=== PATIENT | male | born 1930 | race Caucasian/White ===

== ENCOUNTER 2016-10-10 22:24 | Emergency (ER) | payer BC ==
[2016-10-10 22:34] VITALS: BP 125/85; PULSE 98; TEMP 98; BMI 40.3
--- NOTE | 2016-10-10 23:05 | PDOC ---
History of Present Illness - General Chief Complaint: Edema Stated Complaint: RT HAND SWELLING Time Seen by Provider: 10/10/16 22:34 History Source: Patient Exam Limitations: No Limitations - History of Present Illness Initial Comments: 10/10/16 23:10 This is an 86-year-old male who comes in complaining of several days of right upper extremity swelling. Patient states not take any medication and says he is otherwise healthy. Patient has had over the last several months some bilateral lower extremity swelling which for G saw his primary care doctor and have some tests done but does not know the test results. Patient denies any fevers or chills. Patient denies any history of similar symptoms in the past. Patient denies any trauma or injury. Patient is complaining of some mild pain in the area of the swelling as well. PAST MEDICAL HISTORY: no significant history PAST SURGICAL HISTORY: no significant history FAMILY HISTORY: no pertinant history SOCIAL HISTORY: Pt lives with family and is retired MEDICATIONS: reviewed ALLERGIES: As per nursing notes Review of Systems General: No fevers or chills, no weakness, no weight loss HEENT: No change in vision. No sore throat,. No ear pain CardioVascular: No chest pain or shortness of breath Respiratory:No cough, or wheezing. Gastrointestinal: no nausea, vomitting, diarrhea or constipation, No rectal bleeding Genitourinary: No dysuria, hematuria, or frequency Musculoskeletal: Right hand and arm swelling as per history of present illness Neurologic: No headache, vertigo, dizziness or loss of consciousness Psychiatric: nor depression Skin: No rashes or easy bruising Endocrine: no increased thirst or abnormal weight change Allergic: no skin or latex allergy All other systems reviewed and normal GENERAL: The patient is awake, alert, and fully oriented, in no acute distress. HEAD: Normal with no signs of trauma. EYES: Pupils equal, round and reactive to light, extraocular movements intact, sclera anicteric, conjunctiva clear. EXTREMITIES: Right upper extremity there is moderate pitting edema of the right hand extending to proximally mid forearm. There is no increase in warmth but there is some questionable mild erythema. Neurovascular is intact. NEUROLOGICAL: Normal speech, normal gait. PSYCH: Normal mood, normal affect. SKIN: Warm, Dry, normal turgor, no rashes or lesions noted. 10/11/16 00:01 Doppler ultrasound negative for DVT Assessment and plan: This is an 86-year-old male who comes in complaining of right upper extremity swelling. There is no fever and minimal tenderness. There is a moderate amount of edema with some questionable mild erythema. There is no ascending lymphangitis. Patient had a white count that was negative there is no left shift. I think it is unlikely that this is infectious in nature however given the fact that patient is 86 years old I am going to cover him with Bactrim DS. Patient does have a primary care doctor he can follow-up with early next week or sooner if needed Past History - Past Medical History Allergies/Adverse Reactions: Allergies Allergy/AdvReac Type Severity Reaction Status Date / Time No Known Allergies Allergy Unverified 10/10/16 22:32 Home Medications: Ambulatory Orders Sulfamethoxazole/Trimethoprim [Bactrim DS -] 1 tab PO BID #14 tablet 10/11/16 Other medical history: DENIES - Psycho/Social/Smoking Cessation Hx Anxiety: No Suicidal Ideation: No Smoking History: Former smoker Have you smoked in the past 12 months: No Information on smoking cessation initiated: No *Physical Exam - Vital Signs Last Vital Signs Temp Pulse Resp BP Pulse Ox 98 F 98 H 20 125/85 98 10/10/16 22:32 10/10/16 22:32 10/10/16 22:32 10/10/16 22:32 10/10/16 22:32 ED Treatment Course - LABORATORY CBC & Chemistry Diagram: 10/10/16 23:05 10/10/16 23:05 *DC/Admit/Observation/Transfer Diagnosis at time of Disposition: Edema of hand - Discharge Dispostion Disposition: HOME Condition at time of disposition: Stable Admit: No - Prescriptions Prescriptions: Sulfamethoxazole/Trimethoprim [Bactrim DS -] 1 tab PO BID #14 tablet - Patient Instructions Additional Instructions: Take Bactrim 1 tablet twice a day for 7 days to prevent or treat any early infection. Tylenol as needed for pain. Try to elevate the hand as much as possible. Return to the emergency department immediately with ANY new, persistent or worsening symptoms. Continue any medications as previously prescribed by your physician. You should follow up with your primary doctor as soon as possible regarding today's emergency department visit. . Please make sure your doctor reviews the results of your emergency evaluation. Thank you for coming to the Emergency Department today for your care. It was a pleasure to see you today. Please note that your evaluation is INCOMPLETE until you follow-up with your doctor.
[2016-10-10 23:24] LABS: MCH 30.3 pg (25.7-33.7); MCHC 34.4 g/dl (32.0-35.9); MEAN CELL VOLUME 88.2 fl (80-96); MEAN PLT VOLUME 7.7 fl (7.5-11.1); PLATELET COUNT 231 K/MM3 (134-434); RDW 14.3 % (11.9-15.9); WHITE BLOOD COUNT 7.8 K/mm3 (4.0-10.0)
[2016-10-10 23:28] LABS: ANION GAP 10 (8-16); CALCIUM 8.6 mg/dl (8.4-10.2); CO2 28 mmol/L (22-28); CREATININE 1.3 mg/dl (0.6-1.3); GLUCOSE,RANDOM 121 mg/dl (74-106)
[2016-10-10 23:49] LABS: PLATELET ESTIMATE ADEQUATE (NORMAL)
[2016-10-11] MEDS ORDERED: SULFAMETHOXAZOLE/TRIMETHOPRIM 800MG/160MG D.S. TABLET ONE (00:04)
[2016-10-11] MEDS: SULFAMETHOXAZOLE/TRIMETHOPRIM 800MG/160MG D.S. TABLET PO ONE (00:06)
== END 2016-10-11 00:09 | disposition home or self-care (01) ==
LOC: FER 22:24
DX: R60.0 Localized edema (principal)
CPT/HCPCS: 36415; 80048; 85025; 93971; 99281-25

== ENCOUNTER 2017-07-01 13:28 | Inpatient (IN) | payer BC, OTHER ==
--- NOTE | 2017-07-01 13:37 | PDOC ---
History of Present Illness <TaylorMerlin - Last Filed: 07/01/17 15:48> - General History Source: Patient, Friend Exam Limitations: No Limitations - History of Present Illness Initial Comments: 07/01/17 14:40 The patient is an 86 year old male, with a significant past medical history of Hodgkin's lymphoma, who presents to the emergency department with generalized weakness. The patient lives with a friend who reports that he has been getting progressively weaker over the past couple of weeks. She reports that the patient fell 4 days ago. She states that she found the patient on the floor on his right side. She initiated EMS but the patient did not want to go to the hospital at that time. Over the past 4 days, the patient has been reporting right shoulder pain so he was brought to the ED for further evaluation. The patient denies fever, chills, headache, nausea or vomiting. The patient denies shortness of breath or chest pain. Allergies: None reported. Past Surgical History: None reported. Social History: Non-smoker. Denies alcohol or drug use. PCP: Dr. Reece <Rosalva Ayala - Last Filed: 07/01/17 16:47> - General Chief Complaint: Weakness Stated Complaint: generalized weakness Time Seen by Provider: 07/01/17 13:33 Past History - Past Medical History Cancer: Yes (Hodgkin's on chemo may be due next week per pt's .) COPD: No - Suicide/Smoking/Psychosocial Hx Smoking History: Never smoked Have you smoked in the past 12 months: No Information on smoking cessation initiated: No Hx Alcohol Use: No Drug/Substance Use Hx: No Substance Use Type: None <Merlin Vazquez - Last Filed: 07/01/17 15:48> <Rosalva Ayala - Last Filed: 07/01/17 16:47> - Past Medical History Allergies/Adverse Reactions: Allergies Allergy/AdvReac Type Severity Reaction Status Date / Time No Known Allergies Allergy Verified 07/01/17 13:34 Home Medications: Ambulatory Orders NK [No Known Home Medication] 07/01/17 Review of Systems - Review of Systems Able to Perform ROS?: Yes Comments:: 07/01/17 14:15 A complete review of 10 out of 10 review of systems is taken and is negative apart from what is previously mentioned below and in the HPI. <Rosalva Ayala - Last Filed: 07/01/17 16:47> *Physical Exam - Vital Signs Last Vital Signs Temp Pulse Resp BP Pulse Ox 97.6 F 85 16 138/74 99 07/01/17 13:30 07/01/17 13:30 07/01/17 13:30 07/01/17 13:30 07/01/17 13:30 <Merlin Vazquez - Last Filed: 07/01/17 15:48> - Vital Signs Last Vital Signs Temp Pulse Resp BP Pulse Ox 97.6 F 85 16 138/74 99 07/01/17 13:30 07/01/17 13:30 07/01/17 13:30 07/01/17 13:30 07/01/17 13:30 - Physical Exam Comments: 07/01/17 14:31 Vitals: Triage Vital signs reviewed. General Appearance: No acute distress, well nourished, well developed. Head: Atraumatic, normocephalic. Eyes: Pupils equal round reactive, extraocular movements intact. Neck: Supple. No nuchal rigidity. Chest Wall: Nontender. Cardiac: Regular rate and rhythm. No murmurs, no rubs, no gallops. Lungs: Clear to auscultation bilaterally, good air movement bilaterally. Abdomen: Soft, nondistended, normal bowel sounds, nontender to palpation. Rectal Exam: Guaiac positive, brown stool. Extremities: Right shoulder, decreased range of motion. Full range of motion to all other extremities, no cyanosis or clubbing. 2+ pitting edema of the bilateral lower extremities. Chronic venous stasis changes of the bilateral lower extremities. Skin: Abrasion of the head extending to the nose. Fungal rash to the groin. Warm and dry, no lesions, no petechiae. Neuro: AOX3. Cranial Nerves 2-12 grossly intact. Strength intact to all extremities. Sensation intact to all extremities. Psych: Normal mood, normal affect. <Rosalva Ayala - Last Filed: 07/01/17 16:47> Heart Score/ECG Review #1 ECG reviewed & interpreted by me at: 14:44 (EKG performed at 14:44 demonstrates rate of 73 bpm, normal sinus rhythm, left axis deviation. Right bundle branch block. Inferior infarct, age undetermined. No T wave inversions, no ST elevations.) <Rosalva Ayala - Last Filed: 07/01/17 16:47> ED Treatment Course - LABORATORY CBC & Chemistry Diagram: 07/01/17 13:45 07/01/17 13:47 <Merlin Vazquez - Last Filed: 07/01/17 15:48> - LABORATORY CBC & Chemistry Diagram: 07/01/17 13:45 07/01/17 13:47 - ADDITIONAL ORDERS Additional order review: 07/01/17 13:45 RBC 3.22 L D MCV 87.7 MCHC 31.9 L RDW 16.2 H D MPV 6.9 L D Neutrophils % 72.1 Lymphocytes % 16.3 Monocytes % 8.4 D Eosinophils % 3.0 Basophils % 0.2 <Rosalva Ayala - Last Filed: 07/01/17 16:47> Medical Decision Making - Medical Decision Making 07/01/17 14:51 EXAM: RAD/CHEST X-RAY PORTABLE Reviewed By: Dr. Monique Bourne IMPRESSION: No priors available for comparison. The cardiac silhouette is within normal limits in size allowing for magnification with mild to moderate unfolding of the aortic arch. The lung is clear. Mediastinum is osseous structures appear intact. A right subclavian central venous catheter is present with its tip in the superior vena cava. No pneumothorax is identified. No acute cardiopulmonary disease is present. EXAM: CT/HEAD CT WITHOUT CONTRAST Reviewed By: Dr. Monique Bourne IMPRESSION: There is mild to moderate volume loss and ventricular dilatation. Minimal periventricular chronic microvascular ischemic changes are present. No mass lesion, gross acute infarct or intracranial hemorrhage are identified. There is no shift of the midline structures. Visualized nasal sinuses and mastoid air cells are the calvarium is intact. Calcification of the cavernous carotid arteries are present. Mild to moderate volume loss without evidence of acute intracranial pathology. Call placed to Dr. Reece at 15:48, 16:15, 16:47. Case discussed with Dr. Reece at 16:47. <Rosalva Ayala - Last Filed: 07/01/17 16:47> *DC/Admit/Observation/Transfer - Discharge Dispostion Admit: Yes <Merlin Vazquez - Last Filed: 07/01/17 15:48> - Attestations Scribe Attestion: 07/01/17 14:15 Documentation prepared by Rosalva Ayala, acting as medical i d sales for Merlin Vazquez MD. <Rosalva Ayala - Last Filed: 07/01/17 16:47> Diagnosis at time of Disposition: Weakness Anemia Qualifiers: Anemia type: unspecified type Qualified Code(s): D64.9 - Anemia, unspecified - Discharge Dispostion Condition at time of disposition: Fair
[2017-07-01 14:01] LABS: BASO % 0.2 % (0-2.0); HEMATOCRIT 28.3 % (35.4-49); LYMPH % 16.3 % (8-40); MCHC 31.9 g/dl (32.0-35.9); MEAN CELL VOLUME 87.7 fl (80-96); MEAN PLT VOLUME 6.9 fl (7.5-11.1); MONO % 8.4 % (3.8-10.2); NEUT % 72.1 % (42.8-82.8); PLATELET COUNT 221 K/MM3 (134-434); RBC 3.22 M/mm3 (4.00-5.60); RDW 16.2 % (11.9-15.9)
[2017-07-01 14:16] LABS: ALK PHOS 64 U/L (32-92); ANION GAP 8 (8-16); BILIRUBIN,TOTAL 0.8 mg/dl (0.2-1.0); BLOOD UREA NITROGEN 53 mg/dl (7-18); CALCIUM 8.9 mg/dl (8.4-10.2); CHLORIDE 107 mmol/L (98-107); CO2 25 mmol/L (22-28); CREATININE 1.1 mg/dl (0.6-1.3); GLUCOSE,RANDOM 97 mg/dl (74-106); LIPASE 15 U/L (22-51); POTASSIUM 4.1 mmol/L (3.5-5.1); SGOT/AST 20 U/L (10-42); SGPT/ALT 11 U/L (10-40); SODIUM 140 mmol/L (136-145); TOT PROT 6.4 g/dl (6.4-8.3)
--- NOTE | 2017-07-01 14:54 | EKG ---
Test Reason : Blood Pressure : / mmHG Vent. Rate : 073 BPM Atrial Rate : 073 BPM P-R Int : 198 ms QRS Dur : 150 ms QT Int : 452 ms P-R-T Axes : 014 -34 012 degrees QTc Int : 497 ms NORMAL SINUS RHYTHM LEFT AXIS DEVIATION RIGHT BUNDLE BRANCH BLOCK CANNOT RULE OUT INFERIOR INFARCT , AGE UNDETERMINED ABNORMAL ECG NO PREVIOUS ECGS AVAILABLE Confirmed by GREGORIO HULL MD ([id number]) on 07/01/2017 2:54:13 PM Referred By: DR SUAREZ Confirmed By:GREGORIO HULL MD
[2017-07-01 16:34] LABS: URINE APPEARANCE Cloudy; URINE BILIRUBIN Negative (NEGATIVE); URINE GLUCOSE (UA) Negative (NEGATIVE); URINE KETONE Negative (NEGATIVE); URINE NITRITE Negative (NEGATIVE); URINE UROBILINOGEN 0.2 (0.2-1.0)
[2017-07-01 16:35] LABS: URINE BLOOD 3+ (NEGATIVE); URINE COLOR BROWN; URINE PROTEIN 2+ (NEGATIVE)
[2017-07-01 16:42] LABS: ACTIVATED PTT 28.7 SECONDS (24.0-38.9)
[2017-07-01 16:45] LABS: URINE BACTERIA MANY /hpf (NEGATIVE); URINE RBC MANY /hpf (0-3)
[2017-07-01 16:46] LABS: INR 1.15 (0.82-1.09); PROTHROMBIN TIME (PATIENT) 12.8 SEC (10.2-13.0)
[2017-07-01] MEDS ORDERED: CEFTRIAXONE 1 GM in DEXTROSE 5%-WATER - 50 ML IVPB ONE (17:15)
[2017-07-01] MEDS ORDERED: cefTRIAXone SODIUM 1 GM VIAL ONE (17:35)
[2017-07-01] MEDS ORDERED: NYSTATIN 100000 UNIT/GM TOPICAL OINTMENT 15 GM TUBE TP ONE (18:05)
[2017-07-01 18:56] VITALS: BMI 38.7
[2017-07-01] MEDS ORDERED: DEXTROSE 5%-0.45% SALINE 1,000 ML IV SCH (19:30)
--- NOTE | 2017-07-01 19:39 | HP ---
Admitting History and Physical - Admission Chief Complaint: s/p fall at a friend's house and weakness for approximately 1 week History of Present Illness: 86 yo male with PMH of Hodgkin's lymphoma was brought to my office by his friend for weakness with inability to ambulate. The patient fell approximately 1 week ago on his right shoulder but refused to see a doctor until now. He says that he was walking and tried to turn, being too weak, he lost his balance and fell on his right shoulder. At that time the patient had diarrhea. Currently the patient denies any diarrhea. He has diagnosis of Hodgkin's Lymphoma and will restart chemotherapy for acute relapse of Hodgkin's next week. Overall the patient is in poor physical condition and has difficulty taking care of himself. History Source: Patient, Caregiver Limitations to Obtaining History: Poor Historian - Past Medical History Cardiovascular: Yes: Murmur (systolic) Gastrointestinal: Yes: Other (diarrhea recrently) Renal/: Yes: BPH Heme/Onc: Yes: Other (Hodkin's Lymphoma) - Smoking History Smoking history: Never smoked Have you smoked in the past 12 months: No - Alcohol/Substance Use Hx Alcohol Use: No - Social History Usual Living Arrangement: Yes: With Significant Other History of Recent Travel: No Home Medications - Allergies Allergies/Adverse Reactions: Allergies Allergy/AdvReac Type Severity Reaction Status Date / Time No Known Allergies Allergy Verified 07/01/17 13:34 - Home Medications Home Medications: Ambulatory Orders NK [No Known Home Medication] 07/01/17 Review of Systems - Review of Systems Constitutional: reports: Weakness Eyes: reports: No Symptoms HENT: reports: No Symptoms Neck: reports: No Symptoms Cardiovascular: reports: Edema. denies: Palpitations, Shortness of Breath Respiratory: reports: No Symptoms Gastrointestinal: reports: Diarrhea (recently) Genitourinary: reports: Frequency, Incontinence, Urgency Breasts: reports: No Symptoms Reported Musculoskeletal: reports: Other (poor balance and lower back pain) Integumentary: reports: Erythema, Rash (located in the right submammary area) Psychiatric: reports: No Symptoms Physical Examination Vital Signs: Vital Signs Temperature 97.7 F 07/01/17 18:20 Pulse Rate 82 07/01/17 18:20 Respiratory Rate 16 07/01/17 18:20 Blood Pressure 130/71 07/01/17 18:20 O2 Sat by Pulse Oximetry (%) 99 07/01/17 18:20 Constitutional: Yes: No Distress, Calm Eyes: Yes: Conjunctiva Clear, EOM Intact HENT: Yes: Other (frontal area excoriation) Neck: Yes: Supple Cardiovascular: Yes: Regular Rate and Rhythm, S1, S2 Respiratory: Yes: Regular, CTA Bilaterally Gastrointestinal: Yes: Normal Bowel Sounds, Soft, Abdomen, Obese. No: Hepatomegaly, Splenomegaly Breast(s): Yes: WNL Extremities: No: Calf Tenderness Edema: No Peripheral Pulses WNL: Yes Neurological: Yes: Alert, Oriented Psychiatric: Yes: Alert, Oriented Labs: CBC, BMP 07/01/17 13:45 07/01/17 13:47 Imaging - Results Chest X-ray: Other (read ny me no pleural effusin and no infiltrate, no cardiomegaly) Cat Scan: Other (Ct scan of [facility] head : no acute intracranial pathology) Other: Other (right shoulder x ray read by me : possible fracture of the scapulla) Problem List - Problems (1) Traumatic arthropathy of right shoulder Assessment/Plan: Tylenol for pain Code(s): M12.511 - TRAUMATIC ARTHROPATHY, RIGHT SHOULDER (2) Fall as cause of accidental injury in home as place of occurrence Assessment/Plan: pt evluation rehab discharge as soon as possible Code(s): W19.XXXA - UNSPECIFIED FALL, INITIAL ENCOUNTER; Y92.009 - UNSP PLACE IN [facility] (3) Acute prerenal azotemia Assessment/Plan: hydration d5W at 42 cc/hr Code(s): R79.89 - OTHER SPECIFIED ABNORMAL FINDINGS OF BLOOD CHEMISTRY (4) Anemia Assessment/Plan: monitor CBC Code(s): D64.9 - ANEMIA, UNSPECIFIED Qualifiers: Anemia type: unspecified type Qualified Code(s): D64.9 - Anemia, unspecified (5) Hodgkins lymphoma Assessment/Plan: due for chemotherapy next week Code(s): C81.90 - HODGKIN LYMPHOMA, UNSPECIFIED, UNSPECIFIED SITE
[2017-07-02 08:43] LABS: BASO % 0.1 % (0-2.0); EOS % 5.2 % (0-4.5); HEMATOCRIT 23.3 % (35.4-49); HEMOGLOBIN 7.8 GM/dl (11.7-16.9); MCH 29.6 pg (25.7-33.7); MCHC 33.6 g/dl (32.0-35.9); MEAN CELL VOLUME 87.9 fl (80-96); MEAN PLT VOLUME 7.5 fl (7.5-11.1); MONO % 9.1 % (3.8-10.2); NEUT % 67.6 % (42.8-82.8); PLATELET COUNT 176 K/MM3 (134-434); RBC 2.65 M/mm3 (4.00-5.60); RDW 15.8 % (11.9-15.9); WHITE BLOOD COUNT 5.6 K/mm3 (4.0-10.8)
[2017-07-02 09:13] LABS: ALBUMIN 2.5 g/dl (3.5-5.0); ALK PHOS 53 U/L (32-92); ANION GAP 6 (8-16); BILIRUBIN,TOTAL 0.6 mg/dl (0.2-1.0); BLOOD UREA NITROGEN 45 mg/dl (7-18); CALCIUM 8.3 mg/dl (8.4-10.2); CHLORIDE 109 mmol/L (98-107); CO2 26 mmol/L (22-28); GLUCOSE,RANDOM 102 mg/dl (74-106); POTASSIUM 3.8 mmol/L (3.5-5.1); SGOT/AST 15 U/L (10-42); SGPT/ALT 11 U/L (10-40); SODIUM 141 mmol/L (136-145); TOT PROT 5.4 g/dl (6.4-8.3)
[2017-07-02] MEDS: CEFTRIAXONE 1 G/50 ML PREMIX 50 ML IVPB SCH (09:24)
[2017-07-02] MEDS: NYSTATIN/TRIAMCINOLONE TOPICAL CREAM 15 GM TUBE TP SCH ×2 (10:15→21:44)
--- NOTE | 2017-07-02 10:35 | PN ---
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, Physician Chief Complaint: 86 yo patient admitted for weakness, fall due to weakness and inability to care for himself.The patient has history of Hodgkin's lymphoma which relapsed recently and for which chemotherapy was scheduled next week. Currently he denies any pain, dyspnea or constipation. addendum :late in the evening the patient developed black tarry stools. History of Present Illness: PAtient admitted for deconditioning and fall at home. - Current Medication List Current Medications: Active Medications CEFTRIAXONE 1 G/50 ML PREMIX (Ceftriaxone 1 Gm-D5w Bag) 50 mls @ 100 mls/hr IVPB DAILY [facility] Last Admin: 07/02/17 09:24 Dose: 100 mls/hr Nystatin/Triamcinolone Acetonide (Mycolog Ii Cream -) 1 applic TP BID [facility] - Objective Vital Signs: Vital Signs Temperature 98.0 F 07/02/17 05:47 Pulse Rate 79 07/02/17 05:47 Respiratory Rate 18 07/02/17 05:47 Blood Pressure 118/68 07/02/17 05:47 O2 Sat by Pulse Oximetry (%) 99 07/02/17 08:31 Constitutional: Yes: No Distress, Calm Eyes: Yes: Conjunctiva Clear, EOM Intact HENT: Yes: Atraumatic, Normocephalic Neck: Yes: Supple, Trachea Midline Cardiovascular: Yes: Regular Rate and Rhythm, S1, S2 Respiratory: Yes: CTA Bilaterally Gastrointestinal: Yes: Normal Bowel Sounds, Soft, Abdomen, Obese. No: Hepatomegaly, Splenomegaly Extremities: Yes: Erythema. No: Calf Tenderness Edema: No (while in bed) Peripheral Pulses WNL: Yes Integumentary: Yes: Other (stasis dermatitis) Neurological: Yes: Alert, Oriented Psychiatric: Yes: Alert, Oriented Labs: CBC, BMP 07/02/17 08:00 07/02/17 08:00 INR, PTT INR 1.15 (0.82-1.09) 07/01/17 16:25 Problem List - Problems (1) Anemia Assessment/Plan: associated with black stools, most likely due to Gastro intestinal source monitor CBC retic count, Ferritin, transferrin, TIBC. Fe hold transfusion for now LDH repeat CBC in am Protonix iv serial CBC type and cross match Code(s): D64.9 - ANEMIA, UNSPECIFIED Qualifiers: Anemia type: unspecified type Qualified Code(s): D64.9 - Anemia, unspecified (2) Hodgkins lymphoma Assessment/Plan: due for chemotherapy next week with picture of acute anemia of unsure etiology will contact the Oncologist of the patient, Dr. DAN repeat CBC in am Code(s): C81.90 - HODGKIN LYMPHOMA, UNSPECIFIED, UNSPECIFIED SITE (3) Traumatic arthropathy of right shoulder Assessment/Plan: Tylenol for pain Code(s): M12.511 - TRAUMATIC ARTHROPATHY, RIGHT SHOULDER (4) Acute prerenal azotemia Assessment/Plan: hydration d5W at 42 cc/hr was completed Code(s): R79.89 - OTHER SPECIFIED ABNORMAL FINDINGS OF BLOOD CHEMISTRY (5) UTI (urinary tract infection) Assessment/Plan: awaiting for the urine cultures Ceftriaxone iv Code(s): N39.0 - URINARY TRACT INFECTION, SITE NOT SPECIFIED (6) BPH (benign prostatic hyperplasia) Assessment/Plan: continue Flomax Code(s): N40.0 - BENIGN PROSTATIC HYPERPLASIA WITHOUT LOWER URINRY TRACT SYMP
[2017-07-02] MEDS: PANTOPRAZOLE SODIUM 40 MG VIAL IVPUSH SCH (21:43)
[2017-07-02 22:26] LABS: BASO % 0.4 % (0-2.0); EOS % 3.1 % (0-4.5); HEMATOCRIT 25.2 % (35.4-49); HEMOGLOBIN 8.2 GM/dl (11.7-16.9); LYMPH % 17.6 % (8-40); MCH 28.7 pg (25.7-33.7); MCHC 32.6 g/dl (32.0-35.9); MEAN PLT VOLUME 7.9 fl (7.5-11.1); MONO % 8.1 % (3.8-10.2); NEUT % 70.8 % (42.8-82.8); PLATELET COUNT 197 K/MM3 (134-434); RBC 2.86 M/mm3 (4.00-5.60); RDW 16.7 % (11.9-15.9)
[2017-07-03 08:10] LABS: HEMATOCRIT 23.4 % (35.4-49); HEMOGLOBIN 7.6 GM/dl (11.7-16.9); MCHC 32.5 g/dl (32.0-35.9)
[2017-07-03 08:14] LABS: BASO % 0.1 % (0-2.0); EOS % 4.5 % (0-4.5); LYMPH % 17.3 % (8-40); MCH 28.9 pg (25.7-33.7); MEAN CELL VOLUME 88.8 fl (80-96); MEAN PLT VOLUME 7.6 fl (7.5-11.1); MONO % 9.2 % (3.8-10.2); NEUT % 68.9 % (42.8-82.8); PLATELET COUNT 187 K/MM3 (134-434); RBC 2.63 M/mm3 (4.00-5.60); RDW 16.4 % (11.9-15.9); WHITE BLOOD COUNT 5.7 K/mm3 (4.0-10.8)
[2017-07-03 08:35] LABS: ALBUMIN 2.5 g/dl (3.5-5.0); ALK PHOS 52 U/L (32-92); ANION GAP 6 (8-16); BILIRUBIN,TOTAL 0.6 mg/dl (0.2-1.0); BLOOD UREA NITROGEN 36 mg/dl (7-18); CALCIUM 8.1 mg/dl (8.4-10.2); CHLORIDE 109 mmol/L (98-107); CO2 24 mmol/L (22-28); GLUCOSE,RANDOM 94 mg/dl (74-106); LDH 110 U/L (91-180); POTASSIUM 3.4 mmol/L (3.5-5.1); SGOT/AST 17 U/L (10-42); SGPT/ALT 10 U/L (10-40); SODIUM 139 mmol/L (136-145); TOT PROT 5.4 g/dl (6.4-8.3)
[2017-07-03] MEDS: CEFTRIAXONE 1 G/50 ML PREMIX 50 ML IVPB SCH (09:00)
[2017-07-03] MEDS: PANTOPRAZOLE SODIUM 40 MG VIAL IVPUSH SCH (09:30)
--- NOTE | 2017-07-03 09:35 | PN ---
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 (short form) - Note 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: Patient seen and chart reviewed with consult dictated. Patient with recent weakness and found to have heme + stool, anemia, elevated BUN>creat and reports black stool x 24 hours. Likely UGI bleed. Patient on IV PPI and to receive PRBCs. Unable to perform EGD this am as patient ate breakfast; to reschedule for tomorrow. Would allow clear liquid diet and continue PPI Rx. Keep NPO after 6am 07/04/17 for EGD. Discuss[address] with Dr. Reece.
[2017-07-03] MEDS ORDERED: PANTOPRAZOLE 40 MG TABLET (FP) PO SCH (10:00)
--- NOTE | 2017-07-03 10:09 | CONS ---
DATE OF CONSULTATION: 07/03/2017 REASON FOR CONSULTATION: Asked to evaluate this 86-year-old gentleman admitted to the hospital with weakness and anemia as well as black tarry stool. HISTORY OF PRESENT ILLNESS: The patient is an 86-year-old gentleman with a known history of Hodgkin lymphoma for which he is scheduled for chemotherapy under the care of his oncologist next week. Patient apparently fell a week ago with injury to his shoulder and his forehead and did not go to a doctor at the time. He states that he has had some progressive weakness over the past week and was admitted via the emergency room with the weakness and noted to have anemia with initial hemoglobin of 9, hematocrit 28.3, with an MCV of 87.7, a BUN of 45, and a creatinine of 1.0. The patient received IV fluids and his repeat BUN and creatinine were 36 and 1.0 and his hematocrit fell to 23.3%. The patient states that he has had very dark, black stool for the past 24 hours. He denies the use of aspirin or NSAIDs, and the Hemoccult test was positive. The patient denies any prior history of GI bleeding or ulcer disease. He has had a good appetite and denies any abdominal pain or cramps. He reports having had a colonoscopy many years ago, ? over 10 years ago, and believes a polyp was removed at that time. There is no known family history of GI illness or malignancy. PHYSICAL EXAMINATION: General: The patient is a well-developed, elderly gentleman. He does not appear in any distress. He is somewhat slow in his answers but appears alert and oriented x3. HEENT: His conjunctivae are slightly pale. No icterus. Lungs: Grossly clear. Cardiac: Regular rate and rhythm. Abdomen: Soft, moderate obesity. No tenderness. As noted, the stool is Hemoccult positive. ASSESSMENT: Patient with Hodgkin disease, recent weakness and a recent fall. Has Hemoccult positive stool with a significant anemia. Patient may have an upper gastrointestinal bleed, and an upper endoscopy has been suggested. However, he was fed this morning, and the procedure will be deferred until tomorrow morning. In the interim, the patient is on IV Protonix and is to receive packed red blood cells. I will follow expectantly with recommendations as needed. CHARLIE SALINAS M.D. [id number]
[2017-07-03] MEDS: NYSTATIN/TRIAMCINOLONE TOPICAL CREAM 15 GM TUBE TP SCH ×2 (10:10→22:00)
[2017-07-03 14:14] LABS: SERUM IRON SATURATION 29 % (15-55); TOTAL IRON BINDING CAPACITY 210 ug/dL (250-450); UIBC 149 ug/dL (111-343)
--- NOTE | 2017-07-03 15:17 | PN ---
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, Physician Chief Complaint: 86 yo patient admitted for weakness, fall due to weakness and inability to care for himself.The patient has history of Hodgkin's lymphoma which relapsed recently and for which chemotherapy was scheduled next week. Currently he denies any pain, dyspnea, palpitations or constipation. addendum :late in the evening the patient developed black tarry stools. No repeated episode since yesterday. History of Present Illness: Patient admitted for deconditioning and fall at home, developed black tarry stools associated with a drop in H/H. The patient received 1 unit of blood. Endoscopy was scheduled for tomorrow. - Current Medication List Current Medications: Active Medications CEFTRIAXONE 1 G/50 ML PREMIX (Ceftriaxone 1 Gm-D5w Bag) 50 mls @ 100 mls/hr IVPB DAILY [facility] Last Admin: 07/02/17 09:24 Dose: 100 mls/hr Nystatin/Triamcinolone Acetonide (Mycolog Ii Cream -) 1 applic TP BID [facility] Last Admin: 07/02/17 21:44 Dose: 1 applic Pantoprazole Sodium (Protonix Iv) 40 mg IVPUSH DAILY [facility] Last Admin: 07/02/17 21:43 Dose: 40 mg - Objective Vital Signs: Vital Signs Temperature 98.2 F 07/03/17 14:26 Pulse Rate 74 07/03/17 14:26 Respiratory Rate 19 07/03/17 14:26 Blood Pressure 117/50 07/03/17 14:26 O2 Sat by Pulse Oximetry (%) 100 07/03/17 14:26 Constitutional: Yes: No Distress, Calm Eyes: Yes: Conjunctiva Clear, EOM Intact HENT: Yes: Atraumatic, Normocephalic Neck: Yes: Supple, Trachea Midline Cardiovascular: Yes: Regular Rate and Rhythm, S1, S2 Respiratory: Yes: Regular, CTA Bilaterally Gastrointestinal: Yes: Normal Bowel Sounds, Soft. No: Hepatomegaly, Splenomegaly ...Rectal Exam: Yes: Deferred Musculoskeletal: Yes: Muscle Weakness Extremities: No: Calf Tenderness Edema: No Labs: CBC, BMP 07/03/17 07:00 07/03/17 07:00 INR, PTT INR 1.15 (0.82-1.09) 07/01/17 16:25 Problem List - Problems (1) Upper gastrointestinal bleed Assessment/Plan: Protonix 40 mg iv daily repeat cbc in am endoscopy in am Code(s): K92.2 - GASTROINTESTINAL HEMORRHAGE, UNSPECIFIED (2) Traumatic arthropathy of right shoulder Assessment/Plan: Tylenol for pain Code(s): M12.511 - TRAUMATIC ARTHROPATHY, RIGHT SHOULDER (3) Anemia Assessment/Plan: associated with black stools, most likely due to Gastro intestinal source monitor CBC transfused today 1 unit PRBC repeat CBC in am Protonix iv Code(s): D64.9 - ANEMIA, UNSPECIFIED Qualifiers: Anemia type: unspecified type Qualified Code(s): D64.9 - Anemia, unspecified (4) UTI (urinary tract infection) Assessment/Plan: awaiting for the urine cultures Ceftriaxone iv Code(s): N39.0 - URINARY TRACT INFECTION, SITE NOT SPECIFIED (5) BPH (benign prostatic hyperplasia) Assessment/Plan: continue Flomax Code(s): N40.0 - BENIGN PROSTATIC HYPERPLASIA WITHOUT LOWER URINRY TRACT SYMP
[2017-07-04 08:08] LABS: BASO % 0.2 % (0-2.0); EOS % 5.5 % (0-4.5); HEMATOCRIT 25.1 % (35.4-49); HEMOGLOBIN 8.2 GM/dl (11.7-16.9); LYMPH % 17.2 % (8-40); MCH 28.8 pg (25.7-33.7); MCHC 32.6 g/dl (32.0-35.9); MEAN CELL VOLUME 88.6 fl (80-96); MEAN PLT VOLUME 7.6 fl (7.5-11.1); MONO % 9.7 % (3.8-10.2); NEUT % 67.4 % (42.8-82.8); PLATELET COUNT 170 K/MM3 (134-434); RBC 2.83 M/mm3 (4.00-5.60); WHITE BLOOD COUNT 5.3 K/mm3 (4.0-10.8)
[2017-07-04 08:40] LABS: ALBUMIN 2.5 g/dl (3.5-5.0); ALK PHOS 61 U/L (32-92); ANION GAP 3 (8-16); BILIRUBIN,TOTAL 0.5 mg/dl (0.2-1.0); BLOOD UREA NITROGEN 29 mg/dl (7-18); CALCIUM 8.1 mg/dl (8.4-10.2); CHLORIDE 109 mmol/L (98-107); CO2 26 mmol/L (22-28); POTASSIUM 3.5 mmol/L (3.5-5.1); SGOT/AST 17 U/L (10-42); SGPT/ALT 11 U/L (10-40); SODIUM 138 mmol/L (136-145); TOT PROT 5.5 g/dl (6.4-8.3)
[2017-07-04] MEDS: CEFTRIAXONE 1 G/50 ML PREMIX 50 ML IVPB SCH (09:00)
[2017-07-04] MEDS: PANTOPRAZOLE SODIUM 40 MG VIAL IVPUSH SCH (09:52)
[2017-07-04] MEDS: NYSTATIN/TRIAMCINOLONE TOPICAL CREAM 15 GM TUBE TP SCH ×2 (10:00→22:00)
[2017-07-04 11:02] LABS: GLUCOSE,RANDOM 91 mg/dL (74-106)
[2017-07-04] MEDS ORDERED: PROPOFOL 20 ML ONE ×3 (11:22)
[2017-07-04] MEDS ORDERED: LIDOCAINE HCL/PF 2% SDV 5ML VIAL ONE (11:22)
--- NOTE | 2017-07-04 12:06 | PN ---
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 (short form) - Note 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: Upper endoscopy performed with report in chart; findings notable for a small nonbleeding gastric antral ulcer (biopsy taken to r/o H pylori). No signs of bleeding at this time and Hct stable. Would advance diet as tolerated and treat with 4-6 weeks of daily PPI. Avoid ASA, NSAIDs. Discharge plans per Dr. Reece.
--- NOTE | 2017-07-04 14:03 | PN ---
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, Physician Chief Complaint: 86 yo patient admitted for weakness, fall due to weakness and inability to care for himself.The patient has history of Hodgkin's lymphoma which relapsed recently and for which therapy was scheduled next week. I discussed with the oncologist dr. Rolo Garibay and the immunomodulator treatment can be postponed until the patient more conditioned. There are concerns regarding the patient's condition and the safe discharge back to the community. Currently the patient denies any pain, dyspnea, palpitations or constipation and the upper endoscopy is scheduled to take place later in the morning today. History of Present Illness: Patient admitted for deconditioning and fall at home, developed black tarry stools associated with a drop in H/H. The patient received 1 unit of blood. Endoscopy was scheduled for later this morning. - Current Medication List Current Medications: Active Medications CEFTRIAXONE 1 G/50 ML PREMIX (Ceftriaxone 1 Gm-D5w Bag) 50 mls @ 100 mls/hr IVPB DAILY [facility] Last Admin: 07/04/17 09:00 Dose: 100 mls/hr Nystatin/Triamcinolone Acetonide (Mycolog Ii Cream -) 1 applic TP BID [facility] Last Admin: 07/03/17 22:00 Dose: 1 applic Pantoprazole Sodium (Protonix Iv) 40 mg IVPUSH DAILY [facility] Last Admin: 07/04/17 09:52 Dose: 40 mg - Objective Vital Signs: Vital Signs Temperature 97.8 F 07/04/17 06:27 Pulse Rate 85 07/04/17 06:27 Respiratory Rate 18 07/04/17 07:11 Blood Pressure 130/57 07/04/17 06:27 O2 Sat by Pulse Oximetry (%) 97 07/04/17 07:11 Constitutional: Yes: No Distress, Calm Eyes: Yes: Conjunctiva Clear, EOM Intact HENT: Yes: Atraumatic, Normocephalic Neck: Yes: Supple, Trachea Midline Cardiovascular: Yes: Regular Rate and Rhythm, S1, S2 Respiratory: Yes: Regular, CTA Bilaterally Gastrointestinal: Yes: Normal Bowel Sounds, Soft, Abdomen, Obese. No: Hepatomegaly, Splenomegaly Genitourinary: Yes: Incontinence, Scrotal Edema, Other (scrotal erythema) Breast(s): Yes: Gynecomastia Musculoskeletal: Yes: Muscle Weakness Extremities: Yes: Other (chronic stasis dermatitits and venous insufficiency). No: Calf Tenderness Peripheral Pulses WNL: Yes Integumentary: Yes: Other (stasis dermatitis of the anterior shins) Neurological: Yes: Alert, Oriented, Other (presbyacusia) Psychiatric: Yes: Alert, Oriented Labs: CBC, BMP 07/04/17 07:00 07/04/17 07:00 INR, PTT INR 1.15 (0.82-1.09) 07/01/17 16:25 Problem List - Problems (1) Upper gastrointestinal bleed Assessment/Plan: Protonix 40 mg iv daily repeat cbc in am endoscopy today showed a small non bleeding antral gastric ulcer Code(s): K92.2 - GASTROINTESTINAL HEMORRHAGE, UNSPECIFIED (2) Traumatic arthropathy of right shoulder Assessment/Plan: Tylenol for pain Code(s): M12.511 - TRAUMATIC ARTHROPATHY, RIGHT SHOULDER (3) Anemia Assessment/Plan: associated with black stools, most likely due to Gastro intestinal source monitor CBC transfused today 1 unit PRBC repeat CBC in am Protonix po Code(s): D64.9 - ANEMIA, UNSPECIFIED Qualifiers: Anemia type: unspecified type Qualified Code(s): D64.9 - Anemia, unspecified (4) UTI (urinary tract infection) Assessment/Plan: urine cultures negative d.c ceftriaxone Code(s): N39.0 - URINARY TRACT INFECTION, SITE NOT SPECIFIED (5) BPH (benign prostatic hyperplasia) Assessment/Plan: continue Flomax Code(s): N40.0 - BENIGN PROSTATIC HYPERPLASIA WITHOUT LOWER URINRY TRACT SYMP Assessment/Plan 86 yo male admitted for fall, weakness and GI bleed secondary to Gastric ulcer. He received 1 unit PRBC and had upper endoscopy today which showed a non bleeding antral ulcer. He is hemodinamically stable and can resume feeding. I discussed with the patient's oncologist dr Seth since the patient has a follow up appointment for treatment of his low grade Hodgkin's lymphoma on June. As of now the patient will be able to wait for his immunomodulator treatment with the oncologist until he will be physically more conditioned and able to return to the community. At this moment the patient will be discharged to re habilitation for gait training and re conditioning
--- NOTE | 2017-07-04 14:27 | DS ---
Physical Examination Vital Signs: Vital Signs Temperature 97.8 F 07/04/17 06:27 Pulse Rate 85 07/04/17 06:27 Respiratory Rate 18 07/04/17 07:11 Blood Pressure 130/57 07/04/17 06:27 O2 Sat by Pulse Oximetry (%) 97 07/04/17 07:11 Constitutional: Yes: No Distress, Calm Eyes: Yes: Conjunctiva Clear, EOM Intact HENT: Yes: Atraumatic, Normocephalic Neck: Yes: Supple, Trachea Midline Cardiovascular: Yes: Regular Rate and Rhythm, S1, S2 Respiratory: Yes: CTA Bilaterally Gastrointestinal: Yes: Normal Bowel Sounds, Soft, Abdomen, Obese ...Rectal Exam: Yes: Deferred Extremities: No: Calf Tenderness Edema: Yes Edema: LLE: 1+, RLE: 1+ Peripheral Pulses WNL: Yes Integumentary: Yes: Other (stasis dermatitis) Neurological: Yes: Alert, Oriented Psychiatric: Yes: Alert, Oriented Labs: CBC, BMP 07/04/17 07:00 07/04/17 07:00 Discharge Summary Reason For Visit: ANEMIA, WEAKNESS Current Active Problems Anemia (Acute) BPH (benign prostatic hyperplasia) (Acute) Traumatic arthropathy of right shoulder (Acute) UTI (urinary tract infection) (Acute) Upper gastrointestinal bleed (Acute) Weakness (Acute) Procedures: Principal: iv protonix, blood transfusion, upper endoscopy Hospital Course: 86 yo male admitted after a fall, with weakness and inability to take care of himself. The patient had black tarry stools associated with a drop in his H/h. He received 1 unit PRBC transfusion and had a upper endoscopy. The upper endoscopy diagnosed an antral non bleeding ulcer. I discussed with the patient's oncologist : dr. Seth and according to him the treatment with immunomodulators for his Hodgkin's can be postponed until the patient is stronger. The patient will be discharged for rehabilitation today. Arrangements for a safe discharge to the community should be made prior to [facility] discharge form rehab Condition: Fair - Instructions - Home Medications Comprehensive Discharge Medication List: Ambulatory Orders Nystatin/Triamcinolone Top Cr [Mycolog II -] 1 applic TP BID applic 07/04/17 Pantoprazole Sodium [Protonix -] 40 mg PO DAILY tablet.ec 07/04/17
--- NOTE | 2017-07-04 20:17 | CONS ---
DATE OF CONSULTATION: DATE OF DICTATION: 07/04/2017 Patient was seen at the request of his physician at bedside, Dr. Emmie Reece, with a complaint of thickened, ingrown, dystrophic toenails and a painful ingrown on the right hallux nail. Patient's prior medical history was reviewed. Patient's RX history was reviewed in the chart. PHYSICAL EXAMINATION: VASCULAR: Patient's vascularity is +1/4 dorsal pedis pulses bilateral. Posterior tibial pulses were nonpalpable bilateral. There was discoloration on the feet and the legs of the patient with mild edema bilateral. MUSCULOSKELETAL: The patient has contracted digits on both feet. DERMATOLOGICAL: Severely dystrophic, painful toenails, ingrown on the right hallux. ASSESSMENT: Hammer digit syndrome, dystrophic ingrown toenails. PLAN: Plan is to debride toenails 1-5 bilateral. Patient was advised to wear depth shoes and to see a diagnostic medical sonographer on somewhat of a regular basis due to the elongation and severely dystrophic nails he has. CLEOPATRA FERRARO/[id number]
[2017-07-05] MEDS: CEFTRIAXONE 1 G/50 ML PREMIX 50 ML IVPB SCH (09:15)
[2017-07-05] MEDS: NYSTATIN/TRIAMCINOLONE TOPICAL CREAM 15 GM TUBE TP SCH ×2 (09:15→21:34)
[2017-07-05] MEDS: PANTOPRAZOLE SODIUM 40 MG VIAL IVPUSH SCH (09:15)
--- NOTE | 2017-07-05 20:14 | PN ---
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, Physician Chief Complaint: 86 yo patient admitted for weakness, fall due to weakness and inability to care for himself. The patient had an endoscopy and was diagnosed with gastric ulcer which at the moment of the endoscopy was not bleeding. Currently the patient denies any pain, dyspnea, palpitations or constipation. Since yesterday he had a black tarry stool but denies any abdominal pain. I attempted to transfer the patient to [facility] but their admission department is asking me to change my notes and write that the patient does not need any immunomodulator therapy until fully rehabilitated. In my opinion and according to my discussion with Dr. Briseno the situation of the patient will have to be re assessed in 2 weeks and re discussed with the oncologist. History of Present Illness: Patient admitted for deconditioning and fall at home, developed black tarry stools associated with a drop in H/H. The patient received 1 unit of blood. Endoscopy was scheduled for later this morning. - Current Medication List Current Medications: Active Medications CEFTRIAXONE 1 G/50 ML PREMIX (Ceftriaxone 1 Gm-D5w Bag) 50 mls @ 100 mls/hr IVPB DAILY [facility] Last Admin: 07/05/17 09:15 Dose: 100 mls/hr Nystatin/Triamcinolone Acetonide (Mycolog Ii Cream -) 1 applic TP BID [facility] Last Admin: 07/05/17 09:15 Dose: 1 applic Pantoprazole Sodium (Protonix Iv) 40 mg IVPUSH DAILY [facility] Last Admin: 07/05/17 09:15 Dose: 40 mg - Objective Vital Signs: Vital Signs Temperature 98.8 F 07/05/17 19:43 Pulse Rate 81 07/05/17 19:43 Respiratory Rate 18 07/05/17 19:43 Blood Pressure 121/95 07/05/17 19:43 O2 Sat by Pulse Oximetry (%) 99 07/05/17 19:36 Constitutional: Yes: No Distress, Calm Eyes: Yes: Conjunctiva Clear, EOM Intact HENT: Yes: Atraumatic, Normocephalic Neck: Yes: Supple, Trachea Midline Cardiovascular: Yes: Regular Rate and Rhythm, S1, S2 Respiratory: Yes: Regular, CTA Bilaterally Gastrointestinal: Yes: Normal Bowel Sounds, Soft, Abdomen, Obese. No: Hepatomegaly, Splenomegaly, Tenderness, Tenderness, Epigastrium ...Rectal Exam: Yes: Deferred Extremities: No: Calf Tenderness Edema: No Peripheral Pulses WNL: Yes Neurological: Yes: Alert, Oriented Psychiatric: Yes: Alert, Oriented Labs: CBC, BMP 07/04/17 07:00 07/04/17 07:00 INR, PTT INR 1.15 (0.82-1.09) 07/01/17 16:25 Problem List - Problems (1) Upper gastrointestinal bleed Assessment/Plan: Protonix 40 mg po daily repeat cbc in am endoscopy showed a small non bleeding antral gastric ulcer start regular diet Code(s): K92.2 - GASTROINTESTINAL HEMORRHAGE, UNSPECIFIED (2) Traumatic arthropathy of right shoulder Assessment/Plan: Tylenol for pain Code(s): M12.511 - TRAUMATIC ARTHROPATHY, RIGHT SHOULDER (3) Anemia Assessment/Plan: associated with black stools, most likely due to Gastro intestinal source monitor CBC transfused today 1 unit PRBC repeat CBC in am Protonix po Code(s): D64.9 - ANEMIA, UNSPECIFIED Qualifiers: Anemia type: unspecified type Qualified Code(s): D64.9 - Anemia, unspecified (4) UTI (urinary tract infection) Assessment/Plan: urine cultures negative d.c ceftriaxone Code(s): N39.0 - URINARY TRACT INFECTION, SITE NOT SPECIFIED (5) BPH (benign prostatic hyperplasia) Assessment/Plan: continue Flomax Code(s): N40.0 - BENIGN PROSTATIC HYPERPLASIA WITHOUT LOWER URINRY TRACT SYMP Assessment/Plan 86 yo male admitted for fall, weakness and GI bleed secondary to Gastric ulcer. He received 1 unit PRBC and had upper endoscopy today which showed a non bleeding antral ulcer. He is hemodinamically stable and can resume feeding. I discussed with the patient's oncologist dr Briseno since the patient has a follow up appointment for treatment of his low grade Hodgkin's lymphoma on June. As of now the patient will be able to wait for his immunomodulator treatment with the oncologist until he will be physically more conditioned and able to return to the community. At this moment the patient will be discharged to re habilitation for gait training and re conditioning.
[2017-07-06 08:50] LABS: BASO % 0.4 % (0-2.0); EOS % 4.9 % (0-4.5); HEMATOCRIT 26.2 % (35.4-49); HEMOGLOBIN 8.6 GM/dl (11.7-16.9); LYMPH % 15.3 % (8-40); MCH 29.1 pg (25.7-33.7); MCHC 32.7 g/dl (32.0-35.9); MEAN CELL VOLUME 89.1 fl (80-96); MEAN PLT VOLUME 8.4 fl (7.5-11.1); MONO % 8.7 % (3.8-10.2); NEUT % 70.7 % (42.8-82.8); PLATELET COUNT 181 K/MM3 (134-434); RBC 2.94 M/mm3 (4.00-5.60); RDW 16.1 % (11.9-15.9); WHITE BLOOD COUNT 6.4 K/mm3 (4.0-10.8)
[2017-07-06] MEDS: TAMSULOSIN HCL 0.4 MG CAP.ER.24H (FP) PO SCH (09:23)
[2017-07-06] MEDS: PANTOPRAZOLE 40 MG TABLET (FP) PO SCH (09:24)
[2017-07-06] MEDS: NYSTATIN/TRIAMCINOLONE TOPICAL CREAM 15 GM TUBE TP SCH ×2 (09:24→22:59)
--- NOTE | 2017-07-06 12:27 | PN ---
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, Physician Chief Complaint: 86 yo patient admitted for weakness, fall and GI bleed had endoscopy which diagnosed a non bleeding gastric ulcer History of Present Illness: Patient admitted for deconditioning and fall at home, developed black tarry stools associated with a drop in H/H. The patient received 1 unit of blood. - Current Medication List Current Medications: Active Medications Nystatin/Triamcinolone Acetonide (Mycolog Ii Cream -) 1 applic TP BID [facility] Last Admin: 07/06/17 09:24 Dose: 1 applic Pantoprazole Sodium (Protonix -) 40 mg PO DAILY [facility] Last Admin: 07/06/17 09:24 Dose: 40 mg Tamsulosin HCl (Flomax -) 0.4 mg PO DAILY@0830 [facility] Last Admin: 07/06/17 09:23 Dose: 0.4 mg - Objective Vital Signs: Vital Signs Temperature 98.4 F 07/06/17 06:00 Pulse Rate 88 07/06/17 06:00 Respiratory Rate 20 07/06/17 06:00 Blood Pressure 129/59 07/06/17 06:00 O2 Sat by Pulse Oximetry (%) 93 L 07/06/17 06:00 Constitutional: Yes: No Distress, Calm Eyes: Yes: Conjunctiva Clear, EOM Intact HENT: Yes: Atraumatic, Normocephalic Neck: Yes: Supple, Trachea Midline Cardiovascular: Yes: Regular Rate and Rhythm, S1, S2 Respiratory: Yes: Regular, CTA Bilaterally Gastrointestinal: Yes: Normal Bowel Sounds, Soft Edema: No Peripheral Pulses WNL: Yes Neurological: Yes: Alert, Oriented Psychiatric: Yes: Alert, Oriented Labs: CBC, BMP 07/06/17 08:00 07/04/17 07:00 INR, PTT INR 1.15 (0.82-1.09) 07/01/17 16:25 Problem List - Problems (1) Upper gastrointestinal bleed Assessment/Plan: stable CBC Protonix 40 mg po daily endoscopy showed a small non bleeding antral gastric ulcer start regular diet Code(s): K92.2 - GASTROINTESTINAL HEMORRHAGE, UNSPECIFIED (2) Traumatic arthropathy of right shoulder Assessment/Plan: Tylenol for pain Code(s): M12.511 - TRAUMATIC ARTHROPATHY, RIGHT SHOULDER (3) Anemia Assessment/Plan: associated with black stools, most likely due to Gastro intestinal source monitor CBC transfused today 1 unit PRBC repeat CBC stable continue Protonix po Code(s): D64.9 - ANEMIA, UNSPECIFIED Qualifiers: Anemia type: unspecified type Qualified Code(s): D64.9 - Anemia, unspecified (4) BPH (benign prostatic hyperplasia) Assessment/Plan: continue Flomax Code(s): N40.0 - BENIGN PROSTATIC HYPERPLASIA WITHOUT LOWER URINRY TRACT SYMP (5) Hodgkin lymphoma Assessment/Plan: follow up with oncology B 12 1000 mcg Code(s): C81.90 - HODGKIN LYMPHOMA, UNSPECIFIED, UNSPECIFIED SITE
[2017-07-06] MEDS ORDERED: ACETAMINOPHEN 500 MG TABLET (FP) PO PRN (12:32)
[2017-07-06] MEDS: CYANOCOBALAMIN 1,000 MCG TABLET (FP) PO SCH (14:17)
[2017-07-06] MEDS: CYANOCOBALAMIN (VITAMIN B-12) 1000 MCG/1 ML VIAL IM SCH (14:18)
[2017-07-07] MEDS: TAMSULOSIN HCL 0.4 MG CAP.ER.24H (FP) PO SCH (08:17)
--- NOTE | 2017-07-07 09:10 | PN ---
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, Physician Chief Complaint: 86 yo patient admitted for weakness, fall and GI bleed had endoscopy which diagnosed a non bleeding gastric. the patient is awaiting for a facility to accept him for rehabilitation. - Current Medication List Current Medications: Active Medications Acetaminophen (Tylenol -) 1,000 mg PO Q8H PRN PRN Reason: FEVER OR PAIN Last Admin: 07/07/17 06:38 Dose: 1,000 mg Cyanocobalamin (Vitamin B12 -) 1,000 mcg PO DAILY [facility] Last Admin: 07/06/17 14:17 Dose: 1,000 mcg Cyanocobalamin (Vitamin B12 Injection -) 1,000 mcg IM DAILY [facility] Stop: 07/07/17 10:01 Last Admin: 07/06/17 14:18 Dose: 1,000 mcg Nystatin/Triamcinolone Acetonide (Mycolog Ii Cream -) 1 applic TP BID [facility] Last Admin: 07/06/17 22:59 Dose: 1 applic Pantoprazole Sodium (Protonix -) 40 mg PO DAILY [facility] Last Admin: 07/06/17 09:24 Dose: 40 mg Tamsulosin HCl (Flomax -) 0.4 mg PO DAILY@0830 [facility] Last Admin: 07/07/17 08:17 Dose: 0.4 mg - Objective Vital Signs: Vital Signs Temperature 97.7 F 07/07/17 06:00 Pulse Rate 77 07/07/17 06:00 Respiratory Rate 20 07/07/17 06:00 Blood Pressure 124/61 07/07/17 06:00 O2 Sat by Pulse Oximetry (%) 98 07/07/17 06:00 Constitutional: Yes: No Distress, Calm Eyes: Yes: Conjunctiva Clear, EOM Intact HENT: Yes: Atraumatic, Normocephalic Neck: Yes: Supple, Trachea Midline Cardiovascular: Yes: Regular Rate and Rhythm, S1, S2 Respiratory: Yes: Regular, CTA Bilaterally Gastrointestinal: Yes: Normal Bowel Sounds, Soft, Abdomen, Obese. No: Hepatomegaly, Splenomegaly ...Rectal Exam: Yes: Deferred Breast(s): Yes: WNL Musculoskeletal: Yes: Muscle Weakness Edema: Yes Edema: LLE: 1+, RLE: 1+ Peripheral Pulses WNL: Yes Integumentary: Yes: Other (staissi dermatitis) Neurological: Yes: Alert, Oriented Psychiatric: Yes: Alert, Oriented Labs: CBC, BMP 07/06/17 08:00 07/04/17 07:00 INR, PTT INR 1.15 (0.82-1.09) 07/01/17 16:25 Problem List - Problems (1) Upper gastrointestinal bleed Assessment/Plan: stable CBC Protonix 40 mg po daily endoscopy showed a small non bleeding antral gastric ulcer start regular diet Code(s): K92.2 - GASTROINTESTINAL HEMORRHAGE, UNSPECIFIED (2) Traumatic arthropathy of right shoulder Assessment/Plan: Tylenol for pain Code(s): M12.511 - TRAUMATIC ARTHROPATHY, RIGHT SHOULDER (3) Anemia Assessment/Plan: associated with black stools, most likely due to Gastro intestinal source monitor CBC s/p transfusion of 1 unit PRBC repeat CBC is stable continue Protonix po Code(s): D64.9 - ANEMIA, UNSPECIFIED Qualifiers: Anemia type: unspecified type Qualified Code(s): D64.9 - Anemia, unspecified (4) BPH (benign prostatic hyperplasia) Assessment/Plan: continue Flomax Code(s): N40.0 - BENIGN PROSTATIC HYPERPLASIA WITHOUT LOWER URINRY TRACT SYMP (5) Hodgkin lymphoma Assessment/Plan: follow up with oncology B 12 1000 mcg Code(s): C81.90 - HODGKIN LYMPHOMA, UNSPECIFIED, UNSPECIFIED SITE Assessment/Plan 86 yo male admitted for fall, weakness and GI bleed secondary to Gastric ulcer. He received 1 unit PRBC and had upper endoscopy today which showed a non bleeding antral ulcer. He is hemodinamically stable and can resume feeding.There is h/o Hodgkin's lymphoma which is relatively stable but requires Rituximab immunomodulator treatment I discussed with the patient's oncologist dr. Seth since the patient has a follow up appointment for Rituximab treatment on June. As of now the patient will be able to wait for his immunomodulator treatment with the oncologist until he will be physically more conditioned and able to return to the community. This will have to be re addressed with the Oncologist. At this moment the patient will be discharged to rehabilitation for gait training and re conditioning.
[2017-07-07] MEDS: CYANOCOBALAMIN (VITAMIN B-12) 1000 MCG/1 ML VIAL IM SCH (09:39)
[2017-07-07] MEDS: PANTOPRAZOLE 40 MG TABLET (FP) PO SCH (09:39)
[2017-07-07] MEDS: CYANOCOBALAMIN 1,000 MCG TABLET (FP) PO SCH (09:39)
[2017-07-07] MEDS: NYSTATIN/TRIAMCINOLONE TOPICAL CREAM 15 GM TUBE TP SCH (09:43)
[2017-07-07 14:39] VITALS: BP 118/58; PULSE 85; TEMP 97.8
--- NOTE | 2017-07-07 14:54 | PATH ---
Surgical Pathology Report Patient Name: CITLALY CUMMINGS [facility]. Rec. #: [id number] /Age/Gender: 1930 (Age: 86) / M Account: [id number] Location: [facility] MED-SURG Taken: 07/04/2017 Received: 07/04/2017 Reported: 07/07/2017 Physicians: Danie Lopez M.D. Specimen(s) Received BX ANTRUM Clinical History Preoperative diagnosis: Anemia Postoperative diagnosis: Antral ulcer Final Diagnosis ANTRUM, BIOPSY: MILD CHRONIC ACTIVE GASTRITIS. IMMUNOSTAIN IS NEGATIVE FOR H. PYLORI ORGANISMS. Electronically Signed Abiola Marin M.D. Gross Description Received in formalin, labeled "antrum" is a esquivel, irregular portion of soft tissue measuring 0.4 cm. in greatest dimension. The specimen is submitted in toto in one cassette. 07/04/201707/04/2017
--- NOTE | 2017-07-07 19:31 | DS ---
Physical Examination Vital Signs: Vital Signs Temperature 97.8 F 07/07/17 14:38 Pulse Rate 85 07/07/17 14:38 Respiratory Rate 19 07/07/17 14:38 Blood Pressure 118/58 07/07/17 14:38 O2 Sat by Pulse Oximetry (%) 100 07/07/17 14:38 Labs: CBC, BMP 07/06/17 08:00 07/04/17 07:00 Discharge Summary Reason For Visit: ANEMIA, WEAKNESS Condition: Fair - Instructions Disposition: RESIDENTIAL FACILITY - Home Medications Comprehensive Discharge Medication List: Ambulatory Orders Nystatin/Triamcinolone Top Cr [Mycolog II -] 1 applic TP BID applic 07/04/17 Pantoprazole Sodium [Protonix -] 40 mg PO DAILY tablet.ec 07/04/17 Tamsulosin HCl [Flomax] 0.4 mg PO DAILY #30 cap.er.24h 07/04/17 Cyanocobalamin [Vitamin B12 -] 1,000 mcg PO DAILY #30 tablet 07/07/17
== END 2017-07-07 16:10 | DRG 378 ==
LOC: FER 13:28 → FM/S 18:15
PROVIDERS: ADMIT Internal Medicine; ATTEND Internal Medicine
PROC: 30233N1 Transfusion of Nonautologous Red Blood Cells into Peripheral Vein, Percutaneous Approach (ICD-10-PCS; 2017-07-04)
PROC: 0DD68ZX Extraction of Stomach, Via Natural or Artificial Opening Endoscopic, Diagnostic (ICD-10-PCS; principal; 2017-07-04 11:30)
DX: K92.2 Gastrointestinal hemorrhage, unspecified (principal); C81.90 Hodgkin lymphoma, unspecified, unspecified site; N39.0 Urinary tract infection, site not specified; R71.0 Precipitous drop in hematocrit; K25.9 Gastric ulcer, unspecified as acute or chronic, without hemorrhage or perforation; D64.9 Anemia, unspecified; N40.0 Benign prostatic hyperplasia without lower urinary tract symptoms; R01.1 Cardiac murmur, unspecified; R79.89 Other specified abnormal findings of blood chemistry; M54.5 Low back pain; E66.8 Other obesity; Z68.38 Body mass index [BMI] 38.0-38.9, adult; R21 Rash and other nonspecific skin eruption; M12.511 Traumatic arthropathy, right shoulder; W18.39XA Other fall on same level, initial encounter; Y92.098 Other place in other non-institutional residence as the place of occurrence of the external cause
CPT/HCPCS: 36415; 36430; 36511; 70450-TC; 71045-TC; 73030-TC-RT; 80048; 80053; 81003; 81015; 82272; 82550; 83540; 83550; 83615; 83690; 84466; 84484; 85025; 85044; 85610; 85730; 86850; 86900; 86901; 86922; 87086; 88305-TC; 93005; 97116-GP; 97162-GP; 99284-25; P9038; P9058

== ENCOUNTER 2018-03-27 18:25 | Inpatient (IN) | payer BC, OTHER ==
--- NOTE | 2018-03-27 19:11 | PDOC ---
History of Present Illness <Leticia Taylor - Last Filed: 03/27/18 21:31> - History of Present Illness Initial Comments: 87yo M with PMH of Hodgkins Lymphoma presenting from his skilled nursing with altered mental status and tremors. Per skilled nursing report, staff noticed hand tremors today and patient has had poor po intake for the past three or four days. According to family member, he has not been himself. Patient does not have any acute complaints. Denies chest pain, shortness of breath, nausea/ vomiting, or abdominal pain. <Maria L Albert - Last Filed: 03/28/18 03:31> - General Chief Complaint: Altered Mental Status Stated Complaint: ALTERED MENTAL STATUS Time Seen by Provider: 03/27/18 19:06 Past History <Leticia Taylor - Last Filed: 03/27/18 21:31> - Past Medical History Cancer: Yes (Hodgkin's on chemo may be due next week per pt's .) COPD: No - Suicide/Smoking/Psychosocial Hx Smoking History: Unknown if ever smoked Have you smoked in the past 12 months: No Information on smoking cessation initiated: No Hx Alcohol Use: No Drug/Substance Use Hx: No Substance Use Type: None Hx Substance Use Treatment: No <Maria L Albert - Last Filed: 03/28/18 03:31> - Past Medical History Allergies/Adverse Reactions: Allergies Allergy/AdvReac Type Severity Reaction Status Date / Time No Known Allergies Allergy Verified 07/01/17 13:34 Home Medications: Ambulatory Orders Tamsulosin HCl [Flomax] 0.4 mg PO DAILY #30 cap.er.24h 07/04/17 Cyanocobalamin [Vitamin B12 -] 1,000 mcg PO DAILY #30 tablet 07/07/17 Acetaminophen 325 mg PO PRN 03/27/18 Ascorbic Acid [Vitamin C] 500 mg PO BID 03/27/18 Ferrous Sulfate 325 mg PO BID 03/27/18 Levothyroxine [Synthroid -] 25 mcg PO DAILY 03/27/18 Ranitidine [Zantac -] 150 mg PO DAILY 03/27/18 Ascorbic Acid [Vitamin C -] 500 mg PO BID 03/28/18 Ferrous Sulfate 325 mg PO BID 03/28/18 Levothyroxine [Synthroid -] 25 mcg PO DAILY 03/28/18 Lidocaine [Aspercreme] 1 each TP DAILY 03/28/18 Multivitamin,Ther and Minerals [Vitamin and Minerals] 1 each PO DAILY 03/28/18 Review of Systems - Review of Systems Able to Perform ROS?: Yes (limited by patient's AMS) Comments:: Constitutional: no fever, no chills Cardiovascular: no chest pain, no palpitations Respiratory: no cough, no shortness of breath Gastrointestinal: no abdominal pain Neurologic: no headache, no dizziness <Maria L Albert - Last Filed: 03/28/18 03:31> *Physical Exam - Vital Signs Last Vital Signs Temp Pulse Resp BP Pulse Ox 101.2 F H 103 H 22 H 98/66 94 L 03/27/18 18:50 03/27/18 20:09 03/27/18 20:09 03/27/18 20:09 03/27/18 20:54 <Leticia Taylor - Last Filed: 03/27/18 21:31> - Vital Signs Last Vital Signs Temp Pulse Resp BP Pulse Ox 101.2 F H 116 H 18 170/95 94 L 03/27/18 18:30 03/27/18 18:30 03/27/18 18:30 03/27/18 18:30 03/27/18 18:30 - Physical Exam Comments: General: Awake, alert; oriented to person and time, but not place; in no acute distress Head: no signs of trauma Eyes: EOMI, sclera anicteric ENT: Dry mucus membranes Neck: Normal ROM, supple Lungs: Lungs clear, Normal breath sounds Cardio: Regular rhythm, S1 and S2 present Abdomen: Soft, nontender. No guarding, no rebound, no masses Extremities: Normal range of motion, Distal pulses present SKIN: Warm, Dry, normal turgor; stage 3 sacral ulcer 4cm x 1.5cm Neurologic: Cranial nerves II through XII grossly intact. Normal speech <Maria L Albert - Last Filed: 03/28/18 03:31> ED Treatment Course - LABORATORY CBC & Chemistry Diagram: 03/27/18 19:50 03/27/18 19:50 - ADDITIONAL ORDERS Additional order review: Laboratory Results 03/27/18 03/27/18 03/27/18 20:45 19:50 19:50 PT with INR INR PTT (Actin FS) VBG pH POC VBG pCO2 POC VBG pO2 Mixed VBG HCO3 Sodium Potassium Chloride Carbon Dioxide Anion Gap BUN Creatinine Creat Clearance w eGFR Random Glucose Lactic Acid 2.2 H* Calcium Total Bilirubin AST ALT Alkaline Phosphatase Troponin I Cancelled Total Protein Albumin Urine Color Yellow Urine Appearance Slcloudy Urine pH 6.0 Ur Specific [place] 1.013 Urine Protein 1+ H Urine Glucose (UA) Negative Urine Ketones Negative Urine Blood 1+ H Urine Nitrite Negative Urine Bilirubin Negative Urine Urobilinogen Negative Ur Leukocyte Esterase 3+ H Urine WBC (Auto) 61 Urine RBC (Auto) 18 Ur Epithelial Cells Rare Urine Bacteria Rare Urine Mucus Rare 03/27/18 03/27/18 03/27/18 19:50 19:50 19:50 PT with INR 15.00 H INR 1.27 H PTT (Actin FS) 23.9 L VBG pH 7.47 H POC VBG pCO2 41.9 POC VBG pO2 30.6 Mixed VBG HCO3 29.9 H Sodium 147 H Potassium 3.9 Chloride 107 Carbon Dioxide 27 Anion Gap 13 BUN 45 H Creatinine 1.6 H Creat Clearance w eGFR 41.09 Random Glucose 105 Lactic Acid Calcium 13.1 H Total Bilirubin 0.6 AST 16 ALT 12 L Alkaline Phosphatase 109 Troponin I < 0.02 Total Protein 6.5 Albumin 2.2 L Urine Color Urine Appearance Urine pH Ur Specific [place] Urine Protein Urine Glucose (UA) Urine Ketones Urine Blood Urine Nitrite Urine Bilirubin Urine Urobilinogen Ur Leukocyte Esterase Urine WBC (Auto) Urine RBC (Auto) Ur Epithelial Cells Urine Bacteria Urine Mucus 03/27/18 19:50 RBC 3.83 L MCV 84.4 MCHC 32.5 RDW 19.7 H MPV 7.4 L Neutrophils % 79.8 Lymphocytes % 11.5 Monocytes % 7.2 Eosinophils % 1.2 Basophils % 0.3 - Medications Given in the ED: ED Medications Discontinued Medications Generic Name Dose Route Start Last Admin Trade Name Freq PRN Reason Stop Dose Admin Acetaminophen 1,000 mg 03/27/18 19:57 03/27/18 20:08 Ofirmev Injection - IVPB 03/27/18 19:58 1,000 mg ONCE ONE Administration Sodium Chloride 1,000 mls @ 1,000 mls/hr 03/27/18 19:57 03/27/18 20:07 Normal Saline - IV 03/27/18 20:56 1,000 mls/hr ASDIR STA Administration Sodium Chloride 1,000 mls @ 1,000 mls/hr 03/27/18 19:58 03/27/18 21:16 Normal Saline - IV 03/27/18 20:57 1,000 mls/hr ASDIR STA Administration <Leticia Taylor - Last Filed: 03/27/18 21:31> - LABORATORY CBC & Chemistry Diagram: 03/27/18 19:50 03/27/18 19:50 <Maria L Albert - Last Filed: 03/28/18 03:31> Medical Decision Making - Medical Decision Making 87yo M with PMH of Hodgkins Lymphoma presenting from his skilled nursing with altered mental status and tremors -Febrile 101.2, Tachycardic 116, BP on triage listed as 170/95 but repeat on larger cuff 98/66 -Septic Order Set -IV fluid hydration -Tylenol -Zosyn -WBC 10.6, UA w/3+ leuk esterase -EKG: rate 109, QTc prolonged 638 -Dr. Taylor spoke with Dr. Bonilla who accepted patient for admission 03/27/18 22:10 <Maria L Albert - Last Filed: 03/28/18 03:31> *DC/Admit/Observation/Transfer - Discharge Dispostion Decision to Admit order: Yes <Leticia Taylor - Last Filed: 03/27/18 21:31> <Maria L Albert - Last Filed: 03/28/18 03:31> Diagnosis at time of Disposition: Hodgkin lymphoma, UTI (urinary tract infection), Sepsis - Discharge Dispostion Condition at time of disposition: Guarded
--- NOTE | 2018-03-27 19:38 | PDOC ---
Attending Attestation - HPI HPI: This patient is an 87 year old female with PMHx of Hodgkin's lymphoma, who was BIBA from [facility] who presents for altered mental status, tremors, and poor PO intake. As per patients brother patient has not been eating well, nor drinking. He also mentions cough, tremors and fevers. History limited due to patients medical condition. As per patients brother, he denies recent chest pain, shortness of breath, or abdominal pain. Emergency Contacts: Eddie Carmichael (brother): [phone] (home) --> call before 11:00pm [phone](cell) --> call after 8:00am Jayro Carmichael (brother) [phone] - Physicial Exam PE: GENERAL: Awake, alert, in no acute distress. Weak-appearing. Febrile HEAD: No signs of trauma EYES: Pupil reactive to light. Sclera anicteric, conjunctiva clear ENT: Left TM normal, Right TM - cerumen filled. Hearing grossly normal, nares patent, oropharynx clear without exudates. Dry mucosa. Mouth-breathing. LUNGS: Breath sounds equal, clear to auscultation bilaterally. No wheezes, and no crackles HEART: Tachycardic. Regular rhythm, normal S1 and S2, no murmurs, rubs or gallops ABDOMEN: Soft, nontender, tympanic bowel sounds. No guarding, no rebound. No masses EXTREMITIES: Moving all extremities, b/l pitting edema up to the level of the knee. No clubbing or cyanosis. No cords, erythema, or tenderness NEUROLOGICAL: Cranial nerves II through XII grossly intact. Normal speech, normal gait SKIN: Chronic skin changes to b/l LE. Warm to touch, Dry, normal turgor. <Amanda Jackman - Last Filed: 03/27/18 20:31> - Resident Resident Name: Maria L Albert - ED Attending Attestation I have performed the following: I have examined & evaluated the patient, The case was reviewed & discussed with the resident, I agree w/resident's findings & plan - HPI HPI: 03/27/18 20:04 Pt comes from the [facility] with fever and sepsis. BP 92 systolic. Tongue dry - mouth breathing and pt is febrile and hot to the touch. He is opening his eyes and able to communicate a little. He knows his name. His 2 brothers are at the bedside and they provided some hx. He has a hx of Hodgkins. 03/27/18 20:06 - Medical Decision Making 03/29/18 19:41 Pt was admitted for sepsis and he was treated empirically with abx <Leticia Taylor - Last Filed: 03/29/18 19:41>
[2018-03-27] MEDS ORDERED: SODIUM CHLORIDE 1,000 ML IV STA ×3 (19:57→22:08)
[2018-03-27] MEDS ORDERED: ACETAMINOPHEN 1000 MG/100 ML VIAL (NON FORMULARY) IVPB ONE (19:57)
[2018-03-27] MEDS ORDERED: ACETAMINOPHEN INJECTION 100 ML IVPB ONE (20:01)
[2018-03-27 20:09] LABS: VENOUS PC02 41.9 mmHg (38-52); VENOUS PH 7.47 (7.32-7.42); VENOUS PO2 30.6 mmHg (28-48)
[2018-03-27 20:11] LABS: BASO % 0.3 % (0-2.0); EOS % 1.2 % (0-4.5); HEMATOCRIT 32.3 % (35.4-49); HEMOGLOBIN 10.5 GM/dL (11.7-16.9); LYMPH % 11.5 % (8-40); MCH 27.4 pg (25.7-33.7); MCHC 32.5 g/dl (32.0-35.9); MEAN CELL VOLUME 84.4 fl (80-96); MEAN PLT VOLUME 7.4 fl (7.5-11.1); MONO % 7.2 % (3.8-10.2); NEUT % 79.8 % (42.8-82.8); PLATELET COUNT 240 K/MM3 (134-434); RBC 3.83 M/mm3 (4.00-5.60); RDW 19.7 % (11.9-15.9); WHITE BLOOD COUNT 10.6 K/mm3 (4.0-10.0)
[2018-03-27 20:23] LABS: INR 1.27 (0.83-1.09)
[2018-03-27 20:26] LABS: ACTIVATED PTT 23.9 SECONDS (25.2-36.5)
[2018-03-27 20:42] LABS: ALBUMIN 2.2 g/dl (3.4-5.0); ALK PHOS 109 U/L (45-117); ANION GAP 13 MMOL/L (8-16); BILIRUBIN,TOTAL 0.6 mg/dL (0.2-1); BLOOD UREA NITROGEN 45 mg/dL (7-18); CALCIUM 13.1 mg/dL (8.5-10.1); CHLORIDE 107 mmol/L (98-107); CO2 27 mmol/L (21-32); CREATININE 1.6 mg/dL (0.55-1.3); GLUCOSE,RANDOM 105 mg/dL (74-106); POTASSIUM 3.9 mmol/L (3.5-5.1); SGOT/AST 16 U/L (15-37); SGPT/ALT 12 U/L (13-61); SODIUM 147 mmol/L (136-145); TOT PROT 6.5 g/dl (6.4-8.2)
[2018-03-27 20:53] LABS: URINE APPEARANCE SLCLOUDY; URINE BILIRUBIN NEGATIVE (<2.0 mg/dL); URINE COLOR YELLOW; URINE GLUCOSE (UA) NEGATIVE (NEGATIVE); URINE KETONE NEGATIVE (NEGATIVE); URINE NITRITE NEGATIVE (NEGATIVE); URINE UROBILINOGEN NEGATIVE mg/dL (0.2-1.0)
[2018-03-27 21:06] LABS: URINE LEUK ESTERASE 3+ (NEGATIVE); URINE PROTEIN 1+ (NEGATIVE)
[2018-03-27 21:13] LABS: EPI CELLS RARE /HPF (FEW); URINE BACTERIA RARE /hpf (NONE SEEN); URINE MUCUS RARE
[2018-03-27] MEDS ORDERED: PIPERACILLIN/TAZOB 3.375 GM 3.375 GM in DEXTROSE 5%-WATER - 50 ML IVPB ONE (21:13)
[2018-03-27] MEDS ORDERED: PIPERACILLIN/TAZOB 3.375 GM 3.375 GM/50 ML BAG IVPB ONE (21:18)
[2018-03-27 21:36] LABS: ANISOCYTOSIS 2+; PLATELET ESTIMATE ADEQUATE
[2018-03-27] MEDS: ASCORBIC ACID 500 MG TABLET (FP) PO SCH (22:28)
[2018-03-28] MEDS ORDERED: PIPERACILLIN/TAZOB 3.375 GM 3.375 GM in DEXTROSE 5%-WATER - 50 ML IVPB ONE (05:00)
[2018-03-28] MEDS ORDERED: PIPERACILLIN/TAZOBACTAM 3.375 GM VIAL IVPB ONE ×4 (05:18→23:54)
[2018-03-28] MEDS ORDERED: DEXTROSE 5%-WATER - 50 ML IVPB ONE ×4 (05:18→23:54)
[2018-03-28] MEDS ORDERED: SODIUM CHLORIDE 0.9% 500 ML INFUS.BAG IV ONE (06:00)
[2018-03-28 06:14] VITALS: BMI 38.7
[2018-03-28] MEDS: LEVOTHYROXINE NA 25 MCG TABLET (FP) PO SCH (06:21)
[2018-03-28 08:35] LABS: BASO % 0.4 % (0-2.0); EOS % 3.1 % (0-4.5); HEMATOCRIT 30.5 % (35.4-49); HEMOGLOBIN 9.8 GM/dL (11.7-16.9); LYMPH % 15.1 % (8-40); MCH 27.1 pg (25.7-33.7); MEAN CELL VOLUME 84.5 fl (80-96); MEAN PLT VOLUME 7.7 fl (7.5-11.1); MONO % 8.6 % (3.8-10.2); NEUT % 72.8 % (42.8-82.8); PLATELET COUNT 229 K/MM3 (134-434); RBC 3.61 M/mm3 (4.00-5.60); RDW 19.8 % (11.9-15.9); WHITE BLOOD COUNT 9.6 K/mm3 (4.0-10.0)
[2018-03-28 08:42] LABS: INR 1.29 (0.83-1.09); PROTHROMBIN TIME (PATIENT) 15.3 SEC (9.7-13.0)
--- NOTE | 2018-03-28 09:04 | HP ---
Admitting History and Physical - Primary Care Physician PCP: Piero Grant - Admission Chief Complaint: Confusion History of Present Illness: 87yrs old man morbidly obese H/O Lymphoma BIB EMS from [facility] with c/o conusion and tiredness din the Ed w/u show + UA , dehydration and admitted for further management., no c/o fever, chills, nausea, vomiting SOB or chest judit, in the Ed spiked fever. History Source: Patient, Family Member - Past Medical History Cardiovascular: Yes: Murmur (systolic) Gastrointestinal: Yes: Other (diarrhea recrently) Renal/: Yes: BPH Heme/Onc: Yes: Other (Hodkin's Lymphoma) - Advance Directives Advance Directives: Yes: DNR, MOLST - Smoking History Smoking history: Unknown if ever smoked Have you smoked in the past 12 months: No - Alcohol/Substance Use Hx Alcohol Use: No - Social History History of Recent Travel: No Home Medications - Allergies Allergies/Adverse Reactions: Allergies Allergy/AdvReac Type Severity Reaction Status Date / Time No Known Allergies Allergy Verified 07/01/17 13:34 - Home Medications Home Medications: Ambulatory Orders Tamsulosin HCl [Flomax] 0.4 mg PO DAILY #30 cap.er.24h 07/04/17 Cyanocobalamin [Vitamin B12 -] 1,000 mcg PO DAILY #30 tablet 07/07/17 Acetaminophen 325 mg PO PRN 03/27/18 Ascorbic Acid [Vitamin C] 500 mg PO BID 03/27/18 Ferrous Sulfate 325 mg PO BID 03/27/18 Levothyroxine [Synthroid -] 25 mcg PO DAILY 03/27/18 Ranitidine [Zantac -] 150 mg PO DAILY 03/27/18 Ascorbic Acid [Vitamin C -] 500 mg PO BID 03/28/18 Ferrous Sulfate 325 mg PO BID 03/28/18 Levothyroxine [Synthroid -] 25 mcg PO DAILY 03/28/18 Lidocaine [Aspercreme] 1 each TP DAILY 03/28/18 Multivitamin,Ther and Minerals [Vitamin and Minerals] 1 each PO DAILY 03/28/18 Family Disease History - Family Disease History Family History: Unremarkable Review of Systems - Review of Systems Constitutional: reports: Fever, Lethargy, Loss of Appetite Eyes: reports: Blind Spots, Blurred Vision, Recent Change in Vision HENT: denies: Difficult Swallowing, Ear Discharge Neck: denies: Decreased ROM, Lumps, Pain on Movement Respiratory: denies: Cough, Exercise Intolerance, Hemoptysis Gastrointestinal: reports: Constipation. denies: Abdominal Pain, Bloating Genitourinary: denies: Burning, Discharge, Dysuria Musculoskeletal: denies: Back Pain, Decreased ROM Endocrine: denies: Excessive Sweating, Flushing Hematology/Lymphatic: reports: No Symptoms Physical Examination Vital Signs: Vital Signs Temperature 97.4 F L 03/28/18 05:35 Pulse Rate 81 03/28/18 05:35 Respiratory Rate 20 03/28/18 05:35 Blood Pressure 92/54 L 03/28/18 05:35 O2 Sat by Pulse Oximetry (%) 95 03/28/18 05:00 Elderly man more responsive alert but confused not in distress HEENT: Mm dry, no anemia PERRLA EOMI NECK: No JVd No Bruit CHEST: CTA B/L CVS: S1S2 R no m/g/r ABD: Obese No distention S/P Left sided Hernia repair BS + EXT: Trace edema feet , pulses + SPEECH PATHOLOGY SUPERVISOR: Alert not in distress able to move all extremities Derm; Sacral Deubitus Ulcer stage 2-3 Extremities: Yes: Calf Tenderness Labs: CBC, BMP 03/28/18 06:15 CBC,CMP WBC 9.6 K/mm3 (4.0-10.0) 03/28/18 06:15 RBC 3.61 M/mm3 (4.00-5.60) L 03/28/18 06:15 Hgb 9.8 GM/dL (11.7-16.9) L 03/28/18 06:15 Hct 30.5 % (35.4-49) L 03/28/18 06:15 MCV 84.5 fl (80-96) 03/28/18 06:15 MCH 27.1 pg (25.7-33.7) 03/28/18 06:15 MCHC 32.0 g/dl (32.0-35.9) 03/28/18 06:15 RDW 19.8 % (11.9-15.9) H 03/28/18 06:15 Plt Count 240 K/MM3 (134-434) 03/27/18 19:50 MPV 7.4 fl (7.5-11.1) L 03/27/18 19:50 Absolute Neuts (auto) 7.0 K/mm3 (1.5-8.0) 03/28/18 06:15 Total Counted 100 03/27/18 19:50 Neutrophils % 72.8 % (42.8-82.8) 03/28/18 06:15 Neutrophils % (Manual) 74.0 % (42.8-82.8) 03/27/18 19:50 Band Neutrophils % 1.0 % 03/27/18 19:50 Lymphocytes % 15.1 % (8-40) D 03/28/18 06:15 Lymphocytes % (Manual) 13.0 % (8-40) 03/27/18 19:50 Monocytes % 8.6 % (3.8-10.2) 03/28/18 06:15 Monocytes % (Manual) 9 % (3.8-10.2) 03/27/18 19:50 Eosinophils % 3.1 % (0-4.5) D 03/28/18 06:15 Eosinophils % (Manual) 2.0 % (0-4.5) 03/27/18 19:50 Basophils % 0.4 % (0-2.0) 03/28/18 06:15 Nucleated RBC % 0 % (0-0) 03/28/18 06:15 Hypochromia 1+ 03/27/18 19:50 Platelet Estimate Adequate 03/27/18 19:50 Platelet Comment No clumping noted 03/27/18 19:50 Polychromasia 1+ 03/27/18 19:50 Anisocytosis 2+ 03/27/18 19:50 Microcytosis 1+ 03/27/18 19:50 Sodium 147 mmol/L (136-145) H 03/27/18 19:50 Potassium 3.9 mmol/L (3.5-5.1) 03/27/18 19:50 Chloride 107 mmol/L (98-107) 03/27/18 19:50 Carbon Dioxide 27 mmol/L (21-32) 03/27/18 19:50 Anion Gap 13 MMOL/L (8-16) 03/27/18 19:50 BUN 45 mg/dL (7-18) H 03/27/18 19:50 Creatinine 1.6 mg/dL (0.55-1.3) H 03/27/18 19:50 Creat Clearance w eGFR 41.09 (>60) 03/27/18 19:50 Random Glucose 105 mg/dL (74-106) 03/27/18 19:50 Lactic Acid 1.5 mmol/L (0.4-2.0) 03/27/18 22:00 Calcium 13.1 mg/dL (8.5-10.1) H 03/27/18 19:50 Total Bilirubin 0.6 mg/dL (0.2-1) 03/27/18 19:50 AST 16 U/L (15-37) 03/27/18 19:50 ALT 12 U/L (13-61) L 03/27/18 19:50 Alkaline Phosphatase 109 U/L (45-117) 03/27/18 19:50 Troponin I < 0.02 ng/ml (0.00-0.05) 03/27/18 19:50 Total Protein 6.5 g/dl (6.4-8.2) 03/27/18 19:50 Albumin 2.2 g/dl (3.4-5.0) L 03/27/18 19:50 Imaging - Results Chest X-ray: Report Reviewed (No acute chnages no infiltrates) EKG: Report Reviewed (No acute St t chnages) Problem List - Problems (1) Sepsis Assessment/Plan: Possible source is UTI or Decubitus ulcer will cont IV Hydration F/U cultures and abx Code(s): A41.9 - SEPSIS, UNSPECIFIED ORGANISM (2) UTI (urinary tract infection) Assessment/Plan: UTI cont IV Zosyn F/U ID recommendation and cultures Code(s): N39.0 - URINARY TRACT INFECTION, SITE NOT SPECIFIED (3) Hodgkin lymphoma Assessment/Plan: No active issue Code(s): C81.90 - HODGKIN LYMPHOMA, UNSPECIFIED, UNSPECIFIED SITE (4) PARMINDER (acute kidney injury) Assessment/Plan: Due to dehydration F/U BMP after Hydration Code(s): N17.9 - ACUTE KIDNEY FAILURE, UNSPECIFIED (5) Anemia Assessment/Plan: Chronic H/h stable Code(s): D64.9 - ANEMIA, UNSPECIFIED Qualifiers: Anemia type: unspecified type Qualified Code(s): D64.9 - Anemia, unspecified (6) Dehydration Assessment/Plan: Due to poor intake F/U BMP after Hydration Code(s): E86.0 - DEHYDRATION (7) Morbidly obese Assessment/Plan: NUtritional consult as out patient. Code(s): E66.01 - MORBID (SEVERE) OBESITY DUE TO EXCESS CALORIES (8) Hypothyroid Assessment/Plan: Cont Levothyroxine Code(s): E03.9 - HYPOTHYROIDISM, UNSPECIFIED (9) Decubitus ulcer Assessment/Plan: Wound care , cont current abx f/u ESR CRP Code(s): L89.90 - PRESSURE ULCER OF UNSPECIFIED SITE, UNSPECIFIED STAGE Qualifiers: Pressure injury location: sacral region Pressure injury stage: stage 3 Qualified Code(s): L89.153 - Pressure ulcer of sacral region, stage 3 (10) Hypokalemia Assessment/Plan: Repleted F/U BMP and Mag Code(s): E87.6 - HYPOKALEMIA
[2018-03-28] MEDS: ENOXAPARIN NA (PORCINE) 30 MG/0.3 ML DISP.SYRIN SQ SCH (09:37)
[2018-03-28] MEDS: TAMSULOSIN HCL 0.4 MG CAP PO SCH (09:38)
[2018-03-28] MEDS: RANITIDINE HCL 150 MG TABLET (FP) PO SCH (09:38)
[2018-03-28] MEDS: CYANOCOBALAMIN 1,000 MCG TABLET (FP) PO SCH (09:38)
[2018-03-28] MEDS: ASCORBIC ACID 500 MG TABLET (FP) PO SCH ×2 (09:38→22:02)
[2018-03-28 09:41] LABS: ALBUMIN 1.9 g/dl (3.4-5.0); ALK PHOS 94 U/L (45-117); ANION GAP 9 MMOL/L (8-16); BILIRUBIN,TOTAL 0.6 mg/dL (0.2-1); BLOOD UREA NITROGEN 41 mg/dL (7-18); CALCIUM 11.9 mg/dL (8.5-10.1); CHLORIDE 113 mmol/L (98-107); CO2 27 mmol/L (21-32); CREATININE 1.4 mg/dL (0.55-1.3); GLUCOSE,RANDOM 81 mg/dL (74-106); POTASSIUM 3.4 mmol/L (3.5-5.1); SGOT/AST 17 U/L (15-37); SGPT/ALT 11 U/L (13-61); SODIUM 149 mmol/L (136-145); TOT PROT 5.8 g/dl (6.4-8.2)
--- NOTE | 2018-03-28 13:19 | CON.ID ---
Consult - History of Present Illness History of Present Illness: 87 y.o. male with PMH of Hodgkins Lymphoma, obesity, and hypothyroidism presenting from a [facility] for weakness/altered mental status and reported decrease in po intake. He was also reported to have developed a recent cough without acute respiratory distress. In the ER pt was noted to have a fever (101.2F) and mild lactic acidosis with tachycardia but not with any specific complaints. Currently patient is verbally responsive, knows he is in the hospital but does not recall what happened prior to admission. He does say that he has a cough but only when eating. Currently he is not in distress. Denies chest pain, shortness of breath, abd pain/n/v/d, or dysuria. - History Source History Provided By: Patient, Medical Record Limitations to Obtaining History: No Limitations - Past Medical History Cardio/Vascular: Yes: Murmur (systolic) Gastrointestinal: Yes: Other (diarrhea recrently) Renal/: Yes: BPH Heme/Onc: Yes: Other (Lymphoma) Endocrine: Yes: Hypothyroidism - Past Surgical History Past Surgical History: Yes: Joint Replacement (b/l knee) - Alcohol/Substance Use Hx Alcohol Use: No - Smoking History Smoking history: Unknown if ever smoked Have you smoked in the past 12 months: No - Social History Usual Living Arrangement: Half-Way History of Recent Travel: No Home Medications - Allergies Allergies/Adverse Reactions: Allergies Allergy/AdvReac Type Severity Reaction Status Date / Time No Known Allergies Allergy Verified 07/01/17 13:34 - Home Medications Home Medications: Ambulatory Orders Tamsulosin HCl [Flomax] 0.4 mg PO DAILY #30 cap.er.24h 07/04/17 Cyanocobalamin [Vitamin B12 -] 1,000 mcg PO DAILY #30 tablet 07/07/17 Acetaminophen 325 mg PO PRN 03/27/18 Ascorbic Acid [Vitamin C] 500 mg PO BID 03/27/18 Ferrous Sulfate 325 mg PO BID 03/27/18 Levothyroxine [Synthroid -] 25 mcg PO DAILY 03/27/18 Ranitidine [Zantac -] 150 mg PO DAILY 03/27/18 Ascorbic Acid [Vitamin C -] 500 mg PO BID 03/28/18 Ferrous Sulfate 325 mg PO BID 03/28/18 Levothyroxine [Synthroid -] 25 mcg PO DAILY 03/28/18 Lidocaine [Aspercreme] 1 each TP DAILY 03/28/18 Multivitamin,Ther and Minerals [Vitamin and Minerals] 1 each PO DAILY 03/28/18 Review of Systems - Review of Systems Constitutional: reports: Loss of Appetite, Weakness Cardiovascular: reports: No Symptoms Respiratory: reports: Cough (occasional, dry) Gastrointestinal: reports: No Symptoms Genitourinary: reports: No Symptoms Musculoskeletal: reports: No Symptoms Integumentary: reports: No Symptoms Neurological: reports: Weakness Endocrine: reports: No Symptoms Hematology/Lymphatic: reports: No Symptoms Psychiatric: reports: No Symptoms Physical Exam Vital Signs: Vital Signs Temperature 97.4 F L 03/28/18 05:35 Pulse Rate 81 03/28/18 05:35 Respiratory Rate 20 03/28/18 05:35 Blood Pressure 92/54 L 03/28/18 05:35 O2 Sat by Pulse Oximetry (%) 95 03/28/18 05:00 Constitutional: Yes: No Distress, Calm Eyes: Yes: Conjunctiva Clear HENT: Yes: Atraumatic Neck: Yes: Supple Cardiovascular: Yes: Regular Rate and Rhythm Respiratory: Yes: Other (poor inspiratory intake) Gastrointestinal: Yes: Normal Bowel Sounds, Soft, Abdomen, Obese Renal/: Yes: WNL Musculoskeletal: Yes: WNL Extremities: Yes: WNL Edema: No Integumentary: Yes: WNL Neurological: Yes: Alert, Oriented, Weakness Labs: CBC, BMP 03/28/18 06:15 03/28/18 08:10 CBCD WBC 9.6 K/mm3 (4.0-10.0) 03/28/18 06:15 RBC 3.61 M/mm3 (4.00-5.60) L 03/28/18 06:15 Hgb 9.8 GM/dL (11.7-16.9) L 03/28/18 06:15 Hct 30.5 % (35.4-49) L 03/28/18 06:15 MCV 84.5 fl (80-96) 03/28/18 06:15 MCHC 32.0 g/dl (32.0-35.9) 03/28/18 06:15 RDW 19.8 % (11.9-15.9) H 03/28/18 06:15 Plt Count 229 K/MM3 (134-434) 03/28/18 06:15 MPV 7.7 fl (7.5-11.1) 03/28/18 06:15 CMP Sodium 149 mmol/L (136-145) H 03/28/18 08:10 Potassium 3.4 mmol/L (3.5-5.1) L 03/28/18 08:10 Chloride 113 mmol/L (98-107) H 03/28/18 08:10 Carbon Dioxide 27 mmol/L (21-32) 03/28/18 08:10 Anion Gap 9 MMOL/L (8-16) 03/28/18 08:10 BUN 41 mg/dL (7-18) H 03/28/18 08:10 Creatinine 1.4 mg/dL (0.55-1.3) H 03/28/18 08:10 Creat Clearance w eGFR 47.94 (>60) 03/28/18 08:10 Random Glucose 81 mg/dL (74-106) 03/28/18 08:10 Calcium 11.9 mg/dL (8.5-10.1) H 03/28/18 08:10 Total Bilirubin 0.6 mg/dL (0.2-1) 03/28/18 08:10 AST 17 U/L (15-37) 03/28/18 08:10 ALT 11 U/L (13-61) L 03/28/18 08:10 Alkaline Phosphatase 94 U/L (45-117) 03/28/18 08:10 Total Protein 5.8 g/dl (6.4-8.2) L 03/28/18 08:10 Albumin 1.9 g/dl (3.4-5.0) L 03/28/18 08:10 CARDIAC ENZYMES Troponin I < 0.02 ng/ml (0.00-0.05) 03/27/18 19:50 Lactate 2.2 U/A: 3+ LE Imaging - Results Chest X-ray: Report Reviewed Problem List - Problems (1) PARMINDER (acute kidney injury) Code(s): N17.9 - ACUTE KIDNEY FAILURE, UNSPECIFIED (2) Hodgkin lymphoma Code(s): C81.90 - HODGKIN LYMPHOMA, UNSPECIFIED, UNSPECIFIED SITE (3) Morbidly obese Code(s): E66.01 - MORBID (SEVERE) OBESITY DUE TO EXCESS CALORIES (4) Sepsis Code(s): A41.9 - SEPSIS, UNSPECIFIED ORGANISM (5) UTI (urinary tract infection) Code(s): N39.0 - URINARY TRACT INFECTION, SITE NOT SPECIFIED (6) Weakness Code(s): R53.1 - WEAKNESS (7) Anemia Code(s): D64.9 - ANEMIA, UNSPECIFIED Qualifiers: Anemia type: unspecified type Qualified Code(s): D64.9 - Anemia, unspecified (8) BPH (benign prostatic hyperplasia) Code(s): N40.0 - BENIGN PROSTATIC HYPERPLASIA WITHOUT LOWER URINRY TRACT SYMP Assessment/Plan 87 y.o. male presenting from [facility] with weakness/altered mental status, poor oral intake, fever and lactic acidosis Sepsis R/O UTI Fever Lactic acidosis BPH Hx of Hodgkins Lymphoma PARMINDER Hypothyroidism -- continue Zosyn empirically for now -- f/u results of blood and urine cultures -- monitor renal function, vitals closely -- pt possibly aspirating currently appears stable, is afebrile will follow Thank you
[2018-03-28] MEDS: PIPERACILLIN/TAZOB 3.375 GM 3.375 GM in DEXTROSE 5%-WATER - 50 ML IVPB SCH ×2 (13:58→18:16)
[2018-03-28] MEDS: ACETAMINOPHEN 325 MG TABLET (FP) PO PRN (22:02)
--- NOTE | 2018-03-28 23:19 | EKG ---
Test Reason : Blood Pressure : / mmHG Vent. 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 RATE HAS INCREASED BY 36 BPM QT HAS LENGTHENED Confirmed by LEIGHA ALVAREZ MD ([id number]) on 03/28/2018 11:18:54 PM Referred By: Confirmed By:LEIGHA ALVAREZ MD
[2018-03-29] MEDS: PIPERACILLIN/TAZOB 3.375 GM 3.375 GM in DEXTROSE 5%-WATER - 50 ML IVPB SCH ×3 (01:04→17:32)
[2018-03-29] MEDS: LEVOTHYROXINE NA 25 MCG TABLET (FP) PO SCH (06:34)
[2018-03-29 06:56] LABS: BASO % 0.4 % (0-2.0); EOS % 5.1 % (0-4.5); HEMATOCRIT 28.4 % (35.4-49); HEMOGLOBIN 9.3 GM/dL (11.7-16.9); LYMPH % 18.9 % (8-40); MCH 27.5 pg (25.7-33.7); MCHC 32.8 g/dl (32.0-35.9); MEAN CELL VOLUME 83.7 fl (80-96); MEAN PLT VOLUME 7.1 fl (7.5-11.1); MONO % 8.4 % (3.8-10.2); NEUT % 67.2 % (42.8-82.8); PLATELET COUNT 169 K/MM3 (134-434); RBC 3.39 M/mm3 (4.00-5.60); RDW 19.5 % (11.9-15.9); WHITE BLOOD COUNT 5.4 K/mm3 (4.0-10.0)
[2018-03-29] MEDS ORDERED: DEXTROSE 5%-WATER - 50 ML IVPB ONE ×2 (08:27→16:48)
[2018-03-29] MEDS ORDERED: PIPERACILLIN/TAZOBACTAM 3.375 GM VIAL IVPB ONE ×2 (08:27→16:48)
[2018-03-29] MEDS: TAMSULOSIN HCL 0.4 MG CAP PO SCH (09:24)
[2018-03-29] MEDS: CYANOCOBALAMIN 1,000 MCG TABLET (FP) PO SCH (09:24)
[2018-03-29] MEDS: ENOXAPARIN NA (PORCINE) 30 MG/0.3 ML DISP.SYRIN SQ SCH (09:24)
[2018-03-29] MEDS: ASCORBIC ACID 500 MG TABLET (FP) PO SCH ×2 (09:24→23:19)
[2018-03-29] MEDS: RANITIDINE HCL 150 MG TABLET (FP) PO SCH (09:24)
[2018-03-29 09:52] LABS: ALBUMIN 1.8 g/dl (3.4-5.0); ALK PHOS 87 U/L (45-117); ANION GAP 11 MMOL/L (8-16); BILIRUBIN,TOTAL 0.5 mg/dL (0.2-1); BLOOD UREA NITROGEN 33 mg/dL (7-18); CALCIUM 11.6 mg/dL (8.5-10.1); CHLORIDE 113 mmol/L (98-107); CO2 24 mmol/L (21-32); CREATININE 1.3 mg/dL (0.55-1.3); GLUCOSE,RANDOM 73 mg/dL (74-106); SGOT/AST 12 U/L (15-37); SGPT/ALT 10 U/L (13-61); SODIUM 148 mmol/L (136-145); TOT PROT 5.5 g/dl (6.4-8.2)
--- NOTE | 2018-03-29 15:08 | PN ---
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, Physician History of Present Illness: Pt is alert and responsive but weak, poor p.o. intake. No distress noted. He is now afebrile. No specific events noted. - Current Medication List Current Medications: Active Medications Acetaminophen (Tylenol -) 650 mg PO Q4H PRN PRN Reason: FEVER/PAIN LEVEL 1-5 Last Admin: 03/28/18 22:02 Dose: 650 mg Ascorbic Acid (Vitamin C -) 500 mg PO BID [facility] Last Admin: 03/29/18 09:24 Dose: 500 mg Cyanocobalamin (Vitamin B12 -) 1,000 mcg PO DAILY [facility] Last Admin: 03/29/18 09:24 Dose: 1,000 mcg Enoxaparin Sodium (Lovenox -) 30 mg SQ DAILY [facility] Last Admin: 03/29/18 09:24 Dose: 30 mg Piperacillin Sod/Tazobactam (Sod 3.375 gm/ Dextrose) 50 mls @ 100 mls/hr IVPB Q8H-IV [facility]; Protocol Last Admin: 03/29/18 09:25 Dose: 100 mls/hr Levothyroxine Sodium (Synthroid -) 25 mcg PO 0700 [facility] Last Admin: 03/29/18 06:34 Dose: 25 mcg Ranitidine HCl (Zantac -) 150 mg PO DAILY [facility] Last Admin: 03/29/18 09:24 Dose: 150 mg Tamsulosin HCl (Flomax -) 0.4 mg PO 0830 [facility] Last Admin: 03/29/18 09:24 Dose: 0.4 mg - Objective Vital Signs: Vital Signs Temperature 97.8 F 03/29/18 14:17 Pulse Rate 85 03/29/18 14:17 Respiratory Rate 18 03/29/18 14:17 Blood Pressure 116/67 03/29/18 14:17 O2 Sat by Pulse Oximetry (%) 96 03/29/18 09:00 Constitutional: Yes: No Distress, Calm Cardiovascular: Yes: Regular Rate and Rhythm Respiratory: Yes: Other (poor inspiratory effort) Gastrointestinal: Yes: Normal Bowel Sounds, Soft, Abdomen, Obese Extremities: Yes: WNL Integumentary: Yes: WNL Neurological: Yes: Alert Labs: CBC, BMP 03/29/18 05:30 03/29/18 05:30 INR, PTT INR 1.29 (0.83-1.09) H 03/28/18 08:10 Microbiology 03/27/18 20:45 Urine - Urine Clean Catch Urine Culture - Final NO GROWTH OBTAINED 03/27/18 20:06 Blood - Peripheral Venous Blood Culture - Preliminary NO GROWTH OBTAINED AFTER 24 HOURS, INCUBATION TO CONTINUE FOR 4 DAYS. 03/27/18 19:50 Blood - Peripheral Venous Blood Culture - Preliminary NO GROWTH OBTAINED AFTER 24 HOURS, INCUBATION TO CONTINUE FOR 4 DAYS. Problem List - Problems (1) PARMINDER (acute kidney injury) Code(s): N17.9 - ACUTE KIDNEY FAILURE, UNSPECIFIED (2) Hodgkin lymphoma Code(s): C81.90 - HODGKIN LYMPHOMA, UNSPECIFIED, UNSPECIFIED SITE (3) Morbidly obese Code(s): E66.01 - MORBID (SEVERE) OBESITY DUE TO EXCESS CALORIES (4) Sepsis Code(s): A41.9 - SEPSIS, UNSPECIFIED ORGANISM (5) UTI (urinary tract infection) Code(s): N39.0 - URINARY TRACT INFECTION, SITE NOT SPECIFIED (6) Weakness Code(s): R53.1 - WEAKNESS (7) Anemia Code(s): D64.9 - ANEMIA, UNSPECIFIED Qualifiers: Anemia type: unspecified type Qualified Code(s): D64.9 - Anemia, unspecified (8) BPH (benign prostatic hyperplasia) Code(s): N40.0 - BENIGN PROSTATIC HYPERPLASIA WITHOUT LOWER URINRY TRACT SYMP Assessment/Plan 87 y.o. male presenting from [place] with weakness/altered mental status, poor oral intake, fevers, and lactic acidosis Sepsis - unclear source Fever Lactic acidosis BPH Hx of Hodgkins Lymphoma PARMINDER Hypothyroidism -- urine/blood culture results noted, no growth so far -- would not discontinue antibiotics at this time, continue monitor -- renal function improving -- question of aspiration at time time patient appears stable
[2018-03-29] MEDS ORDERED: POTASSIUM CHLORIDE ORAL LIQUID 20 MEQ/15 ML PO ONE (16:39)
--- NOTE | 2018-03-29 16:39 | PN ---
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, Physician Chief Complaint: More alert denies any complaints remained afebrile - Current Medication List Current Medications: Active Medications Acetaminophen (Tylenol -) 650 mg PO Q4H PRN PRN Reason: FEVER/PAIN LEVEL 1-5 Last Admin: 03/28/18 22:02 Dose: 650 mg Ascorbic Acid (Vitamin C -) 500 mg PO BID [facility] Last Admin: 03/29/18 09:24 Dose: 500 mg Cyanocobalamin (Vitamin B12 -) 1,000 mcg PO DAILY [facility] Last Admin: 03/29/18 09:24 Dose: 1,000 mcg Enoxaparin Sodium (Lovenox -) 30 mg SQ DAILY [facility] Last Admin: 03/29/18 09:24 Dose: 30 mg Piperacillin Sod/Tazobactam (Sod 3.375 gm/ Dextrose) 50 mls @ 100 mls/hr IVPB Q8H-IV [facility]; Protocol Last Admin: 03/29/18 09:25 Dose: 100 mls/hr Levothyroxine Sodium (Synthroid -) 25 mcg PO 0700 [facility] Last Admin: 03/29/18 06:34 Dose: 25 mcg Ranitidine HCl (Zantac -) 150 mg PO DAILY [facility] Last Admin: 03/29/18 09:24 Dose: 150 mg Tamsulosin HCl (Flomax -) 0.4 mg PO 0830 [facility] Last Admin: 03/29/18 09:24 Dose: 0.4 mg - Objective Vital Signs: Vital Signs Temperature 97.8 F 03/29/18 14:17 Pulse Rate 85 03/29/18 14:17 Respiratory Rate 18 03/29/18 14:17 Blood Pressure 116/67 03/29/18 14:17 O2 Sat by Pulse Oximetry (%) 96 03/29/18 09:00 Elderly man more responsive alert but confused not in distress HEENT: Mm dry, no anemia PERRLA EOMI NECK: No JVd No Bruit CHEST: CTA B/L CVS: S1S2 R no m/g/r ABD: Obese No distention S/P Left sided Hernia repair BS + EXT: Trace edema feet , pulses + [employer] INTEGRATOR: Alert not in distress able to move all extremities Derm; Sacral Deubitus Ulcer stage 2-3 Labs: CBC, BMP 03/29/18 05:30 03/29/18 05:30 INR, PTT INR 1.29 (0.83-1.09) H 03/28/18 08:10 Problem List - Problems (1) Sepsis Assessment/Plan: Possible source is UTI or Decubitus ulcer will cont IV Hydration F/U cultures and abx Code(s): A41.9 - SEPSIS, UNSPECIFIED ORGANISM (2) UTI (urinary tract infection) Assessment/Plan: UTI cont IV Zosyn F/U ID recommendation and cultures Code(s): N39.0 - URINARY TRACT INFECTION, SITE NOT SPECIFIED (3) Hodgkin lymphoma Assessment/Plan: No active issue Code(s): C81.90 - HODGKIN LYMPHOMA, UNSPECIFIED, UNSPECIFIED SITE (4) PARMINDER (acute kidney injury) Assessment/Plan: Due to dehydration F/U BMP after Hydration Code(s): N17.9 - ACUTE KIDNEY FAILURE, UNSPECIFIED (5) Anemia Assessment/Plan: Chronic H/h stable Code(s): D64.9 - ANEMIA, UNSPECIFIED Qualifiers: Anemia type: unspecified type Qualified Code(s): D64.9 - Anemia, unspecified (6) Dehydration Assessment/Plan: Due to poor intake F/U BMP after Hydration Code(s): E86.0 - DEHYDRATION (7) Morbidly obese Assessment/Plan: NUtritional consult as out patient. Code(s): E66.01 - MORBID (SEVERE) OBESITY DUE TO EXCESS CALORIES (8) Hypothyroid Assessment/Plan: Cont Levothyroxine Code(s): E03.9 - HYPOTHYROIDISM, UNSPECIFIED (9) Decubitus ulcer Assessment/Plan: Wound care , cont current abx f/u ESR CRP Code(s): L89.90 - PRESSURE ULCER OF UNSPECIFIED SITE, UNSPECIFIED STAGE Qualifiers: Pressure injury location: sacral region Pressure injury stage: stage 3 Qualified Code(s): L89.153 - Pressure ulcer of sacral region, stage 3 (10) Hypokalemia Assessment/Plan: Repleted F/U BMP and Mag Code(s): E87.6 - HYPOKALEMIA
[2018-03-30] MEDS ORDERED: DEXTROSE 5%-WATER - 50 ML IVPB ONE ×4 (02:25→21:09)
[2018-03-30] MEDS ORDERED: PIPERACILLIN/TAZOBACTAM 3.375 GM VIAL IVPB ONE ×4 (02:25→21:09)
[2018-03-30] MEDS: PIPERACILLIN/TAZOB 3.375 GM 3.375 GM in DEXTROSE 5%-WATER - 50 ML IVPB SCH ×3 (02:51→17:44)
[2018-03-30] MEDS: LEVOTHYROXINE NA 25 MCG TABLET (FP) PO SCH (06:17)
[2018-03-30 06:53] LABS: BASO % 0.3 % (0-2.0); EOS % 3.9 % (0-4.5); HEMATOCRIT 31.9 % (35.4-49); HEMOGLOBIN 10.1 GM/dL (11.7-16.9); LYMPH % 17.4 % (8-40); MCH 26.6 pg (25.7-33.7); MCHC 31.7 g/dl (32.0-35.9); MEAN CELL VOLUME 83.9 fl (80-96); MONO % 8.4 % (3.8-10.2); PLATELET COUNT 194 K/MM3 (134-434); RDW 19.3 % (11.9-15.9); WHITE BLOOD COUNT 6.6 K/mm3 (4.0-10.0)
[2018-03-30 07:19] LABS: ANION GAP 10 MMOL/L (8-16); BLOOD UREA NITROGEN 27 mg/dL (7-18); CALCIUM 11.9 mg/dL (8.5-10.1); CHLORIDE 114 mmol/L (98-107); CO2 26 mmol/L (21-32); CREATININE 1.3 mg/dL (0.55-1.3); GLUCOSE,RANDOM 84 mg/dL (74-106); MAGNESIUM 2.2 mg/dL (1.8-2.4); POTASSIUM 3.3 mmol/L (3.5-5.1); SODIUM 150 mmol/L (136-145)
--- NOTE | 2018-03-30 09:15 | PN ---
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, Physician History of Present Illness: patient starting to feel better awake and alert,weak says he probably had urinary infection - Current Medication List Current Medications: Active Medications Acetaminophen (Tylenol -) 650 mg PO Q4H PRN PRN Reason: FEVER/PAIN LEVEL 1-5 Last Admin: 03/28/18 22:02 Dose: 650 mg Ascorbic Acid (Vitamin C -) 500 mg PO BID [facility] Last Admin: 03/29/18 23:19 Dose: 500 mg Cyanocobalamin (Vitamin B12 -) 1,000 mcg PO DAILY [facility] Last Admin: 03/29/18 09:24 Dose: 1,000 mcg Enoxaparin Sodium (Lovenox -) 30 mg SQ DAILY [facility] Last Admin: 03/29/18 09:24 Dose: 30 mg Piperacillin Sod/Tazobactam (Sod 3.375 gm/ Dextrose) 50 mls @ 100 mls/hr IVPB Q8H-IV [facility]; Protocol Last Admin: 03/30/18 02:51 Dose: 100 mls/hr Levothyroxine Sodium (Synthroid -) 25 mcg PO 0700 [facility] Last Admin: 03/30/18 06:17 Dose: 25 mcg Ranitidine HCl (Zantac -) 150 mg PO DAILY [facility] Last Admin: 03/29/18 09:24 Dose: 150 mg Tamsulosin HCl (Flomax -) 0.4 mg PO 0830 [facility] Last Admin: 03/29/18 09:24 Dose: 0.4 mg - Objective Vital Signs: Vital Signs Temperature 98.3 F 03/30/18 06:00 Pulse Rate 91 H 03/30/18 06:00 Respiratory Rate 20 03/30/18 06:00 Blood Pressure 141/86 03/30/18 06:00 O2 Sat by Pulse Oximetry (%) 96 03/29/18 09:00 Constitutional: Yes: No Distress, Calm, Other (weak) Cardiovascular: Yes: Regular Rate and Rhythm Respiratory: Yes: Regular, Other (poor entry at the bases) Gastrointestinal: Yes: Normal Bowel Sounds, Soft Musculoskeletal: Yes: WNL Extremities: Yes: WNL Neurological: Yes: Alert, Oriented Psychiatric: Yes: Alert, Oriented Labs: CBC, BMP 03/30/18 06:00 03/30/18 06:00 INR, PTT INR 1.29 (0.83-1.09) H 03/28/18 08:10 Assessment/Plan Problem List - Problems (1) PARMINDER (acute kidney injury) Code(s): N17.9 - ACUTE KIDNEY FAILURE, UNSPECIFIED (2) Hodgkin lymphoma Code(s): C81.90 - HODGKIN LYMPHOMA, UNSPECIFIED, UNSPECIFIED SITE (3) Morbidly obese Code(s): E66.01 - MORBID (SEVERE) OBESITY DUE TO EXCESS CALORIES (4) Sepsis Code(s): A41.9 - SEPSIS, UNSPECIFIED ORGANISM (5) UTI (urinary tract infection) Code(s): N39.0 - URINARY TRACT INFECTION, SITE NOT SPECIFIED (6) Weakness Code(s): R53.1 - WEAKNESS (7) Anemia Code(s): D64.9 - ANEMIA, UNSPECIFIED Qualifiers: Anemia type: unspecified type Qualified Code(s): D64.9 - Anemia, unspecified (8) BPH (benign prostatic hyperplasia) Code(s): N40.0 - BENIGN PROSTATIC HYPERPLASIA WITHOUT LOWER URINRY TRACT SYMP Assessment/Plan 87 y.o. 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
[2018-03-30] MEDS: RANITIDINE HCL 150 MG TABLET (FP) PO SCH (09:37)
[2018-03-30] MEDS: TAMSULOSIN HCL 0.4 MG CAP PO SCH (09:37)
[2018-03-30] MEDS: CYANOCOBALAMIN 1,000 MCG TABLET (FP) PO SCH (09:38)
[2018-03-30] MEDS: ENOXAPARIN NA (PORCINE) 30 MG/0.3 ML DISP.SYRIN SQ SCH (09:38)
[2018-03-30] MEDS: ASCORBIC ACID 500 MG TABLET (FP) PO SCH ×2 (09:38→22:21)
--- NOTE | 2018-03-30 10:18 | CONSULT ---
- Consultation REQUESTING PROVIDER: CONSULT REQUEST: We have been asked to surgically evaluate this patient for ( sacral ulcers). PCP:Chad Lord MD HISTORY OF PRESENT ILLNESS: 87 y/o M w/ PMH Hodgkins Lymphoma, obesity, and hypothyroidism admitted from [place] for weakness/altered mental status. Vascular consulted for evaluation of sacral ulcers. Pt lives in [place], states he is not ambulatory. Reports being admitted for an infection but is unable to provide any further information. PMHx: as above PSHx: pt unable to provide surgical history Home Medications Medication Instructions Recorded Tamsulosin HCl [Flomax] 0.4 mg PO DAILY #30 cap.er.24h 07/04/17 Cyanocobalamin [Vitamin B12 -] 1,000 mcg PO DAILY #30 tablet 07/07/17 Acetaminophen 325 mg PO PRN 03/27/18 Ascorbic Acid [Vitamin C] 500 mg PO BID 03/27/18 Ferrous Sulfate 325 mg PO BID 03/27/18 Levothyroxine [Synthroid -] 25 mcg PO DAILY 03/27/18 Ranitidine [Zantac -] 150 mg PO DAILY 03/27/18 Ascorbic Acid [Vitamin C -] 500 mg PO BID 03/28/18 Ferrous Sulfate 325 mg PO BID 03/28/18 Levothyroxine [Synthroid -] 25 mcg PO DAILY 03/28/18 Lidocaine [Aspercreme] 1 each TP DAILY 03/28/18 Multivitamin,Ther and Minerals 1 each PO DAILY 03/28/18 [Vitamin and Minerals] Allergies Allergy/AdvReac Type Severity Reaction Status Date / Time No Known Allergies Allergy Verified 07/01/17 13:34 REVIEW OF SYSTEMS: CONSTITUTIONAL: + fever, chills CARDIOVASCULAR: Absent: chest pain SKIN: + sacral ulcers PHYSICAL EXAM: GENERAL: Awake, alert and oriented x3 HEAD: Normal with no signs of trauma. Back/sacrum: stage 2 sacral ulcer (approx 2x1cm) with moderate fibrinous exudate at proximal portion of ulcer, no drainage, no erythema. Multiple small linear ulcers along lateral aspects of gluteal crease b/l. All clean based, no erythema or drainage. Vital Signs Temperature 98.2 F 03/30/18 09:31 Pulse Rate 84 03/30/18 09:31 Respiratory Rate 20 03/30/18 09:31 Blood Pressure 113/63 03/30/18 09:31 O2 Sat by Pulse Oximetry (%) 96 03/29/18 09:00 Lab Results WBC 6.6 K/mm3 (4.0-10.0) 03/30/18 06:00 RBC 3.80 M/mm3 (4.00-5.60) L 03/30/18 06:00 Hgb 10.1 GM/dL (11.7-16.9) L 03/30/18 06:00 Hct 31.9 % (35.4-49) L 03/30/18 06:00 MCV 83.9 fl (80-96) 03/30/18 06:00 MCHC 31.7 g/dl (32.0-35.9) L 03/30/18 06:00 RDW 19.3 % (11.9-15.9) H 03/30/18 06:00 Plt Count 194 K/MM3 (134-434) 03/30/18 06:00 Sodium 150 mmol/L (136-145) H 03/30/18 06:00 Potassium 3.3 mmol/L (3.5-5.1) L 03/30/18 06:00 Chloride 114 mmol/L (98-107) H 03/30/18 06:00 Carbon Dioxide 26 mmol/L (21-32) 03/30/18 06:00 Anion Gap 10 MMOL/L (8-16) 03/30/18 06:00 BUN 27 mg/dL (7-18) H 03/30/18 06:00 Creatinine 1.3 mg/dL (0.55-1.3) 03/30/18 06:00 Random Glucose 84 mg/dL (74-106) 03/30/18 06:00 Calcium 11.9 mg/dL (8.5-10.1) H 03/30/18 06:00 INR 1.29 (0.83-1.09) H 03/28/18 08:10 A/P: 87 y/o M w/ PMH Hodgkins Lymphoma, obesity, and hypothyroidism admitted from [place] for weakness/altered mental status. Vascular consulted for evaluation of sacral ulcers. Stage 2 sacral ulcer, non-infected, small b/l gluteal ulcers. -Collagenase damp to dry over sacral ulcer, cover with Allevyn -Cover remainder of ulcers with Allevyn, use skin barrier emolient -Frequent turning and positioning -Will d/w attending, Dr Flores
--- NOTE | 2018-03-30 12:14 | PN ---
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, Physician Chief Complaint: Patient denies complaints. No cp, sob, n/v. - Current Medication List Current Medications: Active Medications Acetaminophen (Tylenol -) 650 mg PO Q4H PRN PRN Reason: FEVER/PAIN LEVEL 1-5 Last Admin: 03/28/18 22:02 Dose: 650 mg Ascorbic Acid (Vitamin C -) 500 mg PO BID [facility] Last Admin: 03/30/18 09:38 Dose: 500 mg Collagenase (Santyl -) 1 applic TP DAILY [facility]; Protocol Cyanocobalamin (Vitamin B12 -) 1,000 mcg PO DAILY [facility] Last Admin: 03/30/18 09:38 Dose: 1,000 mcg Enoxaparin Sodium (Lovenox -) 30 mg SQ DAILY [facility] Last Admin: 03/30/18 09:38 Dose: 30 mg Piperacillin Sod/Tazobactam (Sod 3.375 gm/ Dextrose) 50 mls @ 100 mls/hr IVPB Q8H-IV [facility]; Protocol Last Admin: 03/30/18 09:38 Dose: 100 mls/hr Levothyroxine Sodium (Synthroid -) 25 mcg PO 0700 [facility] Last Admin: 03/30/18 06:17 Dose: 25 mcg Ranitidine HCl (Zantac -) 150 mg PO DAILY [facility] Last Admin: 03/30/18 09:37 Dose: 150 mg Tamsulosin HCl (Flomax -) 0.4 mg PO 0830 [facility] Last Admin: 03/30/18 09:37 Dose: 0.4 mg - Objective Vital Signs: Vital Signs Temperature 36.8 C 03/30/18 09:31 Pulse Rate 84 03/30/18 09:31 Respiratory Rate 20 03/30/18 09:31 Blood Pressure 113/63 03/30/18 09:31 O2 Sat by Pulse Oximetry (%) 96 03/29/18 09:00 Constitutional: Yes: No Distress, Calm, Obese Cardiovascular: Yes: Regular Rate and Rhythm. No: Gallop, Murmur, Rub Respiratory: Yes: Regular, CTA Bilaterally. No: Rales, Rhonchi, Wheezes Gastrointestinal: Yes: Normal Bowel Sounds, Soft. No: Distention, Tenderness Extremities: Yes: WNL Edema: No Labs: CBC, BMP 03/30/18 06:00 03/30/18 06:00 INR, PTT INR 1.29 (0.83-1.09) H 09/29/18 08:10 Problem List - Problems (1) Sepsis Assessment/Plan: -appreciate ID assistance -suspect secondary to decubitus ulcerations -cultures currently NGTD -continue zosyn Code(s): A41.9 - SEPSIS, UNSPECIFIED ORGANISM (2) Decubitus ulcer Assessment/Plan: -appreciate wound care assistance -collagenase, frequent turning Code(s): L89.90 - PRESSURE ULCER OF UNSPECIFIED SITE, UNSPECIFIED STAGE Qualifiers: Pressure injury location: sacral region Pressure injury stage: stage 3 Qualified Code(s): L89.153 - Pressure ulcer of sacral region, stage 3 (3) Hypernatremia Assessment/Plan: -start on D5 1/2NS -monitor Code(s): E87.0 - HYPEROSMOLALITY AND HYPERNATREMIA (4) PARMINDER (acute kidney injury) Assessment/Plan: -restart IVF -improved from admission but not at baseline Code(s): N17.9 - ACUTE KIDNEY FAILURE, UNSPECIFIED (5) Hypothyroid Code(s): E03.9 - HYPOTHYROIDISM, UNSPECIFIED (6) Morbidly obese Assessment/Plan: -noted Code(s): E66.01 - MORBID (SEVERE) OBESITY DUE TO EXCESS CALORIES (7) Anemia Assessment/Plan: -stable -monitor Code(s): D64.9 - ANEMIA, UNSPECIFIED Qualifiers: Anemia type: unspecified type Qualified Code(s): D64.9 - Anemia, unspecified (8) Hodgkin lymphoma Assessment/Plan: -noted Code(s): C81.90 - HODGKIN LYMPHOMA, UNSPECIFIED, UNSPECIFIED SITE
[2018-03-30] MEDS: COLLAGENASE CLOSTRIDIUM HIST. 30 GRAMS TUBE TP SCH (13:32)
[2018-03-30] MEDS ORDERED: DEXTROSE 5%-0.45% SALINE 1,000 ML IV SCH (14:30)
[2018-03-30] MEDS ORDERED: POTASSIUM CHLORIDE ORAL LIQUID 20 MEQ/15 ML PO ONE (16:00)
[2018-03-31] MEDS: PIPERACILLIN/TAZOB 3.375 GM 3.375 GM in DEXTROSE 5%-WATER - 50 ML IVPB SCH ×3 (02:17→19:05)
[2018-03-31] MEDS: LEVOTHYROXINE NA 25 MCG TABLET (FP) PO SCH (06:08)
[2018-03-31 07:48] LABS: HEMATOCRIT 29.7 % (35.4-49); HEMOGLOBIN 9.4 GM/dL (11.7-16.9); MCH 26.6 pg (25.7-33.7); MCHC 31.6 g/dl (32.0-35.9); MEAN CELL VOLUME 84.1 fl (80-96); MEAN PLT VOLUME 7.8 fl (7.5-11.1); PLATELET COUNT 189 K/MM3 (134-434); RBC 3.53 M/mm3 (4.00-5.60); RDW 19.7 % (11.9-15.9); WHITE BLOOD COUNT 11.2 K/mm3 (4.0-10.0)
[2018-03-31 08:12] LABS: ANION GAP 9 MMOL/L (8-16); BLOOD UREA NITROGEN 23 mg/dL (7-18); CALCIUM 11.5 mg/dL (8.5-10.1); CHLORIDE 115 mmol/L (98-107); CO2 26 mmol/L (21-32); CREATININE 1.3 mg/dL (0.55-1.3); GLUCOSE,RANDOM 95 mg/dL (74-106); PHOSPHOROUS 2.8 mg/dL (2.5-4.9); POTASSIUM 3.4 mmol/L (3.5-5.1); SODIUM 149 mmol/L (136-145)
--- NOTE | 2018-03-31 08:49 | PN ---
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, Physician History of Present Illness: patient stable still very weak no specific complaints - Current Medication List Current Medications: Active Medications Acetaminophen (Tylenol -) 650 mg PO Q4H PRN PRN Reason: FEVER/PAIN LEVEL 1-5 Last Admin: 03/28/18 22:02 Dose: 650 mg Ascorbic Acid (Vitamin C -) 500 mg PO BID [facility] Last Admin: 03/30/18 22:21 Dose: 500 mg Collagenase (Santyl -) 1 applic TP DAILY [facility]; Protocol Last Admin: 03/30/18 13:32 Dose: 1 applic Cyanocobalamin (Vitamin B12 -) 1,000 mcg PO DAILY [facility] Last Admin: 03/30/18 09:38 Dose: 1,000 mcg Enoxaparin Sodium (Lovenox -) 30 mg SQ DAILY [facility] Last Admin: 03/30/18 09:38 Dose: 30 mg Piperacillin Sod/Tazobactam (Sod 3.375 gm/ Dextrose) 50 mls @ 100 mls/hr IVPB Q8H-IV [facility]; Protocol Last Admin: 03/31/18 02:17 Dose: 100 mls/hr Dextrose/Sodium Chloride (D5-1/2ns -) 1,000 mls @ 42 mls/hr IV ASDIR [facility] Last Admin: 03/30/18 15:24 Dose: 42 mls/hr Levothyroxine Sodium (Synthroid -) 25 mcg PO 0700 [facility] Last Admin: 03/31/18 06:08 Dose: 25 mcg Ranitidine HCl (Zantac -) 150 mg PO DAILY [facility] Last Admin: 03/30/18 09:37 Dose: 150 mg Tamsulosin HCl (Flomax -) 0.4 mg PO 0830 [facility] Last Admin: 03/30/18 09:37 Dose: 0.4 mg - Objective Vital Signs: Vital Signs Temperature 97.8 F 03/31/18 05:00 Pulse Rate 81 03/31/18 05:00 Respiratory Rate 18 03/31/18 05:00 Blood Pressure 124/68 03/31/18 05:00 O2 Sat by Pulse Oximetry (%) 96 03/30/18 21:00 Constitutional: Yes: No Distress, Calm, Other (weak) Cardiovascular: Yes: Regular Rate and Rhythm Respiratory: Yes: Regular, CTA Bilaterally Gastrointestinal: Yes: Normal Bowel Sounds, Soft Musculoskeletal: Yes: WNL Extremities: Yes: Other Neurological: Yes: Alert Labs: CBC, BMP 03/31/18 06:45 03/31/18 06:45 INR, PTT INR 1.29 (0.83-1.09) H 03/28/18 08:10 Assessment/Plan Problem List - Problems (1) PARMINDER (acute kidney injury) Code(s): N17.9 - ACUTE KIDNEY FAILURE, UNSPECIFIED (2) Hodgkin lymphoma Code(s): C81.90 - HODGKIN LYMPHOMA, UNSPECIFIED, UNSPECIFIED SITE (3) Morbidly obese Code(s): E66.01 - MORBID (SEVERE) OBESITY DUE TO EXCESS CALORIES (4) Sepsis Code(s): A41.9 - SEPSIS, UNSPECIFIED ORGANISM (5) UTI (urinary tract infection) Code(s): N39.0 - URINARY TRACT INFECTION, SITE NOT SPECIFIED (6) Weakness Code(s): R53.1 - WEAKNESS (7) Anemia Code(s): D64.9 - ANEMIA, UNSPECIFIED Qualifiers: Anemia type: unspecified type Qualified Code(s): D64.9 - Anemia, unspecified (8) BPH (benign prostatic hyperplasia) Code(s): N40.0 - BENIGN PROSTATIC HYPERPLASIA WITHOUT LOWER URINRY TRACT SYMP Assessment/Plan 87 y.o. 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
[2018-03-31] MEDS: TAMSULOSIN HCL 0.4 MG CAP PO SCH (09:27)
[2018-03-31] MEDS ORDERED: POTASSIUM CHLORIDE ORAL LIQUID 20 MEQ/15 ML PO ONE ×2 (10:00→18:56)
[2018-03-31 11:52] LABS: ANISOCYTOSIS 1+; MACROCYTOSIS 1+; PLATELET ESTIMATE NORMAL
[2018-03-31] MEDS ORDERED: DEXTROSE 5%-WATER - 50 ML IVPB ONE ×4 (12:10→22:52)
[2018-03-31] MEDS ORDERED: PIPERACILLIN/TAZOBACTAM 3.375 GM VIAL IVPB ONE ×4 (12:10→22:52)
[2018-03-31] MEDS: ASCORBIC ACID 500 MG TABLET (FP) PO SCH ×2 (12:12→21:32)
[2018-03-31] MEDS: RANITIDINE HCL 150 MG TABLET (FP) PO SCH (12:12)
[2018-03-31] MEDS: CYANOCOBALAMIN 1,000 MCG TABLET (FP) PO SCH (12:12)
[2018-03-31] MEDS: ENOXAPARIN NA (PORCINE) 30 MG/0.3 ML DISP.SYRIN SQ SCH (12:12)
[2018-03-31] MEDS: DEXTROSE 5%-0.45% SALINE 1,000 ML IV SCH ×2 (12:16→15:32)
[2018-03-31] MEDS: COLLAGENASE CLOSTRIDIUM HIST. 30 GRAMS TUBE TP SCH (12:18)
--- NOTE | 2018-03-31 16:02 | PN ---
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, Physician Chief Complaint: Mr Carmichael says he is feeling well today. No cp, sob, n/v. - Current Medication List Current Medications: Active Medications Acetaminophen (Tylenol -) 650 mg PO Q4H PRN PRN Reason: FEVER/PAIN LEVEL 1-5 Last Admin: 03/28/18 22:02 Dose: 650 mg Ascorbic Acid (Vitamin C -) 500 mg PO BID [facility] Last Admin: 03/31/18 12:12 Dose: 500 mg Collagenase (Santyl -) 1 applic TP DAILY [facility]; Protocol Last Admin: 03/31/18 12:18 Dose: 1 applic Cyanocobalamin (Vitamin B12 -) 1,000 mcg PO DAILY [facility] Last Admin: 03/31/18 12:12 Dose: 1,000 mcg Enoxaparin Sodium (Lovenox -) 30 mg SQ DAILY [facility] Last Admin: 03/31/18 12:12 Dose: 30 mg Piperacillin Sod/Tazobactam (Sod 3.375 gm/ Dextrose) 50 mls @ 100 mls/hr IVPB Q8H-IV [facility]; Protocol Last Admin: 03/31/18 12:11 Dose: 100 mls/hr Dextrose/Sodium Chloride (D5-1/2ns -) 1,000 mls @ 75 mls/hr IV ASDIR [facility] Last Admin: 03/31/18 15:32 Dose: 75 mls/hr Levothyroxine Sodium (Synthroid -) 25 mcg PO 0700 [facility] Last Admin: 03/31/18 06:08 Dose: 25 mcg Ranitidine HCl (Zantac -) 150 mg PO DAILY [facility] Last Admin: 03/31/18 12:12 Dose: 150 mg Tamsulosin HCl (Flomax -) 0.4 mg PO 0830 [facility] Last Admin: 03/31/18 09:27 Dose: 0.4 mg - Objective Vital Signs: Vital Signs Temperature 36.6 C 03/31/18 14:34 Pulse Rate 96 H 03/31/18 14:34 Respiratory Rate 20 03/31/18 14:34 Blood Pressure 121/71 03/31/18 14:34 O2 Sat by Pulse Oximetry (%) 96 03/30/18 21:00 Constitutional: Yes: No Distress, Calm, Obese Cardiovascular: Yes: Regular Rate and Rhythm. No: Gallop, Murmur, Rub Respiratory: Yes: Regular, CTA Bilaterally. No: Rales, Rhonchi, Wheezes Gastrointestinal: Yes: Normal Bowel Sounds, Soft. No: Distention, Tenderness Extremities: Yes: WNL Edema: No Labs: CBC, BMP 03/31/18 06:45 03/31/18 06:45 INR, PTT INR 1.29 (0.83-1.09) H 03/28/18 08:10 Problem List - Problems (1) Sepsis Code(s): A41.9 - SEPSIS, UNSPECIFIED ORGANISM (2) Decubitus ulcer Code(s): L89.90 - PRESSURE ULCER OF UNSPECIFIED SITE, UNSPECIFIED STAGE Qualifiers: Pressure injury location: sacral region Pressure injury stage: stage 3 Qualified Code(s): L89.153 - Pressure ulcer of sacral region, stage 3 (3) Hypernatremia Code(s): E87.0 - HYPEROSMOLALITY AND HYPERNATREMIA (4) PARMINDER (acute kidney injury) Code(s): N17.9 - ACUTE KIDNEY FAILURE, UNSPECIFIED (5) Hypothyroid Code(s): E03.9 - HYPOTHYROIDISM, UNSPECIFIED (6) Morbidly obese Code(s): E66.01 - MORBID (SEVERE) OBESITY DUE TO EXCESS CALORIES (7) Anemia Code(s): D64.9 - ANEMIA, UNSPECIFIED Qualifiers: Anemia type: unspecified type Qualified Code(s): D64.9 - Anemia, unspecified (8) Hodgkin lymphoma Code(s): C81.90 - HODGKIN LYMPHOMA, UNSPECIFIED, UNSPECIFIED SITE (9) Hypercalcemia Code(s): E83.52 - HYPERCALCEMIA Assessment/Plan (1) Sepsis Assessment/Plan: -wound culture polymicrobial -continue zosyn per ID Code(s): A41.9 - SEPSIS, UNSPECIFIED ORGANISM (2) Decubitus ulcer Assessment/Plan: -appreciate wound care assistance -collagenase, frequent turning Code(s): L89.90 - PRESSURE ULCER OF UNSPECIFIED SITE, UNSPECIFIED STAGE Qualifiers: Pressure injury location: sacral region Pressure injury stage: stage 3 Qualified Code(s): L89.153 - Pressure ulcer of sacral region, stage 3 (3) Hypernatremia Assessment/Plan: -improving -will increase D5 1/2NS to 75ml/hr -monitor for improvement Code(s): E87.0 - HYPEROSMOLALITY AND HYPERNATREMIA (4) PARMINDER (acute kidney injury) Assessment/Plan: -continue IVF Code(s): N17.9 - ACUTE KIDNEY FAILURE, UNSPECIFIED (5) Hypothyroid -continue synthroid Code(s): E03.9 - HYPOTHYROIDISM, UNSPECIFIED (6) Morbidly obese Assessment/Plan: -noted Code(s): E66.01 - MORBID (SEVERE) OBESITY DUE TO EXCESS CALORIES (7) Anemia Assessment/Plan: -stable -monitor Code(s): D64.9 - ANEMIA, UNSPECIFIED Qualifiers: Anemia type: unspecified type Qualified Code(s): D64.9 - Anemia, unspecified (8) Hodgkin lymphoma Assessment/Plan: -noted Code(s): C81.90 - HODGKIN LYMPHOMA, UNSPECIFIED, UNSPECIFIED SITE (9) Hypercalcemia -increase fluid as above but may need more -nephrology consulted and discussed, awaiting recommendations
--- NOTE | 2018-03-31 18:44 | CONSULT ---
Consult Consult Specialty:: Nephrology Reason for Consultation:: hypercalcemia and hypernatremia - History of Present Illness Chief Complaint: altered mental status History of Present Illness: Pt is an 87 year old male with pmhx of hodgkins lymphoma, bph and hypothyroidism who initially presented to the ER with altered mental status. Pt also had decreased PO intake. He was found to have hypernatremia and hypercalcemia. His sodium has been persistently elevated. His calcium levels have improved. He denies shortness of breath or palpitations. He is also admitted with sepsis secondary to sacral decub. He denies dysuria or hematuria. - History Source History Provided By: Patient, Medical Record - Past Medical History Cardio/Vascular: Yes: Murmur (systolic) Gastrointestinal: Yes: Other (diarrhea recrently) Renal/: Yes: BPH Heme/Onc: Yes: Other (hodgkins lymphoma) Endocrine: Yes: Hypothyroidism - Past Surgical History Past Surgical History: Yes: Joint Replacement (b/l knee) - Alcohol/Substance Use Hx Alcohol Use: No - Smoking History Smoking history: Unknown if ever smoked Have you smoked in the past 12 months: No - Social History Usual Living Arrangement: [facility] History of Recent Travel: No Home Medications - Allergies Allergies/Adverse Reactions: Allergies Allergy/AdvReac Type Severity Reaction Status Date / Time No Known Allergies Allergy Verified 07/01/17 13:34 - Home Medications Home Medications: Ambulatory Orders Tamsulosin HCl [Flomax] 0.4 mg PO DAILY #30 cap.er.24h 07/04/17 Cyanocobalamin [Vitamin B12 -] 1,000 mcg PO DAILY #30 tablet 07/07/17 Acetaminophen 325 mg PO PRN 03/27/18 Ascorbic Acid [Vitamin C] 500 mg PO BID 03/27/18 Ferrous Sulfate 325 mg PO BID 03/27/18 Levothyroxine [Synthroid -] 25 mcg PO DAILY 03/27/18 Ranitidine [Zantac -] 150 mg PO DAILY 03/27/18 Ascorbic Acid [Vitamin C -] 500 mg PO BID 03/28/18 Ferrous Sulfate 325 mg PO BID 03/28/18 Levothyroxine [Synthroid -] 25 mcg PO DAILY 03/28/18 Lidocaine [Aspercreme] 1 each TP DAILY 03/28/18 Multivitamin,Ther and Minerals [Vitamin and Minerals] 1 each PO DAILY 03/28/18 Family Disease History - Family Disease History Family History: Denies Review of Systems - Review of Systems Constitutional: reports: Chills, Malaise Eyes: reports: No Symptoms HENT: reports: No Symptoms Neck: reports: No Symptoms Cardiovascular: denies: Edema, Shortness of Breath Respiratory: reports: No Symptoms. denies: SOB Gastrointestinal: reports: No Symptoms Genitourinary: reports: Incontinence Musculoskeletal: reports: Muscle Weakness Neurological: reports: No Symptoms Psychiatric: reports: No Symptoms Physical Exam Vital Signs: Vital Signs Temperature 97.9 F 03/31/18 14:34 Pulse Rate 96 H 03/31/18 14:34 Respiratory Rate 20 03/31/18 14:34 Blood Pressure 121/71 03/31/18 14:34 O2 Sat by Pulse Oximetry (%) 96 03/30/18 21:00 Constitutional: Yes: Calm Eyes: Yes: Conjunctiva Clear HENT: Yes: Atraumatic Neck: Yes: Supple Cardiovascular: Yes: S1, S2 Respiratory: Yes: CTA Bilaterally, On Nasal O2 Gastrointestinal: Yes: Soft, Abdomen, Obese Renal/: Yes: Incontinence Musculoskeletal: Yes: WNL Edema: No Neurological: Yes: Oriented Psychiatric: Yes: Oriented Labs: CBC, BMP 03/31/18 06:45 03/31/18 06:45 Laboratory Tests 03/27/18 03/27/18 03/28/18 19:50 19:50 08:10 WBC Hgb PT with INR 15.30 H INR 1.29 H VBG pH 7.47 H POC VBG pCO2 41.9 POC VBG pO2 30.6 Mixed VBG HCO3 29.9 H Sodium 147 H Potassium Creatinine Calcium 13.1 H Albumin 03/28/18 03/29/18 03/30/18 08:10 05:30 06:00 WBC Hgb PT with INR INR VBG pH POC VBG pCO2 POC VBG pO2 Mixed VBG HCO3 Sodium 149 H 148 H 150 H Potassium Creatinine Calcium Albumin 1.8 L 03/31/18 03/31/18 06:45 06:45 WBC 11.2 H Hgb 9.4 L PT with INR INR VBG pH POC VBG pCO2 POC VBG pO2 Mixed VBG HCO3 Sodium 149 H Potassium 3.4 L Creatinine 1.3 Calcium 11.5 H Albumin Imaging - Results Chest X-ray: Report Reviewed Problem List - Problems (1) PARMINDER (acute kidney injury) Code(s): N17.9 - ACUTE KIDNEY FAILURE, UNSPECIFIED (2) Decubitus ulcer Code(s): L89.90 - PRESSURE ULCER OF UNSPECIFIED SITE, UNSPECIFIED STAGE Qualifiers: Pressure injury location: sacral region Pressure injury stage: stage 3 Qualified Code(s): L89.153 - Pressure ulcer of sacral region, stage 3 (3) Dehydration Code(s): E86.0 - DEHYDRATION (4) Hodgkin lymphoma Code(s): C81.90 - HODGKIN LYMPHOMA, UNSPECIFIED, UNSPECIFIED SITE (5) Hypercalcemia Code(s): E83.52 - HYPERCALCEMIA (6) Hypernatremia Code(s): E87.0 - HYPEROSMOLALITY AND HYPERNATREMIA (7) Hypokalemia Code(s): E87.6 - HYPOKALEMIA (8) Hypothyroid Code(s): E03.9 - HYPOTHYROIDISM, UNSPECIFIED (9) Sepsis Code(s): A41.9 - SEPSIS, UNSPECIFIED ORGANISM (10) BPH (benign prostatic hyperplasia) Code(s): N40.0 - BENIGN PROSTATIC HYPERPLASIA WITHOUT LOWER URINRY TRACT SYMP Assessment/Plan Current Medications Generic Name Dose Route Start Last Admin Trade Name Freq PRN Reason Stop Dose Admin Acetaminophen 650 mg 03/27/18 22:00 03/28/18 22:02 Tylenol - PO 650 mg Q4H PRN Administration FEVER/PAIN LEVEL 1-5 Ascorbic Acid 500 mg 03/27/18 22:00 03/31/18 12:12 Vitamin C - PO 500 mg BID MICHELLE Administration Collagenase 1 applic 03/30/18 12:00 03/31/18 12:18 Santyl - TP 1 applic DAILY MICHELLE Administration Protocol Cyanocobalamin 1,000 mcg 03/28/18 10:00 03/31/18 12:12 Vitamin B12 - PO 1,000 mcg DAILY MICHELLE Administration Enoxaparin Sodium 30 mg 03/28/18 10:00 03/31/18 12:12 Lovenox - SQ 30 mg DAILY MICHELLE Administration Piperacillin Sod/Tazobactam 50 mls @ 100 mls/hr 03/28/18 12:00 03/31/18 12:11 Sod 3.375 gm/ Dextrose IVPB 100 mls/hr Q8H-IV MICHELLE Administration Protocol Dextrose/Sodium Chloride 1,000 mls @ 75 mls/hr 10/02/18 09:39 03/31/18 15:32 D5-1/2ns - IV 75 mls/hr ASDIR MICHELLE Administration Levothyroxine Sodium 25 mcg 03/28/18 07:00 03/31/18 06:08 Synthroid - PO 25 mcg 0700 MICHELLE Administration Ranitidine HCl 150 mg 03/28/18 10:00 03/31/18 12:12 Zantac - PO 150 mg DAILY MICHELLE Administration Tamsulosin HCl 0.4 mg 03/28/18 08:30 03/31/18 09:27 Flomax - PO 0.4 mg 0830 MICHELLE Administration Laboratory Tests 03/31/18 06:45 Sodium 149 H Potassium 3.4 L Calcium 11.5 H Magnesium 2.0 Impression 1. PARMINDER resolving 2. hypernatremia 3. hypercalcemia 4. hypokalemia 5. BPH 6. hodgkins lymphoma 7. sacral decub 8. sepsis 9. obesity 10. anemia Plan - change fluids from d5 1/2 to 1/2 ns for now and increase rate to 100 cc per hour - pt has a 3.4 liter deficit to get him from 149 to 140 - calcium is improving - encourage PO free water intake - replace potassium - check pth - pt has history of lymphoma which is concerning in the setting of hypercalcemia - check ultrasound kidney and bladder t r/u obstructive component - spoke to nursing staff about plan - placed all orders - will follow
[2018-03-31] MEDS: SODIUM CHLORIDE 0.45% 1,000 ML IV SCH (21:33)
[2018-04-01] MEDS: PIPERACILLIN/TAZOB 3.375 GM 3.375 GM in DEXTROSE 5%-WATER - 50 ML IVPB SCH ×3 (02:30→17:13)
[2018-04-01] MEDS: LEVOTHYROXINE NA 25 MCG TABLET (FP) PO SCH (06:36)
[2018-04-01 08:10] LABS: BASO % 0.2 % (0-2.0); EOS % 3.6 % (0-4.5); HEMATOCRIT 28.2 % (35.4-49); HEMOGLOBIN 9.1 GM/dL (11.7-16.9); LYMPH % 14.5 % (8-40); MCH 27.1 pg (25.7-33.7); MCHC 32.3 g/dl (32.0-35.9); MEAN CELL VOLUME 83.8 fl (80-96); MEAN PLT VOLUME 7.4 fl (7.5-11.1); NEUT % 73.7 % (42.8-82.8); PLATELET COUNT 185 K/MM3 (134-434); RBC 3.37 M/mm3 (4.00-5.60); RDW 19.6 % (11.9-15.9); WHITE BLOOD COUNT 7.6 K/mm3 (4.0-10.0)
[2018-04-01 08:22] LABS: ALBUMIN 1.8 g/dl (3.4-5.0); ALK PHOS 99 U/L (45-117); ANION GAP 7 MMOL/L (8-16); BILIRUBIN,TOTAL 0.6 mg/dL (0.2-1); BLOOD UREA NITROGEN 22 mg/dL (7-18); CALCIUM 11.1 mg/dL (8.5-10.1); CHLORIDE 111 mmol/L (98-107); CO2 28 mmol/L (21-32); CREATININE 1.4 mg/dL (0.55-1.3); GLUCOSE,RANDOM 103 mg/dL (74-106); MAGNESIUM 2.1 mg/dL (1.8-2.4); PHOSPHOROUS 2.8 mg/dL (2.5-4.9); POTASSIUM 3.7 mmol/L (3.5-5.1); SGOT/AST 17 U/L (15-37); SGPT/ALT 12 U/L (13-61); SODIUM 145 mmol/L (136-145); TOT PROT 5.6 g/dl (6.4-8.2)
[2018-04-01] MEDS ORDERED: PIPERACILLIN/TAZOBACTAM 3.375 GM VIAL IVPB ONE ×2 (09:05→16:59)
[2018-04-01] MEDS ORDERED: DEXTROSE 5%-WATER - 50 ML IVPB ONE ×2 (09:05→16:59)
[2018-04-01] MEDS: ENOXAPARIN NA (PORCINE) 30 MG/0.3 ML DISP.SYRIN SQ SCH (09:14)
[2018-04-01] MEDS: RANITIDINE HCL 150 MG TABLET (FP) PO SCH (09:14)
[2018-04-01] MEDS: ASCORBIC ACID 500 MG TABLET (FP) PO SCH ×2 (09:14→21:44)
[2018-04-01] MEDS: TAMSULOSIN HCL 0.4 MG CAP PO SCH (09:14)
[2018-04-01] MEDS: CYANOCOBALAMIN 1,000 MCG TABLET (FP) PO SCH (09:14)
[2018-04-01] MEDS: COLLAGENASE CLOSTRIDIUM HIST. 30 GRAMS TUBE TP SCH (10:00)
--- NOTE | 2018-04-01 11:17 | PN ---
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, Physician History of Present Illness: Pt seen and examined at bedside. He has poor oral intake. He did not drink much free water. He denies shortness of breath. - Current Medication List Current Medications: Active Medications Acetaminophen (Tylenol -) 650 mg PO Q4H PRN PRN Reason: FEVER/PAIN LEVEL 1-5 Last Admin: 03/28/18 22:02 Dose: 650 mg Ascorbic Acid (Vitamin C -) 500 mg PO BID [facility] Last Admin: 04/01/18 09:14 Dose: 500 mg Collagenase (Santyl -) 1 applic TP DAILY [facility]; Protocol Last Admin: 03/31/18 12:18 Dose: 1 applic Cyanocobalamin (Vitamin B12 -) 1,000 mcg PO DAILY [facility] Last Admin: 04/01/18 09:14 Dose: 1,000 mcg Enoxaparin Sodium (Lovenox -) 30 mg SQ DAILY [facility] Last Admin: 04/01/18 09:14 Dose: 30 mg Piperacillin Sod/Tazobactam (Sod 3.375 gm/ Dextrose) 50 mls @ 100 mls/hr IVPB Q8H-IV MICHELLE; Protocol Last Admin: 04/01/18 09:14 Dose: 100 mls/hr Sodium Chloride (1/2 Normal Saline) 1,000 mls @ 100 mls/hr IV ASDIR [facility] Last Admin: 03/31/18 21:33 Dose: 100 mls/hr Levothyroxine Sodium (Synthroid -) 25 mcg PO 0700 [facility] Last Admin: 04/01/18 06:36 Dose: 25 mcg Ranitidine HCl (Zantac -) 150 mg PO DAILY [facility] Last Admin: 04/01/18 09:14 Dose: 150 mg Tamsulosin HCl (Flomax -) 0.4 mg PO 0830 [facility] Last Admin: 04/01/18 09:14 Dose: 0.4 mg - Objective Vital Signs: Vital Signs Temperature 97.9 F 04/01/18 10:00 Pulse Rate 72 04/01/18 10:00 Respiratory Rate 20 04/01/18 10:00 Blood Pressure 135/67 04/01/18 10:00 O2 Sat by Pulse Oximetry (%) 96 04/01/18 05:30 Constitutional: Yes: Calm Eyes: Yes: Conjunctiva Clear HENT: Yes: Atraumatic Neck: Yes: Supple Cardiovascular: Yes: S1, S2 Respiratory: Yes: CTA Bilaterally Genitourinary: Yes: Incontinence Musculoskeletal: Yes: Muscle Weakness Edema: No Neurological: Yes: Oriented Labs: CBC, BMP 04/01/18 06:25 04/01/18 06:25 INR, PTT INR 1.29 (0.83-1.09) H 03/28/18 08:10 Problem List - Problems (1) PARMINDER (acute kidney injury) Code(s): N17.9 - ACUTE KIDNEY FAILURE, UNSPECIFIED (2) Decubitus ulcer Code(s): L89.90 - PRESSURE ULCER OF UNSPECIFIED SITE, UNSPECIFIED STAGE Qualifiers: Pressure injury location: sacral region Pressure injury stage: stage 3 Qualified Code(s): L89.153 - Pressure ulcer of sacral region, stage 3 (3) Dehydration Code(s): E86.0 - DEHYDRATION (4) Hodgkin lymphoma Code(s): C81.90 - HODGKIN LYMPHOMA, UNSPECIFIED, UNSPECIFIED SITE (5) Hypercalcemia Code(s): E83.52 - HYPERCALCEMIA (6) Hypernatremia Code(s): E87.0 - HYPEROSMOLALITY AND HYPERNATREMIA (7) Hypokalemia Code(s): E87.6 - HYPOKALEMIA (8) Hypothyroid Code(s): E03.9 - HYPOTHYROIDISM, UNSPECIFIED (9) Sepsis Code(s): A41.9 - SEPSIS, UNSPECIFIED ORGANISM (10) BPH (benign prostatic hyperplasia) Code(s): N40.0 - BENIGN PROSTATIC HYPERPLASIA WITHOUT LOWER URINRY TRACT SYMP Assessment/Plan Current Medications Generic Name Dose Route Start Last Admin Trade Name Chiquita PRN Reason Stop Dose Admin Acetaminophen 650 mg 03/27/18 22:00 03/28/18 22:02 Tylenol - PO 650 mg Q4H PRN Administration FEVER/PAIN LEVEL 1-5 Ascorbic Acid 500 mg 03/27/18 22:00 04/01/18 09:14 Vitamin C - PO 500 mg BID MICHELLE Administration Collagenase 1 applic 03/30/18 12:00 03/31/18 12:18 Santyl - TP 1 applic DAILY MICHELLE Administration Protocol Cyanocobalamin 1,000 mcg 03/28/18 10:00 04/01/18 09:14 Vitamin B12 - PO 1,000 mcg DAILY MICHELLE Administration Enoxaparin Sodium 30 mg 03/28/18 10:00 04/01/18 09:14 Lovenox - SQ 30 mg DAILY MICHELLE Administration Piperacillin Sod/Tazobactam 50 mls @ 100 mls/hr 03/28/18 12:00 04/01/18 09:14 Sod 3.375 gm/ Dextrose IVPB 100 mls/hr Q8H-IV MICEHLLE Administration Protocol Sodium Chloride 1,000 mls @ 100 mls/hr 03/31/18 19:00 03/31/18 21:33 1/2 Normal Saline IV 100 mls/hr ASDIR MICHELLE Administration Levothyroxine Sodium 25 mcg 03/28/18 07:00 04/01/18 06:36 Synthroid - PO 25 mcg 0700 MICHELLE Administration Ranitidine HCl 150 mg 03/28/18 10:00 04/01/18 09:14 Zantac - PO 150 mg DAILY MICHELLE Administration Tamsulosin HCl 0.4 mg 03/28/18 08:30 04/01/18 09:14 Flomax - PO 0.4 mg 0830 MICHELLE Administration Laboratory Tests 04/01/18 04/01/18 06:25 06:25 Sodium 145 Potassium 3.7 Carbon Dioxide 28 Anion Gap 7 L BUN 22 H Creatinine 1.4 H Calcium 11.1 H PTH Intact Pending PTH Intact Intraop 0 m Pending Impression 1. PARMINDER resolving 2. hypernatremia 3. hypercalcemia 4. hypokalemia 5. BPH 6. hodgkins lymphoma 7. sacral decub 8. sepsis 9. obesity 10. anemia Plan - sodium improving - calcium improving - cont with 1/2 ns - repeat labs in am - consider oncology follow up - follow pth level - renal ultrasound reviewed - encourage PO free water intake - will follow
[2018-04-01] MEDS ORDERED: POTASSIUM CHLORIDE ORAL LIQUID 20 MEQ/15 ML PO ONE (12:00)
--- NOTE | 2018-04-01 12:22 | PN ---
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, Physician History of Present Illness: stable improving still weak wound was changed dressing was soaked - Current Medication List Current Medications: Active Medications Acetaminophen (Tylenol -) 650 mg PO Q4H PRN PRN Reason: FEVER/PAIN LEVEL 1-5 Last Admin: 03/28/18 22:02 Dose: 650 mg Ascorbic Acid (Vitamin C -) 500 mg PO BID [facility] Last Admin: 04/01/18 09:14 Dose: 500 mg Collagenase (Santyl -) 1 applic TP DAILY [facility]; Protocol Last Admin: 04/01/18 10:00 Dose: 1 applic Cyanocobalamin (Vitamin B12 -) 1,000 mcg PO DAILY [facility] Last Admin: 04/01/18 09:14 Dose: 1,000 mcg Enoxaparin Sodium (Lovenox -) 30 mg SQ DAILY [facility] Last Admin: 04/01/18 09:14 Dose: 30 mg Piperacillin Sod/Tazobactam (Sod 3.375 gm/ Dextrose) 50 mls @ 100 mls/hr IVPB Q8H-IV [facility]; Protocol Last Admin: 04/01/18 09:14 Dose: 100 mls/hr Sodium Chloride (1/2 Normal Saline) 1,000 mls @ 100 mls/hr IV ASDIR [facility] Last Admin: 03/31/18 21:33 Dose: 100 mls/hr Levothyroxine Sodium (Synthroid -) 25 mcg PO 0700 [facility] Last Admin: 04/01/18 06:36 Dose: 25 mcg Ranitidine HCl (Zantac -) 150 mg PO DAILY [facility] Last Admin: 04/01/18 09:14 Dose: 150 mg Tamsulosin HCl (Flomax -) 0.4 mg PO 0830 [facility] Last Admin: 04/01/18 09:14 Dose: 0.4 mg - Objective Vital Signs: Vital Signs Temperature 97.9 F 04/01/18 10:00 Pulse Rate 72 04/01/18 10:00 Respiratory Rate 20 04/01/18 10:00 Blood Pressure 135/67 04/01/18 10:00 O2 Sat by Pulse Oximetry (%) 96 04/01/18 05:30 Constitutional: Yes: No Distress, Calm, Obese Cardiovascular: Yes: S1, S2 Respiratory: Yes: Regular, Poor Air Entry (bases) Gastrointestinal: Yes: Normal Bowel Sounds, Soft Musculoskeletal: Yes: WNL Extremities: Yes: WNL Wound/Incision: Yes: Draining, Other Neurological: Yes: Alert, Oriented Psychiatric: Yes: Alert Labs: CBC, BMP 04/01/18 06:25 04/01/18 06:25 INR, PTT INR 1.29 (0.83-1.09) H 03/28/18 08:10 Assessment/Plan Problem List - Problems (1) PARMINDER (acute kidney injury) Code(s): N17.9 - ACUTE KIDNEY FAILURE, UNSPECIFIED (2) Hodgkin lymphoma Code(s): C81.90 - HODGKIN LYMPHOMA, UNSPECIFIED, UNSPECIFIED SITE (3) Morbidly obese Code(s): E66.01 - MORBID (SEVERE) OBESITY DUE TO EXCESS CALORIES (4) Sepsis Code(s): A41.9 - SEPSIS, UNSPECIFIED ORGANISM (5) UTI (urinary tract infection) Code(s): N39.0 - URINARY TRACT INFECTION, SITE NOT SPECIFIED (6) Weakness Code(s): R53.1 - WEAKNESS (7) Anemia Code(s): D64.9 - ANEMIA, UNSPECIFIED Qualifiers: Anemia type: unspecified type Qualified Code(s): D64.9 - Anemia, unspecified (8) BPH (benign prostatic hyperplasia) Code(s): N40.0 - BENIGN PROSTATIC HYPERPLASIA WITHOUT LOWER URINRY TRACT SYMP Assessment/Plan 87 y.o. male presenting [place] with weakness/altered mental status, poor oral intake, fevers, and lactic acidosis Sepsis - unclear source Fever Lactic acidosis BPH Hx of Hodgkins Lymphoma PARMINDER Hypothyroidism all cx result noted will ct abx for now wound care physio rest as per the team
--- NOTE | 2018-04-01 15:36 | PN ---
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, Physician Chief Complaint: Mr Carmichael says he is feeling well today. No cp, sob, n/v. Asking to sit up. - Current Medication List Current Medications: Active Medications Acetaminophen (Tylenol -) 650 mg PO Q4H PRN PRN Reason: FEVER/PAIN LEVEL 1-5 Last Admin: 03/28/18 22:02 Dose: 650 mg Ascorbic Acid (Vitamin C -) 500 mg PO BID [facility] Last Admin: 04/01/18 09:14 Dose: 500 mg Collagenase (Santyl -) 1 applic TP DAILY [facility]; Protocol Last Admin: 04/01/18 10:00 Dose: 1 applic Cyanocobalamin (Vitamin B12 -) 1,000 mcg PO DAILY [facility] Last Admin: 04/01/18 09:14 Dose: 1,000 mcg Enoxaparin Sodium (Lovenox -) 30 mg SQ DAILY [facility] Last Admin: 04/01/18 09:14 Dose: 30 mg Piperacillin Sod/Tazobactam (Sod 3.375 gm/ Dextrose) 50 mls @ 100 mls/hr IVPB Q8H-IV [facility]; Protocol Last Admin: 04/01/18 09:14 Dose: 100 mls/hr Sodium Chloride (1/2 Normal Saline) 1,000 mls @ 100 mls/hr IV ASDIR [facility] Last Admin: 03/31/18 21:33 Dose: 100 mls/hr Levothyroxine Sodium (Synthroid -) 25 mcg PO 0700 [facility] Last Admin: 04/01/18 06:36 Dose: 25 mcg Ranitidine HCl (Zantac -) 150 mg PO DAILY [facility] Last Admin: 04/01/18 09:14 Dose: 150 mg Tamsulosin HCl (Flomax -) 0.4 mg PO 0830 [facility] Last Admin: 04/01/18 09:14 Dose: 0.4 mg - Objective Vital Signs: Vital Signs Temperature 36.6 C 04/01/18 10:00 Pulse Rate 72 04/01/18 10:00 Respiratory Rate 20 04/01/18 10:00 Blood Pressure 135/67 04/01/18 10:00 O2 Sat by Pulse Oximetry (%) 96 04/01/18 05:30 Constitutional: Yes: No Distress, Calm, Obese Cardiovascular: Yes: Regular Rate and Rhythm. No: Gallop, Murmur, Rub Respiratory: Yes: Regular, CTA Bilaterally. No: Rales, Rhonchi, Wheezes Gastrointestinal: Yes: Normal Bowel Sounds, Soft. No: Distention, Tenderness Extremities: Yes: WNL Edema: No Labs: CBC, BMP 04/01/18 06:25 04/01/18 06:25 INR, PTT INR 1.29 (0.83-1.09) H 03/28/18 08:10 Problem List - Problems (1) Sepsis Code(s): A41.9 - SEPSIS, UNSPECIFIED ORGANISM (2) Decubitus ulcer Code(s): L89.90 - PRESSURE ULCER OF UNSPECIFIED SITE, UNSPECIFIED STAGE Qualifiers: Pressure injury location: sacral region Pressure injury stage: stage 3 Qualified Code(s): L89.153 - Pressure ulcer of sacral region, stage 3 (3) Hypernatremia Code(s): E87.0 - HYPEROSMOLALITY AND HYPERNATREMIA (4) PARMINDER (acute kidney injury) Code(s): N17.9 - ACUTE KIDNEY FAILURE, UNSPECIFIED (5) Hypothyroid Code(s): E03.9 - HYPOTHYROIDISM, UNSPECIFIED (6) Morbidly obese Code(s): E66.01 - MORBID (SEVERE) OBESITY DUE TO EXCESS CALORIES (7) Anemia Code(s): D64.9 - ANEMIA, UNSPECIFIED Qualifiers: Anemia type: unspecified type Qualified Code(s): D64.9 - Anemia, unspecified (8) Hodgkin lymphoma Code(s): C81.90 - HODGKIN LYMPHOMA, UNSPECIFIED, UNSPECIFIED SITE (9) Hypercalcemia Code(s): E83.52 - HYPERCALCEMIA Assessment/Plan (1) Sepsis Assessment/Plan: -wound culture polymicrobial with final results -continue zosyn per ID -await final recommendations for duration of IV antibiotics and possible transition to oral antibiotics Code(s): A41.9 - SEPSIS, UNSPECIFIED ORGANISM (2) Decubitus ulcer Assessment/Plan: -appreciate wound care assistance -collagenase, frequent turning Code(s): L89.90 - PRESSURE ULCER OF UNSPECIFIED SITE, UNSPECIFIED STAGE Qualifiers: Pressure injury location: sacral region Pressure injury stage: stage 3 Qualified Code(s): L89.153 - Pressure ulcer of sacral region, stage 3 (3) Hypernatremia Assessment/Plan: -appreciate nephrology assistance -resolved -continue 1/2 NS Code(s): E87.0 - HYPEROSMOLALITY AND HYPERNATREMIA (4) PARMINDER (acute kidney injury) Assessment/Plan: -continue IVF Code(s): N17.9 - ACUTE KIDNEY FAILURE, UNSPECIFIED (5) Hypothyroid -continue synthroid Code(s): E03.9 - HYPOTHYROIDISM, UNSPECIFIED (6) Morbidly obese Assessment/Plan: -noted Code(s): E66.01 - MORBID (SEVERE) OBESITY DUE TO EXCESS CALORIES (7) Anemia Assessment/Plan: -stable -monitor Code(s): D64.9 - ANEMIA, UNSPECIFIED Qualifiers: Anemia type: unspecified type Qualified Code(s): D64.9 - Anemia, unspecified (8) Hodgkin lymphoma Assessment/Plan: -consult oncology Code(s): C81.90 - HODGKIN LYMPHOMA, UNSPECIFIED, UNSPECIFIED SITE (9) Hypercalcemia -? if secondary to Hodgkins lymphoma -evaluation for hyperparathyroid -continue IVF -case d/w nephrology -oncology consult
--- NOTE | 2018-04-01 17:45 | CONSULT ---
Consultation: REQUESTING PROVIDER: CONSULT REQUEST: We have been asked to medically evaluate this patient for hypercalcemia. HISTORY OF PRESENT ILLNESS: 87 yo M with PMHx morbidly obese ,H/O Lymphoma BIB EMS from [facility] with confusion and tiredness. ED w/u show + UA , dehydration and admitted for further management. He was found to have an elevated calcium and raised concern in setting of his Hodkins lymphoma. He was diagnosed in 2008 after he found lump on his neck. He was seen and treated by Dr. Seth of [facility]. According to his brother Eddie he received chemo and achieved remission twice. Each time treated with chemo. Last visit was 2016 and at that time brother states that they discovered a "white spot" on stomach. He was scheduled to return to see Dr. Seth but in interim was admitted at [facility] for some gait instability and subsequently placed at [facility]. He has not followed up since then. REVIEW OF SYSTEMS: CONSTITUTIONAL: Absent: fever, chills, diaphoresis, generalized weakness, malaise, loss of appetite, weight change HEENT: Absent: rhinorrhea, nasal congestion, throat pain, throat swelling, difficulty swallowing, mouth swelling, ear pain, eye pain, visual changes CARDIOVASCULAR: Absent: chest pain, syncope, palpitations, irregular heart rate, lightheadedness , peripheral edema RESPIRATORY: Absent: cough, shortness of breath, dyspnea with exertion, orthopnea, wheezing, stridor, hemoptysis GASTROINTESTINAL: Absent: abdominal pain, abdominal distension, nausea, vomiting, diarrhea, constipation, melena, hematochezia GENITOURINARY: Absent: dysuria, frequency, urgency, hesitancy, hematuria, flank pain, genital pain MUSCULOSKELETAL: Absent: myalgia, arthralgia, joint swelling, back pain, neck pain SKIN: Absent: rash, itching, pallor HEMATOLOGIC/IMMUNOLOGIC: Absent: easy bleeding, easy bruising, lymphadenopathy, frequent infections ENDOCRINE: Absent: unexplained weight gain, unexplained weight loss, heat intolerance, cold intolerance NEUROLOGIC: Absent: headache, focal weakness or paresthesias, dizziness, unsteady gait, seizure, mental status changes, bladder or bowel incontinence PSYCHIATRIC: Absent: anxiety, depression, suicidal or homicidal ideation, hallucinations. PHYSICAL EXAMINATION Vital Signs - 24 hr 03/31/18 03/31/18 04/01/18 18:00 21:00 01:44 Temperature 97.8 F 98.4 F Pulse Rate 90 92 H Respiratory 20 20 20 Rate Blood Pressure 126/71 119/67 O2 Sat by Pulse 96 Oximetry (%) 04/01/18 04/01/18 04/01/18 05:00 05:30 05:38 Temperature 98.5 F 97.8 F Pulse Rate 92 H 84 Respiratory 20 20 20 Rate Blood Pressure 129/66 112/59 L O2 Sat by Pulse 96 Oximetry (%) 04/01/18 04/01/18 04/01/18 10:00 14:00 17:27 Temperature 97.9 F 98.1 F 97.6 F Pulse Rate 72 81 91 H Respiratory 20 20 18 Rate Blood Pressure 135/67 128/60 117/72 O2 Sat by Pulse Oximetry (%) Laboratory Results - last 24 hr 04/01/18 04/01/18 06:25 06:25 WBC 7.6 RBC 3.37 L Hgb 9.1 L Hct 28.2 L MCV 83.8 MCH 27.1 MCHC 32.3 RDW 19.6 H Plt Count 185 MPV 7.4 L Absolute Neuts (auto) 5.6 Neutrophils % 73.7 Lymphocytes % 14.5 Monocytes % 8.0 Eosinophils % 3.6 Basophils % 0.2 Nucleated RBC % 0 Sodium 145 Potassium 3.7 Chloride 111 H Carbon Dioxide 28 Anion Gap 7 L BUN 22 H Creatinine 1.4 H Creat Clearance w eGFR 47.94 Random Glucose 103 Calcium 11.1 H Phosphorus 2.8 Magnesium 2.1 Total Bilirubin 0.6 AST 17 ALT 12 L Alkaline Phosphatase 99 Total Protein 5.6 L Albumin 1.8 L GENERAL: Awake and alert, NAD HEENT: dry mucous membranes,PERRLA,EOMI PULM: CTAB, No wheezing or rales. CV: RRR, NL S1S2, no M/G/R GI: Soft, NTND, obese, NABS, No organomegally. Ext: No clubbing or cyanosis; 2+LE edema, Bilateral LE venous stasis dermatitis. Neuro: awake and alert Psych: depressed mood. Active Medications Generic Name Dose Route Start Last Admin Trade Name Freq PRN Reason Stop Dose Admin Acetaminophen 650 mg 03/27/18 22:00 03/28/18 22:02 Tylenol - PO 650 mg Q4H PRN Administration FEVER/PAIN LEVEL 1-5 Ascorbic Acid 500 mg 03/27/18 22:00 04/01/18 09:14 Vitamin C - PO 500 mg BID MICHELLE Administration Collagenase 1 applic 03/30/18 12:00 04/01/18 10:00 Santyl - TP 1 applic DAILY MICHELLE Administration Protocol Cyanocobalamin 1,000 mcg 03/28/18 10:00 04/01/18 09:14 Vitamin B12 - PO 1,000 mcg DAILY MICHELLE Administration Enoxaparin Sodium 30 mg 03/28/18 10:00 04/01/18 09:14 Lovenox - SQ 30 mg DAILY MICHELLE Administration Piperacillin Sod/Tazobactam 50 mls @ 100 mls/hr 03/28/18 12:00 04/01/18 17:13 Sod 3.375 gm/ Dextrose IVPB 100 mls/hr Q8H-IV MICHELLE Administration Protocol Sodium Chloride 1,000 mls @ 100 mls/hr 03/31/18 19:00 03/31/18 21:33 1/2 Normal Saline IV 100 mls/hr ASDIR MICHELLE Administration Levothyroxine Sodium 25 mcg 03/28/18 07:00 04/01/18 06:36 Synthroid - PO 25 mcg 0700 MICHELLE Administration Ranitidine HCl 150 mg 03/28/18 10:00 04/01/18 09:14 Zantac - PO 150 mg DAILY MICHELLE Administration Tamsulosin HCl 0.4 mg 03/28/18 08:30 04/01/18 09:14 Flomax - PO 0.4 mg 0830 MICHELLE Administration ASSESSMENT/PLAN: 87 yo M with PMHx morbidly obese ,H/O Lymphoma BIB EMS from [facility] with confusion and tiredness. ED w/u show + UA , dehydration and admitted for further management Dispo: We will continue to follow the patient. Thank you for this consultative opportunity. Problem List - Problems (1) Hypercalcemia Assessment/Plan: Initial corrected calcium >15 currently >13 * Has been responding to fluid challenge. * PTH pending * Pending results of PTH would consider further testing * possible PTH-rp ect... * Continue IVF (2) Sepsis Assessment/Plan: continue abx. as per ID * Cultures pending. (3) PARMINDER (acute kidney injury) Assessment/Plan: 2/2 UTI * continue hydration as per Nephrology. (4) Hodgkin lymphoma Assessment/Plan: Followed by Dr. Seth @ [facility] * have placed call to office to obtain more detailed history. Qualifiers: (5) Hypothyroid Assessment/Plan: Continue synthroid. Visit type - Emergency Visit Emergency Visit: Yes ED Registration Date: 03/27/18 Care time: The patient presented to the Emergency Department on the above date and was hospitalized for further evaluation of their emergent condition. - New Patient This patient is new to me today: Yes Date on this admission: 04/02/18 - Critical Care Critical Care patient: No
--- NOTE | 2018-04-01 19:00 | PN ---
Teaching Attending Note Name of Resident: Juice Nelson ATTENDING PHYSICIAN STATEMENT I saw and evaluated the patient. I reviewed the resident's note and discussed the case with the resident. I agree with the resident's findings and plan as documented. SUBJECTIVE: Patient seen and examined Hypercalcemic, UTI, bedridden. On DVT prophylaxis. Corrected Ca++ > 13. Receiving cautious hydration, but probably can increase hydration. Work up for recurrence of H.D. deferred secondary to co-morbid issues. 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 Intact PTH pending OBJECTIVE: ASSESSMENT AND PLAN:
[2018-04-01] MEDS: SODIUM CHLORIDE 0.45% 1,000 ML IV SCH (20:00)
[2018-04-02] MEDS: SODIUM CHLORIDE 0.45% 1,000 ML IV SCH ×3 (00:34→21:11)
[2018-04-02] MEDS ORDERED: DEXTROSE 5%-WATER - 50 ML IVPB ONE ×3 (01:19→17:21)
[2018-04-02] MEDS ORDERED: PIPERACILLIN/TAZOBACTAM 3.375 GM VIAL IVPB ONE ×3 (01:19→17:18)
[2018-04-02] MEDS: PIPERACILLIN/TAZOB 3.375 GM 3.375 GM in DEXTROSE 5%-WATER - 50 ML IVPB SCH ×3 (01:22→17:24)
[2018-04-02] MEDS: LEVOTHYROXINE NA 25 MCG TABLET (FP) PO SCH (06:26)
[2018-04-02 07:31] LABS: BASO % 0.1 % (0-2.0); EOS % 3.1 % (0-4.5); HEMATOCRIT 28.2 % (35.4-49); LYMPH % 13.6 % (8-40); MCH 26.7 pg (25.7-33.7); MCHC 31.8 g/dl (32.0-35.9); MEAN CELL VOLUME 83.9 fl (80-96); MEAN PLT VOLUME 7.2 fl (7.5-11.1); MONO % 7.6 % (3.8-10.2); NEUT % 75.6 % (42.8-82.8); PLATELET COUNT 166 K/MM3 (134-434); RBC 3.37 M/mm3 (4.00-5.60); RDW 19.9 % (11.9-15.9); WHITE BLOOD COUNT 7.6 K/mm3 (4.0-10.0)
[2018-04-02 08:11] LABS: ALBUMIN 1.8 g/dl (3.4-5.0); ALK PHOS 99 U/L (45-117); ANION GAP 9 MMOL/L (8-16); BILIRUBIN,TOTAL 0.7 mg/dL (0.2-1); BLOOD UREA NITROGEN 21 mg/dL (7-18); CALCIUM 10.7 mg/dL (8.5-10.1); CHLORIDE 113 mmol/L (98-107); CO2 26 mmol/L (21-32); CREATININE 1.3 mg/dL (0.55-1.3); GLUCOSE,RANDOM 82 mg/dL (74-106); MAGNESIUM 2.1 mg/dL (1.8-2.4); PHOSPHOROUS 2.7 mg/dL (2.5-4.9); POTASSIUM 3.7 mmol/L (3.5-5.1); SGOT/AST 12 U/L (15-37); SGPT/ALT 11 U/L (13-61); SODIUM 148 mmol/L (136-145); TOT PROT 5.5 g/dl (6.4-8.2)
[2018-04-02] MEDS: CYANOCOBALAMIN 1,000 MCG TABLET (FP) PO SCH (11:02)
[2018-04-02] MEDS: TAMSULOSIN HCL 0.4 MG CAP PO SCH (11:02)
[2018-04-02] MEDS: ASCORBIC ACID 500 MG TABLET (FP) PO SCH ×2 (11:02→21:12)
[2018-04-02] MEDS: RANITIDINE HCL 150 MG TABLET (FP) PO SCH (11:02)
[2018-04-02] MEDS: ENOXAPARIN NA (PORCINE) 30 MG/0.3 ML DISP.SYRIN SQ SCH (11:03)
[2018-04-02] MEDS: COLLAGENASE CLOSTRIDIUM HIST. 30 GRAMS TUBE TP SCH (11:03)
--- NOTE | 2018-04-02 13:11 | PN ---
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, Physician Chief Complaint: Mr Carmichael is without complaint. No cp, sob, n/v. - Current Medication List Current Medications: Active Medications Acetaminophen (Tylenol -) 650 mg PO Q4H PRN PRN Reason: FEVER/PAIN LEVEL 1-5 Last Admin: 03/28/18 22:02 Dose: 650 mg Ascorbic Acid (Vitamin C -) 500 mg PO BID [facility] Last Admin: 04/02/18 11:02 Dose: 500 mg Collagenase (Santyl -) 1 applic TP DAILY [facility]; Protocol Last Admin: 04/02/18 11:03 Dose: 1 applic Cyanocobalamin (Vitamin B12 -) 1,000 mcg PO DAILY [facility] Last Admin: 04/02/18 11:02 Dose: 1,000 mcg Enoxaparin Sodium (Lovenox -) 30 mg SQ DAILY [facility] Last Admin: 04/02/18 11:03 Dose: 30 mg Piperacillin Sod/Tazobactam (Sod 3.375 gm/ Dextrose) 50 mls @ 100 mls/hr IVPB Q8H-IV [facility]; Protocol Last Admin: 04/02/18 11:03 Dose: 100 mls/hr Sodium Chloride (1/2 Normal Saline) 1,000 mls @ 100 mls/hr IV ASDIR [facility] Last Admin: 04/02/18 00:34 Dose: 100 mls/hr Levothyroxine Sodium (Synthroid -) 25 mcg PO 0700 [facility] Last Admin: 04/02/18 06:26 Dose: 25 mcg Ranitidine HCl (Zantac -) 150 mg PO DAILY [facility] Last Admin: 04/02/18 11:02 Dose: 150 mg Tamsulosin HCl (Flomax -) 0.4 mg PO 0830 [facility] Last Admin: 04/02/18 11:02 Dose: 0.4 mg - Objective Vital Signs: Vital Signs Temperature 36.9 C 04/02/18 09:00 Pulse Rate 95 H 04/02/18 09:00 Respiratory Rate 18 04/02/18 09:00 Blood Pressure 119/72 04/02/18 09:00 O2 Sat by Pulse Oximetry (%) 98 04/02/18 09:00 Constitutional: Yes: No Distress, Calm, Obese Cardiovascular: Yes: Regular Rate and Rhythm. No: Gallop, Murmur, Rub Respiratory: Yes: Regular, CTA Bilaterally. No: Rales, Rhonchi, Wheezes Gastrointestinal: Yes: Normal Bowel Sounds, Soft. No: Distention, Tenderness Extremities: Yes: WNL Edema: No Labs: CBC, BMP 04/02/18 06:24 04/02/18 06:24 INR, PTT INR 1.29 (0.83-1.09) H 03/28/18 08:10 Problem List - Problems (1) Sepsis Code(s): A41.9 - SEPSIS, UNSPECIFIED ORGANISM Qualifiers: Sepsis type: sepsis due to unspecified organism Qualified Code(s): A41.9 - Sepsis, unspecified organism (2) Decubitus ulcer Code(s): L89.90 - PRESSURE ULCER OF UNSPECIFIED SITE, UNSPECIFIED STAGE Qualifiers: Pressure injury location: sacral region Pressure injury stage: stage 3 Qualified Code(s): L89.153 - Pressure ulcer of sacral region, stage 3 (3) Hypernatremia Code(s): E87.0 - HYPEROSMOLALITY AND HYPERNATREMIA (4) PARMINDER (acute kidney injury) Code(s): N17.9 - ACUTE KIDNEY FAILURE, UNSPECIFIED (5) Hypothyroid Code(s): E03.9 - HYPOTHYROIDISM, UNSPECIFIED (6) Morbidly obese Code(s): E66.01 - MORBID (SEVERE) OBESITY DUE TO EXCESS CALORIES (7) Anemia Code(s): D64.9 - ANEMIA, UNSPECIFIED Qualifiers: Anemia type: unspecified type Qualified Code(s): D64.9 - Anemia, unspecified (8) Hodgkin lymphoma Code(s): C81.90 - HODGKIN LYMPHOMA, UNSPECIFIED, UNSPECIFIED SITE (9) Hypercalcemia Code(s): E83.52 - HYPERCALCEMIA Assessment/Plan (1) Sepsis Assessment/Plan: -wound culture polymicrobial with final results -continue zosyn per ID -await final recommendations for duration of IV antibiotics and possible transition to oral antibiotics Code(s): A41.9 - SEPSIS, UNSPECIFIED ORGANISM (2) Decubitus ulcer Assessment/Plan: -appreciate wound care assistance -collagenase, frequent turning Code(s): L89.90 - PRESSURE ULCER OF UNSPECIFIED SITE, UNSPECIFIED STAGE Qualifiers: Pressure injury location: sacral region Pressure injury stage: stage 3 Qualified Code(s): L89.153 - Pressure ulcer of sacral region, stage 3 (3) Hypernatremia Assessment/Plan: -appreciate nephrology assistance -slightly elevated today -continue 1/2 NS Code(s): E87.0 - HYPEROSMOLALITY AND HYPERNATREMIA (4) PARMINDER (acute kidney injury) Assessment/Plan: -continue IVF Code(s): N17.9 - ACUTE KIDNEY FAILURE, UNSPECIFIED (5) Hypothyroid -continue synthroid Code(s): E03.9 - HYPOTHYROIDISM, UNSPECIFIED (6) Morbidly obese Assessment/Plan: -noted Code(s): E66.01 - MORBID (SEVERE) OBESITY DUE TO EXCESS CALORIES (7) Anemia Assessment/Plan: -stable -monitor Code(s): D64.9 - ANEMIA, UNSPECIFIED Qualifiers: Anemia type: unspecified type Qualified Code(s): D64.9 - Anemia, unspecified (8) Hodgkin lymphoma Assessment/Plan: -oncology consulted -awaiting recommendations Code(s): C81.90 - HODGKIN LYMPHOMA, UNSPECIFIED, UNSPECIFIED SITE (9) Hypercalcemia -improving -continue IVF per nephrology -low intact PTH
--- NOTE | 2018-04-02 13:47 | PN ---
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, Physician History of Present Illness: patient stable continues to be lethargic slow response hard of hearing - Current Medication List Current Medications: Active Medications Acetaminophen (Tylenol -) 650 mg PO Q4H PRN PRN Reason: FEVER/PAIN LEVEL 1-5 Last Admin: 03/28/18 22:02 Dose: 650 mg Ascorbic Acid (Vitamin C -) 500 mg PO BID [facility] Last Admin: 04/02/18 11:02 Dose: 500 mg Collagenase (Santyl -) 1 applic TP DAILY [facility]; Protocol Last Admin: 04/02/18 11:03 Dose: 1 applic Cyanocobalamin (Vitamin B12 -) 1,000 mcg PO DAILY [facility] Last Admin: 04/02/18 11:02 Dose: 1,000 mcg Enoxaparin Sodium (Lovenox -) 30 mg SQ DAILY [facility] Last Admin: 04/02/18 11:03 Dose: 30 mg Piperacillin Sod/Tazobactam (Sod 3.375 gm/ Dextrose) 50 mls @ 100 mls/hr IVPB Q8H-IV [facility]; Protocol Last Admin: 04/02/18 11:03 Dose: 100 mls/hr Sodium Chloride (1/2 Normal Saline) 1,000 mls @ 100 mls/hr IV ASDIR [facility] Last Admin: 04/02/18 00:34 Dose: 100 mls/hr Levothyroxine Sodium (Synthroid -) 25 mcg PO 0700 [facility] Last Admin: 04/02/18 06:26 Dose: 25 mcg Ranitidine HCl (Zantac -) 150 mg PO DAILY [facility] Last Admin: 04/02/18 11:02 Dose: 150 mg Tamsulosin HCl (Flomax -) 0.4 mg PO 0830 [facility] Last Admin: 04/02/18 11:02 Dose: 0.4 mg - Objective Vital Signs: Vital Signs Temperature 98.5 F 04/02/18 09:00 Pulse Rate 95 H 04/02/18 09:00 Respiratory Rate 18 04/02/18 09:00 Blood Pressure 119/72 04/02/18 09:00 O2 Sat by Pulse Oximetry (%) 98 04/02/18 09:00 Constitutional: Yes: No Distress, Calm, Obese, Other Cardiovascular: Yes: S1, S2 Gastrointestinal: Yes: Normal Bowel Sounds, Soft Musculoskeletal: Yes: WNL Extremities: Yes: Other Wound/Incision: Yes: Other Neurological: Yes: Alert, Weakness, Other Labs: CBC, BMP 04/02/18 06:24 04/02/18 06:24 INR, PTT INR 1.29 (0.83-1.09) H 03/28/18 08:10 Assessment/Plan Problem List - Problems (1) PARMINDER (acute kidney injury) Code(s): N17.9 - ACUTE KIDNEY FAILURE, UNSPECIFIED (2) Hodgkin lymphoma Code(s): C81.90 - HODGKIN LYMPHOMA, UNSPECIFIED, UNSPECIFIED SITE (3) Morbidly obese Code(s): E66.01 - MORBID (SEVERE) OBESITY DUE TO EXCESS CALORIES (4) Sepsis Code(s): A41.9 - SEPSIS, UNSPECIFIED ORGANISM (5) UTI (urinary tract infection) Code(s): N39.0 - URINARY TRACT INFECTION, SITE NOT SPECIFIED (6) Weakness Code(s): R53.1 - WEAKNESS (7) Anemia Code(s): D64.9 - ANEMIA, UNSPECIFIED Qualifiers: Anemia type: unspecified type Qualified Code(s): D64.9 - Anemia, unspecified (8) BPH (benign prostatic hyperplasia) Code(s): N40.0 - BENIGN PROSTATIC HYPERPLASIA WITHOUT LOWER URINRY TRACT SYMP Assessment/Plan 87 y.o. male presenting from [place] with weakness/altered mental status, poor oral intake, fevers, and lactic acidosis Sepsis - unclear source Fever Lactic acidosis BPH Hx of Hodgkins Lymphoma PARMINDER Hypothyroidism all cx result noted will ct abx for now wound care physio rest as per the team
--- NOTE | 2018-04-02 16:16 | PN ---
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, Physician History of Present Illness: Pt seen and examined at bedside. He is more awake and interactive than yesterday. His brothers are at bedside. - Current Medication List Current Medications: Active Medications Acetaminophen (Tylenol -) 650 mg PO Q4H PRN PRN Reason: FEVER/PAIN LEVEL 1-5 Last Admin: 03/28/18 22:02 Dose: 650 mg Ascorbic Acid (Vitamin C -) 500 mg PO BID [facility] Last Admin: 04/02/18 11:02 Dose: 500 mg Collagenase (Santyl -) 1 applic TP DAILY [facility]; Protocol Last Admin: 04/02/18 11:03 Dose: 1 applic Cyanocobalamin (Vitamin B12 -) 1,000 mcg PO DAILY [facility] Last Admin: 04/02/18 11:02 Dose: 1,000 mcg Enoxaparin Sodium (Lovenox -) 30 mg SQ DAILY [facility] Last Admin: 04/02/18 11:03 Dose: 30 mg Piperacillin Sod/Tazobactam (Sod 3.375 gm/ Dextrose) 50 mls @ 100 mls/hr IVPB Q8H-IV [facility]; Protocol Last Admin: 04/02/18 11:03 Dose: 100 mls/hr Sodium Chloride (1/2 Normal Saline) 1,000 mls @ 100 mls/hr IV ASDIR [facility] Last Admin: 04/02/18 00:34 Dose: 100 mls/hr Levothyroxine Sodium (Synthroid -) 25 mcg PO 0700 [facility] Last Admin: 04/02/18 06:26 Dose: 25 mcg Ranitidine HCl (Zantac -) 150 mg PO DAILY [facility] Last Admin: 04/02/18 11:02 Dose: 150 mg Tamsulosin HCl (Flomax -) 0.4 mg PO 0830 [facility] Last Admin: 04/02/18 11:02 Dose: 0.4 mg - Objective Vital Signs: Vital Signs Temperature 97.5 F L 04/02/18 14:34 Pulse Rate 95 H 04/02/18 14:34 Respiratory Rate 20 04/02/18 14:34 Blood Pressure 110/69 04/02/18 14:34 O2 Sat by Pulse Oximetry (%) 98 04/02/18 09:00 Constitutional: Yes: Calm Eyes: Yes: Conjunctiva Clear HENT: Yes: Other (dry mucous membranes) Cardiovascular: Yes: S1, S2 Respiratory: Yes: CTA Bilaterally Gastrointestinal: Yes: Soft, Abdomen, Obese Genitourinary: Yes: Incontinence Musculoskeletal: Yes: WNL Edema: No Neurological: Yes: Oriented Psychiatric: Yes: Oriented Labs: CBC, BMP 04/02/18 06:24 04/02/18 06:24 INR, PTT INR 1.29 (0.83-1.09) H 03/28/18 08:10 Problem List - Problems (1) PARMINDER (acute kidney injury) Code(s): N17.9 - ACUTE KIDNEY FAILURE, UNSPECIFIED (2) Decubitus ulcer Code(s): L89.90 - PRESSURE ULCER OF UNSPECIFIED SITE, UNSPECIFIED STAGE Qualifiers: Pressure injury location: sacral region Pressure injury stage: stage 3 Qualified Code(s): L89.153 - Pressure ulcer of sacral region, stage 3 (3) Dehydration Code(s): E86.0 - DEHYDRATION (4) Hodgkin lymphoma Code(s): C81.90 - HODGKIN LYMPHOMA, UNSPECIFIED, UNSPECIFIED SITE Qualifiers: Hodgkin lymphoma type: unspecified type (5) Hypercalcemia Code(s): E83.52 - HYPERCALCEMIA (6) Hypernatremia Code(s): E87.0 - HYPEROSMOLALITY AND HYPERNATREMIA (7) Hypokalemia Code(s): E87.6 - HYPOKALEMIA (8) Hypothyroid Code(s): E03.9 - HYPOTHYROIDISM, UNSPECIFIED (9) Sepsis Code(s): A41.9 - SEPSIS, UNSPECIFIED ORGANISM Qualifiers: Sepsis type: sepsis due to unspecified organism Qualified Code(s): A41.9 - Sepsis, unspecified organism (10) BPH (benign prostatic hyperplasia) Code(s): N40.0 - BENIGN PROSTATIC HYPERPLASIA WITHOUT LOWER URINRY TRACT SYMP Assessment/Plan Current Medications Generic Name Dose Route Start Last Admin Trade Name Freq PRN Reason Stop Dose Admin Acetaminophen 650 mg 03/27/18 22:00 03/28/18 22:02 Tylenol - PO 650 mg Q4H PRN Administration FEVER/PAIN LEVEL 1-5 Ascorbic Acid 500 mg 03/27/18 22:00 04/02/18 11:02 Vitamin C - PO 500 mg BID MICHELLE Administration Collagenase 1 applic 03/30/18 12:00 04/02/18 11:03 Santyl - TP 1 applic DAILY MICHELLE Administration Protocol Cyanocobalamin 1,000 mcg 03/28/18 10:00 04/02/18 11:02 Vitamin B12 - PO 1,000 mcg DAILY MICHELLE Administration Enoxaparin Sodium 30 mg 03/28/18 10:00 04/02/18 11:03 Lovenox - SQ 30 mg DAILY MICHELLE Administration Piperacillin Sod/Tazobactam 50 mls @ 100 mls/hr 03/28/18 12:00 04/02/18 11:03 Sod 3.375 gm/ Dextrose IVPB 100 mls/hr Q8H-IV MICHELLE Administration Protocol Sodium Chloride 1,000 mls @ 100 mls/hr 03/31/18 19:00 04/02/18 00:34 1/2 Normal Saline IV 100 mls/hr ASDIR MICHELLE Administration Levothyroxine Sodium 25 mcg 03/28/18 07:00 04/02/18 06:26 Synthroid - PO 25 mcg 0700 MICHELLE Administration Ranitidine HCl 150 mg 03/28/18 10:00 04/02/18 11:02 Zantac - PO 150 mg DAILY MICHELLE Administration Tamsulosin HCl 0.4 mg 03/28/18 08:30 04/02/18 11:02 Flomax - PO 0.4 mg 0830 MICHELLE Administration Impression 1. PARMINDER resolving 2. hypernatremia 3. hypercalcemia 4. hypokalemia 5. BPH 6. hodgkins lymphoma 7. sacral decub 8. sepsis 9. obesity 10. anemia Plan - calcium is improving - will increase rate of fluids - encourage free water intake - pt overall has poor po intake - follow pth - oncology input appreciated - will follow
[2018-04-03] MEDS ORDERED: PIPERACILLIN/TAZOBACTAM 3.375 GM VIAL IVPB ONE ×3 (01:08→17:54)
[2018-04-03] MEDS ORDERED: DEXTROSE 5%-WATER - 50 ML IVPB ONE ×3 (01:09→17:55)
[2018-04-03] MEDS: PIPERACILLIN/TAZOB 3.375 GM 3.375 GM in DEXTROSE 5%-WATER - 50 ML IVPB SCH ×3 (01:45→18:16)
[2018-04-03] MEDS: LEVOTHYROXINE NA 25 MCG TABLET (FP) PO SCH (06:40)
[2018-04-03 08:19] LABS: BASO % 0.5 % (0-2.0); EOS % 2.8 % (0-4.5); HEMATOCRIT 30.4 % (35.4-49); HEMOGLOBIN 9.7 GM/dL (11.7-16.9); MCH 26.8 pg (25.7-33.7); MCHC 31.8 g/dl (32.0-35.9); MEAN CELL VOLUME 84.2 fl (80-96); MEAN PLT VOLUME 7.2 fl (7.5-11.1); MONO % 8.1 % (3.8-10.2); NEUT % 76.6 % (42.8-82.8); PLATELET COUNT 176 K/MM3 (134-434); RBC 3.61 M/mm3 (4.00-5.60); RDW 19.9 % (11.9-15.9)
[2018-04-03 08:25] LABS: ANION GAP 8 MMOL/L (8-16); BLOOD UREA NITROGEN 23 mg/dL (7-18); CHLORIDE 112 mmol/L (98-107); CO2 27 mmol/L (21-32); CREATININE 1.5 mg/dL (0.55-1.3); GLUCOSE,RANDOM 88 mg/dL (74-106); PHOSPHOROUS 3.5 mg/dL (2.5-4.9); POTASSIUM 3.3 mmol/L (3.5-5.1); SODIUM 146 mmol/L (136-145)
--- NOTE | 2018-04-03 09:18 | PN ---
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, Physician History of Present Illness: patient awake still weak - Current Medication List Current Medications: Active Medications Acetaminophen (Tylenol -) 650 mg PO Q4H PRN PRN Reason: FEVER/PAIN LEVEL 1-5 Last Admin: 03/28/18 22:02 Dose: 650 mg Ascorbic Acid (Vitamin C -) 500 mg PO BID [facility] Last Admin: 04/02/18 21:12 Dose: 500 mg Collagenase (Santyl -) 1 applic TP DAILY [facility]; Protocol Last Admin: 04/02/18 11:03 Dose: 1 applic Cyanocobalamin (Vitamin B12 -) 1,000 mcg PO DAILY [facility] Last Admin: 04/02/18 11:02 Dose: 1,000 mcg Enoxaparin Sodium (Lovenox -) 30 mg SQ DAILY [facility] Last Admin: 04/02/18 11:03 Dose: 30 mg Piperacillin Sod/Tazobactam (Sod 3.375 gm/ Dextrose) 50 mls @ 100 mls/hr IVPB Q8H-IV [facility]; Protocol Last Admin: 04/03/18 01:45 Dose: 100 mls/hr Sodium Chloride (1/2 Normal Saline) 1,000 mls @ 100 mls/hr IV ASDIR [facility] Last Admin: 04/02/18 21:11 Dose: 100 mls/hr Levothyroxine Sodium (Synthroid -) 25 mcg PO 0700 [facility] Last Admin: 04/03/18 06:40 Dose: 25 mcg Ranitidine HCl (Zantac -) 150 mg PO DAILY [facility] Last Admin: 04/02/18 11:02 Dose: 150 mg Tamsulosin HCl (Flomax -) 0.4 mg PO 0830 [facility] Last Admin: 04/02/18 11:02 Dose: 0.4 mg - Objective Vital Signs: Vital Signs Temperature 98 F 04/03/18 05:00 Pulse Rate 96 H 04/03/18 05:00 Respiratory Rate 20 04/03/18 05:00 Blood Pressure 131/72 04/03/18 05:00 O2 Sat by Pulse Oximetry (%) 97 04/02/18 21:00 Constitutional: Yes: No Distress, Calm, Obese, Other (awake) Cardiovascular: Yes: S1, S2 Gastrointestinal: Yes: Normal Bowel Sounds, Soft Musculoskeletal: Yes: WNL Extremities: Yes: Other Neurological: Yes: Alert, Weakness Labs: CBC, BMP 04/03/18 07:30 04/03/18 07:30 INR, PTT INR 1.29 (0.83-1.09) H 03/28/18 08:10 Assessment/Plan Problem List - Problems (1) PARMINDER (acute kidney injury) Code(s): N17.9 - ACUTE KIDNEY FAILURE, UNSPECIFIED (2) Hodgkin lymphoma Code(s): C81.90 - HODGKIN LYMPHOMA, UNSPECIFIED, UNSPECIFIED SITE (3) Morbidly obese Code(s): E66.01 - MORBID (SEVERE) OBESITY DUE TO EXCESS CALORIES (4) Sepsis Code(s): A41.9 - SEPSIS, UNSPECIFIED ORGANISM (5) UTI (urinary tract infection) Code(s): N39.0 - URINARY TRACT INFECTION, SITE NOT SPECIFIED (6) Weakness Code(s): R53.1 - WEAKNESS (7) Anemia Code(s): D64.9 - ANEMIA, UNSPECIFIED Qualifiers: Anemia type: unspecified type Qualified Code(s): D64.9 - Anemia, unspecified (8) BPH (benign prostatic hyperplasia) Code(s): N40.0 - BENIGN PROSTATIC HYPERPLASIA WITHOUT LOWER URINRY TRACT SYMP Assessment/Plan 87 y.o. male presenting from [place] with weakness/altered mental status, poor oral intake, fevers, and lactic acidosis Sepsis - unclear source Fever Lactic acidosis BPH Hx of Hodgkins Lymphoma PARMINDER Hypothyroidism plan ct abx will d/w the primary team wound care will consider switching to oral after discussing with the team as he will william it for some time
[2018-04-03] MEDS: RANITIDINE HCL 150 MG TABLET (FP) PO SCH ×2 (11:00→11:16)
[2018-04-03] MEDS: ASCORBIC ACID 500 MG TABLET (FP) PO SCH ×3 (11:00→21:33)
[2018-04-03] MEDS: TAMSULOSIN HCL 0.4 MG CAP PO SCH ×2 (11:00→11:16)
[2018-04-03] MEDS ORDERED: ZOLEDRONIC ACID 4 MG in SODIUM CHLORIDE 100 ML IVPB ONE (11:00)
[2018-04-03] MEDS: ENOXAPARIN NA (PORCINE) 30 MG/0.3 ML DISP.SYRIN SQ SCH (11:01)
[2018-04-03] MEDS: CYANOCOBALAMIN 1,000 MCG TABLET (FP) PO SCH ×2 (11:01→11:16)
[2018-04-03] MEDS: COLLAGENASE CLOSTRIDIUM HIST. 30 GRAMS TUBE TP SCH (11:01)
[2018-04-03] MEDS ORDERED: MINERAL OIL ENEMA 133 ML ENEMA PR ONE (12:16)
--- NOTE | 2018-04-03 12:25 | PN ---
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, Physician Chief Complaint: Mr Carmichael is more lethargic today. Denies cp, sob, n/v. Says he is eating well. - Current Medication List Current Medications: Active Medications Acetaminophen (Tylenol -) 650 mg PO Q4H PRN PRN Reason: FEVER/PAIN LEVEL 1-5 Last Admin: 03/28/18 22:02 Dose: 650 mg Ascorbic Acid (Vitamin C -) 500 mg PO BID [facility] Last Admin: 04/03/18 11:15 Dose: Not Given Collagenase (Santyl -) 1 applic TP DAILY [facility]; Protocol Last Admin: 04/03/18 11:01 Dose: 1 applic Cyanocobalamin (Vitamin B12 -) 1,000 mcg PO DAILY [facility] Last Admin: 04/03/18 11:16 Dose: Not Given Enoxaparin Sodium (Lovenox -) 30 mg SQ DAILY [facility] Last Admin: 04/03/18 11:01 Dose: 30 mg Piperacillin Sod/Tazobactam (Sod 3.375 gm/ Dextrose) 50 mls @ 100 mls/hr IVPB Q8H-IV [facility]; Protocol Last Admin: 04/03/18 11:04 Dose: 100 mls/hr Sodium Chloride (1/2 Normal Saline) 1,000 mls @ 100 mls/hr IV ASDIR [facility] Last Admin: 04/02/18 21:11 Dose: 100 mls/hr Levothyroxine Sodium (Synthroid -) 25 mcg PO 0700 [facility] Last Admin: 04/03/18 06:40 Dose: 25 mcg Mineral Oil (Fleet Mineral Oil Rectal Enema -) 133 ml TX NOW ONE Stop: 04/03/18 12:17 Ranitidine HCl (Zantac -) 150 mg PO DAILY [facility] Last Admin: 04/03/18 11:16 Dose: Not Given Tamsulosin HCl (Flomax -) 0.4 mg PO 0830 [facility] Last Admin: 04/03/18 11:16 Dose: Not Given - Objective Vital Signs: Vital Signs Temperature 36.6 C 04/03/18 05:00 Pulse Rate 96 H 04/03/18 09:00 Respiratory Rate 18 04/03/18 09:00 Blood Pressure 130/66 04/03/18 09:00 O2 Sat by Pulse Oximetry (%) 97 04/02/18 21:00 Constitutional: Yes: No Distress, Calm, Obese Cardiovascular: Yes: Regular Rate and Rhythm. No: Gallop, Murmur, Rub Respiratory: Yes: Regular, CTA Bilaterally. No: Rales, Rhonchi, Wheezes Gastrointestinal: Yes: Hypoactive Bowel Sounds. No: Distention, Tenderness Extremities: Yes: WNL Edema: No Labs: CBC, BMP 04/03/18 07:30 04/03/18 07:30 INR, PTT INR 1.29 (0.83-1.09) H 03/28/18 08:10 Problem List - Problems (1) Sepsis Code(s): A41.9 - SEPSIS, UNSPECIFIED ORGANISM Qualifiers: Sepsis type: sepsis due to unspecified organism Qualified Code(s): A41.9 - Sepsis, unspecified organism (2) Decubitus ulcer Code(s): L89.90 - PRESSURE ULCER OF UNSPECIFIED SITE, UNSPECIFIED STAGE Qualifiers: Pressure injury location: sacral region Pressure injury stage: stage 3 Qualified Code(s): L89.153 - Pressure ulcer of sacral region, stage 3 (3) Hypernatremia Code(s): E87.0 - HYPEROSMOLALITY AND HYPERNATREMIA (4) PARMINDER (acute kidney injury) Code(s): N17.9 - ACUTE KIDNEY FAILURE, UNSPECIFIED (5) Hypothyroid Code(s): E03.9 - HYPOTHYROIDISM, UNSPECIFIED (6) Morbidly obese Code(s): E66.01 - MORBID (SEVERE) OBESITY DUE TO EXCESS CALORIES (7) Anemia Code(s): D64.9 - ANEMIA, UNSPECIFIED Qualifiers: Anemia type: unspecified type Qualified Code(s): D64.9 - Anemia, unspecified (8) Hodgkin lymphoma Code(s): C81.90 - HODGKIN LYMPHOMA, UNSPECIFIED, UNSPECIFIED SITE (9) Hypercalcemia Code(s): E83.52 - HYPERCALCEMIA (10) Metabolic encephalopathy Code(s): G93.41 - METABOLIC ENCEPHALOPATHY (11) Constipation Code(s): K59.00 - CONSTIPATION, UNSPECIFIED Assessment/Plan (1) Sepsis Assessment/Plan: -wound culture polymicrobial with final results -continue zosyn per ID Code(s): A41.9 - SEPSIS, UNSPECIFIED ORGANISM (2) Decubitus ulcer Assessment/Plan: -appreciate wound care assistance -collagenase, frequent turning Code(s): L89.90 - PRESSURE ULCER OF UNSPECIFIED SITE, UNSPECIFIED STAGE Qualifiers: Pressure injury location: sacral region Pressure injury stage: stage 3 Qualified Code(s): L89.153 - Pressure ulcer of sacral region, stage 3 (3) Hypernatremia Assessment/Plan: -appreciate nephrology assistance -improved today -continue 1/2 NS Code(s): E87.0 - HYPEROSMOLALITY AND HYPERNATREMIA (4) PARMINDER (acute kidney injury) Assessment/Plan: -continue IVF Code(s): N17.9 - ACUTE KIDNEY FAILURE, UNSPECIFIED (5) Hypothyroid -continue synthroid Code(s): E03.9 - HYPOTHYROIDISM, UNSPECIFIED (6) Morbidly obese Assessment/Plan: -noted Code(s): E66.01 - MORBID (SEVERE) OBESITY DUE TO EXCESS CALORIES (7) Anemia Assessment/Plan: -stable -monitor Code(s): D64.9 - ANEMIA, UNSPECIFIED Qualifiers: Anemia type: unspecified type Qualified Code(s): D64.9 - Anemia, unspecified (8) Hodgkin lymphoma Assessment/Plan: -oncology consulted -awaiting recommendations Code(s): C81.90 - HODGKIN LYMPHOMA, UNSPECIFIED, UNSPECIFIED SITE (9) Hypercalcemia -continue hydration (10) Hypoactive bowel sounds -also with constipation and poor intake -no pain on palpation -slightly firm -obtain KUB for possible obstruction/ileus (11) Metabolic encephalopathy -worsening mental status today -? secondary to PARMINDER -evaluating for obstruction/ileus -will check lactic acid as well
[2018-04-03 12:54] LABS: ARTERIAL BLD GAS O2 SATURATION 91.9 % (90-98.9); ARTERIAL BLOOD GAS BASE EXCESS 1.6 meq/l (-2-2); ARTERIAL BLOOD GAS PCO2 37.3 mmHg (35-45); ARTERIAL BLOOD GAS PO2 64.2 mmHg (68-100); ARTERIAL BLOOD GAS pH 7.44 (7.35-7.45)
[2018-04-03 12:56] LABS: ALLENS TEST POSITIVE
[2018-04-03] MEDS: SODIUM CHLORIDE 0.45% 1,000 ML IV SCH (16:08)
--- NOTE | 2018-04-03 17:00 | PN ---
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, Physician History of Present Illness: Pt seen and examined at bedside. He is more lethargic. He is not eating or drinking much. - Current Medication List Current Medications: Active Medications Acetaminophen (Tylenol -) 650 mg PO Q4H PRN PRN Reason: FEVER/PAIN LEVEL 1-5 Last Admin: 03/28/18 22:02 Dose: 650 mg Ascorbic Acid (Vitamin C -) 500 mg PO BID [facility] Last Admin: 04/03/18 11:15 Dose: Not Given Collagenase (Santyl -) 1 applic TP DAILY [facility]; Protocol Last Admin: 04/03/18 11:01 Dose: 1 applic Cyanocobalamin (Vitamin B12 -) 1,000 mcg PO DAILY [facility] Last Admin: 04/03/18 11:16 Dose: Not Given Enoxaparin Sodium (Lovenox -) 30 mg SQ DAILY [facility] Last Admin: 04/03/18 11:01 Dose: 30 mg Piperacillin Sod/Tazobactam (Sod 3.375 gm/ Dextrose) 50 mls @ 100 mls/hr IVPB Q8H-IV [facility]; Protocol Last Admin: 04/03/18 11:04 Dose: 100 mls/hr Sodium Chloride (1/2 Normal Saline) 1,000 mls @ 100 mls/hr IV ASDIR [facility] Last Admin: 04/03/18 16:08 Dose: 100 mls/hr Levothyroxine Sodium (Synthroid -) 25 mcg PO 0700 [facility] Last Admin: 04/03/18 06:40 Dose: 25 mcg Ranitidine HCl (Zantac -) 150 mg PO DAILY [facility] Last Admin: 04/03/18 11:16 Dose: Not Given Tamsulosin HCl (Flomax -) 0.4 mg PO 0830 [facility] Last Admin: 04/03/18 11:16 Dose: Not Given - Objective Vital Signs: Vital Signs Temperature 98.2 F 04/03/18 15:53 Pulse Rate 20 L 04/03/18 15:53 Respiratory Rate 18 04/03/18 09:00 Blood Pressure 107/56 L 04/03/18 15:53 O2 Sat by Pulse Oximetry (%) 97 04/03/18 09:00 Constitutional: Yes: Calm Eyes: Yes: Conjunctiva Clear HENT: Yes: Atraumatic Cardiovascular: Yes: S1, S2 Respiratory: Yes: CTA Bilaterally Gastrointestinal: Yes: Soft Genitourinary: Yes: Incontinence Musculoskeletal: Yes: Muscle Weakness Edema: No Neurological: Yes: Lethargy Labs: CBC, BMP 04/03/18 07:30 04/03/18 07:30 INR, PTT INR 1.29 (0.83-1.09) H 03/28/18 08:10 Problem List - Problems (1) PARMINDER (acute kidney injury) Code(s): N17.9 - ACUTE KIDNEY FAILURE, UNSPECIFIED (2) Decubitus ulcer Code(s): L89.90 - PRESSURE ULCER OF UNSPECIFIED SITE, UNSPECIFIED STAGE Qualifiers: Pressure injury location: sacral region Pressure injury stage: stage 3 Qualified Code(s): L89.153 - Pressure ulcer of sacral region, stage 3 (3) Dehydration Code(s): E86.0 - DEHYDRATION (4) Hodgkin lymphoma Code(s): C81.90 - HODGKIN LYMPHOMA, UNSPECIFIED, UNSPECIFIED SITE Qualifiers: Hodgkin lymphoma type: unspecified type (5) Hypercalcemia Code(s): E83.52 - HYPERCALCEMIA (6) Hypernatremia Code(s): E87.0 - HYPEROSMOLALITY AND HYPERNATREMIA (7) Hypokalemia Code(s): E87.6 - HYPOKALEMIA (8) Hypothyroid Code(s): E03.9 - HYPOTHYROIDISM, UNSPECIFIED (9) Sepsis Code(s): A41.9 - SEPSIS, UNSPECIFIED ORGANISM Qualifiers: Sepsis type: sepsis due to unspecified organism Qualified Code(s): A41.9 - Sepsis, unspecified organism (10) BPH (benign prostatic hyperplasia) Code(s): N40.0 - BENIGN PROSTATIC HYPERPLASIA WITHOUT LOWER URINRY TRACT SYMP Assessment/Plan Current Medications Generic Name Dose Route Start Last Admin Trade Name Freq PRN Reason Stop Dose Admin Acetaminophen 650 mg 03/27/18 22:00 03/28/18 22:02 Tylenol - PO 650 mg Q4H PRN Administration FEVER/PAIN LEVEL 1-5 Ascorbic Acid 500 mg 03/27/18 22:00 04/03/18 11:15 Vitamin C - PO Not Given BID [facility] Collagenase 1 applic 03/30/18 12:00 04/03/18 11:01 Santyl - TP 1 applic DAILY [facility] Administration Protocol Cyanocobalamin 1,000 mcg 03/28/18 10:00 04/03/18 11:16 Vitamin B12 - PO Not Given DAILY [facility] Enoxaparin Sodium 30 mg 03/28/18 10:00 04/03/18 11:01 Lovenox - SQ 30 mg DAILY [facility] Administration Piperacillin Sod/Tazobactam 50 mls @ 100 mls/hr 03/28/18 12:00 04/03/18 11:04 Sod 3.375 gm/ Dextrose IVPB 100 mls/hr Q8H-IV [facility] Administration Protocol Sodium Chloride 1,000 mls @ 100 mls/hr 03/31/18 19:00 04/03/18 16:08 1/2 Normal Saline IV 100 mls/hr ASDIR [facility] Administration Levothyroxine Sodium 25 mcg 03/28/18 07:00 04/03/18 06:40 Synthroid - PO 25 mcg 0700 [facility] Administration Ranitidine HCl 150 mg 03/28/18 10:00 04/03/18 11:16 Zantac - PO Not Given DAILY [facility] Tamsulosin HCl 0.4 mg 03/28/18 08:30 04/03/18 11:16 Flomax - PO Not Given 0830 [facility] Impression 1. PARMINDER resolving 2. hypernatremia 3. hypercalcemia 4. hypokalemia 5. BPH 6. hodgkins lymphoma 7. sacral decub 8. sepsis 9. obesity 10. anemia Plan - increase rate of fluids - replace potassium - pt with poor PO intake and increased lethargy - follow pth - monitor sodium level - will follow
--- NOTE | 2018-04-03 17:13 | PN ---
Physical Exam: SUBJECTIVE: Patient seen and examined at bedside. No overnight events. More lethargic today. Denies CP,, SOB, abdominal pain, nausea or vomiting. OBJECTIVE: Vital Signs Period Temp Pulse Resp BP Sys/Garcia Pulse Ox Last 24 Hr 97.6 F-98.5 F 20-100 18-20 107-140/56-72 97-97 GENERAL: Awake and alert, NAD HEENT: dry mucous membranes,PERRLA,EOMI PULM: CTAB, No wheezing or rales. CV: RRR, NL S1S2, no M/G/R GI: Soft, NTND, obese, NABS, No organomegally. Ext: No clubbing or cyanosis; 2+LE edema, Bilateral LE venous stasis dermatitis. Neuro: awake and alert Psych: depressed mood. Laboratory Results - last 24 hr 04/03/18 04/03/18 04/03/18 07:30 07:30 12:42 WBC 8.0 RBC 3.61 L Hgb 9.7 L Hct 30.4 L MCV 84.2 MCH 26.8 MCHC 31.8 L RDW 19.9 H Plt Count 176 MPV 7.2 L Absolute Neuts (auto) 6.2 Neutrophils % 76.6 Lymphocytes % 12.0 Monocytes % 8.1 Eosinophils % 2.8 Basophils % 0.5 D Nucleated RBC % 0 Puncture Site Right radial ABG pH 7.44 ABG pCO2 at Pt Temp 37.3 ABG pO2 at Pt Temp 64.2 L ABG HCO3 25.1 ABG O2 Sat (Measured) 91.9 ABG O2 Content 13.5 L ABG Base Excess 1.6 Korey Test Positive O2 Delivery Device Room air Oxygen Flow Rate 21% Sodium 146 H Potassium 3.3 L Chloride 112 H Carbon Dioxide 27 Anion Gap 8 BUN 23 H Creatinine 1.5 H Creat Clearance w eGFR 44.27 Random Glucose 88 Lactic Acid Calcium 11.0 H Phosphorus 3.5 Magnesium 2.0 04/03/18 13:40 WBC RBC Hgb Hct MCV MCH MCHC RDW Plt Count MPV Absolute Neuts (auto) Neutrophils % Lymphocytes % Monocytes % Eosinophils % Basophils % Nucleated RBC % Puncture Site ABG pH ABG pCO2 at Pt Temp ABG pO2 at Pt Temp ABG HCO3 ABG O2 Sat (Measured) ABG O2 Content ABG Base Excess Korey Test O2 Delivery Device Oxygen Flow Rate Sodium Potassium Chloride Carbon Dioxide Anion Gap BUN Creatinine Creat Clearance w eGFR Random Glucose Lactic Acid 1.6 Calcium Phosphorus Magnesium Active Medications Generic Name Dose Route Start Last Admin Trade Name Chiquita PRN Reason Stop Dose Admin Acetaminophen 650 mg 03/27/18 22:00 03/28/18 22:02 Tylenol - PO 650 mg Q4H PRN Administration FEVER/PAIN LEVEL 1-5 Ascorbic Acid 500 mg 03/27/18 22:00 04/03/18 11:15 Vitamin C - PO Not Given BID [facility] Collagenase 1 applic 03/30/18 12:00 04/03/18 11:01 Santyl - TP 1 applic DAILY [facility] Administration Protocol Cyanocobalamin 1,000 mcg 03/28/18 10:00 04/03/18 11:16 Vitamin B12 - PO Not Given DAILY [facility] Enoxaparin Sodium 30 mg 03/28/18 10:00 04/03/18 11:01 Lovenox - SQ 30 mg DAILY [facility] Administration Piperacillin Sod/Tazobactam 50 mls @ 100 mls/hr 03/28/18 12:00 04/03/18 11:04 Sod 3.375 gm/ Dextrose IVPB 100 mls/hr Q8H-IV [facility] Administration Protocol Sodium Chloride 1,000 mls @ 150 mls/hr 04/03/18 17:01 1/2 Normal Saline IV ASDIR [facility] Potassium Chloride 10 meq in 100 mls @ 100 mls/hr 04/03/18 17:15 Potassium Chloride 10 Meq Premix Ivpb - IVPB 04/03/18 20:14 Q60M [facility] Levothyroxine Sodium 25 mcg 03/28/18 07:00 04/03/18 06:40 Synthroid - PO 25 mcg 0700 [facility] Administration Ranitidine HCl 150 mg 03/28/18 10:00 04/03/18 11:16 Zantac - PO Not Given DAILY [facility] Tamsulosin HCl 0.4 mg 03/28/18 08:30 04/03/18 11:16 Flomax - PO Not Given 0830 [facility] ASSESSMENT/PLAN: 87 yo M with PMHx morbidly obese ,H/O Lymphoma BIB EMS from [facility] with confusion and tiredness. ED w/u show + UA , dehydration and admitted for further management. Problem List - Problems (1) Hypercalcemia Assessment/Plan: Initial corrected calcium >15 currently 13 * Has been responding to fluid challenge. * PTH was low * PTH-RP sent * started Zometa * Continue IVF (2) Sepsis Assessment/Plan: continue abx. as per ID * Cultures show mulitple organisms in sacral wound. * currently on Zosyn (3) PARMINDER (acute kidney injury) Assessment/Plan: 2/2 UTI * continue hydration as per Nephrology. (4) Hodgkin lymphoma Assessment/Plan: Followed by Dr. Seth @ [facility] * have placed call to office to obtain more detailed history. Qualifiers: (5) Hypothyroid Assessment/Plan: Continue synthroid. Visit type - Emergency Visit Emergency Visit: Yes ED Registration Date: 03/27/18 Care time: The patient presented to the Emergency Department on the above date and was hospitalized for further evaluation of their emergent condition. - New Patient This patient is new to me today: No - Critical Care Critical Care patient: No
[2018-04-03] MEDS: KCL 10 MEQ IVPB 10 MEQ/100 ML INFUS.BAG IVPB SCH ×3 (18:17→23:16)
[2018-04-04] MEDS: SODIUM CHLORIDE 0.45% 1,000 ML IV SCH ×4 (01:53→22:30)
[2018-04-04] MEDS: PIPERACILLIN/TAZOB 3.375 GM 3.375 GM in DEXTROSE 5%-WATER - 50 ML IVPB SCH ×2 (01:54→09:44)
[2018-04-04] MEDS ORDERED: PIPERACILLIN/TAZOBACTAM 3.375 GM VIAL IVPB ONE ×2 (01:57→09:41)
[2018-04-04] MEDS ORDERED: DEXTROSE 5%-WATER - 50 ML IVPB ONE ×2 (01:57→09:42)
[2018-04-04] MEDS: LEVOTHYROXINE NA 25 MCG TABLET (FP) PO SCH (06:09)
[2018-04-04 08:06] LABS: BASO % 0.3 % (0-2.0); EOS % 3.5 % (0-4.5); HEMATOCRIT 27.5 % (35.4-49); HEMOGLOBIN 8.8 GM/dL (11.7-16.9); LYMPH % 12.7 % (8-40); MCH 27.1 pg (25.7-33.7); MEAN CELL VOLUME 84.5 fl (80-96); MEAN PLT VOLUME 7.3 fl (7.5-11.1); MONO % 7.4 % (3.8-10.2); NEUT % 76.1 % (42.8-82.8); PLATELET COUNT 176 K/MM3 (134-434); RBC 3.25 M/mm3 (4.00-5.60); RDW 19.9 % (11.9-15.9); WHITE BLOOD COUNT 7.2 K/mm3 (4.0-10.0)
[2018-04-04 08:33] LABS: ALBUMIN 1.8 g/dl (3.4-5.0); ALK PHOS 94 U/L (45-117); ANION GAP 6 MMOL/L (8-16); BILIRUBIN,TOTAL 0.9 mg/dL (0.2-1); BLOOD UREA NITROGEN 23 mg/dL (7-18); CALCIUM 10.4 mg/dL (8.5-10.1); CHLORIDE 112 mmol/L (98-107); CO2 26 mmol/L (21-32); CREATININE 1.4 mg/dL (0.55-1.3); GLUCOSE,RANDOM 75 mg/dL (74-106); MAGNESIUM 1.9 mg/dL (1.8-2.4); PHOSPHOROUS 2.7 mg/dL (2.5-4.9); POTASSIUM 3.5 mmol/L (3.5-5.1); SGOT/AST 11 U/L (15-37); SGPT/ALT 9 U/L (13-61); SODIUM 144 mmol/L (136-145); TOT PROT 5.4 g/dl (6.4-8.2)
[2018-04-04] MEDS: ASCORBIC ACID 500 MG TABLET (FP) PO SCH ×2 (09:44→21:03)
[2018-04-04] MEDS: TAMSULOSIN HCL 0.4 MG CAP PO SCH (09:44)
[2018-04-04] MEDS: ENOXAPARIN NA (PORCINE) 30 MG/0.3 ML DISP.SYRIN SQ SCH (09:44)
[2018-04-04] MEDS: RANITIDINE HCL 150 MG TABLET (FP) PO SCH (09:44)
[2018-04-04] MEDS: CYANOCOBALAMIN 1,000 MCG TABLET (FP) PO SCH (09:44)
[2018-04-04] MEDS: COLLAGENASE CLOSTRIDIUM HIST. 30 GRAMS TUBE TP SCH (09:45)
--- NOTE | 2018-04-04 11:25 | PN ---
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, Physician History of Present Illness: Patient awake this morning, able to eat breakfast. oN increased IVF for hypercalcemia and hypernatremia, received IV Zometa yesterday. - Current Medication List Current Medications: Active Medications Acetaminophen (Tylenol -) 650 mg PO Q4H PRN PRN Reason: FEVER/PAIN LEVEL 1-5 Last Admin: 03/28/18 22:02 Dose: 650 mg Ascorbic Acid (Vitamin C -) 500 mg PO BID [facility] Last Admin: 04/04/18 09:44 Dose: 500 mg Collagenase (Santyl -) 1 applic TP DAILY [facility]; Protocol Last Admin: 04/04/18 09:45 Dose: 1 applic Cyanocobalamin (Vitamin B12 -) 1,000 mcg PO DAILY [facility] Last Admin: 04/04/18 09:44 Dose: 1,000 mcg Enoxaparin Sodium (Lovenox -) 30 mg SQ DAILY [facility] Last Admin: 04/04/18 09:44 Dose: 30 mg Piperacillin Sod/Tazobactam (Sod 3.375 gm/ Dextrose) 50 mls @ 100 mls/hr IVPB Q8H-IV [facility]; Protocol Last Admin: 04/04/18 09:44 Dose: 100 mls/hr Sodium Chloride (1/2 Normal Saline) 1,000 mls @ 150 mls/hr IV ASDIR [facility] Last Admin: 04/04/18 09:45 Dose: 150 mls/hr Levothyroxine Sodium (Synthroid -) 25 mcg PO 0700 [facility] Last Admin: 04/04/18 06:09 Dose: 25 mcg Ranitidine HCl (Zantac -) 150 mg PO DAILY [facility] Last Admin: 04/04/18 09:44 Dose: 150 mg Tamsulosin HCl (Flomax -) 0.4 mg PO 0830 [facility] Last Admin: 04/04/18 09:44 Dose: 0.4 mg - Objective Vital Signs: Vital Signs Temperature 98.5 F 04/04/18 06:00 Pulse Rate 88 04/04/18 06:00 Respiratory Rate 24 H 04/04/18 06:00 Blood Pressure 129/70 04/04/18 06:00 O2 Sat by Pulse Oximetry (%) 97 04/03/18 21:00 Constitutional: Yes: No Distress, Calm, Other (speech somewhat slowed and slightly slurred) Neck: Yes: Supple, Trachea Midline Cardiovascular: Yes: Regular Rate and Rhythm, S1, S2. No: Murmur Respiratory: Yes: Regular, CTA Bilaterally Gastrointestinal: Yes: Normal Bowel Sounds, Soft Edema: Yes Edema: LLE: Trace, RLE: Trace Neurological: Yes: Alert Labs: CBC, BMP 04/04/18 06:00 04/04/18 06:00 INR, PTT INR 1.29 (0.83-1.09) H 03/28/18 08:10 Assessment/Plan Current Active Problems PARMINDER (acute kidney injury) (Acute) Constipation (Acute) Decubitus ulcer (Acute) Dehydration (Acute) Hodgkin lymphoma (Acute) Hypercalcemia (Acute) Hypernatremia (Acute) Hypokalemia (Acute) Hypothyroid (Acute) Metabolic encephalopathy (Acute) Morbidly obese (Acute) Sepsis (Acute) UTI (urinary tract infection) (Acute) -cont abx for sepsis (decub ulcer vs PNA) -cont IVF for hypercalcemia/ hypernatremia
--- NOTE | 2018-04-04 13:37 | PN ---
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, Physician History of Present Illness: patient awake still weak much more awake and alert family/friend in room says he is doing very well - Current Medication List Current Medications: Active Medications Acetaminophen (Tylenol -) 650 mg PO Q4H PRN PRN Reason: FEVER/PAIN LEVEL 1-5 Last Admin: 03/28/18 22:02 Dose: 650 mg Ascorbic Acid (Vitamin C -) 500 mg PO BID [facility] Last Admin: 04/04/18 09:44 Dose: 500 mg Collagenase (Santyl -) 1 applic TP DAILY [facility]; Protocol Last Admin: 04/04/18 09:45 Dose: 1 applic Cyanocobalamin (Vitamin B12 -) 1,000 mcg PO DAILY [facility] Last Admin: 04/04/18 09:44 Dose: 1,000 mcg Enoxaparin Sodium (Lovenox -) 30 mg SQ DAILY [facility] Last Admin: 04/04/18 09:44 Dose: 30 mg Sodium Chloride (1/2 Normal Saline) 1,000 mls @ 150 mls/hr IV ASDIR [facility] Last Admin: 04/04/18 09:45 Dose: 150 mls/hr Levothyroxine Sodium (Synthroid -) 25 mcg PO 0700 [facility] Last Admin: 04/04/18 06:09 Dose: 25 mcg Ranitidine HCl (Zantac -) 150 mg PO DAILY [facility] Last Admin: 04/04/18 09:44 Dose: 150 mg Tamsulosin HCl (Flomax -) 0.4 mg PO 0830 [facility] Last Admin: 04/04/18 09:44 Dose: 0.4 mg - Objective Vital Signs: Vital Signs Temperature 97.9 F 04/04/18 10:00 Pulse Rate 91 H 04/04/18 10:00 Respiratory Rate 18 04/04/18 10:00 Blood Pressure 116/62 04/04/18 10:00 O2 Sat by Pulse Oximetry (%) 97 04/04/18 09:00 Constitutional: Yes: No Distress, Calm, Obese HENT: Yes: Atraumatic Cardiovascular: Yes: S1, S2 Gastrointestinal: Yes: Normal Bowel Sounds, Soft Musculoskeletal: Yes: WNL Extremities: Yes: Other Neurological: Yes: Alert Psychiatric: Yes: Alert Labs: CBC, BMP 04/04/18 06:00 04/04/18 06:00 INR, PTT INR 1.29 (0.83-1.09) H 03/28/18 08:10 Assessment/Plan Problem List - Problems (1) PARMINDER (acute kidney injury) Code(s): N17.9 - ACUTE KIDNEY FAILURE, UNSPECIFIED (2) Hodgkin lymphoma Code(s): C81.90 - HODGKIN LYMPHOMA, UNSPECIFIED, UNSPECIFIED SITE (3) Morbidly obese Code(s): E66.01 - MORBID (SEVERE) OBESITY DUE TO EXCESS CALORIES (4) Sepsis Code(s): A41.9 - SEPSIS, UNSPECIFIED ORGANISM (5) UTI (urinary tract infection) Code(s): N39.0 - URINARY TRACT INFECTION, SITE NOT SPECIFIED (6) Weakness Code(s): R53.1 - WEAKNESS (7) Anemia Code(s): D64.9 - ANEMIA, UNSPECIFIED Qualifiers: Anemia type: unspecified type Qualified Code(s): D64.9 - Anemia, unspecified (8) BPH (benign prostatic hyperplasia) Code(s): N40.0 - BENIGN PROSTATIC HYPERPLASIA WITHOUT LOWER URINRY TRACT SYMP Assessment/Plan 87 y.o. male presenting from [place] with weakness/altered mental status, poor oral intake, fevers, and lactic acidosis Sepsis - unclear source Fever Lactic acidosis BPH Hx of Hodgkins Lymphoma PARMINDER Hypothyroidism plan ct abx will d/w the primary team wound care rest as per the team
--- NOTE | 2018-04-04 14:42 | PN ---
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, Physician History of Present Illness: Pt seen and examined at bedside. He is more awake today. He still has poor PO intake. - Current Medication List Current Medications: Active Medications Acetaminophen (Tylenol -) 650 mg PO Q4H PRN PRN Reason: FEVER/PAIN LEVEL 1-5 Last Admin: 03/28/18 22:02 Dose: 650 mg Ascorbic Acid (Vitamin C -) 500 mg PO BID [facility] Last Admin: 04/04/18 09:44 Dose: 500 mg Collagenase (Santyl -) 1 applic TP DAILY [facility]; Protocol Last Admin: 04/04/18 09:45 Dose: 1 applic Cyanocobalamin (Vitamin B12 -) 1,000 mcg PO DAILY [facility] Last Admin: 04/04/18 09:44 Dose: 1,000 mcg Enoxaparin Sodium (Lovenox -) 30 mg SQ DAILY [facility] Last Admin: 04/04/18 09:44 Dose: 30 mg Sodium Chloride (1/2 Normal Saline) 1,000 mls @ 150 mls/hr IV ASDIR [facility] Last Admin: 04/04/18 09:45 Dose: 150 mls/hr Levothyroxine Sodium (Synthroid -) 25 mcg PO 0700 [facility] Last Admin: 04/04/18 06:09 Dose: 25 mcg Ranitidine HCl (Zantac -) 150 mg PO DAILY [facility] Last Admin: 04/04/18 09:44 Dose: 150 mg Tamsulosin HCl (Flomax -) 0.4 mg PO 0830 [facility] Last Admin: 04/04/18 09:44 Dose: 0.4 mg - Objective Vital Signs: Vital Signs Temperature 98.8 F 04/04/18 14:15 Pulse Rate 92 H 04/04/18 14:15 Respiratory Rate 20 04/04/18 14:15 Blood Pressure 128/83 04/04/18 14:15 O2 Sat by Pulse Oximetry (%) 97 04/04/18 09:00 Constitutional: Yes: Calm Eyes: Yes: Conjunctiva Clear HENT: Yes: Atraumatic Neck: Yes: Supple Cardiovascular: Yes: S1, S2 Respiratory: Yes: CTA Bilaterally Gastrointestinal: Yes: Normal Bowel Sounds, Soft Genitourinary: Yes: Incontinence Musculoskeletal: Yes: Muscle Weakness Neurological: Yes: Confusion Labs: CBC, BMP 04/04/18 06:00 04/04/18 06:00 INR, PTT INR 1.29 (0.83-1.09) H 03/28/18 08:10 Problem List - Problems (1) PARMINDER (acute kidney injury) Code(s): N17.9 - ACUTE KIDNEY FAILURE, UNSPECIFIED (2) Decubitus ulcer Code(s): L89.90 - PRESSURE ULCER OF UNSPECIFIED SITE, UNSPECIFIED STAGE Qualifiers: Pressure injury location: sacral region Pressure injury stage: stage 3 Qualified Code(s): L89.153 - Pressure ulcer of sacral region, stage 3 (3) Dehydration Code(s): E86.0 - DEHYDRATION (4) Hodgkin lymphoma Code(s): C81.90 - HODGKIN LYMPHOMA, UNSPECIFIED, UNSPECIFIED SITE Qualifiers: Hodgkin lymphoma type: unspecified type (5) Hypercalcemia Code(s): E83.52 - HYPERCALCEMIA (6) Hypernatremia Code(s): E87.0 - HYPEROSMOLALITY AND HYPERNATREMIA (7) Hypokalemia Code(s): E87.6 - HYPOKALEMIA (8) Hypothyroid Code(s): E03.9 - HYPOTHYROIDISM, UNSPECIFIED (9) Sepsis Code(s): A41.9 - SEPSIS, UNSPECIFIED ORGANISM Qualifiers: Sepsis type: sepsis due to unspecified organism Qualified Code(s): A41.9 - Sepsis, unspecified organism (10) BPH (benign prostatic hyperplasia) Code(s): N40.0 - BENIGN PROSTATIC HYPERPLASIA WITHOUT LOWER URINRY TRACT SYMP Assessment/Plan Current Medications Generic Name Dose Route Start Last Admin Trade Name Freq PRN Reason Stop Dose Admin Acetaminophen 650 mg 03/27/18 22:00 03/28/18 22:02 Tylenol - PO 650 mg Q4H PRN Administration FEVER/PAIN LEVEL 1-5 Ascorbic Acid 500 mg 03/27/18 22:00 04/04/18 09:44 Vitamin C - PO 500 mg BID [facility] Administration Collagenase 1 applic 03/30/18 12:00 04/04/18 09:45 Santyl - TP 1 applic DAILY [facility] Administration Protocol Cyanocobalamin 1,000 mcg 03/28/18 10:00 04/04/18 09:44 Vitamin B12 - PO 1,000 mcg DAILY [facility] Administration Enoxaparin Sodium 30 mg 03/28/18 10:00 04/04/18 09:44 Lovenox - SQ 30 mg DAILY MICHELLE Administration Sodium Chloride 1,000 mls @ 150 mls/hr 04/03/18 17:01 04/04/18 09:45 1/2 Normal Saline IV 150 mls/hr ASDIR MICHELLE Administration Levothyroxine Sodium 25 mcg 03/28/18 07:00 04/04/18 06:09 Synthroid - PO 25 mcg 0700 MICHELLE Administration Ranitidine HCl 150 mg 03/28/18 10:00 04/04/18 09:44 Zantac - PO 150 mg DAILY MICHELLE Administration Tamsulosin HCl 0.4 mg 03/28/18 08:30 04/04/18 09:44 Flomax - PO 0.4 mg 0830 MICHELLE Administration Impression 1. PARMINDER resolving 2. hypernatremia 3. hypercalcemia 4. hypokalemia 5. BPH 6. hodgkins lymphoma 7. sacral decub 8. sepsis 9. obesity 10. anemia Plan - cont fluids at current rate - will supplement potassium as it borderline low - sodium is improving - calcium improving - follow PTH - pt will need one to one feeds - monitor sodium level - will follow
[2018-04-04] MEDS ORDERED: POTASSIUM CHLORIDE ORAL LIQUID 20 MEQ/15 ML PO ONE (14:43)
[2018-04-04] MEDS ORDERED: KCL 10 MEQ IVPB 10 MEQ/100 ML INFUS.BAG IVPB SCH (14:45)
[2018-04-05] MEDS: SODIUM CHLORIDE 0.45% 1,000 ML IV SCH ×2 (06:05→10:39)
[2018-04-05] MEDS: LEVOTHYROXINE NA 25 MCG TABLET (FP) PO SCH (06:06)
[2018-04-05 07:40] LABS: BASO % 0.3 % (0-2.0); EOS % 3.6 % (0-4.5); HEMATOCRIT 26.7 % (35.4-49); HEMOGLOBIN 8.6 GM/dL (11.7-16.9); LYMPH % 16.8 % (8-40); MCH 26.9 pg (25.7-33.7); MCHC 32.3 g/dl (32.0-35.9); MEAN CELL VOLUME 83.4 fl (80-96); MEAN PLT VOLUME 7.2 fl (7.5-11.1); MONO % 8.4 % (3.8-10.2); NEUT % 70.9 % (42.8-82.8); PLATELET COUNT 167 K/MM3 (134-434); RDW 19.7 % (11.9-15.9); WHITE BLOOD COUNT 7.5 K/mm3 (4.0-10.0)
[2018-04-05 08:10] LABS: ALBUMIN 1.7 g/dl (3.4-5.0); ALK PHOS 92 U/L (45-117); ANION GAP 9 MMOL/L (8-16); BILIRUBIN,TOTAL 0.6 mg/dL (0.2-1); BLOOD UREA NITROGEN 19 mg/dL (7-18); CALCIUM 9.5 mg/dL (8.5-10.1); CHLORIDE 110 mmol/L (98-107); CO2 26 mmol/L (21-32); CREATININE 1.2 mg/dL (0.55-1.3); GLUCOSE,RANDOM 70 mg/dL (74-106); POTASSIUM 3.4 mmol/L (3.5-5.1); SGOT/AST 13 U/L (15-37); SGPT/ALT 9 U/L (13-61); SODIUM 146 mmol/L (136-145); TOT PROT 5.2 g/dl (6.4-8.2)
[2018-04-05] MEDS: ASCORBIC ACID 500 MG TABLET (FP) PO SCH ×2 (10:38→21:40)
[2018-04-05] MEDS: COLLAGENASE CLOSTRIDIUM HIST. 30 GRAMS TUBE TP SCH (10:38)
[2018-04-05] MEDS: TAMSULOSIN HCL 0.4 MG CAP PO SCH (10:38)
[2018-04-05] MEDS: CYANOCOBALAMIN 1,000 MCG TABLET (FP) PO SCH (10:38)
[2018-04-05] MEDS: ENOXAPARIN NA (PORCINE) 30 MG/0.3 ML DISP.SYRIN SQ SCH (10:38)
[2018-04-05] MEDS: RANITIDINE HCL 150 MG TABLET (FP) PO SCH (10:38)
--- NOTE | 2018-04-05 11:47 | PN ---
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, Physician History of Present Illness: Patient lethargic currently, but arousable. Calcium levels improving (s/p Zometa and on IVF). - Current Medication List Current Medications: Active Medications Acetaminophen (Tylenol -) 650 mg PO Q4H PRN PRN Reason: FEVER/PAIN LEVEL 1-5 Last Admin: 03/28/18 22:02 Dose: 650 mg Ascorbic Acid (Vitamin C -) 500 mg PO BID [facility] Last Admin: 04/05/18 10:38 Dose: 500 mg Collagenase (Santyl -) 1 applic TP DAILY [facility]; Protocol Last Admin: 04/05/18 10:38 Dose: 1 applic Cyanocobalamin (Vitamin B12 -) 1,000 mcg PO DAILY [facility] Last Admin: 04/05/18 10:38 Dose: 1,000 mcg Enoxaparin Sodium (Lovenox -) 30 mg SQ DAILY [facility] Last Admin: 04/05/18 10:38 Dose: 30 mg Sodium Chloride (1/2 Normal Saline) 1,000 mls @ 150 mls/hr IV ASDIR [facility] Last Admin: 04/05/18 10:39 Dose: 150 mls/hr Levothyroxine Sodium (Synthroid -) 25 mcg PO 0700 [facility] Last Admin: 04/05/18 06:06 Dose: 25 mcg Ranitidine HCl (Zantac -) 150 mg PO DAILY [facility] Last Admin: 04/05/18 10:38 Dose: 150 mg Tamsulosin HCl (Flomax -) 0.4 mg PO 0830 [facility] Last Admin: 04/05/18 10:38 Dose: 0.4 mg - Objective Vital Signs: Vital Signs Temperature 98.7 F 04/05/18 05:00 Pulse Rate 84 04/05/18 05:00 Respiratory Rate 20 04/05/18 05:00 Blood Pressure 117/65 04/05/18 05:00 O2 Sat by Pulse Oximetry (%) 97 04/04/18 21:00 Constitutional: Yes: No Distress, Calm Neck: Yes: Supple, Trachea Midline Cardiovascular: Yes: Regular Rate and Rhythm, S1, S2. No: Murmur Respiratory: Yes: Regular, Diminished (bilaterally) Gastrointestinal: Yes: Normal Bowel Sounds, Soft, Abdomen, Obese. No: Distention, Tenderness Edema: Yes Edema: LLE: 1+, RLE: 1+ Labs: CBC, BMP 04/05/18 06:00 04/05/18 06:00 INR, PTT INR 1.29 (0.83-1.09) H 03/28/18 08:10 Assessment/Plan Current Active Problems PARMINDER (acute kidney injury) (Acute) Constipation (Acute) Decubitus ulcer (Acute) Dehydration (Acute) Hodgkin lymphoma (Acute) Hypercalcemia (Acute) Hypernatremia (Acute) Hypokalemia (Acute) Hypothyroid (Acute) Metabolic encephalopathy (Acute) Morbidly obese (Acute) Sepsis (Acute) UTI (urinary tract infection) (Acute) -cont abx, IVF
--- NOTE | 2018-04-05 11:50 | PN ---
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, Physician History of Present Illness: stable no new issues - Current Medication List Current Medications: Active Medications Acetaminophen (Tylenol -) 650 mg PO Q4H PRN PRN Reason: FEVER/PAIN LEVEL 1-5 Last Admin: 03/28/18 22:02 Dose: 650 mg Ascorbic Acid (Vitamin C -) 500 mg PO BID [facility] Last Admin: 04/05/18 10:38 Dose: 500 mg Collagenase (Santyl -) 1 applic TP DAILY [facility]; Protocol Last Admin: 04/05/18 10:38 Dose: 1 applic Cyanocobalamin (Vitamin B12 -) 1,000 mcg PO DAILY [facility] Last Admin: 04/05/18 10:38 Dose: 1,000 mcg Enoxaparin Sodium (Lovenox -) 30 mg SQ DAILY [facility] Last Admin: 04/05/18 10:38 Dose: 30 mg Sodium Chloride (1/2 Normal Saline) 1,000 mls @ 150 mls/hr IV ASDIR [facility] Last Admin: 04/05/18 10:39 Dose: 150 mls/hr Levothyroxine Sodium (Synthroid -) 25 mcg PO 0700 [facility] Last Admin: 04/05/18 06:06 Dose: 25 mcg Ranitidine HCl (Zantac -) 150 mg PO DAILY [facility] Last Admin: 04/05/18 10:38 Dose: 150 mg Tamsulosin HCl (Flomax -) 0.4 mg PO 0830 [facility] Last Admin: 04/05/18 10:38 Dose: 0.4 mg - Objective Vital Signs: Vital Signs Temperature 98.7 F 04/05/18 05:00 Pulse Rate 84 04/05/18 05:00 Respiratory Rate 20 04/05/18 05:00 Blood Pressure 117/65 04/05/18 05:00 O2 Sat by Pulse Oximetry (%) 97 04/04/18 21:00 Constitutional: Yes: No Distress, Calm, Obese Respiratory: Yes: Regular, CTA Bilaterally Gastrointestinal: Yes: Normal Bowel Sounds, Soft Musculoskeletal: Yes: WNL Extremities: Yes: WNL Neurological: Yes: Alert Psychiatric: Yes: Alert Labs: CBC, BMP 04/05/18 06:00 04/05/18 06:00 INR, PTT INR 1.29 (0.83-1.09) H 03/28/18 08:10 Assessment/Plan Problem List - Problems (1) PARMINDER (acute kidney injury) Code(s): N17.9 - ACUTE KIDNEY FAILURE, UNSPECIFIED (2) Hodgkin lymphoma Code(s): C81.90 - HODGKIN LYMPHOMA, UNSPECIFIED, UNSPECIFIED SITE (3) Morbidly obese Code(s): E66.01 - MORBID (SEVERE) OBESITY DUE TO EXCESS CALORIES (4) Sepsis Code(s): A41.9 - SEPSIS, UNSPECIFIED ORGANISM (5) UTI (urinary tract infection) Code(s): N39.0 - URINARY TRACT INFECTION, SITE NOT SPECIFIED (6) Weakness Code(s): R53.1 - WEAKNESS (7) Anemia Code(s): D64.9 - ANEMIA, UNSPECIFIED Qualifiers: Anemia type: unspecified type Qualified Code(s): D64.9 - Anemia, unspecified (8) BPH (benign prostatic hyperplasia) Code(s): N40.0 - BENIGN PROSTATIC HYPERPLASIA WITHOUT LOWER URINRY TRACT SYMP Assessment/Plan 87 y.o. male presenting from [place] with weakness/altered mental status, poor oral intake, fevers, and lactic acidosis Sepsis - unclear source Fever Lactic acidosis BPH Hx of Hodgkins Lymphoma PARMINDER Hypothyroidism plan switched to oral abx wound care rest as per the team patient stable
[2018-04-05] MEDS ORDERED: POTASSIUM CHLORIDE ORAL LIQUID 20 MEQ/15 ML PO ONE ×2 (16:21→22:00)
[2018-04-05] MEDS ORDERED: SODIUM CHLORIDE 0.45% 1,000 ML IV SCH (16:21)
--- NOTE | 2018-04-05 16:21 | PN ---
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, Physician History of Present Illness: Pt seen and examined at bedside. He is more awake today and starting to eat with assistance. - Current Medication List Current Medications: Active Medications Acetaminophen (Tylenol -) 650 mg PO Q4H PRN PRN Reason: FEVER/PAIN LEVEL 1-5 Last Admin: 03/28/18 22:02 Dose: 650 mg Amoxicillin/Clavulanate Potassium (Augmentin - 500mg Tablet) 1 tab PO BID@0800, 1730 [facility] Ascorbic Acid (Vitamin C -) 500 mg PO BID [facility] Last Admin: 04/05/18 10:38 Dose: 500 mg Collagenase (Santyl -) 1 applic TP DAILY [facility]; Protocol Last Admin: 04/05/18 10:38 Dose: 1 applic Cyanocobalamin (Vitamin B12 -) 1,000 mcg PO DAILY [facility] Last Admin: 04/05/18 10:38 Dose: 1,000 mcg Enoxaparin Sodium (Lovenox -) 30 mg SQ DAILY [facility] Last Admin: 04/05/18 10:38 Dose: 30 mg Sodium Chloride (1/2 Normal Saline) 1,000 mls @ 150 mls/hr IV ASDIR [facility] Last Admin: 04/05/18 10:39 Dose: 150 mls/hr Levothyroxine Sodium (Synthroid -) 25 mcg PO 0700 [facility] Last Admin: 04/05/18 06:06 Dose: 25 mcg Ranitidine HCl (Zantac -) 150 mg PO DAILY [facility] Last Admin: 04/05/18 10:38 Dose: 150 mg Tamsulosin HCl (Flomax -) 0.4 mg PO 0830 [facility] Last Admin: 04/05/18 10:38 Dose: 0.4 mg - Objective Vital Signs: Vital Signs Temperature 98.6 F 04/05/18 13:44 Pulse Rate 88 04/05/18 13:44 Respiratory Rate 20 04/05/18 13:44 Blood Pressure 107/58 L 04/05/18 13:44 O2 Sat by Pulse Oximetry (%) 97 04/05/18 10:00 Constitutional: Yes: Calm Eyes: Yes: Conjunctiva Clear HENT: Yes: Atraumatic Neck: Yes: Supple Cardiovascular: Yes: S1, S2 Respiratory: Yes: CTA Bilaterally, On Nasal O2 Gastrointestinal: Yes: Soft, Abdomen, Obese Genitourinary: Yes: Incontinence Musculoskeletal: Yes: Muscle Weakness Edema: No Neurological: Yes: Confusion Labs: CBC, BMP 04/05/18 06:00 04/05/18 06:00 INR, PTT INR 1.29 (0.83-1.09) H 03/28/18 08:10 Problem List - Problems (1) PARMINDER (acute kidney injury) Code(s): N17.9 - ACUTE KIDNEY FAILURE, UNSPECIFIED (2) Decubitus ulcer Code(s): L89.90 - PRESSURE ULCER OF UNSPECIFIED SITE, UNSPECIFIED STAGE Qualifiers: Pressure injury location: sacral region Pressure injury stage: stage 3 Qualified Code(s): L89.153 - Pressure ulcer of sacral region, stage 3 (3) Dehydration Code(s): E86.0 - DEHYDRATION (4) Hodgkin lymphoma Code(s): C81.90 - HODGKIN LYMPHOMA, UNSPECIFIED, UNSPECIFIED SITE Qualifiers: Hodgkin lymphoma type: unspecified type (5) Hypercalcemia Code(s): E83.52 - HYPERCALCEMIA (6) Hypernatremia Code(s): E87.0 - HYPEROSMOLALITY AND HYPERNATREMIA (7) Hypokalemia Code(s): E87.6 - HYPOKALEMIA (8) Hypothyroid Code(s): E03.9 - HYPOTHYROIDISM, UNSPECIFIED (9) Sepsis Code(s): A41.9 - SEPSIS, UNSPECIFIED ORGANISM Qualifiers: Sepsis type: sepsis due to unspecified organism Qualified Code(s): A41.9 - Sepsis, unspecified organism (10) BPH (benign prostatic hyperplasia) Code(s): N40.0 - BENIGN PROSTATIC HYPERPLASIA WITHOUT LOWER URINRY TRACT SYMP Assessment/Plan Current Medications Generic Name Dose Route Start Last Admin Trade Name Freq PRN Reason Stop Dose Admin Acetaminophen 650 mg 03/27/18 22:00 03/28/18 22:02 Tylenol - PO 650 mg Q4H PRN Administration FEVER/PAIN LEVEL 1-5 Amoxicillin/Clavulanate Potassium 1 tab 04/05/18 17:30 Augmentin - 500mg Tablet PO BID@0800,1730 [facility] Ascorbic Acid 500 mg 03/27/18 22:00 04/05/18 10:38 Vitamin C - PO 500 mg BID [facility] Administration Collagenase 1 applic 03/30/18 12:00 04/05/18 10:38 Santyl - TP 1 applic DAILY [facility] Administration Protocol Cyanocobalamin 1,000 mcg 03/28/18 10:00 04/05/18 10:38 Vitamin B12 - PO 1,000 mcg DAILY [facility] Administration Enoxaparin Sodium 30 mg 03/28/18 10:00 04/05/18 10:38 Lovenox - SQ 30 mg DAILY [facility] Administration Sodium Chloride 1,000 mls @ 150 mls/hr 04/03/18 17:01 04/05/18 10:39 1/2 Normal Saline IV 150 mls/hr ASDIR [facility] Administration Levothyroxine Sodium 25 mcg 03/28/18 07:00 04/05/18 06:06 Synthroid - PO 25 mcg 0700 [facility] Administration Ranitidine HCl 150 mg 03/28/18 10:00 04/05/18 10:38 Zantac - PO 150 mg DAILY [facility] Administration Tamsulosin HCl 0.4 mg 03/28/18 08:30 04/05/18 10:38 Flomax - PO 0.4 mg 0830 [facility] Administration Impression 1. PARMINDER resolving 2. hypernatremia 3. hypercalcemia 4. hypokalemia 5. BPH 6. hodgkins lymphoma 7. sacral decub 8. sepsis 9. obesity 10. anemia Plan - cont fluids - replace potassium - monitor lytes - calcium stabilizing - repeat labs in am - will need one to one feeds - follow PTH - monitor sodium level - will follow
[2018-04-05] MEDS: AMOX TR/POT CLAV 500MG/125MG TABLETS (FP) PO SCH (17:05)
[2018-04-06] MEDS ORDERED: SODIUM CHLORIDE 0.45% 1,000 ML IV SCH (05:15)
--- NOTE | 2018-04-06 05:17 | HOSP ---
Physical Examination Vital Signs: Vital Signs Temperature 97.6 F 04/06/18 01:57 Pulse Rate 90 04/06/18 01:57 Respiratory Rate 20 04/06/18 01:57 Blood Pressure 148/67 04/06/18 01:57 O2 Sat by Pulse Oximetry (%) 96 04/05/18 21:00 Labs: CBC, BMP 04/05/18 06:00 04/05/18 06:00 Hospitalist Encounter Assessment: Paged by Nurse regarding pt sounding fluid overloaded Examined pt, questionable as to fluid overloaded Decreased current fluid rate from 160 to 75. Informed nurse to page if any acute changes. Visit type - Emergency Visit Emergency Visit: No - New Patient This patient is new to me today: Yes Date on this admission: 04/06/18 - Critical Care Critical Care patient: No
[2018-04-06] MEDS: LEVOTHYROXINE NA 25 MCG TABLET (FP) PO SCH (06:06)
[2018-04-06 07:28] LABS: BASO % 0.3 % (0-2.0); EOS % 3.3 % (0-4.5); HEMATOCRIT 28.2 % (35.4-49); LYMPH % 17.8 % (8-40); MCH 26.9 pg (25.7-33.7); MEAN CELL VOLUME 83.9 fl (80-96); MEAN PLT VOLUME 7.1 fl (7.5-11.1); MONO % 8.4 % (3.8-10.2); NEUT % 70.2 % (42.8-82.8); PLATELET COUNT 158 K/MM3 (134-434); RBC 3.36 M/mm3 (4.00-5.60); RDW 19.6 % (11.9-15.9); WHITE BLOOD COUNT 7.2 K/mm3 (4.0-10.0)
[2018-04-06 08:05] LABS: ALBUMIN 1.7 g/dl (3.4-5.0); ALK PHOS 96 U/L (45-117); ANION GAP 3 MMOL/L (8-16); BILIRUBIN,TOTAL 0.5 mg/dL (0.2-1); BLOOD UREA NITROGEN 13 mg/dL (7-18); CHLORIDE 115 mmol/L (98-107); CO2 23 mmol/L (21-32); CREATININE 0.9 mg/dL (0.55-1.3); GLUCOSE,RANDOM 73 mg/dL (74-106); MAGNESIUM 1.7 mg/dL (1.8-2.4); POTASSIUM 3.6 mmol/L (3.5-5.1); SGOT/AST 14 U/L (15-37); SGPT/ALT 7 U/L (13-61); SODIUM 141 mmol/L (136-145); TOT PROT 5.1 g/dl (6.4-8.2)
[2018-04-06] MEDS ORDERED: PT OWN MED DRAWER 7, Y5N ONE (09:58)
--- NOTE | 2018-04-06 10:47 | PN ---
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, Physician Chief Complaint: Mr Carmichael is more awake today. Denies cp, sob, n/v. RN notes rales on lung exam - Current Medication List Current Medications: Active Medications Acetaminophen (Tylenol -) 650 mg PO Q4H PRN PRN Reason: FEVER/PAIN LEVEL 1-5 Last Admin: 03/28/18 22:02 Dose: 650 mg Amoxicillin/Clavulanate Potassium (Augmentin - 500mg Tablet) 1 tab PO BID@0800, 1730 [facility] Last Admin: 04/05/18 17:05 Dose: 1 tab Ascorbic Acid (Vitamin C -) 500 mg PO BID [facility] Last Admin: 04/05/18 21:40 Dose: 500 mg Collagenase (Santyl -) 1 applic TP DAILY [facility]; Protocol Last Admin: 04/05/18 10:38 Dose: 1 applic Cyanocobalamin (Vitamin B12 -) 1,000 mcg PO DAILY [facility] Last Admin: 04/05/18 10:38 Dose: 1,000 mcg Enoxaparin Sodium (Lovenox -) 30 mg SQ DAILY [facility] Last Admin: 04/05/18 10:38 Dose: 30 mg Sodium Chloride (1/2 Normal Saline) 1,000 mls @ 75 mls/hr IV ASDIR [facility] Last Admin: 04/06/18 05:19 Dose: 75 mls/hr Levothyroxine Sodium (Synthroid -) 25 mcg PO 0700 [facility] Last Admin: 04/06/18 06:06 Dose: 25 mcg Ranitidine HCl (Zantac -) 150 mg PO DAILY [facility] Last Admin: 04/05/18 10:38 Dose: 150 mg Tamsulosin HCl (Flomax -) 0.4 mg PO 0830 [facility] Last Admin: 04/05/18 10:38 Dose: 0.4 mg - Objective Vital Signs: Vital Signs Temperature 36.4 C 04/06/18 06:00 Pulse Rate 82 04/06/18 06:00 Respiratory Rate 20 04/06/18 06:00 Blood Pressure 123/58 L 04/06/18 06:00 O2 Sat by Pulse Oximetry (%) 96 04/05/18 21:00 Constitutional: Yes: No Distress, Calm, Obese Cardiovascular: Yes: Regular Rate and Rhythm. No: Gallop, Murmur, Rub Respiratory: Yes: Regular, CTA Bilaterally. No: Rales, Rhonchi, Wheezes Gastrointestinal: Yes: Normal Bowel Sounds, Soft. No: Distention, Tenderness Extremities: Yes: WNL Edema: No Labs: CBC, BMP 04/06/18 06:30 04/06/18 06:30 INR, PTT INR 1.29 (0.83-1.09) H 03/28/18 08:10 Problem List - Problems (1) Sepsis Code(s): A41.9 - SEPSIS, UNSPECIFIED ORGANISM Qualifiers: Sepsis type: sepsis due to unspecified organism Qualified Code(s): A41.9 - Sepsis, unspecified organism (2) Decubitus ulcer Code(s): L89.90 - PRESSURE ULCER OF UNSPECIFIED SITE, UNSPECIFIED STAGE Qualifiers: Pressure injury location: sacral region Pressure injury stage: stage 3 Qualified Code(s): L89.153 - Pressure ulcer of sacral region, stage 3 (3) Hypernatremia Code(s): E87.0 - HYPEROSMOLALITY AND HYPERNATREMIA (4) PARMINDER (acute kidney injury) Code(s): N17.9 - ACUTE KIDNEY FAILURE, UNSPECIFIED (5) Hypothyroid Code(s): E03.9 - HYPOTHYROIDISM, UNSPECIFIED (6) Morbidly obese Code(s): E66.01 - MORBID (SEVERE) OBESITY DUE TO EXCESS CALORIES (7) Anemia Code(s): D64.9 - ANEMIA, UNSPECIFIED Qualifiers: Anemia type: unspecified type Qualified Code(s): D64.9 - Anemia, unspecified (8) Hodgkin lymphoma Code(s): C81.90 - HODGKIN LYMPHOMA, UNSPECIFIED, UNSPECIFIED SITE (9) Hypercalcemia Code(s): E83.52 - HYPERCALCEMIA (10) Metabolic encephalopathy Code(s): G93.41 - METABOLIC ENCEPHALOPATHY (11) Constipation Code(s): K59.00 - CONSTIPATION, UNSPECIFIED Assessment/Plan (1) Sepsis Assessment/Plan: -wound culture polymicrobial with final results -appreciate ID assistance -now on augmentin Code(s): A41.9 - SEPSIS, UNSPECIFIED ORGANISM (2) Decubitus ulcer Assessment/Plan: -appreciate wound care assistance -collagenase, frequent turning Code(s): L89.90 - PRESSURE ULCER OF UNSPECIFIED SITE, UNSPECIFIED STAGE Qualifiers: Pressure injury location: sacral region Pressure injury stage: stage 3 Qualified Code(s): L89.153 - Pressure ulcer of sacral region, stage 3 (3) Hypernatremia Assessment/Plan: -resolved -stop IVF -monitor to see if remains normal or if elevates Code(s): E87.0 - HYPEROSMOLALITY AND HYPERNATREMIA (4) PARMINDER (acute kidney injury) Assessment/Plan: -resolved -appreciate nephrology assistance -IVF stopped -recheck in am Code(s): N17.9 - ACUTE KIDNEY FAILURE, UNSPECIFIED (5) Hypothyroid -continue synthroid Code(s): E03.9 - HYPOTHYROIDISM, UNSPECIFIED (6) Morbidly obese Assessment/Plan: -noted Code(s): E66.01 - MORBID (SEVERE) OBESITY DUE TO EXCESS CALORIES (7) Anemia Assessment/Plan: -stable -monitor Code(s): D64.9 - ANEMIA, UNSPECIFIED Qualifiers: Anemia type: unspecified type Qualified Code(s): D64.9 - Anemia, unspecified (8) Hodgkin lymphoma Assessment/Plan: -oncology following Code(s): C81.90 - HODGKIN LYMPHOMA, UNSPECIFIED, UNSPECIFIED SITE (9) Hypercalcemia -received zometa on 04/03 -resolved -stop IVF -monitor for elevation off of IVF Dispo -possible d/c tomorrow to SNF pending lab values
[2018-04-06] MEDS: ENOXAPARIN NA (PORCINE) 30 MG/0.3 ML DISP.SYRIN SQ SCH (11:20)
[2018-04-06] MEDS: AMOX TR/POT CLAV 500MG/125MG TABLETS (FP) PO SCH ×2 (11:21→17:38)
[2018-04-06] MEDS: TAMSULOSIN HCL 0.4 MG CAP PO SCH (11:21)
[2018-04-06] MEDS: CYANOCOBALAMIN 1,000 MCG TABLET (FP) PO SCH (11:21)
[2018-04-06] MEDS: ASCORBIC ACID 500 MG TABLET (FP) PO SCH ×2 (11:21→21:21)
[2018-04-06] MEDS: COLLAGENASE CLOSTRIDIUM HIST. 30 GRAMS TUBE TP SCH (11:21)
[2018-04-06] MEDS: RANITIDINE HCL 150 MG TABLET (FP) PO SCH (11:22)
--- NOTE | 2018-04-06 13:57 | PN ---
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, Physician History of Present Illness: Pt seen and examined at bedside. He is more awake today. He was short of breath earlier today. - Current Medication List Current Medications: Active Medications Acetaminophen (Tylenol -) 650 mg PO Q4H PRN PRN Reason: FEVER/PAIN LEVEL 1-5 Last Admin: 03/28/18 22:02 Dose: 650 mg Amoxicillin/Clavulanate Potassium (Augmentin - 500mg Tablet) 1 tab PO BID@0800, 1730 [facility] Last Admin: 04/06/18 11:21 Dose: 1 tab Ascorbic Acid (Vitamin C -) 500 mg PO BID [facility] Last Admin: 04/06/18 11:21 Dose: 500 mg Collagenase (Santyl -) 1 applic TP DAILY [facility]; Protocol Last Admin: 04/06/18 11:21 Dose: 1 applic Cyanocobalamin (Vitamin B12 -) 1,000 mcg PO DAILY [facility] Last Admin: 04/06/18 11:21 Dose: 1,000 mcg Enoxaparin Sodium (Lovenox -) 30 mg SQ DAILY [facility] Last Admin: 04/06/18 11:20 Dose: 30 mg Levothyroxine Sodium (Synthroid -) 25 mcg PO 0700 [facility] Last Admin: 04/06/18 06:06 Dose: 25 mcg Magnesium Oxide (Mag-Ox -) 800 mg PO ONCE ONE Stop: 04/06/18 13:55 Nystatin (Nystop Powder -) 1 applic TP DAILY [facility] Potassium Chloride (K-Dur -) 20 meq PO ONCE ONE Stop: 04/06/18 13:55 Ranitidine HCl (Zantac -) 150 mg PO DAILY [facility] Last Admin: 04/06/18 11:22 Dose: 150 mg Tamsulosin HCl (Flomax -) 0.4 mg PO 0830 [facility] Last Admin: 04/06/18 11:21 Dose: 0.4 mg - Objective Vital Signs: Vital Signs Temperature 98.5 F 04/06/18 10:00 Pulse Rate 82 04/06/18 10:00 Respiratory Rate 20 04/06/18 10:00 Blood Pressure 123/59 L 04/06/18 10:00 O2 Sat by Pulse Oximetry (%) 96 04/06/18 09:00 Constitutional: Yes: Calm Eyes: Yes: Conjunctiva Clear HENT: Yes: Atraumatic Neck: Yes: Supple Cardiovascular: Yes: S1, S2 Respiratory: Yes: On Nasal O2 Gastrointestinal: Yes: Soft, Abdomen, Obese Genitourinary: Yes: Incontinence Extremities: Yes: WNL Edema: No Neurological: Yes: Oriented Psychiatric: Yes: Oriented Labs: CBC, BMP 04/06/18 06:30 04/06/18 06:30 INR, PTT INR 1.29 (0.83-1.09) H 03/28/18 08:10 Problem List - Problems (1) PARMINDER (acute kidney injury) Code(s): N17.9 - ACUTE KIDNEY FAILURE, UNSPECIFIED (2) Decubitus ulcer Code(s): L89.90 - PRESSURE ULCER OF UNSPECIFIED SITE, UNSPECIFIED STAGE Qualifiers: Pressure injury location: sacral region Pressure injury stage: stage 3 Qualified Code(s): L89.153 - Pressure ulcer of sacral region, stage 3 (3) Dehydration Code(s): E86.0 - DEHYDRATION (4) Hodgkin lymphoma Code(s): C81.90 - HODGKIN LYMPHOMA, UNSPECIFIED, UNSPECIFIED SITE Qualifiers: Hodgkin lymphoma type: unspecified type (5) Hypercalcemia Code(s): E83.52 - HYPERCALCEMIA (6) Hypernatremia Code(s): E87.0 - HYPEROSMOLALITY AND HYPERNATREMIA (7) Hypokalemia Code(s): E87.6 - HYPOKALEMIA (8) Hypothyroid Code(s): E03.9 - HYPOTHYROIDISM, UNSPECIFIED (9) Sepsis Code(s): A41.9 - SEPSIS, UNSPECIFIED ORGANISM Qualifiers: Sepsis type: sepsis due to unspecified organism Qualified Code(s): A41.9 - Sepsis, unspecified organism (10) BPH (benign prostatic hyperplasia) Code(s): N40.0 - BENIGN PROSTATIC HYPERPLASIA WITHOUT LOWER URINRY TRACT SYMP Assessment/Plan Current Medications Generic Name Dose Route Start Last Admin Trade Name Freq PRN Reason Stop Dose Admin Acetaminophen 650 mg 03/27/18 22:00 03/28/18 22:02 Tylenol - PO 650 mg Q4H PRN Administration FEVER/PAIN LEVEL 1-5 Amoxicillin/Clavulanate Potassium 1 tab 04/05/18 17:30 04/06/18 11:21 Augmentin - 500mg Tablet PO 1 tab BID@0800,1730 [facility] Administration Ascorbic Acid 500 mg 03/27/18 22:00 04/06/18 11:21 Vitamin C - PO 500 mg BID [facility] Administration Collagenase 1 applic 03/30/18 12:00 04/06/18 11:21 Santyl - TP 1 applic DAILY [facility] Administration Protocol Cyanocobalamin 1,000 mcg 03/28/18 10:00 04/06/18 11:21 Vitamin B12 - PO 1,000 mcg DAILY [facility] Administration Enoxaparin Sodium 30 mg 03/28/18 10:00 04/06/18 11:20 Lovenox - SQ 30 mg DAILY [facility] Administration Levothyroxine Sodium 25 mcg 03/28/18 07:00 04/06/18 06:06 Synthroid - PO 25 mcg 0700 [facility] Administration Magnesium Oxide 800 mg 04/06/18 13:54 Mag-Ox - PO 04/06/18 13:55 ONCE ONE Nystatin 1 applic 04/06/18 13:15 Nystop Powder - TP DAILY [facility] Potassium Chloride 20 meq 04/06/18 13:54 K-Dur - PO 04/06/18 13:55 ONCE ONE Ranitidine HCl 150 mg 03/28/18 10:00 04/06/18 11:22 Zantac - PO 150 mg DAILY [facility] Administration Tamsulosin HCl 0.4 mg 03/28/18 08:30 04/06/18 11:21 Flomax - PO 0.4 mg 0830 [facility] Administration Impression 1. PARMINDER resolving 2. hypernatremia 3. hypercalcemia 4. hypokalemia 5. BPH 6. hodgkins lymphoma 7. sacral decub 8. sepsis 9. obesity 10. anemia Plan - pt had a dose of zometa on 04/03 - calcium improved - can stop fluids - replace lytes - repeat labs in a - oncology follow up - pth is appropriately low - will follow
--- NOTE | 2018-04-06 14:05 | PN ---
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, Physician History of Present Illness: stable comfortable awake - Current Medication List Current Medications: Active Medications Acetaminophen (Tylenol -) 650 mg PO Q4H PRN PRN Reason: FEVER/PAIN LEVEL 1-5 Last Admin: 03/28/18 22:02 Dose: 650 mg Amoxicillin/Clavulanate Potassium (Augmentin - 500mg Tablet) 1 tab PO BID@0800, 1730 [facility] Last Admin: 04/06/18 11:21 Dose: 1 tab Ascorbic Acid (Vitamin C -) 500 mg PO BID [facility] Last Admin: 04/06/18 11:21 Dose: 500 mg Collagenase (Santyl -) 1 applic TP DAILY [facility]; Protocol Last Admin: 04/06/18 11:21 Dose: 1 applic Cyanocobalamin (Vitamin B12 -) 1,000 mcg PO DAILY [facility] Last Admin: 04/06/18 11:21 Dose: 1,000 mcg Enoxaparin Sodium (Lovenox -) 30 mg SQ DAILY [facility] Last Admin: 04/06/18 11:20 Dose: 30 mg Levothyroxine Sodium (Synthroid -) 25 mcg PO 0700 [facility] Last Admin: 04/06/18 06:06 Dose: 25 mcg Magnesium Oxide (Mag-Ox -) 800 mg PO ONCE ONE Stop: 04/06/18 14:31 Nystatin (Nystop Powder -) 1 applic TP DAILY [facility] Potassium Chloride (K-Dur -) 20 meq PO ONCE ONE Stop: 04/06/18 14:31 Ranitidine HCl (Zantac -) 150 mg PO DAILY [facility] Last Admin: 04/06/18 11:22 Dose: 150 mg Tamsulosin HCl (Flomax -) 0.4 mg PO 0830 [facility] Last Admin: 04/06/18 11:21 Dose: 0.4 mg - Objective Vital Signs: Vital Signs Temperature 98.5 F 04/06/18 10:00 Pulse Rate 82 04/06/18 10:00 Respiratory Rate 20 04/06/18 10:00 Blood Pressure 123/59 L 04/06/18 10:00 O2 Sat by Pulse Oximetry (%) 96 04/06/18 09:00 Constitutional: Yes: No Distress, Calm, Obese Cardiovascular: Yes: S1, S2 Respiratory: Yes: Regular Gastrointestinal: Yes: Normal Bowel Sounds, Soft Musculoskeletal: Yes: WNL Extremities: Yes: WNL Neurological: Yes: Alert Psychiatric: Yes: Alert Labs: CBC, BMP 04/06/18 06:30 04/06/18 06:30 INR, PTT INR 1.29 (0.83-1.09) H 03/28/18 08:10 Assessment/Plan Problem List - Problems (1) PARMINDER (acute kidney injury) Code(s): N17.9 - ACUTE KIDNEY FAILURE, UNSPECIFIED (2) Hodgkin lymphoma Code(s): C81.90 - HODGKIN LYMPHOMA, UNSPECIFIED, UNSPECIFIED SITE (3) Morbidly obese Code(s): E66.01 - MORBID (SEVERE) OBESITY DUE TO EXCESS CALORIES (4) Sepsis Code(s): A41.9 - SEPSIS, UNSPECIFIED ORGANISM (5) UTI (urinary tract infection) Code(s): N39.0 - URINARY TRACT INFECTION, SITE NOT SPECIFIED (6) Weakness Code(s): R53.1 - WEAKNESS (7) Anemia Code(s): D64.9 - ANEMIA, UNSPECIFIED Qualifiers: Anemia type: unspecified type Qualified Code(s): D64.9 - Anemia, unspecified (8) BPH (benign prostatic hyperplasia) Code(s): N40.0 - BENIGN PROSTATIC HYPERPLASIA WITHOUT LOWER URINRY TRACT SYMP Assessment/Plan 87 y.o. male presenting from [place] with weakness/altered mental status, poor oral intake, fevers, and lactic acidosis Sepsis - unclear source Fever Lactic acidosis BPH Hx of Hodgkins Lymphoma PARMINDER Hypothyroidism plan oral abx wound care rest as per the team patient stable
[2018-04-06] MEDS ORDERED: POTASSIUM CHLORIDE TABS 20 MEQ TABLET.ER (FP) PO ONE (14:30)
[2018-04-06] MEDS ORDERED: MAGNESIUM OXIDE 400 MG TABLET (FP) PO ONE (14:30)
--- NOTE | 2018-04-06 15:40 | PN ---
Physical Exam: SUBJECTIVE: Patient seen and examined at bedside. No overnight events. No new complaints. Denies CP,,SOB, abdominal pain, nausea or vomiting. OBJECTIVE: Vital Signs Period Temp Pulse Resp BP Sys/Garcia Pulse Ox Last 24 Hr 97.6 F-98.8 F 81-95 20-20 117-148/58-72 96-96 GENERAL: Awake and alert, NAD HEENT: dry mucous membranes,PERRLA,EOMI PULM: CTAB, No wheezing or rales. CV: RRR, NL S1S2, no M/G/R GI: Soft, NTND, obese, NABS, No organomegally. Ext: No clubbing or cyanosis; 2+LE edema, Bilateral LE venous stasis dermatitis. Neuro: awake and alert Psych: depressed mood. Laboratory Results - last 24 hr 04/06/18 04/06/18 06:30 06:30 WBC 7.2 RBC 3.36 L Hgb 9.0 L Hct 28.2 L MCV 83.9 MCH 26.9 MCHC 32.0 RDW 19.6 H Plt Count 158 MPV 7.1 L Absolute Neuts (auto) 5.1 Neutrophils % 70.2 Lymphocytes % 17.8 Monocytes % 8.4 Eosinophils % 3.3 Basophils % 0.3 Nucleated RBC % 0 Sodium 141 Potassium 3.6 Chloride 115 H Carbon Dioxide 23 Anion Gap 3 L BUN 13 Creatinine 0.9 Creat Clearance w eGFR > 60 Random Glucose 73 L Calcium 9.0 Magnesium 1.7 L Total Bilirubin 0.5 AST 14 L ALT 7 L Alkaline Phosphatase 96 Total Protein 5.1 L Albumin 1.7 L Active Medications Generic Name Dose Route Start Last Admin Trade Name Chiquita PRN Reason Stop Dose Admin Acetaminophen 650 mg 03/27/18 22:00 03/28/18 22:02 Tylenol - PO 650 mg Q4H PRN Administration FEVER/PAIN LEVEL 1-5 Amoxicillin/Clavulanate Potassium 1 tab 04/05/18 17:30 04/06/18 11:21 Augmentin - 500mg Tablet PO 1 tab BID@0800,1730 MICHELLE Administration Ascorbic Acid 500 mg 03/27/18 22:00 04/06/18 11:21 Vitamin C - PO 500 mg BID MICHELLE Administration Collagenase 1 applic 03/30/18 12:00 04/06/18 11:21 Santyl - TP 1 applic DAILY MICHELLE Administration Protocol Cyanocobalamin 1,000 mcg 03/28/18 10:00 04/06/18 11:21 Vitamin B12 - PO 1,000 mcg DAILY MICHELLE Administration Enoxaparin Sodium 30 mg 03/28/18 10:00 04/06/18 11:20 Lovenox - SQ 30 mg DAILY MICHELLE Administration Levothyroxine Sodium 25 mcg 03/28/18 07:00 04/06/18 06:06 Synthroid - PO 25 mcg 0700 MICHELLE Administration Nystatin 1 applic 04/06/18 13:15 Nystop Powder - TP DAILY MICHELLE Ranitidine HCl 150 mg 03/28/18 10:00 04/06/18 11:22 Zantac - PO 150 mg DAILY MICHELLE Administration Tamsulosin HCl 0.4 mg 03/28/18 08:30 04/06/18 11:21 Flomax - PO 0.4 mg 0830 MICHELLE Administration ASSESSMENT/PLAN: Problem List - Problems (1) Hypercalcemia Assessment/Plan: Corrected calcium is 10.8 today. * IVF stopped. * PTH was low * PTH-RP pending to r/o paraneoplastic disorder as cause. (2) Sepsis Assessment/Plan: continue abx. as per ID * Cultures show mulitple organisms in sacral wound. * Abx switched to PO Augmentin (3) PARMINDER (acute kidney injury) Assessment/Plan: 2/2 UTI * resolved * encourage PO intake * IVF stopped (4) Hodgkin lymphoma Assessment/Plan: Followed by Dr. Seth @ [facility] * recommend f/u once discharged back to [place]. Qualifiers: (5) Hypothyroid Assessment/Plan: Continue synthroid. Visit type - Emergency Visit Emergency Visit: Yes ED Registration Date: 03/27/18 Care time: The patient presented to the Emergency Department on the above date and was hospitalized for further evaluation of their emergent condition. - New Patient This patient is new to me today: No - Critical Care Critical Care patient: No
[2018-04-06] MEDS: NYSTATIN POWDER 100,000 UNITS/GM - 15 GM TOPICAL POWDER TP SCH (15:56)
--- NOTE | 2018-04-06 19:02 | HOSP ---
Subjective - Review of Symptoms General: Yes: Other Cardiovascular: Yes: Other Gastrointestinal: Yes: Other Musculoskeletal: Yes: No Symptoms Neurological: Yes: Weakness Physical Examination Vital Signs: Vital Signs Temperature 98.8 F 04/06/18 14:12 Pulse Rate 95 H 04/06/18 14:12 Respiratory Rate 20 04/06/18 14:12 Blood Pressure 128/69 04/06/18 14:12 O2 Sat by Pulse Oximetry (%) 96 04/06/18 09:00 Constitutional: Yes: Calm Eyes: Yes: Conjunctiva Clear Respiratory: Yes: Diminished, Rhonchi, Other (anterior lungs with evidence of congestion) Labs: CBC, BMP 04/06/18 06:30 04/06/18 06:30 Hospitalist Encounter Assessment: called by primary nurse to see patient for some congestion/fluid overload on exam patient is awake, alert in no acute respiratory distress mild congestion noted to anterior lungs lower ext mild +1 pitting edema bilaterally vitals stable, oxygen saturation on 2 liters in the 90s, 20 breaths per minute. will order: Mucomyst treatment
[2018-04-06] MEDS ORDERED: ACETYLCYSTEINE 20% 200MG/ML 30 ML VIAL *FOR ORAL / INH USE ONLY NEB ONE (19:07)
[2018-04-06] MEDS ORDERED: ALBUTEROL SO4 0.5 % INH SOLN 2.5 MG/0.5 ML VIAL.NEB. NEB ONE (20:30)
[2018-04-07] MEDS: LEVOTHYROXINE NA 25 MCG TABLET (FP) PO SCH (06:54)
[2018-04-07 07:12] LABS: BASO % 0.3 % (0-2.0); EOS % 2.6 % (0-4.5); HEMATOCRIT 25.7 % (35.4-49); HEMOGLOBIN 8.4 GM/dL (11.7-16.9); LYMPH % 15.7 % (8-40); MCH 27.2 pg (25.7-33.7); MCHC 32.9 g/dl (32.0-35.9); MEAN CELL VOLUME 82.7 fl (80-96); MEAN PLT VOLUME 6.9 fl (7.5-11.1); MONO % 8.1 % (3.8-10.2); NEUT % 73.3 % (42.8-82.8); PLATELET COUNT 187 K/MM3 (134-434); RDW 19.6 % (11.9-15.9); WHITE BLOOD COUNT 7.8 K/mm3 (4.0-10.0)
[2018-04-07 07:39] LABS: ANION GAP 6 MMOL/L (8-16); BLOOD UREA NITROGEN 12 mg/dL (7-18); CHLORIDE 112 mmol/L (98-107); CO2 25 mmol/L (21-32); GLUCOSE,RANDOM 99 mg/dL (74-106); MAGNESIUM 1.9 mg/dL (1.8-2.4); POTASSIUM 3.3 mmol/L (3.5-5.1); SODIUM 143 mmol/L (136-145)
[2018-04-07] MEDS ORDERED: PT OWN MED DRAWER 7, Y5N ONE (10:55)
[2018-04-07] MEDS: RANITIDINE HCL 150 MG TABLET (FP) PO SCH (11:00)
[2018-04-07] MEDS: CYANOCOBALAMIN 1,000 MCG TABLET (FP) PO SCH (11:00)
[2018-04-07] MEDS: ASCORBIC ACID 500 MG TABLET (FP) PO SCH ×2 (11:00→21:11)
[2018-04-07] MEDS: ENOXAPARIN NA (PORCINE) 30 MG/0.3 ML DISP.SYRIN SQ SCH (11:00)
[2018-04-07] MEDS: TAMSULOSIN HCL 0.4 MG CAP PO SCH (11:00)
[2018-04-07] MEDS: NYSTATIN POWDER 100,000 UNITS/GM - 15 GM TOPICAL POWDER TP SCH (11:01)
[2018-04-07] MEDS: AMOX TR/POT CLAV 500MG/125MG TABLETS (FP) PO SCH ×2 (11:01→17:55)
[2018-04-07] MEDS: COLLAGENASE CLOSTRIDIUM HIST. 30 GRAMS TUBE TP SCH (11:01)
[2018-04-07] MEDS ORDERED: POTASSIUM CHLORIDE TABS 20 MEQ TABLET.ER (FP) PO ONE (14:00)
--- NOTE | 2018-04-07 14:15 | PN ---
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, Physician Chief Complaint: Mr Carmichael says he is doing well. Denies cp, sob, n/v. - Current Medication List Current Medications: Active Medications Acetaminophen (Tylenol -) 650 mg PO Q4H PRN PRN Reason: FEVER/PAIN LEVEL 1-5 Last Admin: 03/28/18 22:02 Dose: 650 mg Amoxicillin/Clavulanate Potassium (Augmentin - 500mg Tablet) 1 tab PO BID@0800, 1730 [facility] Last Admin: 04/07/18 11:01 Dose: 1 tab Ascorbic Acid (Vitamin C -) 500 mg PO BID [facility] Last Admin: 04/07/18 11:00 Dose: 500 mg Collagenase (Santyl -) 1 applic TP DAILY [facility]; Protocol Last Admin: 04/07/18 11:01 Dose: 1 applic Cyanocobalamin (Vitamin B12 -) 1,000 mcg PO DAILY [facility] Last Admin: 04/07/18 11:00 Dose: 1,000 mcg Enoxaparin Sodium (Lovenox -) 30 mg SQ DAILY [facility] Last Admin: 04/07/18 11:00 Dose: 30 mg Levothyroxine Sodium (Synthroid -) 25 mcg PO 0700 [facility] Last Admin: 04/07/18 06:54 Dose: 25 mcg Nystatin (Nystop Powder -) 1 applic TP DAILY [facility] Last Admin: 04/07/18 11:01 Dose: 1 applic Ranitidine HCl (Zantac -) 150 mg PO DAILY [facility] Last Admin: 04/07/18 11:00 Dose: 150 mg Tamsulosin HCl (Flomax -) 0.4 mg PO 0830 [facility] Last Admin: 04/07/18 11:00 Dose: 0.4 mg - Objective Vital Signs: Vital Signs Temperature 37.2 C 04/07/18 13:52 Pulse Rate 105 H 04/07/18 13:52 Respiratory Rate 20 04/07/18 13:52 Blood Pressure 132/70 04/07/18 13:52 O2 Sat by Pulse Oximetry (%) 96 04/06/18 21:00 Constitutional: Yes: No Distress, Obese Cardiovascular: Yes: Regular Rate and Rhythm. No: Gallop, Murmur, Rub Respiratory: Yes: Regular, CTA Bilaterally. No: Rales, Rhonchi, Wheezes Gastrointestinal: Yes: Normal Bowel Sounds, Soft. No: Distention, Tenderness Extremities: Yes: WNL Edema: No Labs: CBC, BMP 04/07/18 06:45 04/07/18 06:45 INR, PTT INR 1.29 (0.83-1.09) H 03/28/18 08:10 Problem List - Problems (1) Sepsis Code(s): A41.9 - SEPSIS, UNSPECIFIED ORGANISM Qualifiers: Sepsis type: sepsis due to unspecified organism Qualified Code(s): A41.9 - Sepsis, unspecified organism (2) Decubitus ulcer Code(s): L89.90 - PRESSURE ULCER OF UNSPECIFIED SITE, UNSPECIFIED STAGE Qualifiers: Pressure injury location: sacral region Pressure injury stage: stage 3 Qualified Code(s): L89.153 - Pressure ulcer of sacral region, stage 3 (3) Hypernatremia Code(s): E87.0 - HYPEROSMOLALITY AND HYPERNATREMIA (4) PARMINDER (acute kidney injury) Code(s): N17.9 - ACUTE KIDNEY FAILURE, UNSPECIFIED (5) Hypothyroid Code(s): E03.9 - HYPOTHYROIDISM, UNSPECIFIED (6) Morbidly obese Code(s): E66.01 - MORBID (SEVERE) OBESITY DUE TO EXCESS CALORIES (7) Anemia Code(s): D64.9 - ANEMIA, UNSPECIFIED Qualifiers: Anemia type: unspecified type Qualified Code(s): D64.9 - Anemia, unspecified (8) Hodgkin lymphoma Code(s): C81.90 - HODGKIN LYMPHOMA, UNSPECIFIED, UNSPECIFIED SITE (9) Hypercalcemia Code(s): E83.52 - HYPERCALCEMIA (10) Metabolic encephalopathy Code(s): G93.41 - METABOLIC ENCEPHALOPATHY (11) Constipation Code(s): K59.00 - CONSTIPATION, UNSPECIFIED Assessment/Plan (1) Sepsis Assessment/Plan: -wound culture polymicrobial with final results -appreciate ID assistance -now on augmentin Code(s): A41.9 - SEPSIS, UNSPECIFIED ORGANISM (2) Decubitus ulcer Assessment/Plan: -appreciate wound care assistance -collagenase, frequent turning Code(s): L89.90 - PRESSURE ULCER OF UNSPECIFIED SITE, UNSPECIFIED STAGE Qualifiers: Pressure injury location: sacral region Pressure injury stage: stage 3 Qualified Code(s): L89.153 - Pressure ulcer of sacral region, stage 3 (3) Hypernatremia Assessment/Plan: -resolved -stable off of IVF Code(s): E87.0 - HYPEROSMOLALITY AND HYPERNATREMIA (4) PARMINDER (acute kidney injury) Assessment/Plan: -resolved Code(s): N17.9 - ACUTE KIDNEY FAILURE, UNSPECIFIED (5) Hypothyroid -continue synthroid Code(s): E03.9 - HYPOTHYROIDISM, UNSPECIFIED (6) Morbidly obese Assessment/Plan: -noted Code(s): E66.01 - MORBID (SEVERE) OBESITY DUE TO EXCESS CALORIES (7) Anemia Assessment/Plan: -stable -monitor Code(s): D64.9 - ANEMIA, UNSPECIFIED Qualifiers: Anemia type: unspecified type Qualified Code(s): D64.9 - Anemia, unspecified (8) Hodgkin lymphoma Assessment/Plan: -oncology following Code(s): C81.90 - HODGKIN LYMPHOMA, UNSPECIFIED, UNSPECIFIED SITE (9) Hypercalcemia -received zometa on 04/03 -resolved Dispo -medically stable for discharge, pending placement
--- NOTE | 2018-04-07 14:33 | PN ---
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, Physician History of Present Illness: continues to do well no new issues awake and alert bed bound - Current Medication List Current Medications: Active Medications Acetaminophen (Tylenol -) 650 mg PO Q4H PRN PRN Reason: FEVER/PAIN LEVEL 1-5 Last Admin: 03/28/18 22:02 Dose: 650 mg Amoxicillin/Clavulanate Potassium (Augmentin - 500mg Tablet) 1 tab PO BID@0800, 1730 [facility] Last Admin: 04/07/18 11:01 Dose: 1 tab Ascorbic Acid (Vitamin C -) 500 mg PO BID [facility] Last Admin: 04/07/18 11:00 Dose: 500 mg Collagenase (Santyl -) 1 applic TP DAILY [facility]; Protocol Last Admin: 04/07/18 11:01 Dose: 1 applic Cyanocobalamin (Vitamin B12 -) 1,000 mcg PO DAILY [facility] Last Admin: 04/07/18 11:00 Dose: 1,000 mcg Enoxaparin Sodium (Lovenox -) 30 mg SQ DAILY [facility] Last Admin: 04/07/18 11:00 Dose: 30 mg Levothyroxine Sodium (Synthroid -) 25 mcg PO 0700 [facility] Last Admin: 04/07/18 06:54 Dose: 25 mcg Nystatin (Nystop Powder -) 1 applic TP DAILY [facility] Last Admin: 04/07/18 11:01 Dose: 1 applic Ranitidine HCl (Zantac -) 150 mg PO DAILY [facility] Last Admin: 04/07/18 11:00 Dose: 150 mg Tamsulosin HCl (Flomax -) 0.4 mg PO 0830 [facility] Last Admin: 04/07/18 11:00 Dose: 0.4 mg - Objective Vital Signs: Vital Signs Temperature 98.9 F 04/07/18 13:52 Pulse Rate 105 H 04/07/18 13:52 Respiratory Rate 20 04/07/18 13:52 Blood Pressure 132/70 04/07/18 13:52 O2 Sat by Pulse Oximetry (%) 96 04/06/18 21:00 Constitutional: Yes: No Distress, Calm, Obese Cardiovascular: Yes: S1, S2 Respiratory: Yes: Regular Gastrointestinal: Yes: Normal Bowel Sounds, Soft Musculoskeletal: Yes: WNL Extremities: Yes: WNL Wound/Incision: Yes: Dressing Dry and Intact Neurological: Yes: Alert Psychiatric: Yes: Alert Labs: CBC, BMP 04/07/18 06:45 04/07/18 06:45 INR, PTT INR 1.29 (0.83-1.09) H 03/28/18 08:10 Assessment/Plan Problem List - Problems (1) PARMINDER (acute kidney injury) Code(s): N17.9 - ACUTE KIDNEY FAILURE, UNSPECIFIED (2) Hodgkin lymphoma Code(s): C81.90 - HODGKIN LYMPHOMA, UNSPECIFIED, UNSPECIFIED SITE (3) Morbidly obese Code(s): E66.01 - MORBID (SEVERE) OBESITY DUE TO EXCESS CALORIES (4) Sepsis Code(s): A41.9 - SEPSIS, UNSPECIFIED ORGANISM (5) UTI (urinary tract infection) Code(s): N39.0 - URINARY TRACT INFECTION, SITE NOT SPECIFIED (6) Weakness Code(s): R53.1 - WEAKNESS (7) Anemia Code(s): D64.9 - ANEMIA, UNSPECIFIED Qualifiers: Anemia type: unspecified type Qualified Code(s): D64.9 - Anemia, unspecified (8) BPH (benign prostatic hyperplasia) Code(s): N40.0 - BENIGN PROSTATIC HYPERPLASIA WITHOUT LOWER URINRY TRACT SYMP Assessment/Plan 87 y.o. male presenting from [place] with weakness/altered mental status, poor oral intake, fevers, and lactic acidosis Sepsis - unclear source Fever Lactic acidosis BPH Hx of Hodgkins Lymphoma PARMINDER Hypothyroidism plan oral abx stop them after 5 more days wound care rest as per the team patient stable
--- NOTE | 2018-04-07 18:38 | PN ---
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, Physician History of Present Illness: Pt seen and examined at bedside earlier today. He is more awake and alert. He is tolerating diet. - Current Medication List Current Medications: Active Medications Acetaminophen (Tylenol -) 650 mg PO Q4H PRN PRN Reason: FEVER/PAIN LEVEL 1-5 Last Admin: 03/28/18 22:02 Dose: 650 mg Amoxicillin/Clavulanate Potassium (Augmentin - 500mg Tablet) 1 tab PO BID@0800, 1730 [facility] Last Admin: 04/07/18 17:55 Dose: 1 tab Ascorbic Acid (Vitamin C -) 500 mg PO BID [facility] Last Admin: 04/07/18 11:00 Dose: 500 mg Collagenase (Santyl -) 1 applic TP DAILY [facility]; Protocol Last Admin: 04/07/18 11:01 Dose: 1 applic Cyanocobalamin (Vitamin B12 -) 1,000 mcg PO DAILY [facility] Last Admin: 04/07/18 11:00 Dose: 1,000 mcg Enoxaparin Sodium (Lovenox -) 30 mg SQ DAILY [facility] Last Admin: 04/07/18 11:00 Dose: 30 mg Levothyroxine Sodium (Synthroid -) 25 mcg PO 0700 [facility] Last Admin: 04/07/18 06:54 Dose: 25 mcg Nystatin (Nystop Powder -) 1 applic TP DAILY [facility] Last Admin: 04/07/18 11:01 Dose: 1 applic Ranitidine HCl (Zantac -) 150 mg PO DAILY [facility] Last Admin: 04/07/18 11:00 Dose: 150 mg Tamsulosin HCl (Flomax -) 0.4 mg PO 0830 [facility] Last Admin: 04/07/18 11:00 Dose: 0.4 mg - Objective Vital Signs: Vital Signs Temperature 98.9 F 04/07/18 13:52 Pulse Rate 105 H 04/07/18 13:52 Respiratory Rate 20 04/07/18 13:52 Blood Pressure 132/70 04/07/18 13:52 O2 Sat by Pulse Oximetry (%) 96 04/06/18 21:00 Constitutional: Yes: Calm Eyes: Yes: Conjunctiva Clear HENT: Yes: Atraumatic Cardiovascular: Yes: S1, S2 Respiratory: Yes: CTA Bilaterally Gastrointestinal: Yes: Soft, Abdomen, Obese Genitourinary: Yes: WNL Musculoskeletal: Yes: WNL Edema: No Neurological: Yes: Oriented Psychiatric: Yes: Oriented Labs: CBC, BMP 04/07/18 06:45 04/07/18 06:45 INR, PTT INR 1.29 (0.83-1.09) H 03/28/18 08:10 Problem List - Problems (1) PARMINDER (acute kidney injury) Code(s): N17.9 - ACUTE KIDNEY FAILURE, UNSPECIFIED (2) Decubitus ulcer Code(s): L89.90 - PRESSURE ULCER OF UNSPECIFIED SITE, UNSPECIFIED STAGE Qualifiers: Pressure injury location: sacral region Pressure injury stage: stage 3 Qualified Code(s): L89.153 - Pressure ulcer of sacral region, stage 3 (3) Dehydration Code(s): E86.0 - DEHYDRATION (4) Hodgkin lymphoma Code(s): C81.90 - HODGKIN LYMPHOMA, UNSPECIFIED, UNSPECIFIED SITE Qualifiers: Hodgkin lymphoma type: unspecified type (5) Hypercalcemia Code(s): E83.52 - HYPERCALCEMIA (6) Hypernatremia Code(s): E87.0 - HYPEROSMOLALITY AND HYPERNATREMIA (7) Hypokalemia Code(s): E87.6 - HYPOKALEMIA (8) Hypothyroid Code(s): E03.9 - HYPOTHYROIDISM, UNSPECIFIED (9) Sepsis Code(s): A41.9 - SEPSIS, UNSPECIFIED ORGANISM Qualifiers: Sepsis type: sepsis due to unspecified organism Qualified Code(s): A41.9 - Sepsis, unspecified organism (10) BPH (benign prostatic hyperplasia) Code(s): N40.0 - BENIGN PROSTATIC HYPERPLASIA WITHOUT LOWER URINRY TRACT SYMP Assessment/Plan Current Medications Generic Name Dose Route Start Last Admin Trade Name Freq PRN Reason Stop Dose Admin Acetaminophen 650 mg 03/27/18 22:00 03/28/18 22:02 Tylenol - PO 650 mg Q4H PRN Administration FEVER/PAIN LEVEL 1-5 Amoxicillin/Clavulanate Potassium 1 tab 04/05/18 17:30 04/07/18 17:55 Augmentin - 500mg Tablet PO 1 tab BID@0800,1730 MICHELLE Administration Ascorbic Acid 500 mg 03/27/18 22:00 04/07/18 11:00 Vitamin C - PO 500 mg BID MICHELLE Administration Collagenase 1 applic 03/30/18 12:00 10/09/18 11:01 Santyl - TP 1 applic DAILY MICHELLE Administration Protocol Cyanocobalamin 1,000 mcg 03/28/18 10:00 04/07/18 11:00 Vitamin B12 - PO 1,000 mcg DAILY MICHELLE Administration Enoxaparin Sodium 30 mg 03/28/18 10:00 04/07/18 11:00 Lovenox - SQ 30 mg DAILY MICHELLE Administration Levothyroxine Sodium 25 mcg 03/28/18 07:00 04/07/18 06:54 Synthroid - PO 25 mcg 0700 MICHELLE Administration Nystatin 1 applic 04/06/18 13:15 04/07/18 11:01 Nystop Powder - TP 1 applic DAILY MICHELLE Administration Ranitidine HCl 150 mg 03/28/18 10:00 04/07/18 11:00 Zantac - PO 150 mg DAILY MICHELLE Administration Tamsulosin HCl 0.4 mg 03/28/18 08:30 04/07/18 11:00 Flomax - PO 0.4 mg 0830 MICHELLE Administration Impression 1. PARMINDER resolving 2. hypernatremia 3. hypercalcemia 4. hypokalemia 5. BPH 6. hodgkins lymphoma 7. sacral decub 8. sepsis 9. obesity 10. anemia Plan - monitor lytes - replace potassium - he received a dose of zometa - monitor calcium and albumin - check mag - pth is appropriately low - will follow
[2018-04-07] MEDS: ACETAMINOPHEN 325 MG TABLET (FP) PO PRN (21:11)
[2018-04-08] MEDS: ACETAMINOPHEN 325 MG TABLET (FP) PO PRN (02:39)
[2018-04-08 03:42] LABS: URINE APPEARANCE SLCLOUDY; URINE BILIRUBIN NEGATIVE (<2.0 mg/dL); URINE COLOR YELLOW; URINE GLUCOSE (UA) NEGATIVE (NEGATIVE); URINE KETONE NEGATIVE (NEGATIVE); URINE LEUK ESTERASE 2+ (NEGATIVE); URINE NITRITE NEGATIVE (NEGATIVE); URINE PROTEIN 2+ (NEGATIVE); URINE UROBILINOGEN NEGATIVE mg/dL (0.2-1.0)
[2018-04-08 04:02] LABS: CALCIUM OXALATE CRYSTALS FEW /hpf (NONE SEEN); EPI CELLS RARE /HPF (FEW); URINE BACTERIA FEW /hpf (NONE SEEN); URINE MUCUS RARE
[2018-04-08 06:10] LABS: BASO % 0.3 % (0-2.0); EOS % 3.1 % (0-4.5); HEMATOCRIT 25.6 % (35.4-49); HEMOGLOBIN 8.2 GM/dL (11.7-16.9); LYMPH % 18.3 % (8-40); MCH 26.8 pg (25.7-33.7); MCHC 32.1 g/dl (32.0-35.9); MEAN CELL VOLUME 83.7 fl (80-96); MEAN PLT VOLUME 6.9 fl (7.5-11.1); MONO % 10.1 % (3.8-10.2); NEUT % 68.2 % (42.8-82.8); PLATELET COUNT 191 K/MM3 (134-434); RBC 3.06 M/mm3 (4.00-5.60); RDW 19.7 % (11.9-15.9); WHITE BLOOD COUNT 8.2 K/mm3 (4.0-10.0)
[2018-04-08] MEDS: LEVOTHYROXINE NA 25 MCG TABLET (FP) PO SCH (06:15)
[2018-04-08 06:34] LABS: ALBUMIN 1.6 g/dl (3.4-5.0); ALK PHOS 95 U/L (45-117); ANION GAP 5 MMOL/L (8-16); BILIRUBIN,TOTAL 0.5 mg/dL (0.2-1); BLOOD UREA NITROGEN 15 mg/dL (7-18); CALCIUM 9.2 mg/dL (8.5-10.1); CHLORIDE 112 mmol/L (98-107); CO2 26 mmol/L (21-32); GLUCOSE,RANDOM 95 mg/dL (74-106); POTASSIUM 3.8 mmol/L (3.5-5.1); SGOT/AST 15 U/L (15-37); SGPT/ALT 7 U/L (13-61); SODIUM 143 mmol/L (136-145); TOT PROT 5.2 g/dl (6.4-8.2)
[2018-04-08] MEDS ORDERED: PT OWN MED DRAWER 7, Y5N ONE ×2 (09:22→18:11)
[2018-04-08] MEDS: ENOXAPARIN NA (PORCINE) 30 MG/0.3 ML DISP.SYRIN SQ SCH (09:34)
[2018-04-08] MEDS: AMOX TR/POT CLAV 500MG/125MG TABLETS (FP) PO SCH ×2 (09:34→18:46)
[2018-04-08] MEDS: TAMSULOSIN HCL 0.4 MG CAP PO SCH (09:34)
[2018-04-08] MEDS: ASCORBIC ACID 500 MG TABLET (FP) PO SCH ×2 (09:36→22:00)
[2018-04-08] MEDS: RANITIDINE HCL 150 MG TABLET (FP) PO SCH (09:36)
[2018-04-08] MEDS: CYANOCOBALAMIN 1,000 MCG TABLET (FP) PO SCH (09:37)
[2018-04-08] MEDS: NYSTATIN POWDER 100,000 UNITS/GM - 15 GM TOPICAL POWDER TP SCH (09:39)
--- NOTE | 2018-04-08 13:07 | PN ---
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, Physician History of Present Illness: Pt seen and examined at bedside. He is tolerating diet. - Current Medication List Current Medications: Active Medications Acetaminophen (Tylenol -) 650 mg PO Q4H PRN PRN Reason: FEVER/PAIN LEVEL 1-5 Last Admin: 04/08/18 02:39 Dose: 650 mg Amoxicillin/Clavulanate Potassium (Augmentin - 500mg Tablet) 1 tab PO BID@0800, 1730 [facility] Last Admin: 04/08/18 09:34 Dose: 1 tab Ascorbic Acid (Vitamin C -) 500 mg PO BID [facility] Last Admin: 04/08/18 09:36 Dose: 500 mg Collagenase (Santyl -) 1 applic TP DAILY [facility]; Protocol Last Admin: 04/07/18 11:01 Dose: 1 applic Cyanocobalamin (Vitamin B12 -) 1,000 mcg PO DAILY [facility] Last Admin: 04/08/18 09:37 Dose: 1,000 mcg Enoxaparin Sodium (Lovenox -) 30 mg SQ DAILY [facility] Last Admin: 04/08/18 09:34 Dose: 30 mg Levothyroxine Sodium (Synthroid -) 25 mcg PO 0700 [facility] Last Admin: 04/08/18 06:15 Dose: 25 mcg Nystatin (Nystop Powder -) 1 applic TP DAILY [facility] Last Admin: 04/08/18 09:39 Dose: 1 applic Ranitidine HCl (Zantac -) 150 mg PO DAILY [facility] Last Admin: 04/08/18 09:36 Dose: 150 mg Tamsulosin HCl (Flomax -) 0.4 mg PO 0830 [facility] Last Admin: 04/08/18 09:34 Dose: 0.4 mg - Objective Vital Signs: Vital Signs Temperature 98.5 F 04/08/18 05:55 Pulse Rate 87 04/08/18 05:55 Respiratory Rate 20 04/08/18 05:55 Blood Pressure 105/63 04/08/18 05:55 O2 Sat by Pulse Oximetry (%) 96 04/07/18 21:00 Constitutional: Yes: Calm Eyes: Yes: Conjunctiva Clear HENT: Yes: Atraumatic Cardiovascular: Yes: S1, S2 Respiratory: Yes: CTA Bilaterally Gastrointestinal: Yes: Soft, Abdomen, Obese Genitourinary: Yes: Incontinence Edema: No Neurological: Yes: Oriented Labs: CBC, BMP 04/08/18 06:00 04/08/18 06:00 INR, PTT INR 1.29 (0.83-1.09) H 03/28/18 08:10 Problem List - Problems (1) PARMINDER (acute kidney injury) Code(s): N17.9 - ACUTE KIDNEY FAILURE, UNSPECIFIED (2) Decubitus ulcer Code(s): L89.90 - PRESSURE ULCER OF UNSPECIFIED SITE, UNSPECIFIED STAGE Qualifiers: Pressure injury location: sacral region Pressure injury stage: stage 3 Qualified Code(s): L89.153 - Pressure ulcer of sacral region, stage 3 (3) Dehydration Code(s): E86.0 - DEHYDRATION (4) Hodgkin lymphoma Code(s): C81.90 - HODGKIN LYMPHOMA, UNSPECIFIED, UNSPECIFIED SITE Qualifiers: Hodgkin lymphoma type: unspecified type (5) Hypercalcemia Code(s): E83.52 - HYPERCALCEMIA (6) Hypernatremia Code(s): E87.0 - HYPEROSMOLALITY AND HYPERNATREMIA (7) Hypokalemia Code(s): E87.6 - HYPOKALEMIA (8) Hypothyroid Code(s): E03.9 - HYPOTHYROIDISM, UNSPECIFIED (9) Sepsis Code(s): A41.9 - SEPSIS, UNSPECIFIED ORGANISM Qualifiers: Sepsis type: sepsis due to unspecified organism Qualified Code(s): A41.9 - Sepsis, unspecified organism (10) BPH (benign prostatic hyperplasia) Code(s): N40.0 - BENIGN PROSTATIC HYPERPLASIA WITHOUT LOWER URINRY TRACT SYMP Assessment/Plan Current Medications Generic Name Dose Route Start Last Admin Trade Name Chiquita PRN Reason Stop Dose Admin Acetaminophen 650 mg 03/27/18 22:00 04/08/18 02:39 Tylenol - PO 650 mg Q4H PRN Administration FEVER/PAIN LEVEL 1-5 Amoxicillin/Clavulanate Potassium 1 tab 04/05/18 17:30 04/08/18 09:34 Augmentin - 500mg Tablet PO 1 tab BID@0800,1730 MICHELLE Administration Ascorbic Acid 500 mg 03/27/18 22:00 04/08/18 09:36 Vitamin C - PO 500 mg BID MICHELLE Administration Collagenase 1 applic 03/30/18 12:00 04/07/18 11:01 Santyl - TP 1 applic DAILY MICHELLE Administration Protocol Cyanocobalamin 1,000 mcg 03/28/18 10:00 04/08/18 09:37 Vitamin B12 - PO 1,000 mcg DAILY MICHELLE Administration Enoxaparin Sodium 30 mg 03/28/18 10:00 04/08/18 09:34 Lovenox - SQ 30 mg DAILY MICHELLE Administration Levothyroxine Sodium 25 mcg 03/28/18 07:00 04/08/18 06:15 Synthroid - PO 25 mcg 0700 MICHELLE Administration Nystatin 1 applic 04/06/18 13:15 04/08/18 09:39 Nystop Powder - TP 1 applic DAILY MICHELLE Administration Ranitidine HCl 150 mg 03/28/18 10:00 04/08/18 09:36 Zantac - PO 150 mg DAILY MICHELLE Administration Tamsulosin HCl 0.4 mg 03/28/18 08:30 04/08/18 09:34 Flomax - PO 0.4 mg 0830 MICHELLE Administration Impression 1. PARMINDER resolving 2. hypernatremia 3. hypercalcemia 4. hypokalemia 5. BPH 6. hodgkins lymphoma 7. sacral decub 8. sepsis 9. obesity 10. anemia Plan - calcium remains elevated - pth is low - oncology follow up - encourage PO intake and avoid dehydration - he received a dose of zometa - monitor calcium and albumin - will follow
[2018-04-08] MEDS: COLLAGENASE CLOSTRIDIUM HIST. 30 GRAMS TUBE TP SCH (13:12)
--- NOTE | 2018-04-08 13:33 | PN ---
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, Physician Chief Complaint: Mr Carmichael says he is doing well. Denies cp, sob, n/v. - Current Medication List Current Medications: Active Medications Acetaminophen (Tylenol -) 650 mg PO Q4H PRN PRN Reason: FEVER/PAIN LEVEL 1-5 Last Admin: 04/08/18 02:39 Dose: 650 mg Amoxicillin/Clavulanate Potassium (Augmentin - 500mg Tablet) 1 tab PO BID@0800, 1730 [facility] Last Admin: 04/08/18 09:34 Dose: 1 tab Ascorbic Acid (Vitamin C -) 500 mg PO BID [facility] Last Admin: 04/08/18 09:36 Dose: 500 mg Collagenase (Santyl -) 1 applic TP DAILY [facility]; Protocol Last Admin: 04/07/18 11:01 Dose: 1 applic Cyanocobalamin (Vitamin B12 -) 1,000 mcg PO DAILY [facility] Last Admin: 04/08/18 09:37 Dose: 1,000 mcg Enoxaparin Sodium (Lovenox -) 30 mg SQ DAILY [facility] Last Admin: 04/08/18 09:34 Dose: 30 mg Levothyroxine Sodium (Synthroid -) 25 mcg PO 0700 [facility] Last Admin: 04/08/18 06:15 Dose: 25 mcg Nystatin (Nystop Powder -) 1 applic TP DAILY [facility] Last Admin: 04/08/18 09:39 Dose: 1 applic Ranitidine HCl (Zantac -) 150 mg PO DAILY [facility] Last Admin: 04/08/18 09:36 Dose: 150 mg Tamsulosin HCl (Flomax -) 0.4 mg PO 0830 [facility] Last Admin: 04/08/18 09:34 Dose: 0.4 mg - Objective Vital Signs: Vital Signs Temperature 36.9 C 04/08/18 05:55 Pulse Rate 87 04/08/18 05:55 Respiratory Rate 20 04/08/18 05:55 Blood Pressure 105/63 04/08/18 05:55 O2 Sat by Pulse Oximetry (%) 96 04/07/18 21:00 Constitutional: Yes: No Distress, Calm, Obese Cardiovascular: Yes: Regular Rate and Rhythm. No: Gallop, Murmur, Rub Respiratory: Yes: Regular, Rhonchi. No: CTA Bilaterally, Rales, Wheezes Gastrointestinal: Yes: Normal Bowel Sounds, Soft. No: Distention, Tenderness Extremities: Yes: WNL Edema: No Labs: CBC, BMP 04/08/18 06:00 04/08/18 06:00 INR, PTT INR 1.29 (0.83-1.09) H 03/28/18 08:10 Problem List - Problems (1) Sepsis Code(s): A41.9 - SEPSIS, UNSPECIFIED ORGANISM Qualifiers: Sepsis type: sepsis due to unspecified organism Qualified Code(s): A41.9 - Sepsis, unspecified organism (2) Decubitus ulcer Code(s): L89.90 - PRESSURE ULCER OF UNSPECIFIED SITE, UNSPECIFIED STAGE Qualifiers: Pressure injury location: sacral region Pressure injury stage: stage 3 Qualified Code(s): L89.153 - Pressure ulcer of sacral region, stage 3 (3) Hypernatremia Code(s): E87.0 - HYPEROSMOLALITY AND HYPERNATREMIA (4) PARMINDER (acute kidney injury) Code(s): N17.9 - ACUTE KIDNEY FAILURE, UNSPECIFIED (5) Hypothyroid Code(s): E03.9 - HYPOTHYROIDISM, UNSPECIFIED Qualifiers: Hypothyroidism type: acquired Qualified Code(s): E03.9 - Hypothyroidism, unspecified (6) Morbidly obese Code(s): E66.01 - MORBID (SEVERE) OBESITY DUE TO EXCESS CALORIES (7) Anemia Code(s): D64.9 - ANEMIA, UNSPECIFIED Qualifiers: Anemia type: unspecified type Qualified Code(s): D64.9 - Anemia, unspecified (8) Hodgkin lymphoma Code(s): C81.90 - HODGKIN LYMPHOMA, UNSPECIFIED, UNSPECIFIED SITE (9) Hypercalcemia Code(s): E83.52 - HYPERCALCEMIA (10) Metabolic encephalopathy Code(s): G93.41 - METABOLIC ENCEPHALOPATHY (11) Constipation Code(s): K59.00 - CONSTIPATION, UNSPECIFIED Assessment/Plan (1) Sepsis Assessment/Plan: -wound culture polymicrobial with final results -appreciate ID assistance -now on augmentin Code(s): A41.9 - SEPSIS, UNSPECIFIED ORGANISM (2) Decubitus ulcer Assessment/Plan: -appreciate wound care assistance -collagenase, frequent turning Code(s): L89.90 - PRESSURE ULCER OF UNSPECIFIED SITE, UNSPECIFIED STAGE Qualifiers: Pressure injury location: sacral region Pressure injury stage: stage 3 Qualified Code(s): L89.153 - Pressure ulcer of sacral region, stage 3 (3) Hypernatremia Assessment/Plan: -resolved -stable off of IVF Code(s): E87.0 - HYPEROSMOLALITY AND HYPERNATREMIA (4) PARMINDER (acute kidney injury) Assessment/Plan: -resolved Code(s): N17.9 - ACUTE KIDNEY FAILURE, UNSPECIFIED (5) Hypothyroid -continue synthroid Code(s): E03.9 - HYPOTHYROIDISM, UNSPECIFIED (6) Morbidly obese Assessment/Plan: -noted Code(s): E66.01 - MORBID (SEVERE) OBESITY DUE TO EXCESS CALORIES (7) Anemia Assessment/Plan: -stable -monitor Code(s): D64.9 - ANEMIA, UNSPECIFIED Qualifiers: Anemia type: unspecified type Qualified Code(s): D64.9 - Anemia, unspecified (8) Hodgkin lymphoma Assessment/Plan: -oncology following Code(s): C81.90 - HODGKIN LYMPHOMA, UNSPECIFIED, UNSPECIFIED SITE (9) Hypercalcemia -received zometa on 04/03 -resolved (10) Fever -occurred overnight -follow up cultures -? secondary to atelectasis -still on antibiotics
--- NOTE | 2018-04-08 15:03 | PN ---
Physical Exam: SUBJECTIVE: Patient seen and examined at bedside. No overnight events. No new complaints. Tolerating diet. Denies CP,, SOB,abdominal pain, nausea or vomiting. OBJECTIVE: Vital Signs Period Temp Pulse Resp BP Sys/Garcia Pulse Ox Last 24 Hr 98.1 F-100.4 F 87-108 18-20 93-126/55-65 96 GENERAL: Awake and alert, NAD HEENT: PERRLA,EOMI PULM: CTAB, No wheezing or rales. CV: RRR, NL S1S2, no M/G/R GI: Soft, NTND, obese, NABS, No organomegally. Ext: No clubbing or cyanosis; 2+LE edema, Bilateral LE venous stasis dermatitis. Neuro: awake and alert. Laboratory Results - last 24 hr 04/08/18 04/08/18 04/08/18 02:36 06:00 06:00 WBC 8.2 RBC 3.06 L Hgb 8.2 L Hct 25.6 L MCV 83.7 MCH 26.8 MCHC 32.1 RDW 19.7 H Plt Count 191 MPV 6.9 L Absolute Neuts (auto) 5.6 Neutrophils % 68.2 Lymphocytes % 18.3 Monocytes % 10.1 Eosinophils % 3.1 Basophils % 0.3 Nucleated RBC % 0 Sodium 143 Potassium 3.8 Chloride 112 H Carbon Dioxide 26 Anion Gap 5 L BUN 15 Creatinine 1.0 Creat Clearance w eGFR > 60 Random Glucose 95 Calcium 9.2 Phosphorus 2.0 L Magnesium 2.0 Total Bilirubin 0.5 AST 15 ALT 7 L Alkaline Phosphatase 95 Total Protein 5.2 L Albumin 1.6 L Urine Color Yellow Urine Appearance Slcloudy Urine pH 5.0 Ur Specific [place] 1.016 Urine Protein 2+ H Urine Glucose (UA) Negative Urine Ketones Negative Urine Blood 2+ H Urine Nitrite Negative Urine Bilirubin Negative Urine Urobilinogen Negative Ur Leukocyte Esterase 2+ H Urine WBC (Auto) 31 Urine RBC (Auto) 32 Ur Epithelial Cells Rare Calcium Oxalate Crystal Few Urine Bacteria Few Urine Mucus Rare Active Medications Generic Name Dose Route Start Last Admin Trade Name Freq PRN Reason Stop Dose Admin Acetaminophen 650 mg 03/27/18 22:00 04/08/18 02:39 Tylenol - PO 650 mg Q4H PRN Administration FEVER/PAIN LEVEL 1-5 Amoxicillin/Clavulanate Potassium 1 tab 04/05/18 17:30 04/08/18 09:34 Augmentin - 500mg Tablet PO 1 tab BID@0800,1730 [facility] Administration Ascorbic Acid 500 mg 03/27/18 22:00 04/08/18 09:36 Vitamin C - PO 500 mg BID [facility] Administration Collagenase 1 applic 03/30/18 12:00 04/07/18 11:01 Santyl - TP 1 applic DAILY [facility] Administration Protocol Cyanocobalamin 1,000 mcg 03/28/18 10:00 04/08/18 09:37 Vitamin B12 - PO 1,000 mcg DAILY [facility] Administration Enoxaparin Sodium 30 mg 03/28/18 10:00 04/08/18 09:34 Lovenox - SQ 30 mg DAILY [facility] Administration Levothyroxine Sodium 25 mcg 03/28/18 07:00 04/08/18 06:15 Synthroid - PO 25 mcg 0700 [facility] Administration Nystatin 1 applic 04/06/18 13:15 04/08/18 09:39 Nystop Powder - TP 1 applic DAILY [facility] Administration Ranitidine HCl 150 mg 03/28/18 10:00 04/08/18 09:36 Zantac - PO 150 mg DAILY [facility] Administration Tamsulosin HCl 0.4 mg 03/28/18 08:30 04/08/18 09:34 Flomax - PO 0.4 mg 0830 [facility] Administration ASSESSMENT/PLAN: 87 yo M with PMHx morbidly obese ,H/O Lymphoma BIB EMS from [facility] with confusion and tiredness. ED w/u show + UA , dehydration and admitted for further management. Problem List - Problems (1) Hypercalcemia Assessment/Plan: Corrected calcium 11.1 * IVF stopped. * Encouraged PO intake. * PTH was low * PTH-RP WNL (2) Sepsis Assessment/Plan: continue abx. as per ID * Cultures show mulitple organisms in sacral wound. * Abx switched to PO Augmentin (3) PARMINDER (acute kidney injury) Assessment/Plan: 2/2 UTI * resolved * encourage PO intake * IVF stopped (4) Hodgkin lymphoma Assessment/Plan: Followed by Dr. Seth @ [facility] * recommend f/u once discharged back to [place]. Qualifiers: (5) Hypothyroid Assessment/Plan: Continue synthroid. Visit type - Emergency Visit Emergency Visit: Yes ED Registration Date: 03/27/18 Care time: The patient presented to the Emergency Department on the above date and was hospitalized for further evaluation of their emergent condition. - New Patient This patient is new to me today: No - Critical Care Critical Care patient: No
--- NOTE | 2018-04-08 16:02 | PN ---
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, Physician History of Present Illness: no new issues stable awake - Current Medication List Current Medications: Active Medications Acetaminophen (Tylenol -) 650 mg PO Q4H PRN PRN Reason: FEVER/PAIN LEVEL 1-5 Last Admin: 04/08/18 02:39 Dose: 650 mg Amoxicillin/Clavulanate Potassium (Augmentin - 500mg Tablet) 1 tab PO BID@0800, 1730 [facility] Last Admin: 04/08/18 09:34 Dose: 1 tab Ascorbic Acid (Vitamin C -) 500 mg PO BID [facility] Last Admin: 04/08/18 09:36 Dose: 500 mg Collagenase (Santyl -) 1 applic TP DAILY [facility]; Protocol Last Admin: 04/07/18 11:01 Dose: 1 applic Cyanocobalamin (Vitamin B12 -) 1,000 mcg PO DAILY [facility] Last Admin: 04/08/18 09:37 Dose: 1,000 mcg Enoxaparin Sodium (Lovenox -) 30 mg SQ DAILY [facility] Last Admin: 04/08/18 09:34 Dose: 30 mg Levothyroxine Sodium (Synthroid -) 25 mcg PO 0700 [facility] Last Admin: 04/08/18 06:15 Dose: 25 mcg Nystatin (Nystop Powder -) 1 applic TP DAILY [facility] Last Admin: 04/08/18 09:39 Dose: 1 applic Ranitidine HCl (Zantac -) 150 mg PO DAILY [facility] Last Admin: 04/08/18 09:36 Dose: 150 mg Tamsulosin HCl (Flomax -) 0.4 mg PO 0830 [facility] Last Admin: 04/08/18 09:34 Dose: 0.4 mg - Objective Vital Signs: Vital Signs Temperature 97.7 F 04/08/18 15:22 Pulse Rate 97 H 04/08/18 15:22 Respiratory Rate 20 04/08/18 15:22 Blood Pressure 103/64 04/08/18 15:22 O2 Sat by Pulse Oximetry (%) 96 04/07/18 21:00 Constitutional: Yes: No Distress, Calm, Obese Neck: Yes: Supple, Trachea Midline Cardiovascular: Yes: Regular Rate and Rhythm Respiratory: Yes: Regular, CTA Bilaterally Gastrointestinal: Yes: Normal Bowel Sounds, Soft Musculoskeletal: Yes: WNL Extremities: Yes: WNL Neurological: Yes: Alert Psychiatric: Yes: Alert Labs: CBC, BMP 04/08/18 06:00 04/08/18 06:00 INR, PTT INR 1.29 (0.83-1.09) H 03/28/18 08:10 Assessment/Plan Problem List - Problems (1) PARMINDER (acute kidney injury) Code(s): N17.9 - ACUTE KIDNEY FAILURE, UNSPECIFIED (2) Hodgkin lymphoma Code(s): C81.90 - HODGKIN LYMPHOMA, UNSPECIFIED, UNSPECIFIED SITE (3) Morbidly obese Code(s): E66.01 - MORBID (SEVERE) OBESITY DUE TO EXCESS CALORIES (4) Sepsis Code(s): A41.9 - SEPSIS, UNSPECIFIED ORGANISM (5) UTI (urinary tract infection) Code(s): N39.0 - URINARY TRACT INFECTION, SITE NOT SPECIFIED (6) Weakness Code(s): R53.1 - WEAKNESS (7) Anemia Code(s): D64.9 - ANEMIA, UNSPECIFIED Qualifiers: Anemia type: unspecified type Qualified Code(s): D64.9 - Anemia, unspecified (8) BPH (benign prostatic hyperplasia) Code(s): N40.0 - BENIGN PROSTATIC HYPERPLASIA WITHOUT LOWER URINRY TRACT SYMP Assessment/Plan 87 y.o. male presenting from [place] with weakness/altered mental status, poor oral intake, fevers, and lactic acidosis Sepsis - unclear source Fever Lactic acidosis BPH Hx of Hodgkins Lymphoma PARMINDER Hypothyroidism plan finish oral abx watch for fevers being treated for high calclum wound care rest as per the team
[2018-04-09] MEDS: LEVOTHYROXINE NA 25 MCG TABLET (FP) PO SCH (06:48)
[2018-04-09 07:14] LABS: BASO % 0.2 % (0-2.0); EOS % 3.6 % (0-4.5); HEMATOCRIT 25.5 % (35.4-49); HEMOGLOBIN 8.1 GM/dL (11.7-16.9); LYMPH % 20.6 % (8-40); MCH 26.5 pg (25.7-33.7); MCHC 31.6 g/dl (32.0-35.9); MEAN CELL VOLUME 83.9 fl (80-96); MONO % 9.5 % (3.8-10.2); NEUT % 66.1 % (42.8-82.8); PLATELET COUNT 208 K/MM3 (134-434); RBC 3.04 M/mm3 (4.00-5.60); RDW 19.9 % (11.9-15.9); WHITE BLOOD COUNT 7.7 K/mm3 (4.0-10.0)
[2018-04-09 07:35] LABS: ANION GAP 6 MMOL/L (8-16); BLOOD UREA NITROGEN 16 mg/dL (7-18); CALCIUM 9.3 mg/dL (8.5-10.1); CHLORIDE 114 mmol/L (98-107); CO2 27 mmol/L (21-32); GLUCOSE,RANDOM 88 mg/dL (74-106); MAGNESIUM 1.9 mg/dL (1.8-2.4); POTASSIUM 3.6 mmol/L (3.5-5.1); SODIUM 146 mmol/L (136-145)
[2018-04-09] MEDS ORDERED: PT OWN MED DRAWER 7, Y5N ONE (11:07)
[2018-04-09] MEDS: TAMSULOSIN HCL 0.4 MG CAP PO SCH (11:11)
[2018-04-09] MEDS: CYANOCOBALAMIN 1,000 MCG TABLET (FP) PO SCH (11:11)
[2018-04-09] MEDS: AMOX TR/POT CLAV 500MG/125MG TABLETS (FP) PO SCH ×2 (11:11→18:12)
[2018-04-09] MEDS: ASCORBIC ACID 500 MG TABLET (FP) PO SCH ×2 (11:11→21:03)
[2018-04-09] MEDS: ENOXAPARIN NA (PORCINE) 30 MG/0.3 ML DISP.SYRIN SQ SCH (11:11)
[2018-04-09] MEDS: NYSTATIN POWDER 100,000 UNITS/GM - 15 GM TOPICAL POWDER TP SCH (11:12)
[2018-04-09] MEDS: RANITIDINE HCL 150 MG TABLET (FP) PO SCH (11:15)
--- NOTE | 2018-04-09 11:40 | PN ---
Physical Exam: SUBJECTIVE: Patient seen and examined at bedside. No overnight events. No new complaints. Tolerating diet. Denies CP,, SOB,abdominal pain, nausea or vomiting. OBJECTIVE: Vital Signs Period Temp Pulse Resp BP Sys/Garcia Pulse Ox Last 24 Hr 97.4 F-99.5 F 87-111 20-20 103-116/46-64 95 GENERAL: Awake and alert, NAD HEENT: PERRLA,EOMI PULM: CTAB, No wheezing or rales. CV: RRR, NL S1S2, no M/G/R GI: Soft, NTND, obese, NABS, No organomegally. Ext: No clubbing or cyanosis; 2+LE edema, Bilateral LE venous stasis dermatitis. Neuro: awake and alert. Laboratory Results - last 24 hr 04/09/18 04/09/18 06:24 06:24 WBC 7.7 RBC 3.04 L Hgb 8.1 L Hct 25.5 L MCV 83.9 MCH 26.5 MCHC 31.6 L RDW 19.9 H Plt Count 208 MPV 7.0 L Absolute Neuts (auto) 5.1 Neutrophils % 66.1 Lymphocytes % 20.6 Monocytes % 9.5 Eosinophils % 3.6 Basophils % 0.2 Nucleated RBC % 0 Sodium 146 H Potassium 3.6 Chloride 114 H Carbon Dioxide 27 Anion Gap 6 L BUN 16 Creatinine 1.0 Creat Clearance w eGFR > 60 Random Glucose 88 Calcium 9.3 Phosphorus 2.0 L Magnesium 1.9 Active Medications Generic Name Dose Route Start Last Admin Trade Name Freq PRN Reason Stop Dose Admin Acetaminophen 650 mg 03/27/18 22:00 04/08/18 02:39 Tylenol - PO 650 mg Q4H PRN Administration FEVER/PAIN LEVEL 1-5 Amoxicillin/Clavulanate Potassium 1 tab 04/05/18 17:30 04/09/18 11:11 Augmentin - 500mg Tablet PO 1 tab BID@0800,1730 [facility]HELLE Administration Ascorbic Acid 500 mg 03/27/18 22:00 04/09/18 11:11 Vitamin C - PO 500 mg BID [facility] Administration Collagenase 1 applic 03/30/18 12:00 04/08/18 13:12 Santyl - TP 1 applic DAILY [facility] Administration Protocol Cyanocobalamin 1,000 mcg 03/28/18 10:00 04/09/18 11:11 Vitamin B12 - PO 1,000 mcg DAILY [facility] Administration Enoxaparin Sodium 30 mg 03/28/18 10:00 04/09/18 11:11 Lovenox - SQ 30 mg DAILY [facility] Administration Levothyroxine Sodium 25 mcg 03/28/18 07:00 04/09/18 06:48 Synthroid - PO 25 mcg 0700 [facility] Administration Nystatin 1 applic 04/06/18 13:15 04/09/18 11:12 Nystop Powder - TP Not Given DAILY [facility] Ranitidine HCl 150 mg 03/28/18 10:00 04/09/18 11:15 Zantac - PO 150 mg DAILY [facility] Administration Tamsulosin HCl 0.4 mg 03/28/18 08:30 04/09/18 11:11 Flomax - PO 0.4 mg 0830 [facility] Administration ASSESSMENT/PLAN: 87 yo M with PMHx morbidly obese ,H/O Lymphoma BIB EMS from [facility] with confusion and tiredness. ED w/u show + UA , dehydration and admitted for further management. Problem List - Problems (1) Hypercalcemia Assessment/Plan: This is 2/2 Lymphoma. * IVF stopped. * Encouraged PO intake. * PTH was low * PTH-RP WNL (2) Sepsis Assessment/Plan: continue abx. as per ID * Cultures show mulitple organisms in sacral wound. * Abx switched to PO Augmentin (3) PARMINDER (acute kidney injury) Assessment/Plan: 2/2 UTI * resolved * encourage PO intake * IVF stopped (4) Hodgkin lymphoma Assessment/Plan: Followed by Dr. Seth @ [facility] * recommend f/u once discharged back to [place]. Qualifiers: (5) Hypothyroid Assessment/Plan: Continue synthroid. Visit type - Emergency Visit Emergency Visit: Yes ED Registration Date: 03/27/18 Care time: The patient presented to the Emergency Department on the above date and was hospitalized for further evaluation of their emergent condition. - New Patient This patient is new to me today: No - Critical Care Critical Care patient: No
--- NOTE | 2018-04-09 14:36 | PN ---
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, Physician History of Present Illness: stable no new issues still very weak inbetween sleepy family in room - Current Medication List Current Medications: Active Medications Acetaminophen (Tylenol -) 650 mg PO Q4H PRN PRN Reason: FEVER/PAIN LEVEL 1-5 Last Admin: 04/08/18 02:39 Dose: 650 mg Amoxicillin/Clavulanate Potassium (Augmentin - 500mg Tablet) 1 tab PO BID@0800, 1730 [facility] Last Admin: 04/09/18 11:11 Dose: 1 tab Ascorbic Acid (Vitamin C -) 500 mg PO BID [facility] Last Admin: 04/09/18 11:11 Dose: 500 mg Collagenase (Santyl -) 1 applic TP DAILY [facility]; Protocol Last Admin: 04/08/18 13:12 Dose: 1 applic Cyanocobalamin (Vitamin B12 -) 1,000 mcg PO DAILY [facility] Last Admin: 04/09/18 11:11 Dose: 1,000 mcg Enoxaparin Sodium (Lovenox -) 30 mg SQ DAILY [facility] Last Admin: 04/09/18 11:11 Dose: 30 mg Levothyroxine Sodium (Synthroid -) 25 mcg PO 0700 [facility] Last Admin: 04/09/18 06:48 Dose: 25 mcg Nystatin (Nystop Powder -) 1 applic TP DAILY [facility] Last Admin: 04/09/18 11:12 Dose: Not Given Ranitidine HCl (Zantac -) 150 mg PO DAILY [facility] Last Admin: 04/09/18 11:15 Dose: 150 mg Tamsulosin HCl (Flomax -) 0.4 mg PO 0830 [facility] Last Admin: 04/09/18 11:11 Dose: 0.4 mg - Objective Vital Signs: Vital Signs Temperature 98.2 F 04/09/18 14:10 Pulse Rate 97 H 04/09/18 14:10 Respiratory Rate 20 04/09/18 14:10 Blood Pressure 122/72 04/09/18 14:10 O2 Sat by Pulse Oximetry (%) 95 04/09/18 09:00 Constitutional: Yes: No Distress, Calm, Obese Cardiovascular: Yes: S1, S2 Respiratory: Yes: Regular, Poor Air Entry (bases) Gastrointestinal: Yes: Normal Bowel Sounds, Soft Musculoskeletal: Yes: WNL Extremities: Yes: WNL, Other Neurological: Yes: Alert, Other Labs: CBC, BMP 04/09/18 06:24 04/09/18 06:24 INR, PTT INR 1.29 (0.83-1.09) H 03/28/18 08:10 Assessment/Plan Problem List - Problems (1) PARMINDER (acute kidney injury) Code(s): N17.9 - ACUTE KIDNEY FAILURE, UNSPECIFIED (2) Hodgkin lymphoma Code(s): C81.90 - HODGKIN LYMPHOMA, UNSPECIFIED, UNSPECIFIED SITE (3) Morbidly obese Code(s): E66.01 - MORBID (SEVERE) OBESITY DUE TO EXCESS CALORIES (4) Sepsis Code(s): A41.9 - SEPSIS, UNSPECIFIED ORGANISM (5) UTI (urinary tract infection) Code(s): N39.0 - URINARY TRACT INFECTION, SITE NOT SPECIFIED (6) Weakness Code(s): R53.1 - WEAKNESS (7) Anemia Code(s): D64.9 - ANEMIA, UNSPECIFIED Qualifiers: Anemia type: unspecified type Qualified Code(s): D64.9 - Anemia, unspecified (8) BPH (benign prostatic hyperplasia) Code(s): N40.0 - BENIGN PROSTATIC HYPERPLASIA WITHOUT LOWER URINRY TRACT SYMP Assessment/Plan 87 y.o. male presenting from [place] with weakness/altered mental status, poor oral intake, fevers, and lactic acidosis Sepsis - unclear source Fever Lactic acidosis BPH Hx of Hodgkins Lymphoma PARMINDER Hypothyroidism plan oral abx stop them after 4 more days wound care rest as per the team patient stable
[2018-04-09] MEDS: COLLAGENASE CLOSTRIDIUM HIST. 30 GRAMS TUBE TP SCH (15:22)
--- NOTE | 2018-04-09 16:20 | PN ---
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, Physician Chief Complaint: Mr Carmichael says he is doing well. Denies cp, sob, n/v. - Current Medication List Current Medications: Active Medications Acetaminophen (Tylenol -) 650 mg PO Q4H PRN PRN Reason: FEVER/PAIN LEVEL 1-5 Last Admin: 04/08/18 02:39 Dose: 650 mg Amoxicillin/Clavulanate Potassium (Augmentin - 500mg Tablet) 1 tab PO BID@0800, 1730 [facility] Last Admin: 04/09/18 11:11 Dose: 1 tab Ascorbic Acid (Vitamin C -) 500 mg PO BID [facility] Last Admin: 04/09/18 11:11 Dose: 500 mg Collagenase (Santyl -) 1 applic TP DAILY [facility]; Protocol Last Admin: 04/09/18 15:22 Dose: 1 applic Cyanocobalamin (Vitamin B12 -) 1,000 mcg PO DAILY [facility] Last Admin: 04/09/18 11:11 Dose: 1,000 mcg Enoxaparin Sodium (Lovenox -) 30 mg SQ DAILY [facility] Last Admin: 04/09/18 11:11 Dose: 30 mg Levothyroxine Sodium (Synthroid -) 25 mcg PO 0700 [facility] Last Admin: 04/09/18 06:48 Dose: 25 mcg Nystatin (Nystop Powder -) 1 applic TP DAILY [facility] Last Admin: 04/09/18 11:12 Dose: Not Given Ranitidine HCl (Zantac -) 150 mg PO DAILY [facility] Last Admin: 04/09/18 11:15 Dose: 150 mg Tamsulosin HCl (Flomax -) 0.4 mg PO 0830 [facility] Last Admin: 04/09/18 11:11 Dose: 0.4 mg - Objective Vital Signs: Vital Signs Temperature 36.8 C 04/09/18 14:10 Pulse Rate 97 H 04/09/18 14:10 Respiratory Rate 20 04/09/18 14:10 Blood Pressure 122/72 04/09/18 14:10 O2 Sat by Pulse Oximetry (%) 95 04/09/18 09:00 Constitutional: Yes: No Distress, Calm, Obese Cardiovascular: Yes: Regular Rate and Rhythm. No: Gallop, Murmur, Rub Respiratory: Yes: Regular, CTA Bilaterally. No: Rales, Rhonchi, Wheezes Gastrointestinal: Yes: Normal Bowel Sounds, Soft. No: Distention, Tenderness Extremities: Yes: WNL Edema: No Labs: CBC, BMP 04/09/18 06:24 04/09/18 06:24 INR, PTT INR 1.29 (0.83-1.09) H 03/28/18 08:10 Problem List - Problems (1) Sepsis Code(s): A41.9 - SEPSIS, UNSPECIFIED ORGANISM Qualifiers: Sepsis type: sepsis due to unspecified organism Qualified Code(s): A41.9 - Sepsis, unspecified organism (2) Decubitus ulcer Code(s): L89.90 - PRESSURE ULCER OF UNSPECIFIED SITE, UNSPECIFIED STAGE Qualifiers: Pressure injury location: sacral region Pressure injury stage: stage 3 Qualified Code(s): L89.153 - Pressure ulcer of sacral region, stage 3 (3) Hypernatremia Code(s): E87.0 - HYPEROSMOLALITY AND HYPERNATREMIA (4) PARMINDER (acute kidney injury) Code(s): N17.9 - ACUTE KIDNEY FAILURE, UNSPECIFIED (5) Hypothyroid Code(s): E03.9 - HYPOTHYROIDISM, UNSPECIFIED Qualifiers: Hypothyroidism type: acquired Qualified Code(s): E03.9 - Hypothyroidism, unspecified (6) Morbidly obese Code(s): E66.01 - MORBID (SEVERE) OBESITY DUE TO EXCESS CALORIES (7) Anemia Code(s): D64.9 - ANEMIA, UNSPECIFIED Qualifiers: Anemia type: unspecified type Qualified Code(s): D64.9 - Anemia, unspecified (8) Hodgkin lymphoma Code(s): C81.90 - HODGKIN LYMPHOMA, UNSPECIFIED, UNSPECIFIED SITE (9) Hypercalcemia Code(s): E83.52 - HYPERCALCEMIA (10) Metabolic encephalopathy Code(s): G93.41 - METABOLIC ENCEPHALOPATHY (11) Constipation Code(s): K59.00 - CONSTIPATION, UNSPECIFIED Assessment/Plan (1) Sepsis Assessment/Plan: -wound culture polymicrobial with final results -appreciate ID assistance -now on augmentin Code(s): A41.9 - SEPSIS, UNSPECIFIED ORGANISM (2) Decubitus ulcer Assessment/Plan: -appreciate wound care assistance -collagenase, frequent turning Code(s): L89.90 - PRESSURE ULCER OF UNSPECIFIED SITE, UNSPECIFIED STAGE Qualifiers: Pressure injury location: sacral region Pressure injury stage: stage 3 Qualified Code(s): L89.153 - Pressure ulcer of sacral region, stage 3 (3) Hypernatremia Assessment/Plan: -returning -case d/w Dr Bethea -will restart on IVF Code(s): E87.0 - HYPEROSMOLALITY AND HYPERNATREMIA (4) PARMINDER (acute kidney injury) Assessment/Plan: -resolved Code(s): N17.9 - ACUTE KIDNEY FAILURE, UNSPECIFIED (5) Hypothyroid -continue synthroid Code(s): E03.9 - HYPOTHYROIDISM, UNSPECIFIED (6) Morbidly obese Assessment/Plan: -noted Code(s): E66.01 - MORBID (SEVERE) OBESITY DUE TO EXCESS CALORIES (7) Anemia Assessment/Plan: -stable -monitor Code(s): D64.9 - ANEMIA, UNSPECIFIED Qualifiers: Anemia type: unspecified type Qualified Code(s): D64.9 - Anemia, unspecified (8) Hodgkin lymphoma Assessment/Plan: -oncology following -awaiting further plans since calcium is elevating again Code(s): C81.90 - HODGKIN LYMPHOMA, UNSPECIFIED, UNSPECIFIED SITE (9) Hypercalcemia -received zometa on 04/03 -corrected calcium is high -restart fluids (10) Fever -has not recurred -all cultures currently negative -suspect secondary to atelectasis
--- NOTE | 2018-04-09 16:58 | PN ---
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, Physician History of Present Illness: Pt seen and examined at bedside. No great change in his clinical status. - Current Medication List Current Medications: Active Medications Acetaminophen (Tylenol -) 650 mg PO Q4H PRN PRN Reason: FEVER/PAIN LEVEL 1-5 Last Admin: 04/08/18 02:39 Dose: 650 mg Amoxicillin/Clavulanate Potassium (Augmentin - 500mg Tablet) 1 tab PO BID@0800, 1730 [facility] Last Admin: 04/09/18 11:11 Dose: 1 tab Ascorbic Acid (Vitamin C -) 500 mg PO BID [facility] Last Admin: 04/09/18 11:11 Dose: 500 mg Collagenase (Santyl -) 1 applic TP DAILY [facility]; Protocol Last Admin: 04/09/18 15:22 Dose: 1 applic Cyanocobalamin (Vitamin B12 -) 1,000 mcg PO DAILY [facility] Last Admin: 04/09/18 11:11 Dose: 1,000 mcg Enoxaparin Sodium (Lovenox -) 30 mg SQ DAILY [facility] Last Admin: 04/09/18 11:11 Dose: 30 mg Levothyroxine Sodium (Synthroid -) 25 mcg PO 0700 [facility] Last Admin: 04/09/18 06:48 Dose: 25 mcg Nystatin (Nystop Powder -) 1 applic TP DAILY [facility] Last Admin: 04/09/18 11:12 Dose: Not Given Ranitidine HCl (Zantac -) 150 mg PO DAILY [facility] Last Admin: 04/09/18 11:15 Dose: 150 mg Tamsulosin HCl (Flomax -) 0.4 mg PO 0830 [facility] Last Admin: 04/09/18 11:11 Dose: 0.4 mg - Objective Vital Signs: Vital Signs Temperature 98.2 F 04/09/18 14:10 Pulse Rate 97 H 04/09/18 14:10 Respiratory Rate 20 04/09/18 14:10 Blood Pressure 122/72 04/09/18 14:10 O2 Sat by Pulse Oximetry (%) 95 04/09/18 09:00 Constitutional: Yes: Calm Eyes: Yes: Conjunctiva Clear HENT: Yes: Atraumatic Cardiovascular: Yes: S1, S2 Respiratory: Yes: CTA Bilaterally Gastrointestinal: Yes: Soft, Abdomen, Obese Genitourinary: Yes: Incontinence Musculoskeletal: Yes: Muscle Weakness Edema: No Neurological: Yes: Confusion Labs: CBC, BMP 04/09/18 06:24 04/09/18 06:24 INR, PTT INR 1.29 (0.83-1.09) H 03/28/18 08:10 Problem List - Problems (1) PARMINDER (acute kidney injury) Code(s): N17.9 - ACUTE KIDNEY FAILURE, UNSPECIFIED (2) Decubitus ulcer Code(s): L89.90 - PRESSURE ULCER OF UNSPECIFIED SITE, UNSPECIFIED STAGE Qualifiers: Pressure injury location: sacral region Pressure injury stage: stage 3 Qualified Code(s): L89.153 - Pressure ulcer of sacral region, stage 3 (3) Dehydration Code(s): E86.0 - DEHYDRATION (4) Hodgkin lymphoma Code(s): C81.90 - HODGKIN LYMPHOMA, UNSPECIFIED, UNSPECIFIED SITE Qualifiers: Hodgkin lymphoma type: unspecified type (5) Hypercalcemia Code(s): E83.52 - HYPERCALCEMIA (6) Hypernatremia Code(s): E87.0 - HYPEROSMOLALITY AND HYPERNATREMIA (7) Hypokalemia Code(s): E87.6 - HYPOKALEMIA (8) Hypothyroid Code(s): E03.9 - HYPOTHYROIDISM, UNSPECIFIED Qualifiers: Hypothyroidism type: acquired Qualified Code(s): E03.9 - Hypothyroidism, unspecified (9) Sepsis Code(s): A41.9 - SEPSIS, UNSPECIFIED ORGANISM Qualifiers: Sepsis type: sepsis due to unspecified organism Qualified Code(s): A41.9 - Sepsis, unspecified organism (10) BPH (benign prostatic hyperplasia) Code(s): N40.0 - BENIGN PROSTATIC HYPERPLASIA WITHOUT LOWER URINRY TRACT SYMP Assessment/Plan Current Medications Generic Name Dose Route Start Last Admin Trade Name Freq PRN Reason Stop Dose Admin Acetaminophen 650 mg 03/27/18 22:00 04/08/18 02:39 Tylenol - PO 650 mg Q4H PRN Administration FEVER/PAIN LEVEL 1-5 Amoxicillin/Clavulanate Potassium 1 tab 04/05/18 17:30 04/09/18 11:11 Augmentin - 500mg Tablet PO 1 tab BID@0800,1730 [facility] Administration Ascorbic Acid 500 mg 03/27/18 22:00 04/09/18 11:11 Vitamin C - PO 500 mg BID [facility] Administration Collagenase 1 applic 03/30/18 12:00 04/09/18 15:22 Santyl - TP 1 applic DAILY [facility] Administration Protocol Cyanocobalamin 1,000 mcg 03/28/18 10:00 04/09/18 11:11 Vitamin B12 - PO 1,000 mcg DAILY [facility] Administration Enoxaparin Sodium 30 mg 03/28/18 10:00 04/09/18 11:11 Lovenox - SQ 30 mg DAILY [facility] Administration Levothyroxine Sodium 25 mcg 03/28/18 07:00 04/09/18 06:48 Synthroid - PO 25 mcg 0700 [facility] Administration Nystatin 1 applic 04/06/18 13:15 04/09/18 11:12 Nystop Powder - TP Not Given DAILY [facility] Ranitidine HCl 150 mg 03/28/18 10:00 04/09/18 11:15 Zantac - PO 150 mg DAILY [facility] Administration Tamsulosin HCl 0.4 mg 03/28/18 08:30 04/09/18 11:11 Flomax - PO 0.4 mg 0830 [facility] Administration Impression 1. PARMINDER resolving 2. hypernatremia 3. hypercalcemia 4. hypokalemia 5. BPH 6. hodgkins lymphoma 7. sacral decub 8. sepsis 9. obesity 10. anemia Plan - calcium is higher - will restart fluids - oncology follow up - suspect malignancy related - encourage PO intake and avoid dehydration - he received a dose of zometa - monitor calcium and albumin - will follow
[2018-04-09] MEDS: SODIUM CHLORIDE 0.45% 1,000 ML IV SCH (18:13)
[2018-04-10] MEDS: LEVOTHYROXINE NA 25 MCG TABLET (FP) PO SCH (06:12)
[2018-04-10 07:49] LABS: BASO % 0.2 % (0-2.0); EOS % 4.4 % (0-4.5); HEMATOCRIT 24.9 % (35.4-49); LYMPH % 21.2 % (8-40); MCH 26.8 pg (25.7-33.7); MCHC 32.1 g/dl (32.0-35.9); MEAN CELL VOLUME 83.5 fl (80-96); MEAN PLT VOLUME 6.7 fl (7.5-11.1); MONO % 9.8 % (3.8-10.2); NEUT % 64.4 % (42.8-82.8); PLATELET COUNT 202 K/MM3 (134-434); RBC 2.98 M/mm3 (4.00-5.60); RDW 19.7 % (11.9-15.9); WHITE BLOOD COUNT 6.8 K/mm3 (4.0-10.0)
[2018-04-10 08:11] LABS: ALBUMIN 1.7 g/dl (3.4-5.0); ALK PHOS 95 U/L (45-117); ANION GAP 8 MMOL/L (8-16); BILIRUBIN,TOTAL 0.4 mg/dL (0.2-1); BLOOD UREA NITROGEN 16 mg/dL (7-18); CALCIUM 9.2 mg/dL (8.5-10.1); CHLORIDE 111 mmol/L (98-107); CO2 26 mmol/L (21-32); CREATININE 0.8 mg/dL (0.55-1.3); GLUCOSE,RANDOM 84 mg/dL (74-106); MAGNESIUM 1.9 mg/dL (1.8-2.4); PHOSPHOROUS 2.2 mg/dL (2.5-4.9); POTASSIUM 3.6 mmol/L (3.5-5.1); SGOT/AST 11 U/L (15-37); SGPT/ALT 8 U/L (13-61); SODIUM 145 mmol/L (136-145); TOT PROT 5.2 g/dl (6.4-8.2)
[2018-04-10] MEDS ORDERED: PT OWN MED DRAWER 7, Y5N ONE (08:39)
[2018-04-10] MEDS: TAMSULOSIN HCL 0.4 MG CAP PO SCH (08:52)
[2018-04-10] MEDS: AMOX TR/POT CLAV 500MG/125MG TABLETS (FP) PO SCH ×2 (08:52→17:44)
[2018-04-10] MEDS: SODIUM CHLORIDE 0.45% 1,000 ML IV SCH ×2 (08:54→17:44)
[2018-04-10] MEDS: ENOXAPARIN NA (PORCINE) 30 MG/0.3 ML DISP.SYRIN SQ SCH ×2 (08:55→09:06)
[2018-04-10] MEDS: ASCORBIC ACID 500 MG TABLET (FP) PO SCH ×3 (08:56→21:50)
[2018-04-10] MEDS: CYANOCOBALAMIN 1,000 MCG TABLET (FP) PO SCH ×2 (08:56→09:06)
[2018-04-10] MEDS: RANITIDINE HCL 150 MG TABLET (FP) PO SCH ×2 (08:56→09:17)
--- NOTE | 2018-04-10 11:42 | PN ---
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, Physician History of Present Illness: stable no new issues still very weak awake and alert - Current Medication List Current Medications: Active Medications Acetaminophen (Tylenol -) 650 mg PO Q4H PRN PRN Reason: FEVER/PAIN LEVEL 1-5 Last Admin: 04/08/18 02:39 Dose: 650 mg Amoxicillin/Clavulanate Potassium (Augmentin - 500mg Tablet) 1 tab PO BID@0800, 1730 [facility] Last Admin: 04/10/18 08:52 Dose: 1 tab Ascorbic Acid (Vitamin C -) 500 mg PO BID [facility] Last Admin: 04/10/18 09:06 Dose: Not Given Collagenase (Santyl -) 1 applic TP DAILY [facility]; Protocol Last Admin: 04/09/18 15:22 Dose: 1 applic Cyanocobalamin (Vitamin B12 -) 1,000 mcg PO DAILY [facility] Last Admin: 04/10/18 09:06 Dose: Not Given Enoxaparin Sodium (Lovenox -) 30 mg SQ DAILY [facility] Last Admin: 04/10/18 09:06 Dose: Not Given Sodium Chloride (1/2 Normal Saline) 1,000 mls @ 75 mls/hr IV ASDIR [facility] Last Admin: 04/10/18 08:54 Dose: 75 mls/hr Levothyroxine Sodium (Synthroid -) 25 mcg PO 0700 [facility] Last Admin: 04/10/18 06:12 Dose: 25 mcg Nystatin (Nystop Powder -) 1 applic TP DAILY [facility] Last Admin: 04/09/18 11:12 Dose: Not Given Ranitidine HCl (Zantac -) 150 mg PO DAILY [facility] Last Admin: 04/10/18 09:17 Dose: Not Given Tamsulosin HCl (Flomax -) 0.4 mg PO 0830 [facility] Last Admin: 04/10/18 08:52 Dose: 0.4 mg - Objective Vital Signs: Vital Signs Temperature 97.6 F 04/10/18 06:36 Pulse Rate 93 H 04/10/18 06:36 Respiratory Rate 18 04/10/18 06:36 Blood Pressure 113/54 L 04/10/18 06:36 O2 Sat by Pulse Oximetry (%) 97 04/09/18 21:00 Constitutional: Yes: No Distress, Calm, Obese, Other (bed bound) Cardiovascular: Yes: S1, S2 Respiratory: Yes: Regular Gastrointestinal: Yes: Normal Bowel Sounds, Soft Musculoskeletal: Yes: WNL Extremities: Yes: WNL Neurological: Yes: Alert Labs: CBC, BMP 04/10/18 06:00 04/10/18 06:00 INR, PTT INR 1.29 (0.83-1.09) H 03/28/18 08:10 Assessment/Plan Problem List - Problems (1) PARMINDER (acute kidney injury) Code(s): N17.9 - ACUTE KIDNEY FAILURE, UNSPECIFIED (2) Hodgkin lymphoma Code(s): C81.90 - HODGKIN LYMPHOMA, UNSPECIFIED, UNSPECIFIED SITE (3) Morbidly obese Code(s): E66.01 - MORBID (SEVERE) OBESITY DUE TO EXCESS CALORIES (4) Sepsis Code(s): A41.9 - SEPSIS, UNSPECIFIED ORGANISM (5) UTI (urinary tract infection) Code(s): N39.0 - URINARY TRACT INFECTION, SITE NOT SPECIFIED (6) Weakness Code(s): R53.1 - WEAKNESS (7) Anemia Code(s): D64.9 - ANEMIA, UNSPECIFIED Qualifiers: Anemia type: unspecified type Qualified Code(s): D64.9 - Anemia, unspecified (8) BPH (benign prostatic hyperplasia) Code(s): N40.0 - BENIGN PROSTATIC HYPERPLASIA WITHOUT LOWER URINRY TRACT SYMP Assessment/Plan 87 y.o. male presenting from [place] with weakness/altered mental status, poor oral intake, fevers, and lactic acidosis Sepsis - unclear source Fever Lactic acidosis BPH Hx of Hodgkins Lymphoma PARMINDER Hypothyroidism plan oral abx stop them after 3 more days wound care rest as per the team patient stable
--- NOTE | 2018-04-10 13:23 | PN ---
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 (short form) - Note 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: Patient seen and examined Remains essentially bedridden Complains of coughing with eating--?aspiration Last Vital Signs Temp Pulse Resp BP Pulse Ox 97.9 F 95 H 20 124/67 98 04/10/18 10:00 04/10/18 10:00 04/10/18 10:00 04/10/18 10:00 04/10/18 09:00 HEENT: ZO, EOM Intact Oropharynx: No thrush, No mucositis Cor: RSR, No murmurs, No gallops Lungs: diminished breath sounds bilaterally Abd: Soft, Normal bowel sounds, No organomegaly Ext:LE edema, stasis CBC, BMP 04/10/18 06:00 04/10/18 06:00 Current Medications Generic Name Dose Route Start Last Admin Trade Name Freq PRN Reason Stop Dose Admin Acetaminophen 650 mg 03/27/18 22:00 04/08/18 02:39 Tylenol - PO 650 mg Q4H PRN Administration FEVER/PAIN LEVEL 1-5 Amoxicillin/Clavulanate Potassium 1 tab 04/05/18 17:30 04/10/18 08:52 Augmentin - 500mg Tablet PO 1 tab BID@0800,1730 [facility] Administration Ascorbic Acid 500 mg 03/27/18 22:00 04/10/18 09:06 Vitamin C - PO Not Given BID [facility] Calcitonin 400 unit 04/10/18 13:15 Miacalcin Injection - IM 04/13/18 13:14 BID [facility] Collagenase 1 applic 03/30/18 12:00 04/09/18 15:22 Santyl - TP 1 applic DAILY [facility] Administration Protocol Cyanocobalamin 1,000 mcg 03/28/18 10:00 04/10/18 09:06 Vitamin B12 - PO Not Given DAILY [facility] Enoxaparin Sodium 30 mg 03/28/18 10:00 04/10/18 09:06 Lovenox - SQ Not Given DAILY [facility] Sodium Chloride 1,000 mls @ 75 mls/hr 04/09/18 17:00 04/10/18 08:54 1/2 Normal Saline IV 75 mls/hr ASDIR [facility] Administration Levothyroxine Sodium 25 mcg 03/28/18 07:00 04/10/18 06:12 Synthroid - PO 25 mcg 0700 [facility] Administration Nystatin 1 applic 04/06/18 13:15 04/09/18 11:12 Nystop Powder - TP Not Given DAILY [facility] Ranitidine HCl 150 mg 03/28/18 10:00 04/10/18 09:17 Zantac - PO Not Given DAILY [facility] Tamsulosin HCl 0.4 mg 03/28/18 08:30 04/10/18 08:52 Flomax - PO 0.4 mg 0830 [facility] Administration Impression: History of HD Hypercalcemia with corrected Ca++ still elevated at 11.2 Wound Anemia Plan: Trial of calcitonin remains on low dose hydration continuing on antibiotic therapy
--- NOTE | 2018-04-10 16:12 | CONSULT ---
Admitting History and Physical - Primary Care Physician PCP: John Purcell - Admission History of Present Illness: History of HD Hypercalcemia with corrected Ca++ still elevated at 11.2 Wound Anemia Coughing on nectar thick liquid. Poor appetite. Was on soft, reg diet/thin liquid at [place] Started on reg thin, downgraded to puree nectar on 04/02. Last cxr 04/03 ok Selected Entries 04/07/18 04/07/18 04/07/18 11:03 13:52 18:00 Breakfast 25% Lunch 25% Supper 25% Temperature 04/08/18 04/08/18 04/08/18 10:14 15:22 18:00 Breakfast 75% Lunch 75% Supper 50% Temperature 04/09/18 04/09/18 04/09/18 02:00 10:49 14:10 Breakfast 75% Lunch 50% Supper Temperature 99.5 F 98.2 F 04/09/18 04/10/18 04/10/18 18:00 01:29 06:36 Breakfast Lunch Supper 25% Temperature 98.9 F 99.0 F 97.6 F 04/10/18 04/10/18 04/10/18 10:00 10:47 15:59 Breakfast 25% Lunch 25% Supper Temperature 97.9 F 98.5 F Laboratory Tests 04/09/18 04/10/18 06:24 06:00 WBC 7.7 6.8 History Source: Medical Record Limitations to Obtaining History: Clinical Condition - Past Medical History Cardiovascular: Yes: Murmur (systolic) Gastrointestinal: Yes: Other (diarrhea recrently) Renal/: Yes: BPH Heme/Onc: Yes: Other (hodgkins lymphoma) Endocrine: Yes: Hypothyroidism - Past Surgical History Past Surgical History: Yes: Joint Replacement (b/l knee) - Advance Directives Advance Directives: Yes: DNR, MOLST - Smoking History Smoking history: Unknown if ever smoked Have you smoked in the past 12 months: No - Alcohol/Substance Use Hx Alcohol Use: No - Social History History of Recent Travel: No History - Admission Reason For Visit: HOPDGKIN LYMPHOMA, UTI, SEPSIS - Diagnostics X-ray: Report Reviewed - General Mental Status: Awake and Alert, Able to Follow Commands, Forgetful, Vague, Flat Affect Attention: Distractible, Moderate Impairment Ability to Follow Directions: Fair (with repetition needed) - Hearing Hearing: Functional Hearing Aide: No With Patient: No Speech Evaluation - Communication Primary Language: SWEDISH Communication: Yes: Simple Responses (vague. Limited verbalizations.) - Speech Production Intelligibility: Yes: Mildly Impaired - Speech Characteristics Voice Loudness: Mildly Soft/Quiet Voice Pitch: Yes: Normal Voice Phonatory-based Quality: Yes: Normal Nasal Resonance: Normal Articulation: Yes: Precise - Language/Auditory Comprehension Follows: Yes: 1 Stage Simple Commands Observation: Comprehends Conversational Speech: Yes (simple), Benefits from Slow Speech: Yes, Benefits from Repetiton: Yes, Benefits from Increased Volume of Speech: Yes - Swallow Evaluation/Bedside Assessment Current Nutritional Intake: Dysphagia Pureed, [place] Textured Liquids Facial Symmetry at Rest: Symmetrical Facial Symmetry on Retraction: Symmetrical Against Resistance Opening: Normal Against Resistance Closing: Normal Pucker Lips: Normal Smile: Normal Lingual Movement: Symmetric Lingual Speed of Movement: Normal Lingual Movement Strgth Against Opposition: Normal Lingual Movement Characteristics: Normal Velopharyngeal Movement: Normal Laryngeal Elevation: Impaired Laryngeal Movement: Reduced Excursion, Labored,delay initiation, Reduced Velocity Rate of Intake: Slow/Holding Bolus Size: Small Labial Seal: WFL A-P Transit: WFL Timing of Swallow: Delayed Coughing/Throat Clear: Yes (nectar) Recommendations - Speech Evaluation, Impression/Plan Impression: Slow to respond. Little verbalization.Very delayed swallow, with repeated cues to "swallow.". Cough response with nectar thick liquid c/w aspiration. - Disposition Discharge to: Long Term Facility - Dysphagia Impressions/Plan Swallowing Skills: Impaired Dysphagia Impressions: Mild Impairment, Moderate Impairment *Silent aspiration: cannot be R/O at bedside Dysphagia Treatment Plan: Small Bites, Chin Tuck/Down, Trial Feedings, Safe Rate , 1/2 tsp. at a time, Elevate HOB during feed, Other (Tell pt to "swallow hard, twice" with each tsp.) Recommendations: Modified Barium Swallow - Recommendations Diet Consistency: Dysphagia Pureed Medication Administration: Crushed with applesauce Liquids: Honey Thick (Tell pt to "swallow hard, twice" with each tsp.) Supplement: Magic Cup, Ensure Pudding, Other (d/c ensure compact)
--- NOTE | 2018-04-10 16:43 | PN ---
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, Physician History of Present Illness: Pt seen and examined at bedside. He is awake and appears comfortable. He denies shortness of breath. - Current Medication List Current Medications: Active Medications Acetaminophen (Tylenol -) 650 mg PO Q4H PRN PRN Reason: FEVER/PAIN LEVEL 1-5 Last Admin: 04/08/18 02:39 Dose: 650 mg Amoxicillin/Clavulanate Potassium (Augmentin - 500mg Tablet) 1 tab PO BID@0800, 1730 [facility] Last Admin: 04/10/18 08:52 Dose: 1 tab Ascorbic Acid (Vitamin C -) 500 mg PO BID [facility] Last Admin: 04/10/18 09:06 Dose: Not Given Calcitonin (Miacalcin Injection -) 400 unit IM BID [facility] Stop: 04/13/18 13:14 Collagenase (Santyl -) 1 applic TP DAILY [facility]; Protocol Last Admin: 04/09/18 15:22 Dose: 1 applic Cyanocobalamin (Vitamin B12 -) 1,000 mcg PO DAILY [facility] Last Admin: 04/10/18 09:06 Dose: Not Given Enoxaparin Sodium (Lovenox -) 30 mg SQ DAILY [facility] Last Admin: 04/10/18 09:06 Dose: Not Given Sodium Chloride (1/2 Normal Saline) 1,000 mls @ 75 mls/hr IV ASDIR [facility] Last Admin: 04/10/18 08:54 Dose: 75 mls/hr Levothyroxine Sodium (Synthroid -) 25 mcg PO 0700 [facility] Last Admin: 04/10/18 06:12 Dose: 25 mcg Nystatin (Nystop Powder -) 1 applic TP DAILY [facility] Last Admin: 04/09/18 11:12 Dose: Not Given Ranitidine HCl (Zantac -) 150 mg PO DAILY [facility] Last Admin: 04/10/18 09:17 Dose: Not Given Tamsulosin HCl (Flomax -) 0.4 mg PO 0830 [facility] Last Admin: 04/10/18 08:52 Dose: 0.4 mg - Objective Vital Signs: Vital Signs Temperature 98.5 F 04/10/18 15:59 Pulse Rate 98 H 04/10/18 15:59 Respiratory Rate 20 04/10/18 15:59 Blood Pressure 107/59 L 04/10/18 15:59 O2 Sat by Pulse Oximetry (%) 98 04/10/18 09:00 Constitutional: Yes: Calm Eyes: Yes: Conjunctiva Clear HENT: Yes: Atraumatic Cardiovascular: Yes: S1, S2 Respiratory: Yes: CTA Bilaterally Gastrointestinal: Yes: Soft, Abdomen, Obese Genitourinary: Yes: Incontinence Musculoskeletal: Yes: Muscle Weakness Edema: No Neurological: Yes: Confusion Labs: CBC, BMP 04/10/18 06:00 04/10/18 06:00 INR, PTT INR 1.29 (0.83-1.09) H 03/28/18 08:10 Problem List - Problems (1) PARMINDER (acute kidney injury) Code(s): N17.9 - ACUTE KIDNEY FAILURE, UNSPECIFIED (2) Decubitus ulcer Code(s): L89.90 - PRESSURE ULCER OF UNSPECIFIED SITE, UNSPECIFIED STAGE Qualifiers: Pressure injury location: sacral region Pressure injury stage: stage 3 Qualified Code(s): L89.153 - Pressure ulcer of sacral region, stage 3 (3) Dehydration Code(s): E86.0 - DEHYDRATION (4) Hodgkin lymphoma Code(s): C81.90 - HODGKIN LYMPHOMA, UNSPECIFIED, UNSPECIFIED SITE Qualifiers: Hodgkin lymphoma type: unspecified type (5) Hypercalcemia Code(s): E83.52 - HYPERCALCEMIA (6) Hypernatremia Code(s): E87.0 - HYPEROSMOLALITY AND HYPERNATREMIA (7) Hypokalemia Code(s): E87.6 - HYPOKALEMIA (8) Hypothyroid Code(s): E03.9 - HYPOTHYROIDISM, UNSPECIFIED Qualifiers: Hypothyroidism type: acquired Qualified Code(s): E03.9 - Hypothyroidism, unspecified (9) Sepsis Code(s): A41.9 - SEPSIS, UNSPECIFIED ORGANISM Qualifiers: Sepsis type: sepsis due to unspecified organism Qualified Code(s): A41.9 - Sepsis, unspecified organism (10) BPH (benign prostatic hyperplasia) Code(s): N40.0 - BENIGN PROSTATIC HYPERPLASIA WITHOUT LOWER URINRY TRACT SYMP Assessment/Plan Current Medications Generic Name Dose Route Start Last Admin Trade Name Freq PRN Reason Stop Dose Admin Acetaminophen 650 mg 03/27/18 22:00 04/08/18 02:39 Tylenol - PO 650 mg Q4H PRN Administration FEVER/PAIN LEVEL 1-5 Amoxicillin/Clavulanate Potassium 1 tab 04/05/18 17:30 04/10/18 08:52 Augmentin - 500mg Tablet PO 1 tab BID@0800,1730 [facility] Administration Ascorbic Acid 500 mg 03/27/18 22:00 04/10/18 09:06 Vitamin C - PO Not Given BID [facility] Calcitonin 400 unit 04/10/18 13:15 Miacalcin Injection - IM 04/13/18 13:14 BID [facility] Collagenase 1 applic 03/30/18 12:00 04/09/18 15:22 Santyl - TP 1 applic DAILY [facility] Administration Protocol Cyanocobalamin 1,000 mcg 03/28/18 10:00 04/10/18 09:06 Vitamin B12 - PO Not Given DAILY [facility] Enoxaparin Sodium 30 mg 03/28/18 10:00 04/10/18 09:06 Lovenox - SQ Not Given DAILY [facility] Sodium Chloride 1,000 mls @ 75 mls/hr 04/09/18 17:00 04/10/18 08:54 1/2 Normal Saline IV 75 mls/hr ASDIR [facility] Administration Levothyroxine Sodium 25 mcg 03/28/18 07:00 04/10/18 06:12 Synthroid - PO 25 mcg 0700 [facility] Administration Nystatin 1 applic 04/06/18 13:15 04/09/18 11:12 Nystop Powder - TP Not Given DAILY [facility] Ranitidine HCl 150 mg 03/28/18 10:00 04/10/18 09:17 Zantac - PO Not Given DAILY [facility] Tamsulosin HCl 0.4 mg 03/28/18 08:30 04/10/18 08:52 Flomax - PO 0.4 mg 0830 [facility] Administration Impression 1. PARMINDER resolving 2. hypernatremia 3. hypercalcemia 4. hypokalemia 5. BPH 6. hodgkins lymphoma 7. sacral decub 8. sepsis 9. obesity 10. anemia Plan - cont fluids - calcitonin started - pt received zometa - likely etiology is malignancy as pt has history of lymphoma - discussed with oncology - PTH was low - monitor calcium and albumin - will follow
--- NOTE | 2018-04-10 16:45 | PN ---
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, Physician Chief Complaint: Mr Carmichael says he is doing well. Denies cp, sob, n/v. - Current Medication List Current Medications: Active Medications Acetaminophen (Tylenol -) 650 mg PO Q4H PRN PRN Reason: FEVER/PAIN LEVEL 1-5 Last Admin: 04/08/18 02:39 Dose: 650 mg Amoxicillin/Clavulanate Potassium (Augmentin - 500mg Tablet) 1 tab PO BID@0800, 1730 [facility] Last Admin: 04/10/18 08:52 Dose: 1 tab Ascorbic Acid (Vitamin C -) 500 mg PO BID [facility] Last Admin: 04/10/18 09:06 Dose: Not Given Calcitonin (Miacalcin Injection -) 400 unit IM BID [facility] Stop: 04/13/18 13:14 Collagenase (Santyl -) 1 applic TP DAILY [facility]; Protocol Last Admin: 04/09/18 15:22 Dose: 1 applic Cyanocobalamin (Vitamin B12 -) 1,000 mcg PO DAILY [facility] Last Admin: 04/10/18 09:06 Dose: Not Given Enoxaparin Sodium (Lovenox -) 30 mg SQ DAILY [facility] Last Admin: 04/10/18 09:06 Dose: Not Given Sodium Chloride (1/2 Normal Saline) 1,000 mls @ 75 mls/hr IV ASDIR [facility] Last Admin: 04/10/18 08:54 Dose: 75 mls/hr Levothyroxine Sodium (Synthroid -) 25 mcg PO 0700 [facility] Last Admin: 04/10/18 06:12 Dose: 25 mcg Nystatin (Nystop Powder -) 1 applic TP DAILY [facility] Last Admin: 04/09/18 11:12 Dose: Not Given Ranitidine HCl (Zantac -) 150 mg PO DAILY [facility] Last Admin: 04/10/18 09:17 Dose: Not Given Tamsulosin HCl (Flomax -) 0.4 mg PO 0830 [facility] Last Admin: 04/10/18 08:52 Dose: 0.4 mg - Objective Vital Signs: Vital Signs Temperature 36.9 C 04/10/18 15:59 Pulse Rate 98 H 04/10/18 15:59 Respiratory Rate 20 04/10/18 15:59 Blood Pressure 107/59 L 04/10/18 15:59 O2 Sat by Pulse Oximetry (%) 98 04/10/18 09:00 Constitutional: Yes: No Distress, Calm, Obese Cardiovascular: Yes: Regular Rate and Rhythm. No: Gallop, Murmur, Rub Respiratory: Yes: Regular, CTA Bilaterally. No: Rales, Rhonchi, Wheezes Gastrointestinal: Yes: Normal Bowel Sounds, Soft. No: Distention, Tenderness Extremities: Yes: WNL Edema: No Labs: CBC, BMP 04/10/18 06:00 04/10/18 06:00 INR, PTT INR 1.29 (0.83-1.09) H 03/28/18 08:10 Problem List - Problems (1) Sepsis Code(s): A41.9 - SEPSIS, UNSPECIFIED ORGANISM Qualifiers: Qualified Code(s): A41.9 - Sepsis, unspecified organism (2) Decubitus ulcer Code(s): L89.90 - PRESSURE ULCER OF UNSPECIFIED SITE, UNSPECIFIED STAGE Qualifiers: Qualified Code(s): L89.153 - Pressure ulcer of sacral region, stage 3 (3) Hypernatremia Code(s): E87.0 - HYPEROSMOLALITY AND HYPERNATREMIA (4) PARMINDER (acute kidney injury) Code(s): N17.9 - ACUTE KIDNEY FAILURE, UNSPECIFIED (5) Hypothyroid Code(s): E03.9 - HYPOTHYROIDISM, UNSPECIFIED Qualifiers: Qualified Code(s): E03.9 - Hypothyroidism, unspecified (6) Morbidly obese Code(s): E66.01 - MORBID (SEVERE) OBESITY DUE TO EXCESS CALORIES (7) Anemia Code(s): D64.9 - ANEMIA, UNSPECIFIED Qualifiers: Qualified Code(s): D64.9 - Anemia, unspecified (8) Hodgkin lymphoma Code(s): C81.90 - HODGKIN LYMPHOMA, UNSPECIFIED, UNSPECIFIED SITE (9) Hypercalcemia Code(s): E83.52 - HYPERCALCEMIA (10) Metabolic encephalopathy Code(s): G93.41 - METABOLIC ENCEPHALOPATHY (11) Constipation Code(s): K59.00 - CONSTIPATION, UNSPECIFIED Assessment/Plan (1) Sepsis Assessment/Plan: -wound culture polymicrobial with final results -appreciate ID assistance -now on augmentin, stop after 3 more days Code(s): A41.9 - SEPSIS, UNSPECIFIED ORGANISM (2) Decubitus ulcer Assessment/Plan: -appreciate wound care assistance -collagenase, frequent turning Code(s): L89.90 - PRESSURE ULCER OF UNSPECIFIED SITE, UNSPECIFIED STAGE Qualifiers: Pressure injury location: sacral region Pressure injury stage: stage 3 Qualified Code(s): L89.153 - Pressure ulcer of sacral region, stage 3 (3) Hypernatremia Assessment/Plan: -case d/w Dr Bethea -continue IVF Code(s): E87.0 - HYPEROSMOLALITY AND HYPERNATREMIA (4) PARMINDER (acute kidney injury) Assessment/Plan: -resolved Code(s): N17.9 - ACUTE KIDNEY FAILURE, UNSPECIFIED (5) Hypothyroid -continue synthroid Code(s): E03.9 - HYPOTHYROIDISM, UNSPECIFIED (6) Morbidly obese Assessment/Plan: -noted Code(s): E66.01 - MORBID (SEVERE) OBESITY DUE TO EXCESS CALORIES (7) Anemia Assessment/Plan: -stable -monitor Code(s): D64.9 - ANEMIA, UNSPECIFIED Qualifiers: Anemia type: unspecified type Qualified Code(s): D64.9 - Anemia, unspecified (8) Hodgkin lymphoma Assessment/Plan: -case d/w oncology -to discuss possible treatment with patient and HCP Code(s): C81.90 - HODGKIN LYMPHOMA, UNSPECIFIED, UNSPECIFIED SITE (9) Hypercalcemia -still elevated -continue IVF -calcitonin ordered (10) Fever -has not recurred -all cultures currently negative -suspect secondary to atelectasis
[2018-04-10] MEDS: COLLAGENASE CLOSTRIDIUM HIST. 30 GRAMS TUBE TP SCH (17:44)
[2018-04-10] MEDS: NYSTATIN POWDER 100,000 UNITS/GM - 15 GM TOPICAL POWDER TP SCH (17:45)
[2018-04-10] MEDS: CALCITONIN - SALMON SYNTHETIC 400 UNIT/2 ML VIAL IM SCH (20:39)
[2018-04-10] MEDS: NAPH,MB-DB/K PH,MBDB POWDER PACKET PO SCH (21:50)
[2018-04-11] MEDS: NAPH,MB-DB/K PH,MBDB POWDER PACKET PO SCH ×3 (05:41→22:43)
[2018-04-11] MEDS: CALCITONIN - SALMON SYNTHETIC 400 UNIT/2 ML VIAL IM SCH ×2 (05:41→17:45)
[2018-04-11] MEDS: LEVOTHYROXINE NA 25 MCG TABLET (FP) PO SCH (06:00)
[2018-04-11 07:35] LABS: BASO % 0.3 % (0-2.0); HEMATOCRIT 23.7 % (35.4-49); HEMOGLOBIN 7.8 GM/dL (11.7-16.9); MCH 27.6 pg (25.7-33.7); MCHC 33.1 g/dl (32.0-35.9); MEAN CELL VOLUME 83.5 fl (80-96); MEAN PLT VOLUME 6.7 fl (7.5-11.1); MONO % 9.2 % (3.8-10.2); NEUT % 67.5 % (42.8-82.8); PLATELET COUNT 209 K/MM3 (134-434); RBC 2.84 M/mm3 (4.00-5.60); RDW 20.2 % (11.9-15.9)
[2018-04-11 07:50] LABS: ALBUMIN 1.7 g/dl (3.4-5.0); ALK PHOS 101 U/L (45-117); ANION GAP 8 MMOL/L (8-16); BILIRUBIN,DIRECT 0.2 mg/dL (0.0-0.2); BILIRUBIN,TOTAL 0.4 mg/dL (0.2-1); BLOOD UREA NITROGEN 15 mg/dL (7-18); CALCIUM 8.6 mg/dL (8.5-10.1); CHLORIDE 109 mmol/L (98-107); CO2 28 mmol/L (21-32); CREATININE 0.8 mg/dL (0.55-1.3); GLUCOSE,RANDOM 107 mg/dL (74-106); PHOSPHOROUS 3.1 mg/dL (2.5-4.9); POTASSIUM 3.4 mmol/L (3.5-5.1); SGOT/AST 16 U/L (15-37); SGPT/ALT 9 U/L (13-61); SODIUM 145 mmol/L (136-145); TOT PROT 5.4 g/dl (6.4-8.2)
--- NOTE | 2018-04-11 09:00 | PN ---
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, Physician Chief Complaint: More alert denies any complaints remained afebrile - Current Medication List Current Medications: Active Medications Acetaminophen (Tylenol -) 650 mg PO Q4H PRN PRN Reason: FEVER/PAIN LEVEL 1-5 Last Admin: 04/08/18 02:39 Dose: 650 mg Amoxicillin/Clavulanate Potassium (Augmentin - 500mg Tablet) 1 tab PO BID@0800, 1730 [facility] Last Admin: 04/10/18 17:44 Dose: 1 tab Ascorbic Acid (Vitamin C -) 500 mg PO BID [facility] Last Admin: 04/10/18 21:50 Dose: 500 mg Calcitonin (Miacalcin Injection -) 400 unit IM BID@0600,1800 [facility] Last Admin: 04/11/18 05:41 Dose: 400 unit Collagenase (Santyl -) 1 applic TP DAILY [facility]; Protocol Last Admin: 04/10/18 17:44 Dose: 1 applic Cyanocobalamin (Vitamin B12 -) 1,000 mcg PO DAILY [facility] Last Admin: 04/10/18 09:06 Dose: Not Given Enoxaparin Sodium (Lovenox -) 30 mg SQ DAILY [facility] Last Admin: 04/10/18 09:06 Dose: Not Given Sodium Chloride (1/2 Normal Saline) 1,000 mls @ 75 mls/hr IV ASDIR [facility] Last Admin: 04/10/18 17:44 Dose: Not Given Levothyroxine Sodium (Synthroid -) 25 mcg PO 0700 [facility] Last Admin: 04/11/18 06:00 Dose: 25 mcg Nystatin (Nystop Powder -) 1 applic TP DAILY [facility] Last Admin: 04/10/18 17:45 Dose: 1 applic Potassium Phos/Sodium Phos (Phos-Nak Packet -) 1 packet PO TID [facility] Stop: 04/11/18 22:01 Last Admin: 04/11/18 05:41 Dose: 1 packet Ranitidine HCl (Zantac -) 150 mg PO DAILY [facility] Last Admin: 04/10/18 09:17 Dose: Not Given Tamsulosin HCl (Flomax -) 0.4 mg PO 0830 [facility] Last Admin: 04/10/18 08:52 Dose: 0.4 mg - Objective Vital Signs: Vital Signs Temperature 97.7 F 04/11/18 06:16 Pulse Rate 100 H 04/11/18 06:16 Respiratory Rate 18 04/11/18 06:16 Blood Pressure 128/74 04/11/18 06:16 O2 Sat by Pulse Oximetry (%) 95 04/10/18 21:00 Elderly man more responsive alert but confused not in distress HEENT: Mm dry, no anemia PERRLA EOMI NECK: No JVd No Bruit CHEST: CTA B/L CVS: S1S2 R no m/g/r ABD: Obese No distention S/P Left sided Hernia repair BS + EXT: Trace edema feet , pulses + [employer]: Alert not in distress able to move all extremities Derm; Sacral Deubitus Ulcer stage 2-3 Labs: CBC, BMP 04/11/18 06:15 04/11/18 06:15 INR, PTT INR 1.29 (0.83-1.09) H 03/28/18 08:10 Problem List - Problems (1) Sepsis Assessment/Plan: Possible source is UTI or Decubitus ulcer will cont IV Hydration F/U cultures and abx Code(s): A41.9 - SEPSIS, UNSPECIFIED ORGANISM Qualifiers: Sepsis type: sepsis due to unspecified organism Qualified Code(s): A41.9 - Sepsis, unspecified organism (2) UTI (urinary tract infection) Assessment/Plan: UTI cont IV Zosyn F/U ID recommendation and cultures Code(s): N39.0 - URINARY TRACT INFECTION, SITE NOT SPECIFIED (3) Hodgkin lymphoma Assessment/Plan: No active issue Code(s): C81.90 - HODGKIN LYMPHOMA, UNSPECIFIED, UNSPECIFIED SITE (4) PARMINDER (acute kidney injury) Assessment/Plan: Due to dehydration F/U BMP after Hydration Code(s): N17.9 - ACUTE KIDNEY FAILURE, UNSPECIFIED (5) Anemia Assessment/Plan: Chronic H/h stable Code(s): D64.9 - ANEMIA, UNSPECIFIED Qualifiers: Anemia type: unspecified type Qualified Code(s): D64.9 - Anemia, unspecified (6) Dehydration Assessment/Plan: Due to poor intake F/U BMP after Hydration Code(s): E86.0 - DEHYDRATION (7) Morbidly obese Assessment/Plan: NUtritional consult as out patient. Code(s): E66.01 - MORBID (SEVERE) OBESITY DUE TO EXCESS CALORIES (8) Hypothyroid Assessment/Plan: Cont Levothyroxine Code(s): E03.9 - HYPOTHYROIDISM, UNSPECIFIED Qualifiers: Hypothyroidism type: acquired Qualified Code(s): E03.9 - Hypothyroidism, unspecified (9) Decubitus ulcer Assessment/Plan: Wound care , cont current abx f/u ESR CRP Code(s): L89.90 - PRESSURE ULCER OF UNSPECIFIED SITE, UNSPECIFIED STAGE Qualifiers: Pressure injury location: sacral region Pressure injury stage: stage 3 Qualified Code(s): L89.153 - Pressure ulcer of sacral region, stage 3 (10) Hypokalemia Assessment/Plan: Repleted F/U BMP and Mag Code(s): E87.6 - HYPOKALEMIA
[2018-04-11] MEDS ORDERED: PT OWN MED DRAWER 7, Y5N ONE (10:30)
[2018-04-11] MEDS: ENOXAPARIN NA (PORCINE) 30 MG/0.3 ML DISP.SYRIN SQ SCH (10:32)
[2018-04-11] MEDS: CYANOCOBALAMIN 1,000 MCG TABLET (FP) PO SCH (10:32)
[2018-04-11] MEDS: ASCORBIC ACID 500 MG TABLET (FP) PO SCH ×2 (10:32→22:43)
[2018-04-11] MEDS: NYSTATIN POWDER 100,000 UNITS/GM - 15 GM TOPICAL POWDER TP SCH (10:32)
[2018-04-11] MEDS: RANITIDINE HCL 150 MG TABLET (FP) PO SCH (10:32)
[2018-04-11] MEDS: AMOX TR/POT CLAV 500MG/125MG TABLETS (FP) PO SCH ×2 (10:32→17:45)
[2018-04-11] MEDS: TAMSULOSIN HCL 0.4 MG CAP PO SCH (10:32)
[2018-04-11] MEDS: COLLAGENASE CLOSTRIDIUM HIST. 30 GRAMS TUBE TP SCH (10:33)
--- NOTE | 2018-04-11 10:45 | PN ---
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 (short form) - Note 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: RENAL Pt is asleep but arousable Last Vital Signs Temp Pulse Resp BP Pulse Ox 97.7 F 100 H 18 128/74 95 04/11/18 06:16 04/11/18 06:16 04/11/18 06:16 04/11/18 06:16 04/10/18 21:00 lungs clear cvs s1s2 rr abd soft ext no edema, venous stasis changes neuro arousable but not speaking CBC, BMP 04/11/18 06:15 04/11/18 06:15 Current Medications Generic Name Dose Route Start Last Admin Trade Name Freq PRN Reason Stop Dose Admin Acetaminophen 650 mg 03/27/18 22:00 04/08/18 02:39 Tylenol - PO 650 mg Q4H PRN Administration FEVER/PAIN LEVEL 1-5 Amoxicillin/Clavulanate Potassium 1 tab 04/05/18 17:30 04/11/18 10:32 Augmentin - 500mg Tablet PO 1 tab BID@0800,1730 [facility] Administration Ascorbic Acid 500 mg 03/27/18 22:00 04/11/18 10:32 Vitamin C - PO 500 mg BID [facility] Administration Calcitonin 400 unit 04/10/18 18:00 04/11/18 05:41 Miacalcin Injection - IM 400 unit BID@0600,1800 [facility] Administration Collagenase 1 applic 03/30/18 12:00 04/11/18 10:33 Santyl - TP 1 applic DAILY [facility] Administration Protocol Cyanocobalamin 1,000 mcg 03/28/18 10:00 04/11/18 10:32 Vitamin B12 - PO 1,000 mcg DAILY [facility] Administration Enoxaparin Sodium 30 mg 03/28/18 10:00 04/11/18 10:32 Lovenox - SQ 30 mg DAILY [facility] Administration Sodium Chloride 1,000 mls @ 75 mls/hr 04/09/18 17:00 04/10/18 17:44 1/2 Normal Saline IV Not Given ASDIR [facility] Levothyroxine Sodium 25 mcg 03/28/18 07:00 04/11/18 06:00 Synthroid - PO 25 mcg 0700 [facility] Administration Nystatin 1 applic 04/06/18 13:15 04/11/18 10:32 Nystop Powder - TP 1 applic DAILY [facility] Administration Potassium Phos/Sodium Phos 1 packet 04/10/18 22:00 04/11/18 05:41 Phos-Nak Packet - PO 04/11/18 22:01 1 packet TID [facility] Administration Ranitidine HCl 150 mg 03/28/18 10:00 04/11/18 10:32 Zantac - PO 150 mg DAILY [facility] Administration Tamsulosin HCl 0.4 mg 03/28/18 08:30 04/11/18 10:32 Flomax - PO 0.4 mg 0830 [facility] Administration Impression 1. PARMINDER resolving 2. hypernatremia 3. hypercalcemia- corrected calcium still slightly elevated 4. hypokalemia 5. BPH 6. hodgkins lymphoma 7. sacral decub 8. sepsis 9. obesity 10. anemia Plan - cont fluids - calcitonin started - pt received zometa - likely etiology is malignancy as pt has history of lymphoma - monitor calcium and albumin - would do bone scan and psa MV
[2018-04-11] MEDS: SODIUM CHLORIDE 0.45% 1,000 ML IV SCH ×2 (12:21→17:45)
--- NOTE | 2018-04-11 13:53 | PN ---
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, Physician Chief Complaint: Hodgkin's lymphoma, hypercalcemia History of Present Illness: No complaints. Denies pain, SOB, confusion - Current Medication List Current Medications: Active Medications Acetaminophen (Tylenol -) 650 mg PO Q4H PRN PRN Reason: FEVER/PAIN LEVEL 1-5 Last Admin: 04/08/18 02:39 Dose: 650 mg Amoxicillin/Clavulanate Potassium (Augmentin - 500mg Tablet) 1 tab PO BID@0800, 1730 [facility] Last Admin: 04/11/18 10:32 Dose: 1 tab Ascorbic Acid (Vitamin C -) [address] [facility] Last Admin: 04/11/18 10:32 Dose: 500 mg Calcitonin (Miacalcin Injection -) 400 unit IM BID@0600,1800 [facility] Last Admin: 04/11/18 05:41 Dose: 400 unit Collagenase (Santyl -) [address] [facility]; Protocol Last Admin: 04/11/18 10:33 Dose: 1 applic Cyanocobalamin (Vitamin B12 -) 1,[address] [facility] Last Admin: 04/11/18 10:32 Dose: 1,000 mcg Enoxaparin Sodium (Lovenox -) [address] [facility] Last Admin: 04/11/18 10:32 Dose: 30 mg Sodium Chloride (1/2 Normal Saline) 1,000 mls @ 75 mls/hr IV ASDIR [facility] Last Admin: 04/11/18 12:21 Dose: 75 mls/hr Levothyroxine Sodium (Synthroid -) [address] [facility] Last Admin: 04/11/18 06:00 Dose: 25 mcg Nystatin (Nystop Powder -) [address] [facility] Last Admin: 04/11/18 10:32 Dose: 1 applic Potassium Phos/Sodium Phos (Phos-Nak Packet -) [address] [facility] Stop: 04/11/18 22:01 Last Admin: 04/11/18 05:41 Dose: 1 packet Ranitidine HCl (Zantac -) [address] [facility] Last Admin: 04/11/18 10:32 Dose: 150 mg Tamsulosin HCl (Flomax -) 0.[address] [facility] Last Admin: 04/11/18 10:32 Dose: 0.4 mg - Objective Vital Signs: Vital Signs Temperature 97.7 F 04/11/18 10:00 Pulse Rate 100 H 04/11/18 10:00 Respiratory Rate 18 04/11/18 10:00 Blood Pressure 128/74 04/11/18 10:00 O2 Sat by Pulse Oximetry (%) 95 04/10/18 21:00 Constitutional: Yes: Obese HENT: Yes: WNL Neck: Yes: Supple Cardiovascular: Yes: Regular Rate and Rhythm Respiratory: Yes: CTA Bilaterally Gastrointestinal: Yes: Soft. No: Distention, Tenderness Edema: LLE: Trace, RLE: Trace Neurological: Yes: Other (Somnolent but easily arousable) Labs: CBC, BMP 04/11/18 06:15 04/11/18 06:15 INR, PTT INR 1.29 (0.83-1.09) H 03/28/18 08:10 Problem List - Problems (1) Hypercalcemia Assessment/Plan: s/p zometa on 04/03 and started calcitonin last night, with improvement in corrected calcium to 10.4 today c/w calcitonin, gentle IVF with close monitoring of volume status continue to trend calcium Code(s): E83.52 - HYPERCALCEMIA
--- NOTE | 2018-04-11 19:22 | PN ---
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, Physician History of Present Illness: Pt alert, denies distress at this time. Remains weak. Has been afebrile. - Current Medication List Current Medications: Active Medications Acetaminophen (Tylenol -) 650 mg PO Q4H PRN PRN Reason: FEVER/PAIN LEVEL 1-5 Last Admin: 04/08/18 02:39 Dose: 650 mg Amoxicillin/Clavulanate Potassium (Augmentin - 500mg Tablet) 1 tab PO BID@0800, 1730 [facility] Last Admin: 04/11/18 17:45 Dose: 1 tab Ascorbic Acid (Vitamin C -) 500 mg PO BID [facility] Last Admin: 04/11/18 10:32 Dose: 500 mg Calcitonin (Miacalcin Injection -) 400 unit IM BID@0600,1800 [facility] Last Admin: 04/11/18 17:45 Dose: 400 unit Collagenase (Santyl -) 1 applic TP DAILY [facility]; Protocol Last Admin: 04/11/18 10:33 Dose: 1 applic Cyanocobalamin (Vitamin B12 -) 1,000 mcg PO DAILY [facility] Last Admin: 04/11/18 10:32 Dose: 1,000 mcg Enoxaparin Sodium (Lovenox -) 30 mg SQ DAILY [facility] Last Admin: 04/11/18 10:32 Dose: 30 mg Sodium Chloride (1/2 Normal Saline) 1,000 mls @ 75 mls/hr IV ASDIR [facility] Last Admin: 04/11/18 17:45 Dose: Not Given Levothyroxine Sodium (Synthroid -) 25 mcg PO 0700 [facility] Last Admin: 04/11/18 06:00 Dose: 25 mcg Nystatin (Nystop Powder -) 1 applic TP DAILY [facility] Last Admin: 04/11/18 10:32 Dose: 1 applic Potassium Phos/Sodium Phos (Phos-Nak Packet -) 1 packet PO TID [facility] Stop: 04/11/18 22:01 Last Admin: 04/11/18 17:45 Dose: 1 packet Ranitidine HCl (Zantac -) 150 mg PO DAILY [facility] Last Admin: 04/11/18 10:32 Dose: 150 mg Tamsulosin HCl (Flomax -) 0.4 mg PO 0830 [facility] Last Admin: 04/11/18 10:32 Dose: 0.4 mg - Objective Vital Signs: Vital Signs Temperature 98.7 F 04/11/18 16:30 Pulse Rate 88 04/11/18 16:30 Respiratory Rate 18 04/11/18 16:30 Blood Pressure 112/68 04/11/18 16:30 O2 Sat by Pulse Oximetry (%) 95 04/10/18 21:00 Constitutional: Yes: No Distress, Calm Cardiovascular: Yes: Regular Rate and Rhythm Respiratory: Yes: Regular Gastrointestinal: Yes: Normal Bowel Sounds, Soft, Abdomen, Obese Genitourinary: Yes: WNL Extremities: Yes: WNL Neurological: Yes: Alert Labs: CBC, BMP 04/11/18 06:15 04/11/18 06:15 INR, PTT INR 1.29 (0.83-1.09) H 03/28/18 08:10 Microbiology 04/08/18 02:36 Blood - Peripheral Venous Blood Culture - Preliminary NO GROWTH OBTAINED AFTER 72 HOURS, INCUBATION TO CONTINUE FOR 2 DAYS. 04/08/18 02:36 Blood - Peripheral Venous Blood Culture - Preliminary NO GROWTH OBTAINED AFTER 72 HOURS, INCUBATION TO CONTINUE FOR 2 DAYS. 04/08/18 02:36 Urine - Urine - Catheterized Urine Culture - Final NO GROWTH OBTAINED 03/29/18 17:40 Coccyx Gram Stain - Final 03/29/18 17:40 Coccyx Wound Culture - Final Escherichia Coli Proteus Mirabilis Yeast Like Organism Enterococcus Faecalis Staphylococcus Aureus 03/27/18 20:06 Blood - Peripheral Venous Blood Culture - Final NO GROWTH AFTER 5 DAYS INCUBATION 03/27/18 19:50 Blood - Peripheral Venous Blood Culture - Final NO GROWTH AFTER 5 DAYS INCUBATION 03/27/18 20:45 Urine - Urine Clean Catch Urine Culture - Final NO GROWTH OBTAINED Problem List - Problems (1) PARMINDER (acute kidney injury) Code(s): N17.9 - ACUTE KIDNEY FAILURE, UNSPECIFIED (2) Hodgkin lymphoma Code(s): C81.90 - HODGKIN LYMPHOMA, UNSPECIFIED, UNSPECIFIED SITE Qualifiers: Hodgkin lymphoma type: unspecified type (3) Morbidly obese Code(s): E66.01 - MORBID (SEVERE) OBESITY DUE TO EXCESS CALORIES (4) Sepsis Code(s): A41.9 - SEPSIS, UNSPECIFIED ORGANISM Qualifiers: Sepsis type: sepsis due to unspecified organism Qualified Code(s): A41.9 - Sepsis, unspecified organism (5) UTI (urinary tract infection) Code(s): N39.0 - URINARY TRACT INFECTION, SITE NOT SPECIFIED (6) Weakness Code(s): R53.1 - WEAKNESS (7) Anemia Code(s): D64.9 - ANEMIA, UNSPECIFIED Qualifiers: Anemia type: unspecified type Qualified Code(s): D64.9 - Anemia, unspecified (8) BPH (benign prostatic hyperplasia) Code(s): N40.0 - BENIGN PROSTATIC HYPERPLASIA WITHOUT LOWER URINRY TRACT SYMP Assessment/Plan 87 y.o. male presenting from [place] with weakness/altered mental status, poor oral intake, fevers, and lactic acidosis Sepsis Fever Lactic acidosis BPH Hx of Hodgkins Lymphoma PARMINDER Hypothyroidism -- cont. oral antibiotics x 2 more days -- pt is currently alert, afebrile -- continue monitor
[2018-04-12] MEDS: SODIUM CHLORIDE 0.45% 1,000 ML IV SCH ×2 (06:32→17:51)
[2018-04-12] MEDS: CALCITONIN - SALMON SYNTHETIC 400 UNIT/2 ML VIAL IM SCH ×2 (06:33→18:01)
[2018-04-12] MEDS: LEVOTHYROXINE NA 25 MCG TABLET (FP) PO SCH (06:34)
[2018-04-12 07:23] LABS: BASO % 0.2 % (0-2.0); EOS % 2.5 % (0-4.5); HEMATOCRIT 23.8 % (35.4-49); HEMOGLOBIN 7.9 GM/dL (11.7-16.9); LYMPH % 17.1 % (8-40); MCH 27.4 pg (25.7-33.7); MEAN CELL VOLUME 82.9 fl (80-96); MEAN PLT VOLUME 6.8 fl (7.5-11.1); MONO % 8.6 % (3.8-10.2); NEUT % 71.6 % (42.8-82.8); PLATELET COUNT 220 K/MM3 (134-434); RBC 2.87 M/mm3 (4.00-5.60); WHITE BLOOD COUNT 7.7 K/mm3 (4.0-10.0)
[2018-04-12 08:09] LABS: ANION GAP 6 MMOL/L (8-16); BLOOD UREA NITROGEN 12 mg/dL (7-18); CALCIUM 8.5 mg/dL (8.5-10.1); CHLORIDE 107 mmol/L (98-107); CO2 28 mmol/L (21-32); CREATININE 0.6 mg/dL (0.55-1.3); GLUCOSE,RANDOM 102 mg/dL (74-106); POTASSIUM 3.5 mmol/L (3.5-5.1); SODIUM 142 mmol/L (136-145)
--- NOTE | 2018-04-12 10:46 | PN ---
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 (short form) - Note 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: RENAL Pt is awake, watching tv Last Vital Signs Temp Pulse Resp BP Pulse Ox 98.1 F 100 H 20 129/70 96 04/12/18 05:54 04/12/18 05:54 04/12/18 05:54 04/12/18 05:54 04/11/18 21:00 lungs clear cvs s1s2 rr abd soft ext no edema, venous stasis changes neuro awake, makes eye contact and answers some questions CBC, BMP 04/12/18 06:10 04/12/18 06:10 Current Medications Generic Name Dose Route Start Last Admin Trade Name Freq PRN Reason Stop Dose Admin Acetaminophen 650 mg 03/27/18 22:00 04/08/18 02:39 Tylenol - PO 650 mg Q4H PRN Administration FEVER/PAIN LEVEL 1-5 Amoxicillin/Clavulanate Potassium 1 tab 04/05/18 17:30 04/11/18 17:45 Augmentin - 500mg Tablet PO 1 tab BID@0800,1730 [facility] Administration Ascorbic Acid 500 mg 03/27/18 22:00 04/11/18 22:43 Vitamin C - PO 500 mg BID [facility] Administration Calcitonin 400 unit 04/10/18 18:00 04/12/18 06:33 Miacalcin Injection - IM 400 unit BID@0600,1800 [facility] Administration Collagenase 1 applic 03/30/18 12:00 04/11/18 10:33 Santyl - TP 1 applic DAILY [facility] Administration Protocol Cyanocobalamin 1,000 mcg 03/28/18 10:00 04/11/18 10:32 Vitamin B12 - PO 1,000 mcg DAILY [facility] Administration Enoxaparin Sodium 30 mg 03/28/18 10:00 04/11/18 10:32 Lovenox - SQ 30 mg DAILY [facility] Administration Sodium Chloride 1,000 mls @ 75 mls/hr 04/09/18 17:00 04/12/18 06:32 1/2 Normal Saline IV 75 mls/hr ASDIR [facility] Administration Levothyroxine Sodium 25 mcg 03/28/18 07:00 04/12/18 06:34 Synthroid - PO 25 mcg 0700 [facility] Administration Nystatin 1 applic 04/06/18 13:15 04/11/18 10:32 Nystop Powder - TP 1 applic DAILY [facility] Administration Ranitidine HCl 150 mg 03/28/18 10:00 04/11/18 10:32 Zantac - PO 150 mg DAILY [facility] Administration Tamsulosin HCl 0.4 mg 03/28/18 08:30 04/11/18 10:32 Flomax - PO 0.4 mg 0830 [facility] Administration Impression 1. PARMINDER resolving 2. hypernatremia 3. hypercalcemia- corrected calcium still slightly elevated 4. hypokalemia 5. BPH 6. hodgkins lymphoma 7. sacral decub 8. sepsis 9. obesity 10. anemia Plan - cont fluids - calcitonin started, would dc once calcium less than 10 corrected - pt received zometa - likely etiology is malignancy as pt has history of lymphoma - monitor calcium and albumin - would do bone scan and psa MV
[2018-04-12] MEDS ORDERED: PT OWN MED DRAWER 7, Y5N ONE ×2 (10:53→17:29)
[2018-04-12] MEDS: TAMSULOSIN HCL 0.4 MG CAP PO SCH (11:02)
[2018-04-12] MEDS: CYANOCOBALAMIN 1,000 MCG TABLET (FP) PO SCH (11:02)
[2018-04-12] MEDS: AMOX TR/POT CLAV 500MG/125MG TABLETS (FP) PO SCH ×2 (11:02→23:01)
[2018-04-12] MEDS: COLLAGENASE CLOSTRIDIUM HIST. 30 GRAMS TUBE TP SCH (11:02)
[2018-04-12] MEDS: NYSTATIN POWDER 100,000 UNITS/GM - 15 GM TOPICAL POWDER TP SCH (11:03)
[2018-04-12] MEDS: ASCORBIC ACID 500 MG TABLET (FP) PO SCH ×2 (11:03→23:01)
[2018-04-12] MEDS: RANITIDINE HCL 150 MG TABLET (FP) PO SCH (11:03)
[2018-04-12] MEDS: ENOXAPARIN NA (PORCINE) 30 MG/0.3 ML DISP.SYRIN SQ SCH (11:03)
--- NOTE | 2018-04-12 12:27 | PN ---
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, Physician Chief Complaint: More alert denies any complaints remained afebrile - Current Medication List Current Medications: Active Medications Acetaminophen (Tylenol -) 650 mg PO Q4H PRN PRN Reason: FEVER/PAIN LEVEL 1-5 Last Admin: 04/08/18 02:39 Dose: 650 mg Amoxicillin/Clavulanate Potassium (Augmentin - 500mg Tablet) 1 tab PO BID@0800, 1730 [facility] Last Admin: 04/12/18 11:02 Dose: 1 tab Ascorbic Acid (Vitamin C -) 500 mg PO BID [facility] Last Admin: 04/12/18 11:03 Dose: 500 mg Calcitonin (Miacalcin Injection -) 400 unit IM BID@0600,1800 [facility] Last Admin: 04/12/18 06:33 Dose: 400 unit Collagenase (Santyl -) 1 applic TP DAILY [facility]; Protocol Last Admin: 04/12/18 11:02 Dose: 1 applic Cyanocobalamin (Vitamin B12 -) 1,000 mcg PO DAILY [facility] Last Admin: 04/12/18 11:02 Dose: 1,000 mcg Enoxaparin Sodium (Lovenox -) 30 mg SQ DAILY [facility] Last Admin: 04/12/18 11:03 Dose: 30 mg Sodium Chloride (1/2 Normal Saline) 1,000 mls @ 75 mls/hr IV ASDIR [facility] Last Admin: 04/12/18 06:32 Dose: 75 mls/hr Levothyroxine Sodium (Synthroid -) 25 mcg PO 0700 [facility] Last Admin: 04/12/18 06:34 Dose: 25 mcg Nystatin (Nystop Powder -) 1 applic TP DAILY [facility] Last Admin: 04/12/18 11:03 Dose: 1 applic Ranitidine HCl (Zantac -) 150 mg PO DAILY [facility] Last Admin: 04/12/18 11:03 Dose: 150 mg Tamsulosin HCl (Flomax -) 0.4 mg PO 0830 [facility] Last Admin: 04/12/18 11:02 Dose: 0.4 mg - Objective Vital Signs: Vital Signs Temperature 98.1 F 04/12/18 05:54 Pulse Rate 100 H 04/12/18 05:54 Respiratory Rate 20 04/12/18 05:54 Blood Pressure 129/70 04/12/18 05:54 O2 Sat by Pulse Oximetry (%) 96 04/11/18 21:00 Elderly man more responsive alert but confused not in distress HEENT: Mm dry, no anemia PERRLA EOMI NECK: No JVd No Bruit CHEST: CTA B/L CVS: S1S2 R no m/g/r ABD: Obese No distention S/P Left sided Hernia repair BS + EXT: Trace edema feet , pulses + [employer]ATIONS [employer]: Alert not in distress able to move all extremities Derm; Sacral Deubitus Ulcer stage 2-3 Labs: CBC, BMP 04/12/18 06:10 04/12/18 06:10 INR, PTT INR 1.29 (0.83-1.09) H 03/28/18 08:10 Problem List - Problems (1) Sepsis Assessment/Plan: Possible source is UTI or Decubitus ulcer will cont IV Hydration F/U cultures and abx Code(s): A41.9 - SEPSIS, UNSPECIFIED ORGANISM Qualifiers: Sepsis type: sepsis due to unspecified organism Qualified Code(s): A41.9 - Sepsis, unspecified organism (2) UTI (urinary tract infection) Assessment/Plan: UTI cont IV Zosyn F/U ID recommendation and cultures Code(s): N39.0 - URINARY TRACT INFECTION, SITE NOT SPECIFIED (3) Hodgkin lymphoma Assessment/Plan: No active issue Code(s): C81.90 - HODGKIN LYMPHOMA, UNSPECIFIED, UNSPECIFIED SITE (4) PARMINDER (acute kidney injury) Assessment/Plan: Due to dehydration F/U BMP after Hydration Code(s): N17.9 - ACUTE KIDNEY FAILURE, UNSPECIFIED (5) Anemia Assessment/Plan: Chronic H/h stable Code(s): D64.9 - ANEMIA, UNSPECIFIED Qualifiers: Anemia type: unspecified type Qualified Code(s): D64.9 - Anemia, unspecified (6) Dehydration Assessment/Plan: Due to poor intake F/U BMP after Hydration Code(s): E86.0 - DEHYDRATION (7) Morbidly obese Assessment/Plan: NUtritional consult as out patient. Code(s): E66.01 - MORBID (SEVERE) OBESITY DUE TO EXCESS CALORIES (8) Hypothyroid Assessment/Plan: Cont Levothyroxine Code(s): E03.9 - HYPOTHYROIDISM, UNSPECIFIED Qualifiers: Hypothyroidism type: acquired Qualified Code(s): E03.9 - Hypothyroidism, unspecified (9) Decubitus ulcer Assessment/Plan: Wound care , cont current abx f/u ESR CRP Code(s): L89.90 - PRESSURE ULCER OF UNSPECIFIED SITE, UNSPECIFIED STAGE Qualifiers: Pressure injury location: sacral region Pressure injury stage: stage 3 Qualified Code(s): L89.153 - Pressure ulcer of sacral region, stage 3
--- NOTE | 2018-04-12 14:55 | PN ---
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, Physician Chief Complaint: Hogdkin's disease, hypercalcemia History of Present Illness: Denies pain at this time - Current Medication List Current Medications: Active Medications Acetaminophen (Tylenol -) 650 mg PO Q4H PRN PRN Reason: FEVER/PAIN LEVEL 1-5 Last Admin: 04/08/18 02:39 Dose: 650 mg Amoxicillin/Clavulanate Potassium (Augmentin - 500mg Tablet) 1 tab PO BID@0800, 1730 [facility] Last Admin: 04/12/18 11:02 Dose: 1 tab Ascorbic Acid (Vitamin C -) 500 mg PO BID [facility] Last Admin: 04/12/18 11:03 Dose: 500 mg Calcitonin (Miacalcin Injection -) 400 unit IM BID@0600,1800 [facility] Last Admin: 04/12/18 06:33 Dose: 400 unit Collagenase (Santyl -) 1 applic TP DAILY [facility]; Protocol Last Admin: 04/12/18 11:02 Dose: 1 applic Cyanocobalamin (Vitamin B12 -) 1,000 mcg PO DAILY [facility] Last Admin: 04/12/18 11:02 Dose: 1,000 mcg Enoxaparin Sodium (Lovenox -) 30 mg SQ DAILY [facility] Last Admin: 04/12/18 11:03 Dose: 30 mg Sodium Chloride (1/2 Normal Saline) 1,000 mls @ 75 mls/hr IV ASDIR [facility] Last Admin: 04/12/18 06:32 Dose: 75 mls/hr Levothyroxine Sodium (Synthroid -) 25 mcg PO 0700 [facility] Last Admin: 04/12/18 06:34 Dose: 25 mcg Nystatin (Nystop Powder -) 1 applic TP DAILY [facility] Last Admin: 04/12/18 11:03 Dose: 1 applic Ranitidine HCl (Zantac -) 150 mg PO DAILY [facility] Last Admin: 04/12/18 11:03 Dose: 150 mg Tamsulosin HCl (Flomax -) 0.4 mg PO 0830 [facility] Last Admin: 04/12/18 11:02 Dose: 0.4 mg - Objective Vital Signs: Vital Signs Temperature 98.1 F 04/12/18 05:54 Pulse Rate 100 H 04/12/18 05:54 Respiratory Rate 20 04/12/18 09:00 Blood Pressure 129/70 04/12/18 05:54 O2 Sat by Pulse Oximetry (%) 96 04/12/18 09:00 Constitutional: Yes: Calm Cardiovascular: Yes: Regular Rate and Rhythm Respiratory: Yes: Regular, CTA Bilaterally Gastrointestinal: Yes: Soft. No: Distention, Palpable Mass, Tenderness Edema: LLE: 1+, RLE: 1+ Neurological: Yes: Other (somnolent but arousable) Labs: CBC, BMP 04/12/18 06:10 04/12/18 06:10 INR, PTT INR 1.29 (0.83-1.09) H 03/28/18 08:10 Problem List - Problems (1) Hypercalcemia Assessment/Plan: Corrected Ca 10.3 today Continues on calcitonin (started 1012 pm), s/p zometa on 04/03 Continue to trend calcium and monitor volume status Code(s): E83.52 - HYPERCALCEMIA
--- NOTE | 2018-04-12 19:09 | PN ---
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, Physician History of Present Illness: Pt doing well. Remains afebrile, without distress. Has no complaints. - Current Medication List Current Medications: Active Medications Acetaminophen (Tylenol -) 650 mg PO Q4H PRN PRN Reason: FEVER/PAIN LEVEL 1-5 Last Admin: 04/08/18 02:39 Dose: 650 mg Amoxicillin/Clavulanate Potassium (Augmentin - 500mg Tablet) 1 tab PO BID@0800, 1730 [facility] Ascorbic Acid (Vitamin C -) 500 mg PO BID [facility] Last Admin: 04/12/18 11:03 Dose: 500 mg Calcitonin (Miacalcin Injection -) 400 unit IM BID@0600,1800 [facility] Last Admin: 04/12/18 18:01 Dose: 400 unit Collagenase (Santyl -) 1 applic TP DAILY [facility]; Protocol Last Admin: 04/12/18 11:02 Dose: 1 applic Cyanocobalamin (Vitamin B12 -) 1,000 mcg PO DAILY [facility] Last Admin: 04/12/18 11:02 Dose: 1,000 mcg Enoxaparin Sodium (Lovenox -) 30 mg SQ DAILY [facility] Last Admin: 04/12/18 11:03 Dose: 30 mg Sodium Chloride (1/2 Normal Saline) 1,000 mls @ 75 mls/hr IV ASDIR [facility] Last Admin: 04/12/18 17:51 Dose: 75 mls/hr Levothyroxine Sodium (Synthroid -) 25 mcg PO 0700 [facility] Last Admin: 04/12/18 06:34 Dose: 25 mcg Nystatin (Nystop Powder -) 1 applic TP DAILY [facility] Last Admin: 04/12/18 11:03 Dose: 1 applic Ranitidine HCl (Zantac -) 150 mg PO DAILY [facility] Last Admin: 04/12/18 11:03 Dose: 150 mg Tamsulosin HCl (Flomax -) 0.4 mg PO 0830 [facility] Last Admin: 04/12/18 11:02 Dose: 0.4 mg - Objective Vital Signs: Vital Signs Temperature 97.5 F L 04/12/18 16:15 Pulse Rate 86 04/12/18 16:15 Respiratory Rate 18 04/12/18 16:15 Blood Pressure 117/64 04/12/18 16:15 O2 Sat by Pulse Oximetry (%) 96 04/12/18 09:00 Constitutional: Yes: No Distress Cardiovascular: Yes: Regular Rate and Rhythm Respiratory: Yes: Regular Gastrointestinal: Yes: Normal Bowel Sounds, Soft, Abdomen, Obese Genitourinary: Yes: WNL Neurological: Yes: Alert, Weakness Labs: CBC, BMP 04/12/18 06:10 04/12/18 06:10 INR, PTT INR 1.29 (0.83-1.09) H 03/28/18 08:10 Problem List - Problems (1) PARMINDER (acute kidney injury) Code(s): N17.9 - ACUTE KIDNEY FAILURE, UNSPECIFIED (2) Hodgkin lymphoma Code(s): C81.90 - HODGKIN LYMPHOMA, UNSPECIFIED, UNSPECIFIED SITE Qualifiers: Hodgkin lymphoma type: unspecified type (3) Morbidly obese Code(s): E66.01 - MORBID (SEVERE) OBESITY DUE TO EXCESS CALORIES (4) Sepsis Code(s): A41.9 - SEPSIS, UNSPECIFIED ORGANISM Qualifiers: Sepsis type: sepsis due to unspecified organism Qualified Code(s): A41.9 - Sepsis, unspecified organism (5) UTI (urinary tract infection) Code(s): N39.0 - URINARY TRACT INFECTION, SITE NOT SPECIFIED (6) Weakness Code(s): R53.1 - WEAKNESS (7) Anemia Code(s): D64.9 - ANEMIA, UNSPECIFIED Qualifiers: Anemia type: unspecified type Qualified Code(s): D64.9 - Anemia, unspecified (8) BPH (benign prostatic hyperplasia) Code(s): N40.0 - BENIGN PROSTATIC HYPERPLASIA WITHOUT LOWER URINRY TRACT SYMP Assessment/Plan 87 y.o. 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
[2018-04-13] MEDS: SODIUM CHLORIDE 0.45% 1,000 ML IV SCH ×3 (06:37→22:49)
[2018-04-13] MEDS: LEVOTHYROXINE NA 25 MCG TABLET (FP) PO SCH (06:38)
[2018-04-13] MEDS: CALCITONIN - SALMON SYNTHETIC 400 UNIT/2 ML VIAL IM SCH ×2 (06:38→18:14)
[2018-04-13 06:41] LABS: BASO % 0.2 % (0-2.0); EOS % 2.6 % (0-4.5); HEMATOCRIT 25.5 % (35.4-49); HEMOGLOBIN 8.2 GM/dL (11.7-16.9); LYMPH % 19.3 % (8-40); MCH 26.6 pg (25.7-33.7); MCHC 32.1 g/dl (32.0-35.9); MEAN CELL VOLUME 83.1 fl (80-96); MEAN PLT VOLUME 6.8 fl (7.5-11.1); NEUT % 68.9 % (42.8-82.8); PLATELET COUNT 239 K/MM3 (134-434); RBC 3.08 M/mm3 (4.00-5.60); RDW 20.1 % (11.9-15.9); WHITE BLOOD COUNT 8.7 K/mm3 (4.0-10.0)
[2018-04-13 06:53] LABS: ANION GAP 7 MMOL/L (8-16); BLOOD UREA NITROGEN 9 mg/dL (7-18); CHLORIDE 109 mmol/L (98-107); CO2 26 mmol/L (21-32); CREATININE 0.6 mg/dL (0.55-1.3); GLUCOSE,RANDOM 93 mg/dL (74-106); POTASSIUM 3.8 mmol/L (3.5-5.1); SODIUM 142 mmol/L (136-145)
--- NOTE | 2018-04-13 11:23 | PN ---
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, Physician History of Present Illness: remains stable and comfortable no acute events noted - Current Medication List Current Medications: Active Medications Acetaminophen (Tylenol -) 650 mg PO Q4H PRN PRN Reason: FEVER/PAIN LEVEL 1-5 Last Admin: 04/08/18 02:39 Dose: 650 mg Amoxicillin/Clavulanate Potassium (Augmentin - 500mg Tablet) 1 tab PO BID@0800, 1730 [facility] Last Admin: 04/12/18 23:01 Dose: 1 tab Ascorbic Acid (Vitamin C -) 500 mg PO BID [facility] Last Admin: 04/12/18 23:01 Dose: 500 mg Calcitonin (Miacalcin Injection -) 400 unit IM BID@0600,1800 [facility] Last Admin: 04/13/18 06:38 Dose: 400 unit Collagenase (Santyl -) 1 applic TP DAILY [facility]; Protocol Last Admin: 04/12/18 11:02 Dose: 1 applic Cyanocobalamin (Vitamin B12 -) 1,000 mcg PO DAILY [facility] Last Admin: 04/12/18 11:02 Dose: 1,000 mcg Enoxaparin Sodium (Lovenox -) 30 mg SQ DAILY [facility] Last Admin: 04/12/18 11:03 Dose: 30 mg Sodium Chloride (1/2 Normal Saline) 1,000 mls @ 75 mls/hr IV ASDIR [facility] Last Admin: 04/13/18 06:37 Dose: 75 mls/hr Levothyroxine Sodium (Synthroid -) 25 mcg PO 0700 [facility] Last Admin: 04/13/18 06:38 Dose: 25 mcg Nystatin (Nystop Powder -) 1 applic TP DAILY [facility] Last Admin: 04/12/18 11:03 Dose: 1 applic Ranitidine HCl (Zantac -) 150 mg PO DAILY [facility] Last Admin: 04/12/18 11:03 Dose: 150 mg Tamsulosin HCl (Flomax -) 0.4 mg PO 0830 [facility] Last Admin: 04/12/18 11:02 Dose: 0.4 mg - Objective Vital Signs: Vital Signs Temperature 97.9 F 04/13/18 06:00 Pulse Rate 102 H 04/13/18 06:00 Respiratory Rate 18 04/13/18 06:00 Blood Pressure 134/69 04/13/18 06:00 O2 Sat by Pulse Oximetry (%) 96 04/12/18 21:00 Constitutional: Yes: No Distress, Calm, Obese Cardiovascular: Yes: Regular Rate and Rhythm, S1, S2 Respiratory: Yes: Regular, CTA Bilaterally Gastrointestinal: Yes: Normal Bowel Sounds, Soft Musculoskeletal: Yes: WNL Extremities: Yes: Other Neurological: Yes: Alert, Other Psychiatric: Yes: Other Labs: CBC, BMP 04/13/18 06:00 04/13/18 06:00 INR, PTT INR 1.29 (0.83-1.09) H 03/28/18 08:10 Assessment/Plan Problem List - Problems (1) PARMINDER (acute kidney injury) Code(s): N17.9 - ACUTE KIDNEY FAILURE, UNSPECIFIED (2) Hodgkin lymphoma Code(s): C81.90 - HODGKIN LYMPHOMA, UNSPECIFIED, UNSPECIFIED SITE (3) Morbidly obese Code(s): E66.01 - MORBID (SEVERE) OBESITY DUE TO EXCESS CALORIES (4) Sepsis Code(s): A41.9 - SEPSIS, UNSPECIFIED ORGANISM (5) UTI (urinary tract infection) Code(s): N39.0 - URINARY TRACT INFECTION, SITE NOT SPECIFIED (6) Weakness Code(s): R53.1 - WEAKNESS (7) Anemia Code(s): D64.9 - ANEMIA, UNSPECIFIED Qualifiers: Anemia type: unspecified type Qualified Code(s): D64.9 - Anemia, unspecified (8) BPH (benign prostatic hyperplasia) Code(s): N40.0 - BENIGN PROSTATIC HYPERPLASIA WITHOUT LOWER URINRY TRACT SYMP Assessment/Plan 87 y.o. 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
[2018-04-13] MEDS ORDERED: PT OWN MED DRAWER 7, Y5N ONE ×2 (11:51→18:12)
[2018-04-13] MEDS: RANITIDINE HCL 150 MG TABLET (FP) PO SCH (11:54)
[2018-04-13] MEDS: ENOXAPARIN NA (PORCINE) 30 MG/0.3 ML DISP.SYRIN SQ SCH (11:54)
[2018-04-13] MEDS: CYANOCOBALAMIN 1,000 MCG TABLET (FP) PO SCH (11:54)
[2018-04-13] MEDS: ASCORBIC ACID 500 MG TABLET (FP) PO SCH ×2 (11:54→22:50)
[2018-04-13] MEDS: TAMSULOSIN HCL 0.4 MG CAP PO SCH (11:54)
[2018-04-13] MEDS: AMOX TR/POT CLAV 500MG/125MG TABLETS (FP) PO SCH ×2 (11:55→18:13)
[2018-04-13] MEDS: COLLAGENASE CLOSTRIDIUM HIST. 30 GRAMS TUBE TP SCH (11:55)
[2018-04-13] MEDS: NYSTATIN POWDER 100,000 UNITS/GM - 15 GM TOPICAL POWDER TP SCH (11:55)
--- NOTE | 2018-04-13 13:25 | PN ---
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, Physician Chief Complaint: Mr Carmichael says he is doing well. Denies cp, sob, n/v. - Current Medication List Current Medications: Active Medications Acetaminophen (Tylenol -) 650 mg PO Q4H PRN PRN Reason: FEVER/PAIN LEVEL 1-5 Last Admin: 04/08/18 02:39 Dose: 650 mg Amoxicillin/Clavulanate Potassium (Augmentin - 500mg Tablet) 1 tab PO BID@0800, 1730 [facility] Last Admin: 04/13/18 11:55 Dose: 1 tab Ascorbic Acid (Vitamin C -) 500 mg PO BID [facility] Last Admin: 04/13/18 11:54 Dose: 500 mg Calcitonin (Miacalcin Injection -) 400 unit IM BID@0600,1800 [facility] Last Admin: 04/13/18 06:38 Dose: 400 unit Collagenase (Santyl -) 1 applic TP DAILY [facility]; Protocol Last Admin: 04/13/18 11:55 Dose: 1 applic Cyanocobalamin (Vitamin B12 -) 1,000 mcg PO DAILY [facility] Last Admin: 04/13/18 11:54 Dose: 1,000 mcg Enoxaparin Sodium (Lovenox -) 30 mg SQ DAILY [facility] Last Admin: 04/13/18 11:54 Dose: 30 mg Sodium Chloride (1/2 Normal Saline) 1,000 mls @ 75 mls/hr IV ASDIR [facility] Last Admin: 04/13/18 06:37 Dose: 75 mls/hr Levothyroxine Sodium (Synthroid -) 25 mcg PO 0700 [facility] Last Admin: 04/13/18 06:38 Dose: 25 mcg Nystatin (Nystop Powder -) 1 applic TP DAILY [facility] Last Admin: 04/13/18 11:55 Dose: 1 applic Ranitidine HCl (Zantac -) 150 mg PO DAILY [facility] Last Admin: 04/13/18 11:54 Dose: 150 mg Tamsulosin HCl (Flomax -) 0.4 mg PO 0830 [facility] Last Admin: 04/13/18 11:54 Dose: 0.4 mg - Objective Vital Signs: Vital Signs Temperature 36.6 C 04/13/18 10:00 Pulse Rate 98 H 04/13/18 10:00 Respiratory Rate 18 04/13/18 10:00 Blood Pressure 124/62 04/13/18 10:00 O2 Sat by Pulse Oximetry (%) 96 04/13/18 09:00 Constitutional: Yes: No Distress, Calm, Obese Cardiovascular: Yes: Regular Rate and Rhythm. No: Gallop, Murmur, Rub Respiratory: Yes: Regular, CTA Bilaterally. No: Rales, Rhonchi, Wheezes Gastrointestinal: Yes: Normal Bowel Sounds, Soft. No: Distention, Tenderness Extremities: Yes: WNL Edema: No Labs: CBC, BMP 04/13/18 06:00 04/13/18 06:00 INR, PTT INR 1.29 (0.83-1.09) H 03/28/18 08:10 Problem List - Problems (1) Sepsis Code(s): A41.9 - SEPSIS, UNSPECIFIED ORGANISM Qualifiers: Sepsis type: sepsis due to unspecified organism Qualified Code(s): A41.9 - Sepsis, unspecified organism (2) Decubitus ulcer Code(s): L89.90 - PRESSURE ULCER OF UNSPECIFIED SITE, UNSPECIFIED STAGE Qualifiers: Pressure injury location: sacral region Pressure injury stage: stage 3 Qualified Code(s): L89.153 - Pressure ulcer of sacral region, stage 3 (3) Hypernatremia Code(s): E87.0 - HYPEROSMOLALITY AND HYPERNATREMIA (4) PARMINDER (acute kidney injury) Code(s): N17.9 - ACUTE KIDNEY FAILURE, UNSPECIFIED (5) Hypothyroid Code(s): E03.9 - HYPOTHYROIDISM, UNSPECIFIED Qualifiers: Hypothyroidism type: acquired Qualified Code(s): E03.9 - Hypothyroidism, unspecified (6) Morbidly obese Code(s): E66.01 - MORBID (SEVERE) OBESITY DUE TO EXCESS CALORIES (7) Anemia Code(s): D64.9 - ANEMIA, UNSPECIFIED Qualifiers: Anemia type: unspecified type Qualified Code(s): D64.9 - Anemia, unspecified (8) Hodgkin lymphoma Code(s): C81.90 - HODGKIN LYMPHOMA, UNSPECIFIED, UNSPECIFIED SITE (9) Hypercalcemia Code(s): E83.52 - HYPERCALCEMIA (10) Metabolic encephalopathy Code(s): G93.41 - METABOLIC ENCEPHALOPATHY (11) Constipation Code(s): K59.00 - CONSTIPATION, UNSPECIFIED Assessment/Plan (1) Sepsis Assessment/Plan: -wound culture polymicrobial with final results -appreciate ID assistance -can stop augmentin today Code(s): A41.9 - SEPSIS, UNSPECIFIED ORGANISM (2) Decubitus ulcer Assessment/Plan: -appreciate wound care assistance -collagenase, frequent turning Code(s): L89.90 - PRESSURE ULCER OF UNSPECIFIED SITE, UNSPECIFIED STAGE Qualifiers: Pressure injury location: sacral region Pressure injury stage: stage 3 Qualified Code(s): L89.153 - Pressure ulcer of sacral region, stage 3 (3) Hypernatremia Assessment/Plan: -case d/w Dr Bethea -continue IVF -normal Code(s): E87.0 - HYPEROSMOLALITY AND HYPERNATREMIA (4) PARMINDER (acute kidney injury) Assessment/Plan: -resolved Code(s): N17.9 - ACUTE KIDNEY FAILURE, UNSPECIFIED (5) Hypothyroid -continue synthroid Code(s): E03.9 - HYPOTHYROIDISM, UNSPECIFIED (6) Morbidly obese Assessment/Plan: -noted Code(s): E66.01 - MORBID (SEVERE) OBESITY DUE TO EXCESS CALORIES (7) Anemia Assessment/Plan: -stable -monitor Code(s): D64.9 - ANEMIA, UNSPECIFIED Qualifiers: Anemia type: unspecified type Qualified Code(s): D64.9 - Anemia, unspecified (8) Hodgkin lymphoma Assessment/Plan: -case d/w oncology -to discuss possible treatment with patient and HCP Code(s): C81.90 - HODGKIN LYMPHOMA, UNSPECIFIED, UNSPECIFIED SITE (9) Hypercalcemia -still elevated -continue IVF -continue calcitonin (10) Fever -resolved
--- NOTE | 2018-04-13 13:37 | PN ---
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, Physician History of Present Illness: Pt seen and examined at bedside. He is awake and appears comfortable. - Current Medication List Current Medications: Active Medications Acetaminophen (Tylenol -) 650 mg PO Q4H PRN PRN Reason: FEVER/PAIN LEVEL 1-5 Last Admin: 04/08/18 02:39 Dose: 650 mg Amoxicillin/Clavulanate Potassium (Augmentin - 500mg Tablet) 1 tab PO BID@0800, 1730 [facility] Last Admin: 04/13/18 11:55 Dose: 1 tab Ascorbic Acid (Vitamin C -) 500 mg PO BID [facility] Last Admin: 04/13/18 11:54 Dose: 500 mg Calcitonin (Miacalcin Injection -) 400 unit IM BID@0600,1800 [facility] Last Admin: 04/13/18 06:38 Dose: 400 unit Collagenase (Santyl -) 1 applic TP DAILY [facility]; Protocol Last Admin: 04/13/18 11:55 Dose: 1 applic Cyanocobalamin (Vitamin B12 -) 1,000 mcg PO DAILY [facility] Last Admin: 04/13/18 11:54 Dose: 1,000 mcg Enoxaparin Sodium (Lovenox -) 30 mg SQ DAILY [facility] Last Admin: 04/13/18 11:54 Dose: 30 mg Sodium Chloride (1/2 Normal Saline) 1,000 mls @ 75 mls/hr IV ASDIR [facility] Last Admin: 04/13/18 06:37 Dose: 75 mls/hr Levothyroxine Sodium (Synthroid -) 25 mcg PO 0700 [facility] Last Admin: 04/13/18 06:38 Dose: 25 mcg Nystatin (Nystop Powder -) 1 applic TP DAILY [facility] Last Admin: 04/13/18 11:55 Dose: 1 applic Ranitidine HCl (Zantac -) 150 mg PO DAILY [facility] Last Admin: 04/13/18 11:54 Dose: 150 mg Tamsulosin HCl (Flomax -) 0.4 mg PO 0830 [facility] Last Admin: 04/13/18 11:54 Dose: 0.4 mg - Objective Vital Signs: Vital Signs Temperature 98 F 04/13/18 10:00 Pulse Rate 98 H 04/13/18 10:00 Respiratory Rate 18 04/13/18 10:00 Blood Pressure 124/62 04/13/18 10:00 O2 Sat by Pulse Oximetry (%) 96 04/13/18 09:00 Constitutional: Yes: Calm Eyes: Yes: Conjunctiva Clear HENT: Yes: Atraumatic Neck: Yes: Supple Cardiovascular: Yes: S1, S2 Respiratory: Yes: CTA Bilaterally Gastrointestinal: Yes: Normal Bowel Sounds, Soft, Abdomen, Obese Genitourinary: Yes: Incontinence Musculoskeletal: Yes: WNL Edema: LLE: Trace, RLE: Trace Neurological: Yes: Confusion Labs: CBC, BMP 04/13/18 06:00 04/13/18 06:00 INR, PTT INR 1.29 (0.83-1.09) H 03/28/18 08:10 Problem List - Problems (1) PARMINDER (acute kidney injury) Code(s): N17.9 - ACUTE KIDNEY FAILURE, UNSPECIFIED (2) Decubitus ulcer Code(s): L89.90 - PRESSURE ULCER OF UNSPECIFIED SITE, UNSPECIFIED STAGE Qualifiers: Pressure injury location: sacral region Pressure injury stage: stage 3 Qualified Code(s): L89.153 - Pressure ulcer of sacral region, stage 3 (3) Dehydration Code(s): E86.0 - DEHYDRATION (4) Hodgkin lymphoma Code(s): C81.90 - HODGKIN LYMPHOMA, UNSPECIFIED, UNSPECIFIED SITE Qualifiers: Hodgkin lymphoma type: unspecified type (5) Hypercalcemia Code(s): E83.52 - HYPERCALCEMIA (6) Hypernatremia Code(s): E87.0 - HYPEROSMOLALITY AND HYPERNATREMIA (7) Hypokalemia Code(s): E87.6 - HYPOKALEMIA (8) Hypothyroid Code(s): E03.9 - HYPOTHYROIDISM, UNSPECIFIED Qualifiers: Hypothyroidism type: acquired Qualified Code(s): E03.9 - Hypothyroidism, unspecified (9) Sepsis Code(s): A41.9 - SEPSIS, UNSPECIFIED ORGANISM Qualifiers: Sepsis type: sepsis due to unspecified organism Qualified Code(s): A41.9 - Sepsis, unspecified organism (10) BPH (benign prostatic hyperplasia) Code(s): N40.0 - BENIGN PROSTATIC HYPERPLASIA WITHOUT LOWER URINRY TRACT SYMP Assessment/Plan Current Medications Generic Name Dose Route Start Last Admin Trade Name Freq PRN Reason Stop Dose Admin Acetaminophen 650 mg 03/27/18 22:00 04/08/18 02:39 Tylenol - PO 650 mg Q4H PRN Administration FEVER/PAIN LEVEL 1-5 Amoxicillin/Clavulanate Potassium 1 tab 04/12/18 20:00 04/13/18 11:55 Augmentin - 500mg Tablet PO 1 tab BID@0800,1730 [facility] Administration Ascorbic Acid 500 mg 03/27/18 22:00 04/13/18 11:54 Vitamin C - PO 500 mg BID [facility] Administration Calcitonin 400 unit 04/10/18 18:00 04/13/18 06:38 Miacalcin Injection - IM 400 unit BID@0600,1800 [facility] Administration Collagenase 1 applic 03/30/18 12:00 04/13/18 11:55 Santyl - TP 1 applic DAILY [facility] Administration Protocol Cyanocobalamin 1,000 mcg 03/28/18 10:00 04/13/18 11:54 Vitamin B12 - PO 1,000 mcg DAILY [facility] Administration Enoxaparin Sodium 30 mg 03/28/18 10:00 04/13/18 11:54 Lovenox - SQ 30 mg DAILY [facility] Administration Sodium Chloride 1,000 mls @ 75 mls/hr 04/09/18 17:00 04/13/18 06:37 1/2 Normal Saline IV 75 mls/hr ASDIR [facility] Administration Levothyroxine Sodium 25 mcg 03/28/18 07:00 04/13/18 06:38 Synthroid - PO 25 mcg 0700 [facility] Administration Nystatin 1 applic 04/06/18 13:15 04/13/18 11:55 Nystop Powder - TP 1 applic DAILY MICHELLE Administration Ranitidine HCl 150 mg 03/28/18 10:00 04/13/18 11:54 Zantac - PO 150 mg DAILY MICHELLE Administration Tamsulosin HCl 0.4 mg 03/28/18 08:30 04/13/18 11:54 Flomax - PO 0.4 mg 0830 MICHELLE Administration Impression 1. PARMINDER resolving 2. hypernatremia 3. hypercalcemia 4. hypokalemia 5. BPH 6. hodgkins lymphoma 7. sacral decub 8. sepsis 9. obesity 10. anemia Plan - will repeat labs in am - cont with fluids - hypercalcemia likely from malignancy - pt received zometa and is on calcitonin - monitor calcium and albumin - will follow
--- NOTE | 2018-04-13 16:19 | PN ---
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, THERAPEUTIC SUPPORT STAFF - Note 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: Selected Entries 04/13/18 04/13/18 04/13/18 06:00 10:00 11:03 Breakfast 50% Lunch Temperature 97.9 F 98 F 04/13/18 13:37 Breakfast Lunch 25% Temperature 98 F Laboratory Tests 04/13/18 06:00 WBC 8.7 On puree/honey thick liquid. MBS ordered but deferred for now as pt is doing quite well on new modified diet. Pt only accepting sweetened foods. Suggest: d/c Ensure Compact (too thin) encourage Magic cup/Ensure pudding TID. Add maple syrup/ketchup/bbq sauce to Dys pureed diet. Monitor tolerance.
--- NOTE | 2018-04-13 22:12 | PN ---
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 (short form) - Note 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: patient seen and examined Denies any specific complaints - Objective Vital Signs: Vital Signs Temperature 98 F 04/13/18 10:00 Pulse Rate 98 H 04/13/18 10:00 Respiratory Rate 18 04/13/18 10:00 Blood Pressure 124/62 04/13/18 10:00 O2 Sat by Pulse Oximetry (%) 96 04/13/18 09:00 Constitutional: Yes: Calm Neck: Yes: Supple Cardiovascular: Yes: S1, S2 Respiratory: Yes: CTA Bilaterally Gastrointestinal: Yes: Normal Bowel Sounds, Soft, Abdomen, Obese Musculoskeletal: Yes: WNL Edema: LLE: Trace, RLE: Trace Neurological: Yes: Confusion Labs: CBC, BMP 04/13/18 06:00 04/13/18 06:00 INR, PTT INR 1.29 (0.83-1.09) H 03/28/18 08:10 Current Medications Generic Name Dose Route Start Last Admin Trade Name Freq PRN Reason Stop Dose Admin Acetaminophen 650 mg 03/27/18 22:00 04/08/18 02:39 Tylenol - PO 650 mg Q4H PRN Administration FEVER/PAIN LEVEL 1-5 Amoxicillin/Clavulanate Potassium 1 tab 04/12/18 20:00 04/13/18 11:55 Augmentin - 500mg Tablet PO 1 tab BID@0800,1730 MICHELLE Administration Ascorbic Acid 500 mg 03/27/18 22:00 04/13/18 11:54 Vitamin C - PO 500 mg BID MICHELLE Administration Calcitonin 400 unit 04/10/18 18:00 04/13/18 06:38 Miacalcin Injection - IM 400 unit BID@0600,1800 MICHELLE Administration Collagenase 1 applic 03/30/18 12:00 04/13/18 11:55 Santyl - TP 1 applic DAILY MICHELLE Administration Protocol Cyanocobalamin 1,000 mcg 03/28/18 10:00 04/13/18 11:54 Vitamin B12 - PO 1,000 mcg DAILY MICHELLE Administration Enoxaparin Sodium 30 mg 03/28/18 10:00 04/13/18 11:54 Lovenox - SQ 30 mg DAILY MICHELLE Administration Sodium Chloride 1,000 mls @ 75 mls/hr 04/09/18 17:00 04/13/18 06:37 1/2 Normal Saline IV 75 mls/hr ASDIR MICHELLE Administration Levothyroxine Sodium 25 mcg 03/28/18 07:00 04/13/18 06:38 Synthroid - PO 25 mcg 0700 MICHELLE Administration Nystatin 1 applic 04/06/18 13:15 04/13/18 11:55 Nystop Powder - TP 1 applic DAILY MICHELLE Administration Ranitidine HCl 150 mg 03/28/18 10:00 04/13/18 11:54 Zantac - PO 150 mg DAILY MICHELLE Administration Tamsulosin HCl 0.4 mg 03/28/18 08:30 04/13/18 11:54 Flomax - PO 0.4 mg 0830 MICHELLE Administration Impression Hypercalcemia- likely secondary to underlying Hodgkins Disease Failure to thrive Hodgkins Disease. Plan supportive care' goals of care discussion
[2018-04-14] MEDS: CALCITONIN - SALMON SYNTHETIC 400 UNIT/2 ML VIAL IM SCH (06:21)
[2018-04-14] MEDS: LEVOTHYROXINE NA 25 MCG TABLET (FP) PO SCH (06:21)
[2018-04-14 07:21] LABS: BASO % 0.4 % (0-2.0); EOS % 2.8 % (0-4.5); HEMATOCRIT 24.9 % (35.4-49); HEMOGLOBIN 8.2 GM/dL (11.7-16.9); LYMPH % 17.1 % (8-40); MCH 27.4 pg (25.7-33.7); MCHC 32.8 g/dl (32.0-35.9); MEAN CELL VOLUME 83.4 fl (80-96); MEAN PLT VOLUME 6.7 fl (7.5-11.1); MONO % 9.5 % (3.8-10.2); NEUT % 70.2 % (42.8-82.8); PLATELET COUNT 250 K/MM3 (134-434); RBC 2.98 M/mm3 (4.00-5.60); WHITE BLOOD COUNT 8.2 K/mm3 (4.0-10.0)
[2018-04-14 07:56] LABS: ALBUMIN 1.8 g/dl (3.4-5.0); ALK PHOS 104 U/L (45-117); ANION GAP 6 MMOL/L (8-16); BILIRUBIN,TOTAL 0.6 mg/dL (0.2-1); BLOOD UREA NITROGEN 9 mg/dL (7-18); CALCIUM 8.7 mg/dL (8.5-10.1); CHLORIDE 108 mmol/L (98-107); CO2 27 mmol/L (21-32); CREATININE 0.7 mg/dL (0.55-1.3); GLUCOSE,RANDOM 94 mg/dL (74-106); MAGNESIUM 1.7 mg/dL (1.8-2.4); PHOSPHOROUS 2.4 mg/dL (2.5-4.9); POTASSIUM 3.9 mmol/L (3.5-5.1); SGOT/AST 16 U/L (15-37); SGPT/ALT 9 U/L (13-61); SODIUM 140 mmol/L (136-145); TOT PROT 5.5 g/dl (6.4-8.2)
[2018-04-14] MEDS: ASCORBIC ACID 500 MG TABLET (FP) PO SCH ×2 (12:05→21:39)
[2018-04-14] MEDS: ENOXAPARIN NA (PORCINE) 30 MG/0.3 ML DISP.SYRIN SQ SCH (12:05)
[2018-04-14] MEDS: RANITIDINE HCL 150 MG TABLET (FP) PO SCH (12:06)
[2018-04-14] MEDS: TAMSULOSIN HCL 0.4 MG CAP PO SCH (12:06)
[2018-04-14] MEDS: CYANOCOBALAMIN 1,000 MCG TABLET (FP) PO SCH (12:06)
[2018-04-14] MEDS: COLLAGENASE CLOSTRIDIUM HIST. 30 GRAMS TUBE TP SCH (12:06)
[2018-04-14] MEDS: NYSTATIN POWDER 100,000 UNITS/GM - 15 GM TOPICAL POWDER TP SCH (12:07)
[2018-04-14] MEDS: SODIUM CHLORIDE 0.45% 1,000 ML IV SCH (12:51)
[2018-04-14] MEDS ORDERED: MAGNESIUM OXIDE 400 MG TABLET (FP) PO ONE (13:46)
--- NOTE | 2018-04-14 13:46 | PN ---
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, Physician History of Present Illness: Pt seen and examined at bedside. He is more awake today. He denies shortness of breath. - Current Medication List Current Medications: Active Medications Acetaminophen (Tylenol -) 650 mg PO Q4H PRN PRN Reason: FEVER/PAIN LEVEL 1-5 Last Admin: 04/08/18 02:39 Dose: 650 mg Ascorbic Acid (Vitamin C -) 500 mg PO BID [facility] Last Admin: 04/14/18 12:05 Dose: 500 mg Calcitonin (Miacalcin Injection -) 400 unit IM BID@0600,1800 [facility] Last Admin: 04/14/18 06:21 Dose: 400 unit Collagenase (Santyl -) 1 applic TP DAILY [facility]; Protocol Last Admin: 04/14/18 12:06 Dose: 1 applic Cyanocobalamin (Vitamin B12 -) 1,000 mcg PO DAILY [facility] Last Admin: 04/14/18 12:06 Dose: 1,000 mcg Enoxaparin Sodium (Lovenox -) 30 mg SQ DAILY [facility] Last Admin: 04/14/18 12:05 Dose: 30 mg Levothyroxine Sodium (Synthroid -) 25 mcg PO 0700 [facility] Last Admin: 04/14/18 06:21 Dose: 25 mcg Nystatin (Nystop Powder -) 1 applic TP DAILY [facility] Last Admin: 04/14/18 12:07 Dose: 1 applic Ranitidine HCl (Zantac -) 150 mg PO DAILY [facility] Last Admin: 04/14/18 12:06 Dose: 150 mg Tamsulosin HCl (Flomax -) 0.4 mg PO 0830 [facility] Last Admin: 04/14/18 12:06 Dose: 0.4 mg - Objective Vital Signs: Vital Signs Temperature 98.9 F 04/14/18 10:00 Pulse Rate 90 04/14/18 10:00 Respiratory Rate 18 04/14/18 10:00 Blood Pressure 104/52 L 04/14/18 10:00 O2 Sat by Pulse Oximetry (%) 97 04/13/18 21:00 Constitutional: Yes: Calm Eyes: Yes: Conjunctiva Clear HENT: Yes: Atraumatic Cardiovascular: Yes: S1, S2 Respiratory: Yes: CTA Bilaterally, On Nasal O2 Gastrointestinal: Yes: Soft, Abdomen, Obese Genitourinary: Yes: Incontinence Musculoskeletal: Yes: Muscle Weakness Edema: No Integumentary: Yes: Venous Stasis Changes Neurological: Yes: Oriented Psychiatric: Yes: Oriented Labs: CBC, BMP 04/14/18 06:00 04/14/18 06:00 INR, PTT INR 1.29 (0.83-1.09) H 03/28/18 08:10 Problem List - Problems (1) PARMINDER (acute kidney injury) Code(s): N17.9 - ACUTE KIDNEY FAILURE, UNSPECIFIED (2) Decubitus ulcer Code(s): L89.90 - PRESSURE ULCER OF UNSPECIFIED SITE, UNSPECIFIED STAGE Qualifiers: Pressure injury location: sacral region Pressure injury stage: stage 3 Qualified Code(s): L89.153 - Pressure ulcer of sacral region, stage 3 (3) Dehydration Code(s): E86.0 - DEHYDRATION (4) Hodgkin lymphoma Code(s): C81.90 - HODGKIN LYMPHOMA, UNSPECIFIED, UNSPECIFIED SITE Qualifiers: Hodgkin lymphoma type: unspecified type (5) Hypercalcemia Code(s): E83.52 - HYPERCALCEMIA (6) Hypernatremia Code(s): E87.0 - HYPEROSMOLALITY AND HYPERNATREMIA (7) Hypokalemia Code(s): E87.6 - HYPOKALEMIA (8) Hypothyroid Code(s): E03.9 - HYPOTHYROIDISM, UNSPECIFIED Qualifiers: Hypothyroidism type: acquired Qualified Code(s): E03.9 - Hypothyroidism, unspecified (9) Sepsis Code(s): A41.9 - SEPSIS, UNSPECIFIED ORGANISM Qualifiers: Sepsis type: sepsis due to unspecified organism Qualified Code(s): A41.9 - Sepsis, unspecified organism (10) BPH (benign prostatic hyperplasia) Code(s): N40.0 - BENIGN PROSTATIC HYPERPLASIA WITHOUT LOWER URINRY TRACT SYMP Assessment/Plan Current Medications Generic Name Dose Route Start Last Admin Trade Name Freq PRN Reason Stop Dose Admin Acetaminophen 650 mg 03/27/18 22:00 04/08/18 02:39 Tylenol - PO 650 mg Q4H PRN Administration FEVER/PAIN LEVEL 1-5 Ascorbic Acid 500 mg 03/27/18 22:00 04/14/18 12:05 Vitamin C - PO 500 mg BID MICHELLE Administration Calcitonin 400 unit 04/10/18 18:00 04/14/18 06:21 Miacalcin Injection - IM 400 unit BID@0600,1800 MICHELLE Administration Collagenase 1 applic 03/30/18 12:00 04/14/18 12:06 Santyl - TP 1 applic DAILY MICHELLE Administration Protocol Cyanocobalamin 1,000 mcg 03/28/18 10:00 04/14/18 12:06 Vitamin B12 - PO 1,000 mcg DAILY MICHELLE Administration Enoxaparin Sodium 30 mg 03/28/18 10:00 04/14/18 12:05 Lovenox - SQ 30 mg DAILY MICHELLE Administration Levothyroxine Sodium 25 mcg 03/28/18 07:00 04/14/18 06:21 Synthroid - PO 25 mcg 0700 MICHELLE Administration Nystatin 1 applic 04/06/18 13:15 04/14/18 12:07 Nystop Powder - TP 1 applic DAILY MICHELLE Administration Ranitidine HCl 150 mg 03/28/18 10:00 04/14/18 12:06 Zantac - PO 150 mg DAILY MICHELLE Administration Tamsulosin HCl 0.4 mg 03/28/18 08:30 04/14/18 12:06 Flomax - PO 0.4 mg 0830 MICHELLE Administration Impression 1. PARMINDER resolving 2. hypernatremia 3. hypercalcemia 4. hypokalemia 5. BPH 6. hodgkins lymphoma 7. sacral decub 8. sepsis 9. obesity 10. anemia Plan - calcium is improving - repeat labs in am - clarify GOC with family - replace phos - hypercalcemia likely from malignancy - pt received zometa and is on calcitonin - monitor calcium and albumin - will follow
--- NOTE | 2018-04-14 14:04 | PN ---
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, Physician History of Present Illness: no new issues stable - Current Medication List Current Medications: Active Medications Acetaminophen (Tylenol -) 650 mg PO Q4H PRN PRN Reason: FEVER/PAIN LEVEL 1-5 Last Admin: 04/08/18 02:39 Dose: 650 mg Ascorbic Acid (Vitamin C -) 500 mg PO BID [facility] Last Admin: 04/14/18 12:05 Dose: 500 mg Calcitonin (Miacalcin Injection -) 400 unit IM BID@0600,1800 [facility] Last Admin: 04/14/18 06:21 Dose: 400 unit Collagenase (Santyl -) 1 applic TP DAILY [facility]; Protocol Last Admin: 04/14/18 12:06 Dose: 1 applic Cyanocobalamin (Vitamin B12 -) 1,000 mcg PO DAILY [facility] Last Admin: 04/14/18 12:06 Dose: 1,000 mcg Enoxaparin Sodium (Lovenox -) 30 mg SQ DAILY [facility] Last Admin: 04/14/18 12:05 Dose: 30 mg Levothyroxine Sodium (Synthroid -) 25 mcg PO 0700 [facility] Last Admin: 04/14/18 06:21 Dose: 25 mcg Nystatin (Nystop Powder -) 1 applic TP DAILY [facility] Last Admin: 04/14/18 12:07 Dose: 1 applic Potassium Phos/Sodium Phos (Phos-Nak Packet -) 1 packet PO BID [facility] Stop: 04/15/18 22:01 Ranitidine HCl (Zantac -) 150 mg PO DAILY [facility] Last Admin: 04/14/18 12:06 Dose: 150 mg Tamsulosin HCl (Flomax -) 0.4 mg PO 0830 [facility] Last Admin: 04/14/18 12:06 Dose: 0.4 mg - Objective Vital Signs: Vital Signs Temperature 98.9 F 04/14/18 10:00 Pulse Rate 90 04/14/18 10:00 Respiratory Rate 18 04/14/18 10:00 Blood Pressure 104/52 L 04/14/18 10:00 O2 Sat by Pulse Oximetry (%) 97 04/13/18 21:00 Constitutional: Yes: No Distress, Calm, Obese Cardiovascular: Yes: Regular Rate and Rhythm Respiratory: Yes: Regular, CTA Bilaterally Gastrointestinal: Yes: Normal Bowel Sounds, Soft Musculoskeletal: Yes: WNL Extremities: Yes: WNL Neurological: Yes: Alert, Other Labs: CBC, BMP 04/14/18 06:00 10/16/18 06:00 INR, PTT INR 1.29 (0.83-1.09) H 03/28/18 08:10 Assessment/Plan Problem List - Problems (1) PARMINDER (acute kidney injury) Code(s): N17.9 - ACUTE KIDNEY FAILURE, UNSPECIFIED (2) Hodgkin lymphoma Code(s): C81.90 - HODGKIN LYMPHOMA, UNSPECIFIED, UNSPECIFIED SITE (3) Morbidly obese Code(s): E66.01 - MORBID (SEVERE) OBESITY DUE TO EXCESS CALORIES (4) Sepsis Code(s): A41.9 - SEPSIS, UNSPECIFIED ORGANISM (5) UTI (urinary tract infection) Code(s): N39.0 - URINARY TRACT INFECTION, SITE NOT SPECIFIED (6) Weakness Code(s): R53.1 - WEAKNESS (7) Anemia Code(s): D64.9 - ANEMIA, UNSPECIFIED Qualifiers: Anemia type: unspecified type Qualified Code(s): D64.9 - Anemia, unspecified (8) BPH (benign prostatic hyperplasia) Code(s): N40.0 - BENIGN PROSTATIC HYPERPLASIA WITHOUT LOWER URINRY TRACT SYMP Assessment/Plan 87 y.o. male presenting from [place] with weakness/altered mental status, poor oral intake, fevers, and lactic acidosis Sepsis - unclear source Fever Lactic acidosis BPH Hx of Hodgkins Lymphoma PARMINDER Hypothyroidism plan off of abx nutrition wound care rest as per the team
--- NOTE | 2018-04-14 14:55 | PN ---
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 Suggest: encourage Magic cup/Ensure pudding BID. Add maple syrup/ketchup/bbq sauce to Dys pureed diet. Monitor tolerance.
[2018-04-14] MEDS: NAPH,MB-DB/K PH,MBDB POWDER PACKET PO SCH ×2 (15:05→21:39)
--- NOTE | 2018-04-14 16:25 | PN ---
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, Physician Chief Complaint: Mr Carmichael is without complaint. No cp, sob, n/v. - Current Medication List Current Medications: Active Medications Acetaminophen (Tylenol -) 650 mg PO Q4H PRN PRN Reason: FEVER/PAIN LEVEL 1-5 Last Admin: 04/08/18 02:39 Dose: 650 mg Ascorbic Acid (Vitamin C -) 500 mg PO BID [facility] Last Admin: 04/14/18 12:05 Dose: 500 mg Calcitonin (Miacalcin Injection -) 400 unit IM BID@0600,1800 [facility] Last Admin: 04/14/18 06:21 Dose: 400 unit Collagenase (Santyl -) 1 applic TP DAILY [facility]; Protocol Last Admin: 04/14/18 12:06 Dose: 1 applic Cyanocobalamin (Vitamin B12 -) 1,000 mcg PO DAILY [facility] Last Admin: 04/14/18 12:06 Dose: 1,000 mcg Enoxaparin Sodium (Lovenox -) 30 mg SQ DAILY [facility] Last Admin: 04/14/18 12:05 Dose: 30 mg Levothyroxine Sodium (Synthroid -) 25 mcg PO 0700 [facility] Last Admin: 04/14/18 06:21 Dose: 25 mcg Nystatin (Nystop Powder -) 1 applic TP DAILY [facility] Last Admin: 04/14/18 12:07 Dose: 1 applic Potassium Phos/Sodium Phos (Phos-Nak Packet -) 1 packet PO BID [facility] Stop: 04/15/18 22:01 Last Admin: 04/14/18 15:05 Dose: 1 packet Ranitidine HCl (Zantac -) 150 mg PO DAILY [facility] Last Admin: 04/14/18 12:06 Dose: 150 mg Tamsulosin HCl (Flomax -) 0.4 mg PO 0830 [facility] Last Admin: 04/14/18 12:06 Dose: 0.4 mg - Objective Vital Signs: Vital Signs Temperature 36.8 C 04/14/18 14:30 Pulse Rate 93 H 04/14/18 14:30 Respiratory Rate 20 04/14/18 14:30 Blood Pressure 114/60 04/14/18 14:30 O2 Sat by Pulse Oximetry (%) 97 04/13/18 21:00 Constitutional: Yes: No Distress, Calm, Obese Cardiovascular: Yes: Regular Rate and Rhythm. No: Gallop, Murmur, Rub Respiratory: Yes: Regular, CTA Bilaterally. No: Rales, Rhonchi, Wheezes Gastrointestinal: Yes: Normal Bowel Sounds, Soft. No: Distention, Tenderness Extremities: Yes: WNL Edema: No Labs: CBC, BMP 04/14/18 06:00 04/14/18 06:00 INR, PTT INR 1.29 (0.83-1.09) H 03/28/18 08:10 Problem List - Problems (1) Sepsis Code(s): A41.9 - SEPSIS, UNSPECIFIED ORGANISM Qualifiers: Sepsis type: sepsis due to unspecified organism Qualified Code(s): A41.9 - Sepsis, unspecified organism (2) Decubitus ulcer Code(s): L89.90 - PRESSURE ULCER OF UNSPECIFIED SITE, UNSPECIFIED STAGE Qualifiers: Pressure injury location: sacral region Pressure injury stage: stage 3 Qualified Code(s): L89.153 - Pressure ulcer of sacral region, stage 3 (3) Hypernatremia Code(s): E87.0 - HYPEROSMOLALITY AND HYPERNATREMIA (4) PARMINDER (acute kidney injury) Code(s): N17.9 - ACUTE KIDNEY FAILURE, UNSPECIFIED (5) Hypothyroid Code(s): E03.9 - HYPOTHYROIDISM, UNSPECIFIED Qualifiers: Hypothyroidism type: acquired Qualified Code(s): E03.9 - Hypothyroidism, unspecified (6) Morbidly obese Code(s): E66.01 - MORBID (SEVERE) OBESITY DUE TO EXCESS CALORIES (7) Anemia Code(s): D64.9 - ANEMIA, UNSPECIFIED Qualifiers: Anemia type: unspecified type Qualified Code(s): D64.9 - Anemia, unspecified (8) Hodgkin lymphoma Code(s): C81.90 - HODGKIN LYMPHOMA, UNSPECIFIED, UNSPECIFIED SITE (9) Hypercalcemia Code(s): E83.52 - HYPERCALCEMIA (10) Metabolic encephalopathy Code(s): G93.41 - METABOLIC ENCEPHALOPATHY (11) Constipation Code(s): K59.00 - CONSTIPATION, UNSPECIFIED Assessment/Plan (1) Sepsis Assessment/Plan: -resolved -s/p full course antibiotics Code(s): A41.9 - SEPSIS, UNSPECIFIED ORGANISM (2) Decubitus ulcer Assessment/Plan: -appreciate wound care assistance -collagenase, frequent turning Code(s): L89.90 - PRESSURE ULCER OF UNSPECIFIED SITE, UNSPECIFIED STAGE Qualifiers: Pressure injury location: sacral region Pressure injury stage: stage 3 Qualified Code(s): L89.153 - Pressure ulcer of sacral region, stage 3 (3) Hypernatremia Assessment/Plan: -case d/w Dr Bethea -will trial off of IVF Code(s): E87.0 - HYPEROSMOLALITY AND HYPERNATREMIA (4) PARMINDER (acute kidney injury) Assessment/Plan: -resolved Code(s): N17.9 - ACUTE KIDNEY FAILURE, UNSPECIFIED (5) Hypothyroid -continue synthroid Code(s): E03.9 - HYPOTHYROIDISM, UNSPECIFIED (6) Morbidly obese Assessment/Plan: -noted Code(s): E66.01 - MORBID (SEVERE) OBESITY DUE TO EXCESS CALORIES (7) Anemia Assessment/Plan: -stable -monitor Code(s): D64.9 - ANEMIA, UNSPECIFIED Qualifiers: Anemia type: unspecified type Qualified Code(s): D64.9 - Anemia, unspecified (8) Hodgkin lymphoma Assessment/Plan: -case d/w oncology -no treatment recommended, patient with ECOG score of 4 Code(s): C81.90 - HODGKIN LYMPHOMA, UNSPECIFIED, UNSPECIFIED SITE (9) Hypercalcemia -suspect from Hodgkins lymphona -stop IVF and calcitonin today -recheck in am (10) Fever -resolved Dispo -case d/w son -at current functional status, patient will require multiple admissions to treat hypernatremia and hypercalcemia -if desire aggressive therapy, consider g-tube with frequent bmp checks as outpatient for sodium and calcium -may also require outpatient calcitonin or bisphosphonate treatment -conversely can consider hospice/comfort measures -to discuss again tomorrow
--- NOTE | 2018-04-14 16:28 | PN ---
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 (short form) - Note 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: Patient seen and examined . Spoke with Dr. Cristobal Seth, prior oncologist. Patient has had multiple re-occurences of his Hodgkins Disease and has a steady decline in his status. He has been bed ridden. Dr. Seth agrees that the patient is not a candidate for additional treatments. Need to decide on the goals of care with patient and family. The calcium has improved. Without treatment , it likely will re-occur. ?? Hospice or ongoing treatment. Will discontinue calcitonin.
[2018-04-15] MEDS: LEVOTHYROXINE NA 25 MCG TABLET (FP) PO SCH (06:39)
[2018-04-15 07:50] LABS: BASO % 0.3 % (0-2.0); EOS % 1.9 % (0-4.5); HEMATOCRIT 25.9 % (35.4-49); HEMOGLOBIN 8.2 GM/dL (11.7-16.9); LYMPH % 14.5 % (8-40); MCH 26.7 pg (25.7-33.7); MCHC 31.6 g/dl (32.0-35.9); MEAN CELL VOLUME 84.4 fl (80-96); MEAN PLT VOLUME 6.9 fl (7.5-11.1); MONO % 8.5 % (3.8-10.2); NEUT % 74.8 % (42.8-82.8); PLATELET COUNT 252 K/MM3 (134-434); RBC 3.07 M/mm3 (4.00-5.60); RDW 20.6 % (11.9-15.9); WHITE BLOOD COUNT 10.6 K/mm3 (4.0-10.0)
[2018-04-15 07:51] LABS: ANION GAP 9 MMOL/L (8-16); BLOOD UREA NITROGEN 11 mg/dL (7-18); CALCIUM 9.4 mg/dL (8.5-10.1); CHLORIDE 109 mmol/L (98-107); CO2 25 mmol/L (21-32); CREATININE 0.7 mg/dL (0.55-1.3); GLUCOSE,RANDOM 98 mg/dL (74-106); MAGNESIUM 1.7 mg/dL (1.8-2.4); PHOSPHOROUS 2.6 mg/dL (2.5-4.9); POTASSIUM 4.1 mmol/L (3.5-5.1); SODIUM 143 mmol/L (136-145)
[2018-04-15] MEDS ORDERED: MAGNESIUM SULF 50% (8.12 MEQ/2 ML-1 GM VIAL) IVPB ONE (07:52)
--- NOTE | 2018-04-15 08:05 | PN ---
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 (short form) - Note 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: Patient seen and examined Little change clinically As previously mentioned , spoke with prior oncologist , Dr. Cristobal Seth- suggests palliative approach to management concur with this assessment Last Vital Signs Temp Pulse Resp BP Pulse Ox 99.7 F H 107 H 20 113/59 L 95 04/15/18 05:40 04/15/18 05:40 04/15/18 05:40 04/15/18 05:40 04/14/18 20:56 HEENT: ZO, EOM Intact Oropharynx: No thrush, No mucositis, pooled secretions- back of throat Neck: Supple Cor: RSR, No murmurs, No gallops Lungs: Clear to P&A Abd: Soft, Normal bowel sounds, No organomegaly Ext:LE edema, stasis Skin: No rashes, Integument intact CBC, BMP 04/15/18 06:30 04/15/18 06:30 Abnormal Lab Results 04/15/18 04/15/18 06:30 06:30 WBC 10.6 H RBC 3.07 L Hgb 8.2 L Hct 25.9 L MCHC 31.6 L RDW 20.6 H MPV 6.9 L Chloride 109 H Magnesium 1.7 L Impression: Hypercalcemia- likely secondary to underlying Hodgkins Disease Failure to thrive Hodgkins Disease. Plan GOC Consideer socvial service --?? hospice , ??SNF and ongoing monitoring
[2018-04-15] MEDS ORDERED: PT OWN MED DRAWER 7, Y5N ONE (09:03)
[2018-04-15] MEDS: RANITIDINE HCL 150 MG TABLET (FP) PO SCH (10:05)
[2018-04-15] MEDS: ASCORBIC ACID 500 MG TABLET (FP) PO SCH ×2 (10:05→23:00)
[2018-04-15] MEDS: COLLAGENASE CLOSTRIDIUM HIST. 30 GRAMS TUBE TP SCH (10:05)
[2018-04-15] MEDS: CYANOCOBALAMIN 1,000 MCG TABLET (FP) PO SCH (10:05)
[2018-04-15] MEDS: TAMSULOSIN HCL 0.4 MG CAP PO SCH (10:05)
[2018-04-15] MEDS: NAPH,MB-DB/K PH,MBDB POWDER PACKET PO SCH ×2 (10:05→23:00)
[2018-04-15] MEDS: NYSTATIN POWDER 100,000 UNITS/GM - 15 GM TOPICAL POWDER TP SCH (10:06)
[2018-04-15] MEDS: ENOXAPARIN NA (PORCINE) 30 MG/0.3 ML DISP.SYRIN SQ SCH (10:06)
--- NOTE | 2018-04-15 10:56 | PN ---
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: Selected Entries 04/13/18 04/13/18 04/13/18 06:00 10:00 11:03 Breakfast 50% Lunch Temperature 97.9 F 98 F 04/13/18 13:37 Breakfast Lunch 25% Temperature 98 F Laboratory Tests 04/13/18 06:00 WBC 8.7 Selected Entries 04/13/18 04/13/18 04/14/18 11:03 13:37 08:00 Breakfast 50% Lunch 25% Temperature 99.0 F 04/14/18 04/14/18 04/14/18 10:00 10:41 14:30 Breakfast 25% Lunch 25% Temperature 98.9 F 98.3 F Laboratory Tests 04/14/18 06:00 WBC 8.2 Selected Entries 04/14/18 04/14/18 04/14/18 08:00 10:00 10:41 Breakfast 25% Lunch Temperature 99.0 F 98.9 F 04/14/18 04/14/18 04/14/18 14:30 16:53 21:08 Breakfast Lunch 25% Temperature 98.3 F 97.9 F 99.1 F 04/15/18 04/15/18 05:40 10:27 Breakfast 50% Lunch Temperature 99.7 F H Laboratory Tests 04/14/18 04/15/18 06:00 06:30 WBC 8.2 10.6 H On puree/honey thick liquid with good overt tolerance Suggest: encourage Magic cup/Ensure pudding BID. Add maple syrup/ketchup/bbq sauce to Dys pureed diet. Monitor tolerance. Palliative care per Oncology
--- NOTE | 2018-04-15 12:25 | PN ---
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, Physician History of Present Illness: Pt seen and examined at bedside. He is awake and alert. He denies shortness of breath. - Current Medication List Current Medications: Active Medications Acetaminophen (Tylenol -) 650 mg PO Q4H PRN PRN Reason: FEVER/PAIN LEVEL 1-5 Last Admin: 04/08/18 02:39 Dose: 650 mg Ascorbic Acid (Vitamin C -) 500 mg PO BID [facility] Last Admin: 04/15/18 10:05 Dose: 500 mg Collagenase (Santyl -) 1 applic TP DAILY [facility]; Protocol Last Admin: 04/15/18 10:05 Dose: 1 applic Cyanocobalamin (Vitamin B12 -) 1,000 mcg PO DAILY [facility] Last Admin: 04/15/18 10:05 Dose: 1,000 mcg Enoxaparin Sodium (Lovenox -) 30 mg SQ DAILY [facility] Last Admin: 04/15/18 10:06 Dose: 30 mg Levothyroxine Sodium (Synthroid -) 25 mcg PO 0700 [facility] Last Admin: 04/15/18 06:39 Dose: 25 mcg Nystatin (Nystop Powder -) 1 applic TP DAILY [facility] Last Admin: 04/15/18 10:06 Dose: 1 applic Potassium Phos/Sodium Phos (Phos-Nak Packet -) 1 packet PO BID [facility] Stop: 04/15/18 22:01 Last Admin: 04/15/18 10:05 Dose: 1 packet Ranitidine HCl (Zantac -) 150 mg PO DAILY [facility] Last Admin: 04/15/18 10:05 Dose: 150 mg Tamsulosin HCl (Flomax -) 0.4 mg PO 0830 [facility] Last Admin: 04/15/18 10:05 Dose: 0.4 mg - Objective Vital Signs: Vital Signs Temperature 99.7 F H 04/15/18 05:40 Pulse Rate 107 H 04/15/18 05:40 Respiratory Rate 20 04/15/18 05:40 Blood Pressure 113/59 L 04/15/18 05:40 O2 Sat by Pulse Oximetry (%) 95 04/14/18 20:56 Constitutional: Yes: Calm Eyes: Yes: Conjunctiva Clear HENT: Yes: Atraumatic Cardiovascular: Yes: S1, S2 Respiratory: Yes: CTA Bilaterally Gastrointestinal: Yes: Normal Bowel Sounds, Soft Genitourinary: Yes: Incontinence Musculoskeletal: Yes: Muscle Weakness Edema: No Integumentary: Yes: Venous Stasis Changes Neurological: Yes: Oriented Labs: CBC, BMP 04/15/18 06:30 04/15/18 06:30 INR, PTT INR 1.29 (0.83-1.09) H 03/28/18 08:10 Problem List - Problems (1) PARMINDER (acute kidney injury) Code(s): N17.9 - ACUTE KIDNEY FAILURE, UNSPECIFIED (2) Decubitus ulcer Code(s): L89.90 - PRESSURE ULCER OF UNSPECIFIED SITE, UNSPECIFIED STAGE Qualifiers: Pressure injury location: sacral region Pressure injury stage: stage 3 Qualified Code(s): L89.153 - Pressure ulcer of sacral region, stage 3 (3) Dehydration Code(s): E86.0 - DEHYDRATION (4) Hodgkin lymphoma Code(s): C81.90 - HODGKIN LYMPHOMA, UNSPECIFIED, UNSPECIFIED SITE Qualifiers: Hodgkin lymphoma type: unspecified type (5) Hypercalcemia Code(s): E83.52 - HYPERCALCEMIA (6) Hypernatremia Code(s): E87.0 - HYPEROSMOLALITY AND HYPERNATREMIA (7) Hypokalemia Code(s): E87.6 - HYPOKALEMIA (8) Hypothyroid Code(s): E03.9 - HYPOTHYROIDISM, UNSPECIFIED Qualifiers: Hypothyroidism type: acquired Qualified Code(s): E03.9 - Hypothyroidism, unspecified (9) Sepsis Code(s): A41.9 - SEPSIS, UNSPECIFIED ORGANISM Qualifiers: Sepsis type: sepsis due to unspecified organism Qualified Code(s): A41.9 - Sepsis, unspecified organism (10) BPH (benign prostatic hyperplasia) Code(s): N40.0 - BENIGN PROSTATIC HYPERPLASIA WITHOUT LOWER URINRY TRACT SYMP Assessment/Plan Current Medications Generic Name Dose Route Start Last Admin Trade Name Freq PRN Reason Stop Dose Admin Acetaminophen 650 mg 03/27/18 22:00 04/08/18 02:39 Tylenol - PO 650 mg Q4H PRN Administration FEVER/PAIN LEVEL 1-5 Ascorbic Acid 500 mg 03/27/18 22:00 04/15/18 10:05 Vitamin C - PO 500 mg BID MICHELLE Administration Collagenase 1 applic 03/30/18 12:00 04/15/18 10:05 Santyl - TP 1 applic DAILY [facility] Administration Protocol Cyanocobalamin 1,000 mcg 03/28/18 10:00 04/15/18 10:05 Vitamin B12 - PO 1,000 mcg DAILY MICHELLE Administration Enoxaparin Sodium 30 mg 03/28/18 10:00 04/15/18 10:06 Lovenox - SQ 30 mg DAILY MICHELLE Administration Levothyroxine Sodium 25 mcg 03/28/18 07:00 04/15/18 06:39 Synthroid - PO 25 mcg 0700 MICHELLE Administration Nystatin 1 applic 04/06/18 13:15 04/15/18 10:06 Nystop Powder - TP 1 applic DAILY MICHELLE Administration Potassium Phos/Sodium Phos 1 packet 04/14/18 14:00 04/15/18 10:05 Phos-Nak Packet - PO 04/15/18 22:01 1 packet BID MICHELLE Administration Ranitidine HCl 150 mg 03/28/18 10:00 04/15/18 10:05 Zantac - PO 150 mg DAILY MICHELLE Administration Tamsulosin HCl 0.4 mg 03/28/18 08:30 04/15/18 10:05 Flomax - PO 0.4 mg 0830 MICHELLE Administration Impression 1. PARMINDER resolving 2. hypernatremia 3. hypercalcemia 4. hypokalemia 5. BPH 6. hodgkins lymphoma 7. sacral decub 8. sepsis 9. obesity 10. anemia Plan - calcium is higher today - will need to discuss GOC - will discuss treatment with primary team - hypercalcemia likely from malignancy - pt received zometa and is on calcitonin - monitor calcium and albumin - will follow
--- NOTE | 2018-04-15 12:41 | PN ---
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, Physician History of Present Illness: no new issues stable awake - Current Medication List Current Medications: Active Medications Acetaminophen (Tylenol -) 650 mg PO Q4H PRN PRN Reason: FEVER/PAIN LEVEL 1-5 Last Admin: 04/08/18 02:39 Dose: 650 mg Ascorbic Acid (Vitamin C -) 500 mg PO BID [facility] Last Admin: 04/15/18 10:05 Dose: 500 mg Collagenase (Santyl -) 1 applic TP DAILY [facility]; Protocol Last Admin: 04/15/18 10:05 Dose: 1 applic Cyanocobalamin (Vitamin B12 -) 1,000 mcg PO DAILY [facility] Last Admin: 04/15/18 10:05 Dose: 1,000 mcg Enoxaparin Sodium (Lovenox -) 30 mg SQ DAILY [facility] Last Admin: 04/15/18 10:06 Dose: 30 mg Levothyroxine Sodium (Synthroid -) 25 mcg PO 0700 [facility] Last Admin: 04/15/18 06:39 Dose: 25 mcg Nystatin (Nystop Powder -) 1 applic TP DAILY [facility] Last Admin: 04/15/18 10:06 Dose: 1 applic Potassium Phos/Sodium Phos (Phos-Nak Packet -) 1 packet PO BID [facility] Stop: 04/15/18 22:01 Last Admin: 04/15/18 10:05 Dose: 1 packet Ranitidine HCl (Zantac -) 150 mg PO DAILY [facility] Last Admin: 04/15/18 10:05 Dose: 150 mg Tamsulosin HCl (Flomax -) 0.4 mg PO 0830 [facility] Last Admin: 04/15/18 10:05 Dose: 0.4 mg - Objective Vital Signs: Vital Signs Temperature 99.7 F H 04/15/18 05:40 Pulse Rate 107 H 04/15/18 05:40 Respiratory Rate 20 04/15/18 05:40 Blood Pressure 113/59 L 04/15/18 05:40 O2 Sat by Pulse Oximetry (%) 95 04/14/18 20:56 Constitutional: Yes: No Distress, Calm, Obese Cardiovascular: Yes: S1, S2 Respiratory: Yes: Regular, Poor Air Entry (bases) Gastrointestinal: Yes: Normal Bowel Sounds, Soft Musculoskeletal: Yes: WNL Extremities: Yes: WNL Neurological: Yes: Alert, Other Labs: CBC, BMP 04/15/18 06:30 04/15/18 06:30 INR, PTT INR 1.29 (0.83-1.09) H 03/28/18 08:10 Assessment/Plan Problem List - Problems (1) PARMINDER (acute kidney injury) Code(s): N17.9 - ACUTE KIDNEY FAILURE, UNSPECIFIED (2) Hodgkin lymphoma Code(s): C81.90 - HODGKIN LYMPHOMA, UNSPECIFIED, UNSPECIFIED SITE (3) Morbidly obese Code(s): E66.01 - MORBID (SEVERE) OBESITY DUE TO EXCESS CALORIES (4) Sepsis Code(s): A41.9 - SEPSIS, UNSPECIFIED ORGANISM (5) UTI (urinary tract infection) Code(s): N39.0 - URINARY TRACT INFECTION, SITE NOT SPECIFIED (6) Weakness Code(s): R53.1 - WEAKNESS (7) Anemia Code(s): D64.9 - ANEMIA, UNSPECIFIED Qualifiers: Anemia type: unspecified type Qualified Code(s): D64.9 - Anemia, unspecified (8) BPH (benign prostatic hyperplasia) Code(s): N40.0 - BENIGN PROSTATIC HYPERPLASIA WITHOUT LOWER URINRY TRACT SYMP Assessment/Plan 87 y.o. male presenting from [place] with weakness/altered mental status, poor oral intake, fevers, and lactic acidosis Sepsis - unclear source Fever Lactic acidosis BPH Hx of Hodgkins Lymphoma PARMINDER Hypothyroidism plan off of abx being treated for high calclum wound care rest as per the team
--- NOTE | 2018-04-15 15:23 | PN ---
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, Physician Chief Complaint: Mr Carmichael says he feels fine. No cp, sob, n/v. - Current Medication List Current Medications: Active Medications Acetaminophen (Tylenol -) 650 mg PO Q4H PRN PRN Reason: FEVER/PAIN LEVEL 1-5 Last Admin: 04/08/18 02:39 Dose: 650 mg Ascorbic Acid (Vitamin C -) 500 mg PO BID [facility] Last Admin: 04/15/18 10:05 Dose: 500 mg Collagenase (Santyl -) 1 applic TP DAILY [facility]; Protocol Last Admin: 04/15/18 10:05 Dose: 1 applic Cyanocobalamin (Vitamin B12 -) 1,000 mcg PO DAILY [facility] Last Admin: 04/15/18 10:05 Dose: 1,000 mcg Enoxaparin Sodium (Lovenox -) 30 mg SQ DAILY [facility] Last Admin: 04/15/18 10:06 Dose: 30 mg Levothyroxine Sodium (Synthroid -) 25 mcg PO 0700 [facility] Last Admin: 04/15/18 06:39 Dose: 25 mcg Nystatin (Nystop Powder -) 1 applic TP DAILY [facility] Last Admin: 04/15/18 10:06 Dose: 1 applic Potassium Phos/Sodium Phos (Phos-Nak Packet -) 1 packet PO BID [facility] Stop: 04/15/18 22:01 Last Admin: 04/15/18 10:05 Dose: 1 packet Ranitidine HCl (Zantac -) 150 mg PO DAILY [facility] Last Admin: 04/15/18 10:05 Dose: 150 mg Tamsulosin HCl (Flomax -) 0.4 mg PO 0830 [facility] Last Admin: 04/15/18 10:05 Dose: 0.4 mg - Objective Vital Signs: Vital Signs Temperature 37.6 C H 04/15/18 05:40 Pulse Rate 107 H 04/15/18 05:40 Respiratory Rate 20 04/15/18 05:40 Blood Pressure 113/59 L 04/15/18 05:40 O2 Sat by Pulse Oximetry (%) 95 04/14/18 20:56 Constitutional: Yes: No Distress, Calm, Obese Cardiovascular: Yes: Regular Rate and Rhythm. No: Gallop, Murmur, Rub Respiratory: Yes: Regular, CTA Bilaterally. No: Rales, Rhonchi, Wheezes Gastrointestinal: Yes: Normal Bowel Sounds, Soft. No: Distention, Tenderness Extremities: Yes: WNL Edema: No Labs: CBC, BMP 04/15/18 06:30 04/15/18 06:30 INR, PTT INR 1.29 (0.83-1.09) H 03/28/18 08:10 Problem List - Problems (1) Sepsis Code(s): A41.9 - SEPSIS, UNSPECIFIED ORGANISM Qualifiers: Sepsis type: sepsis due to unspecified organism Qualified Code(s): A41.9 - Sepsis, unspecified organism (2) Decubitus ulcer Code(s): L89.90 - PRESSURE ULCER OF UNSPECIFIED SITE, UNSPECIFIED STAGE Qualifiers: Pressure injury location: sacral region Pressure injury stage: stage 3 Qualified Code(s): L89.153 - Pressure ulcer of sacral region, stage 3 (3) Hypernatremia Code(s): E87.0 - HYPEROSMOLALITY AND HYPERNATREMIA (4) PARMINDER (acute kidney injury) Code(s): N17.9 - ACUTE KIDNEY FAILURE, UNSPECIFIED (5) Hypothyroid Code(s): E03.9 - HYPOTHYROIDISM, UNSPECIFIED Qualifiers: Hypothyroidism type: acquired Qualified Code(s): E03.9 - Hypothyroidism, unspecified (6) Morbidly obese Code(s): E66.01 - MORBID (SEVERE) OBESITY DUE TO EXCESS CALORIES (7) Anemia Code(s): D64.9 - ANEMIA, UNSPECIFIED Qualifiers: Anemia type: unspecified type Qualified Code(s): D64.9 - Anemia, unspecified (8) Hodgkin lymphoma Code(s): C81.90 - HODGKIN LYMPHOMA, UNSPECIFIED, UNSPECIFIED SITE (9) Hypercalcemia Code(s): E83.52 - HYPERCALCEMIA (10) Metabolic encephalopathy Code(s): G93.41 - METABOLIC ENCEPHALOPATHY (11) Constipation Code(s): K59.00 - CONSTIPATION, UNSPECIFIED Assessment/Plan (1) Sepsis Assessment/Plan: -resolved -s/p full course antibiotics Code(s): A41.9 - SEPSIS, UNSPECIFIED ORGANISM (2) Decubitus ulcer Assessment/Plan: -appreciate wound care assistance -collagenase, frequent turning Code(s): L89.90 - PRESSURE ULCER OF UNSPECIFIED SITE, UNSPECIFIED STAGE Qualifiers: Pressure injury location: sacral region Pressure injury stage: stage 3 Qualified Code(s): L89.153 - Pressure ulcer of sacral region, stage 3 (3) Hypernatremia Assessment/Plan: -case d/w Dr Bethea -continue to monitor off of IVF Code(s): E87.0 - HYPEROSMOLALITY AND HYPERNATREMIA (4) PARMINDER (acute kidney injury) Assessment/Plan: -resolved Code(s): N17.9 - ACUTE KIDNEY FAILURE, UNSPECIFIED (5) Hypothyroid -continue synthroid Code(s): E03.9 - HYPOTHYROIDISM, UNSPECIFIED (6) Morbidly obese Assessment/Plan: -noted Code(s): E66.01 - MORBID (SEVERE) OBESITY DUE TO EXCESS CALORIES (7) Anemia Assessment/Plan: -stable -monitor Code(s): D64.9 - ANEMIA, UNSPECIFIED Qualifiers: Anemia type: unspecified type Qualified Code(s): D64.9 - Anemia, unspecified (8) Hodgkin lymphoma Assessment/Plan: -case d/w oncology -no treatment recommended, patient with ECOG score of 4 Code(s): C81.90 - HODGKIN LYMPHOMA, UNSPECIFIED, UNSPECIFIED SITE (9) Hypercalcemia -increased today -[facility] d/w family (10) Fever -resolved Dispo -case d/w son -desires to speak with other son as well -however leaning towards comfort measures only -palliative care made aware and also meeting with family
[2018-04-15 15:50] LABS: ANISOCYTOSIS 1+; OVALOCYTE 1+
[2018-04-16] MEDS: ACETAMINOPHEN 325 MG TABLET (FP) PO PRN (05:48)
[2018-04-16] MEDS: LEVOTHYROXINE NA 25 MCG TABLET (FP) PO SCH (06:25)
[2018-04-16 07:33] LABS: BASO % 0.2 % (0-2.0); EOS % 1.9 % (0-4.5); HEMATOCRIT 24.5 % (35.4-49); HEMOGLOBIN 7.9 GM/dL (11.7-16.9); LYMPH % 13.2 % (8-40); MCH 27.2 pg (25.7-33.7); MCHC 32.3 g/dl (32.0-35.9); MEAN CELL VOLUME 84.3 fl (80-96); MEAN PLT VOLUME 6.8 fl (7.5-11.1); MONO % 8.7 % (3.8-10.2); PLATELET COUNT 285 K/MM3 (134-434); RDW 21.1 % (11.9-15.9); WHITE BLOOD COUNT 10.8 K/mm3 (4.0-10.0)
[2018-04-16 08:10] LABS: ANION GAP 7 MMOL/L (8-16); BLOOD UREA NITROGEN 14 mg/dL (7-18); CALCIUM 9.4 mg/dL (8.5-10.1); CHLORIDE 110 mmol/L (98-107); CO2 27 mmol/L (21-32); CREATININE 0.8 mg/dL (0.55-1.3); GLUCOSE,RANDOM 94 mg/dL (74-106); PHOSPHOROUS 3.1 mg/dL (2.5-4.9); POTASSIUM 4.2 mmol/L (3.5-5.1); SODIUM 144 mmol/L (136-145)
[2018-04-16] MEDS: TAMSULOSIN HCL 0.4 MG CAP PO SCH (08:53)
[2018-04-16] MEDS: ASCORBIC ACID 500 MG TABLET (FP) PO SCH (09:04)
[2018-04-16] MEDS: COLLAGENASE CLOSTRIDIUM HIST. 30 GRAMS TUBE TP SCH (09:04)
[2018-04-16] MEDS: RANITIDINE HCL 150 MG TABLET (FP) PO SCH (09:04)
[2018-04-16] MEDS: CYANOCOBALAMIN 1,000 MCG TABLET (FP) PO SCH (09:04)
[2018-04-16] MEDS: ENOXAPARIN NA (PORCINE) 30 MG/0.3 ML DISP.SYRIN SQ SCH (09:05)
[2018-04-16] MEDS: NYSTATIN POWDER 100,000 UNITS/GM - 15 GM TOPICAL POWDER TP SCH (09:05)
--- NOTE | 2018-04-16 10:53 | PN ---
Physical Exam: SUBJECTIVE:Patient seen and examined at bedside. No overnight events. No new complaints. Tolerating diet. Denies CP,, SOB,abdominal pain, nausea or vomiting. OBJECTIVE: Vital Signs Period Temp Pulse Resp BP Sys/Garcia Pulse Ox Last 24 Hr 97.4 F-101.0 F 104-109 18-20 120-135/56-78 98-98 GENERAL: Awake and alert, NAD HEENT: PERRLA,EOMI PULM: CTAB, No wheezing or rales. CV: RRR, NL S1S2, no M/G/R GI: Soft, NTND, obese, NABS, No organomegally. Ext: No clubbing or cyanosis; 2+LE edema, Bilateral LE venous stasis dermatitis. Neuro: awake and alert. Laboratory Results - last 24 hr 04/15/18 04/16/18 04/16/18 06:30 06:30 06:30 WBC 10.8 H RBC 2.90 L Hgb 7.9 L Hct 24.5 L MCV 84.3 MCH 27.2 MCHC 32.3 RDW 21.1 H Plt Count 285 MPV 6.8 L Absolute Neuts (auto) 8.2 H Neutrophils % 76.0 Lymphocytes % 13.2 Monocytes % 8.7 Eosinophils % 1.9 Basophils % 0.2 Nucleated RBC % 0 Hypochromia 1+ Anisocytosis 1+ Microcytosis 1+ Ovalocytes 1+ Sodium 144 Potassium 4.2 Chloride 110 H Carbon Dioxide 27 Anion Gap 7 L BUN 14 Creatinine 0.8 Creat Clearance w eGFR > 60 Random Glucose 94 Calcium 9.4 Phosphorus 3.1 Magnesium 2.0 Active Medications Generic Name Dose Route Start Last Admin Trade Name Freq PRN Reason Stop Dose Admin Acetaminophen 650 mg 03/27/18 22:00 04/16/18 05:48 Tylenol - PO 650 mg Q4H PRN Administration FEVER/PAIN LEVEL 1-5 Ascorbic Acid 500 mg 03/27/18 22:00 04/16/18 09:04 Vitamin C - PO 500 mg BID MICHELLE Administration Collagenase 1 applic 03/30/18 12:00 04/16/18 09:04 Santyl - TP 1 applic DAILY [facility] Administration Protocol Cyanocobalamin 1,000 mcg 03/28/18 10:00 04/16/18 09:04 Vitamin B12 - PO 1,000 mcg DAILY [facility] Administration Enoxaparin Sodium 30 mg 03/28/18 10:00 04/16/18 09:05 Lovenox - SQ 30 mg DAILY [facility]LE Administration Levothyroxine Sodium 25 mcg 03/28/18 07:00 04/16/18 06:25 Synthroid - PO 25 mcg 0700 MICHELLE Administration Nystatin 1 applic 04/06/18 13:15 04/16/18 09:05 Nystop Powder - TP 1 applic DAILY [facility] Administration Ranitidine HCl 150 mg 03/28/18 10:00 04/16/18 09:04 Zantac - PO 150 mg DAILY [facility] Administration Tamsulosin HCl 0.4 mg 03/28/18 08:30 04/16/18 08:53 Flomax - PO 0.4 mg 0830 [facility]HELLE Administration ASSESSMENT/PLAN: 87 yo M with PMHx morbidly obese ,H/O Lymphoma BIB EMS from [facility] with confusion and tiredness. ED w/u show + UA , dehydration and admitted for further management Problem List - Problems (1) Hypercalcemia Assessment/Plan: This is 2/2 Lymphoma. * IVF stopped. * Encouraged PO intake. * PTH was low * PTH-RP WNL * received Zometa x 1 dose. * will continue to monitor calcium and albumin. (2) Hodgkin lymphoma Assessment/Plan: Followed by Dr. Seth @ [facility] * recommend f/u once discharged back to [place]. * Discuss GOC with family. Qualifiers: (3) Sepsis Assessment/Plan: * Cultures show mulitple organisms in sacral wound. * completed course of ABx. (4) PARMINDER (acute kidney injury) Assessment/Plan: 2/2 UTI * resolved * encourage PO intake * IVF stopped (5) Hypothyroid Assessment/Plan: Continue synthroid. Visit type - Emergency Visit Emergency Visit: Yes ED Registration Date: 03/27/18 Care time: The patient presented to the Emergency Department on the above date and was hospitalized for further evaluation of their emergent condition. - New Patient This patient is new to me today: No - Critical Care Critical Care patient: No
[2018-04-16] MEDS ORDERED: SCOPOLAMINE HYDROBROMIDE 1 PATCH PATCH.TD72 TD SCH (11:45)
--- NOTE | 2018-04-16 13:56 | DS ---
Physical Examination Vital Signs: Vital Signs Temperature 37.4 C 04/16/18 13:25 Pulse Rate 90 04/16/18 13:25 Respiratory Rate 20 04/16/18 13:25 Blood Pressure 126/65 04/16/18 13:25 O2 Sat by Pulse Oximetry (%) 98 04/16/18 09:00 Constitutional: Yes: No Distress, Calm, Obese Cardiovascular: Yes: Regular Rate and Rhythm. No: Gallop, Murmur, Rub Respiratory: Yes: Regular, CTA Bilaterally. No: Rales, Rhonchi, Wheezes Gastrointestinal: Yes: Normal Bowel Sounds, Soft. No: Distention, Tenderness Extremities: Yes: WNL Edema: No Labs: CBC, BMP 04/16/18 06:30 04/16/18 06:30 Discharge Summary Reason For Visit: HOPDGKIN LYMPHOMA, UTI, SEPSIS Current Active Problems PARMINDER (acute kidney injury) (Acute) Constipation (Acute) Decubitus ulcer (Acute) Dehydration (Acute) Hodgkin lymphoma (Acute) Hypercalcemia (Acute) Hypernatremia (Acute) Hypokalemia (Acute) Hypothyroid (Acute) Metabolic encephalopathy (Acute) Morbidly obese (Acute) Sepsis (Acute) UTI (urinary tract infection) (Acute) Hospital Course: (1) Sepsis Code(s): A41.9 - SEPSIS, UNSPECIFIED ORGANISM Qualifiers: Sepsis type: sepsis due to unspecified organism Qualified Code(s): A41.9 - Sepsis, unspecified organism (2) Decubitus ulcer Code(s): L89.90 - PRESSURE ULCER OF UNSPECIFIED SITE, UNSPECIFIED STAGE Qualifiers: Pressure injury location: sacral region Pressure injury stage: stage 3 Qualified Code(s): L89.153 - Pressure ulcer of sacral region, stage 3 (3) Hypernatremia Code(s): E87.0 - HYPEROSMOLALITY AND HYPERNATREMIA (4) PARMINDER (acute kidney injury) Code(s): N17.9 - ACUTE KIDNEY FAILURE, UNSPECIFIED (5) Hypothyroid Code(s): E03.9 - HYPOTHYROIDISM, UNSPECIFIED Qualifiers: Hypothyroidism type: acquired Qualified Code(s): E03.9 - Hypothyroidism, unspecified (6) Morbidly obese Code(s): E66.01 - MORBID (SEVERE) OBESITY DUE TO EXCESS CALORIES (7) Anemia Code(s): D64.9 - ANEMIA, UNSPECIFIED Qualifiers: Anemia type: unspecified type Qualified Code(s): D64.9 - Anemia, unspecified (8) Hodgkin lymphoma Code(s): C81.90 - HODGKIN LYMPHOMA, UNSPECIFIED, UNSPECIFIED SITE (9) Hypercalcemia Code(s): E83.52 - HYPERCALCEMIA (10) Metabolic encephalopathy Code(s): G93.41 - METABOLIC ENCEPHALOPATHY (11) Constipation Code(s): K59.00 - CONSTIPATION, UNSPECIFIED Mr Carmichael is a very pleasant 87 year old male who presents from [facility] with sepsis secondary to decubitus ulcer. He was admitted to the hospital and seen by ID. He finished a course of antibiotics and improved. He was also noted to have hypercalcemia, hypernatremia, and PARMINDER. He was hydrated and nephrology was consulted. With fluid management his PARMINDER resolved and his hypernatremia was managed. He was evaluated for hyperparathyroidism and this was negative. Hypercalcemia secondary to Hodgkins lymphoma. Oncology consulted and treatment for lymphoma not indicated at this time secondary to ECOG score. He received zometa, calcitonin, and IVF however these measures are temporary. Met with family who decided patient would desire comfort measures instead of aggressive treatment and multiple admissions. Currently he is stable for discharge to [facility] on comfort measures. 36 minutes spent in preparation of this discharge Condition: Stable - Instructions Diet, Activity, Other Instructions: diet and activity for comfort. On dysphagia pureed with honey thickened liquids this hospital stay. Comfort measures at SNF. Referrals: Piero Grant MD [Primary Care Provider] - Disposition: CARE HOME FACILITY - Home Medications Comprehensive Discharge Medication List: Ambulatory Orders Tamsulosin HCl [Flomax] 0.4 mg PO DAILY #30 cap.er.24h 07/04/17 Cyanocobalamin [Vitamin B12 -] 1,000 mcg PO DAILY #30 tablet 07/07/17 Acetaminophen 325 mg PO PRN 03/27/18 Ascorbic Acid [Vitamin C] 500 mg PO BID 03/27/18 Levothyroxine [Synthroid -] 25 mcg PO DAILY 03/27/18 Ranitidine [Zantac -] 150 mg PO DAILY 03/27/18 Ascorbic Acid [Vitamin C -] 500 mg PO BID 03/28/18 Levothyroxine [Synthroid -] 25 mcg PO DAILY 03/28/18 Multivitamin,Ther and Minerals [Vitamin and Minerals] 1 each PO DAILY 03/28/18 Collagenase Clostridium Hist. [Santyl -] 1 applic TP DAILY tube 04/16/18 Scopolamine Hydrobromide [Transderm-Scop -] 1 patch TD Q72H patch.[id number]
--- NOTE | 2018-04-16 14:55 | PN ---
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, Physician History of Present Illness: no new issues stable awake - Current Medication List Current Medications: Active Medications Acetaminophen (Tylenol -) 650 mg PO Q4H PRN PRN Reason: FEVER/PAIN LEVEL 1-5 Last Admin: 04/16/18 05:48 Dose: 650 mg Ascorbic Acid (Vitamin C -) 500 mg PO BID [facility] Last Admin: 04/16/18 09:04 Dose: 500 mg Collagenase (Santyl -) 1 applic TP DAILY [facility]; Protocol Last Admin: 04/16/18 09:04 Dose: 1 applic Cyanocobalamin (Vitamin B12 -) 1,000 mcg PO DAILY [facility] Last Admin: 04/16/18 09:04 Dose: 1,000 mcg Enoxaparin Sodium (Lovenox -) 30 mg SQ DAILY [facility] Last Admin: 04/16/18 09:05 Dose: 30 mg Levothyroxine Sodium (Synthroid -) 25 mcg PO 0700 [facility] Last Admin: 04/16/18 06:25 Dose: 25 mcg Nystatin (Nystop Powder -) 1 applic TP DAILY [facility] Last Admin: 04/16/18 09:05 Dose: 1 applic Ranitidine HCl (Zantac -) 150 mg PO DAILY [facility] Last Admin: 04/16/18 09:04 Dose: 150 mg Scopolamine HBr (Transderm-Scop -) 1 patch TD Q72H [facility] Tamsulosin HCl (Flomax -) 0.4 mg PO 0830 [facility] Last Admin: 04/16/18 08:53 Dose: 0.4 mg - Objective Vital Signs: Vital Signs Temperature 99.3 F 04/16/18 13:25 Pulse Rate 90 04/16/18 13:25 Respiratory Rate 20 04/16/18 13:25 Blood Pressure 126/65 04/16/18 13:25 O2 Sat by Pulse Oximetry (%) 98 04/16/18 09:00 Constitutional: Yes: No Distress, Obese Cardiovascular: Yes: Regular Rate and Rhythm Respiratory: Yes: Regular, Poor Air Entry Gastrointestinal: Yes: Normal Bowel Sounds, Soft Musculoskeletal: Yes: WNL Extremities: Yes: WNL Neurological: Yes: Alert, Other Psychiatric: Yes: Alert Labs: CBC, BMP 04/16/18 06:30 04/16/18 06:30 INR, PTT INR 1.29 (0.83-1.09) H 03/28/18 08:10 Assessment/Plan Problem List - Problems (1) PARMINDER (acute kidney injury) Code(s): N17.9 - ACUTE KIDNEY FAILURE, UNSPECIFIED (2) Hodgkin lymphoma Code(s): C81.90 - HODGKIN LYMPHOMA, UNSPECIFIED, UNSPECIFIED SITE (3) Morbidly obese Code(s): E66.01 - MORBID (SEVERE) OBESITY DUE TO EXCESS CALORIES (4) Sepsis Code(s): A41.9 - SEPSIS, UNSPECIFIED ORGANISM (5) UTI (urinary tract infection) Code(s): N39.0 - URINARY TRACT INFECTION, SITE NOT SPECIFIED (6) Weakness Code(s): R53.1 - WEAKNESS (7) Anemia Code(s): D64.9 - ANEMIA, UNSPECIFIED Qualifiers: Anemia type: unspecified type Qualified Code(s): D64.9 - Anemia, unspecified (8) BPH (benign prostatic hyperplasia) Code(s): N40.0 - BENIGN PROSTATIC HYPERPLASIA WITHOUT LOWER URINRY TRACT SYMP Assessment/Plan 87 y.o. male presenting from [place] with weakness/altered mental status, poor oral intake, fevers, and lactic acidosis Sepsis - unclear source Fever Lactic acidosis BPH Hx of Hodgkins Lymphoma PARMINDER Hypothyroidism plan off of abx watch for fevers being treated for high calclum wound care rest as per the team
--- NOTE | 2018-04-16 17:04 | PN ---
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, Physician History of Present Illness: Pt seen and examined at bedside. He is awake and appears comfortable. - Current Medication List Current Medications: Active Medications Acetaminophen (Tylenol -) 650 mg PO Q4H PRN PRN Reason: FEVER/PAIN LEVEL 1-5 Last Admin: 04/16/18 05:48 Dose: 650 mg Ascorbic Acid (Vitamin C -) 500 mg PO BID [facility] Last Admin: 04/16/18 09:04 Dose: 500 mg Collagenase (Santyl -) 1 applic TP DAILY [facility]; Protocol Last Admin: 04/16/18 09:04 Dose: 1 applic Cyanocobalamin (Vitamin B12 -) 1,000 mcg PO DAILY [facility] Last Admin: 04/16/18 09:04 Dose: 1,000 mcg Levothyroxine Sodium (Synthroid -) 25 mcg PO 0700 [facility] Last Admin: 04/16/18 06:25 Dose: 25 mcg Nystatin (Nystop Powder -) 1 applic TP DAILY [facility] Last Admin: 04/16/18 09:05 Dose: 1 applic Ranitidine HCl (Zantac -) 150 mg PO DAILY [facility] Last Admin: 04/16/18 09:04 Dose: 150 mg Scopolamine HBr (Transderm-Scop -) 1 patch TD Q72H [facility] Tamsulosin HCl (Flomax -) 0.4 mg PO 0830 [facility] Last Admin: 04/16/18 08:53 Dose: 0.4 mg - Objective Vital Signs: Vital Signs Temperature 99.3 F 04/16/18 13:25 Pulse Rate 90 04/16/18 13:25 Respiratory Rate 20 04/16/18 13:25 Blood Pressure 126/65 04/16/18 13:25 O2 Sat by Pulse Oximetry (%) 98 04/16/18 09:00 Constitutional: Yes: Calm Eyes: Yes: Conjunctiva Clear HENT: Yes: Atraumatic Neck: Yes: Supple Cardiovascular: Yes: S1, S2 Respiratory: Yes: On Nasal O2 Gastrointestinal: Yes: Normal Bowel Sounds, Soft, Abdomen, Obese Genitourinary: Yes: Incontinence Musculoskeletal: Yes: Muscle Weakness Edema: No Neurological: Yes: Confusion Labs: CBC, BMP 04/16/18 06:30 04/16/18 06:30 INR, PTT INR 1.29 (0.83-1.09) H 03/28/18 08:10 Problem List - Problems (1) PARMINDER (acute kidney injury) Code(s): N17.9 - ACUTE KIDNEY FAILURE, UNSPECIFIED (2) Decubitus ulcer Code(s): L89.90 - PRESSURE ULCER OF UNSPECIFIED SITE, UNSPECIFIED STAGE Qualifiers: Pressure injury location: sacral region Pressure injury stage: stage 3 Qualified Code(s): L89.153 - Pressure ulcer of sacral region, stage 3 (3) Dehydration Code(s): E86.0 - DEHYDRATION (4) Hodgkin lymphoma Code(s): C81.90 - HODGKIN LYMPHOMA, UNSPECIFIED, UNSPECIFIED SITE Qualifiers: Hodgkin lymphoma type: unspecified type (5) Hypercalcemia Code(s): E83.52 - HYPERCALCEMIA (6) Hypernatremia Code(s): E87.0 - HYPEROSMOLALITY AND HYPERNATREMIA (7) Hypokalemia Code(s): E87.6 - HYPOKALEMIA (8) Hypothyroid Code(s): E03.9 - HYPOTHYROIDISM, UNSPECIFIED Qualifiers: Hypothyroidism type: acquired Qualified Code(s): E03.9 - Hypothyroidism, unspecified (9) Sepsis Code(s): A41.9 - SEPSIS, UNSPECIFIED ORGANISM Qualifiers: Sepsis type: sepsis due to unspecified organism Qualified Code(s): A41.9 - Sepsis, unspecified organism (10) BPH (benign prostatic hyperplasia) Code(s): N40.0 - BENIGN PROSTATIC HYPERPLASIA WITHOUT LOWER URINRY TRACT SYMP Assessment/Plan Current Medications Generic Name Dose Route Start Last Admin Trade Name Freq PRN Reason Stop Dose Admin Acetaminophen 650 mg 03/27/18 22:00 04/16/18 05:48 Tylenol - PO 650 mg Q4H PRN Administration FEVER/PAIN LEVEL 1-5 Ascorbic Acid 500 mg 03/27/18 22:00 04/16/18 09:04 Vitamin C - PO 500 mg BID MICHELLE Administration Collagenase 1 applic 03/30/18 12:00 04/16/18 09:04 Santyl - TP 1 applic DAILY MICHELLE Administration Protocol Cyanocobalamin 1,000 mcg 03/28/18 10:00 04/16/18 09:04 Vitamin B12 - PO 1,000 mcg DAILY MICHELLE Administration Levothyroxine Sodium 25 mcg 03/28/18 07:00 04/16/18 06:25 Synthroid - PO 25 mcg 0700 MICHELLE Administration Nystatin 1 applic 04/06/18 13:15 04/16/18 09:05 Nystop Powder - TP 1 applic DAILY MICHELLE Administration Ranitidine HCl 150 mg 03/28/18 10:00 04/16/18 09:04 Zantac - PO 150 mg DAILY MICHELLE Administration Scopolamine HBr 1 patch 04/16/18 11:45 Transderm-Scop - TD Q72H [facility]HELLE Tamsulosin HCl 0.4 mg 03/28/18 08:30 04/16/18 08:53 Flomax - PO 0.4 mg 0830 MICHELLE Administration Impression 1. PARMINDER resolving 2. hypernatremia 3. hypercalcemia 4. hypokalemia 5. BPH 6. hodgkins lymphoma 7. sacral decub 8. sepsis 9. obesity 10. anemia Plan - family have decided for comfort measure - [facility] discussed with medical team - will follow PRN - hypercalcemia likely from malignancy - pt received zometa and is on calcitonin
[2018-04-16 17:09] VITALS: PULSE 98
[2018-04-16 17:41] VITALS: BP 115/55; TEMP 98
== END 2018-04-16 17:40 | DRG 871 ==
LOC: JER 18:25 → JERBED 21:31 → J7W 03-28 01:10
PROVIDERS: ADMIT Internal Medicine; ATTEND Internal Medicine
DX: A41.9 Sepsis, unspecified organism (principal); L89.153 Pressure ulcer of sacral region, stage 3; G93.41 Metabolic encephalopathy; E87.0 Hyperosmolality and hypernatremia; N17.9 Acute kidney failure, unspecified; N39.0 Urinary tract infection, site not specified; C81.90 Hodgkin lymphoma, unspecified, unspecified site; E87.2 Acidosis; J98.11 Atelectasis; E03.9 Hypothyroidism, unspecified; E66.01 Morbid (severe) obesity due to excess calories; Z68.38 Body mass index [BMI] 38.0-38.9, adult; K59.00 Constipation, unspecified; E86.0 Dehydration; E83.52 Hypercalcemia; E87.6 Hypokalemia; N40.0 Benign prostatic hyperplasia without lower urinary tract symptoms; R62.7 Adult failure to thrive; D64.9 Anemia, unspecified; R53.1 Weakness
CPT/HCPCS: 36415; 36600; 71045-TC-FY; 74018-TC-FY; 76775-TC; 76856-TC; 80048; 80053; 80076; 81003; 81015; 82310; 82397; 82803; 82962; 83036; 83605; 83735; 83970; 84100; 84443; 84484; 85025; 85610; 85730; 87040; 87070; 87077; 87086; 87186; 87205; 93005; 93010; 94640; 97161-GP; 99283-25; E0186; J0131; J3489; J7030